=== PATIENT | female | born 1985 | race Caucasian/White ===

== ENCOUNTER 2022-05-21 01:21 | Emergency (ER) | payer BC, SELFPAY ==
[2022-05-21 01:32] VITALS: BP 135/82; PULSE 85; RESP 18; TEMP 35.9; O2SAT 98
--- NOTE | 2022-05-21 02:02 | CRLHL7_ITS ---
For Patients: As a result of the Cures Act, medical imaging exams and procedure reports are released immediately into your electronic medical record. You may view this report before your referring provider. If you have questions, please contact your health care provider. INDICATION: Right sided abdominal pain TECHNIQUE: CT Abdomen and pelvis with i.v. contrast. Coronal and sagittal reformats were obtained. CONTRAST: 91 mL Isovue 370 COMPARISON: 03/12/2021 FINDINGS: Lower chest: Unremarkable. Liver: Unremarkable. Spleen: Unremarkable. Pancreas: Unremarkable. Gallbladder: Unremarkable. Kidney: Unremarkable. No kidney or ureteral stones or obstruction seen. Adrenal: Unremarkable. Bowel: Unremarkable. The appendix is not identified. A small fat containing right paraumbilical hernia is present without interval change. Vascular: Unremarkable. Lymph: Unremarkable. Peritoneum: Unremarkable. No pneumoperitoneum is seen. No significant ascites is noted. Pelvis: The patient is status post hysterectomy. Soft tissue: Unremarkable. Bone: Unremarkable for age. IMPRESSION: 1. No CT correlate for the patient`s symptoms seen. Dictated by Moi Nelson MD @ 05/21/2022 3:02:13 AM Please note that all CT scans at this facility use dose modulation, iterative reconstruction, and/or weight-based dosing when appropriate to reduce radiation dose to as low as reasonably achievable. Dictated by: Moi Nelson MD @ 05/21/2022 03:02:19 (Electronically Signed)
--- NOTE | 2022-05-21 02:03 | ED.GENADULT ---
HPI - General Adult General Date Seen: 05/21/22 Chief complaint: Abdominal Pain Stated complaint: Pain on rt side Time Seen by Provider: 05/21/22 01:29 Source: patient Mode of arrival: ambulatory Limitations: no limitations History of Present Illness HPI narrative: Patient is a 36-year-old female who comes in with two weeks of right-sided abdominal pain. She has tried Tylenol, ibuprofen, naproxen all without relief. She denies any relation to meals. Her bowels move regularly and she denies constipation or diarrhea. She denies any dysuria, urgency, frequency. She has had no fevers or chills. Pain got worse tonight and it was difficult for her to sit up without pain. She comes in after midnight with inability to sleep due to this discomfort. She has had no weight loss. She has had multiple previous abdominal surgeries due to ovarian cancer. She has had a TAHBSO about two years ago. She is currently only on venlafaxine for hot flashes. She has a history of acid reflux but does not mention that tonight. She has not had any labs done in over six months. She follows with an oncologist in the [facility]. She states that her local PCP has been gone for the past eight weeks. Related Data Home Medications Medication Instructions Recorded Confirmed multivitamin 1 tab PO QDAY 03/13/22 03/13/22 omeprazole 40 mg capsule,delayed 40 mg PO QDAY 03/13/22 03/13/22 release venlafaxine 75 mg tablet 75 mg PO QDAY 03/13/22 03/13/22 Previous Rx's Medication Instructions Recorded hydrocodone 5 mg-acetaminophen 325 1 tab PO Q4-6H PRN pain #10 tabs 05/21/22 mg tablet Allergies Allergy/AdvReac Type Severity Reaction Status Date / Time codeine Allergy Intermediate Verified 05/21/22 02:40 gabapentin Allergy Intermediate Hives Verified 05/21/22 02:40 Tramadol Allergy Intermediate Headache, Uncoded 05/21/22 02:40 rashes Review of Systems Status of ROS: Reports: 10 or more systems reviewed and unremarkable except as noted in History and below PFS PFS Social History Smoking Status: Never smoker Second hand tobacco smoke exposure: No How often do you have a drink containing alcohol: never AUDIT-C Alcohol total score: 0 Non-prescribed substance use: denies use service: No Exam Narrative: Exam Narrative: Vitals noted. Lungs: Clear to auscultation in all mazariegos. No wheezes, rales, rhonchi. Heart: Regular rate and rhythm without murmur. Abdomen: Obese, Soft. No guarding, rigidity, rebound. Bowel sounds are normal. No palpable masses. She has a midline abdominal scar that is well-healed. Extremities: No cyanosis or edema. Good distal pulses. Skin: No abnormalities noted of the exposed skin. Neurologic: Awake, alert, fully oriented. Neurologic exam is nonfocal. Const: Vital Signs, click to edit/add: Vital Signs - 24 hr 05/21/22 01:32 Temperature 96.7 F L Pulse Rate [Left F emoral] 85 Respiratory Rate 18 Blood Pressure [Ri ght Upper Arm] 135/82 Pulse Oximetry 98 Oxygen Delivery Me thod Room Air Course Course Hospital Course: Patient is seen and examined. Labs and CT of her abdomen and pelvis with IV contrast are ordered. She is given Toradol 30 mg IV for pain. Reevaluation(s) Reevaluation #1: Labs are all normal other than a minimally elevated lipase. CT shows a small periumbilical hernia this likely not the cause of her pain. Toradol did help some but she states that pain is still present. She is reassured by all of the normal results. She acknowledges that she was fearful that this represented recurrent cancer and she just missed her oncology appointment a week ago. I have encouraged her to reschedule that appointment. Vital Signs Vital signs: Initial Vital Signs Temperature 96.7 F L 05/21/22 01:32 Temperature Source Temporal Artery Scan 05/21/22 01:32 Pulse Rate 85 05/21/22 01:32 Pulse Rhythm 05/21/22 01:32 Respiratory Rate 18 05/21/22 01:32 Blood Pressure 135/82 05/21/22 01:32 Blood Pressure Mean 99 05/21/22 01:32 Blood Pressure Position Semi-Fowlers 05/21/22 01:32 Pulse Oximetry 98 05/21/22 01:32 Oxygen Delivery Method 05/21/22 01:32 Vital Signs Temperature 96.7 F L 05/21/22 01:32 Pulse Rate 85 05/21/22 01:32 Respiratory Rate 18 05/21/22 01:32 Blood Pressure 135/82 05/21/22 01:32 Pulse Oximetry 98 05/21/22 01:32 Oxygen Delivery Method 05/21/22 01:32 Temperature 96.7 F L 05/21/22 01:32 Pulse Rate 85 05/21/22 01:32 Respiratory Rate 18 05/21/22 01:32 Blood Pressure 135/82 05/21/22 01:32 Pulse Oximetry 98 05/21/22 01:32 Oxygen Delivery Method 05/21/22 01:32 Medical Decision Making MDM Narrative Medical decision making narrative: We discussed that her scan in labs are all reassuring in that there is no evidence of recurrent cancer. I suspect that this is intestinal pain. We discussed a bland diet and increased fiber. I did provide her with some Hillburn for refractory pain. Lab Data Labs: Lab Results 05/21/22 05/21/22 05/21/22 Range/Units 02:13 02:13 03:00 WBC 5.86 (4.50-11.00) K/uL RBC 4.74 (4.00-5.20) m/uL Hgb 14.6 (12.0-16.0) gm/dL Hct 41.7 (33.0-51.0) % MCV 88 (80-100) fL MCH 31 (26-34) pg MCHC 35 (32-36) gm/dL RDW Coeff of Nadiya 12.3 (11.5-15.5) % Plt Count 209 (140-440) K/uL Neut % (Auto) 47.3 (42.0-72.0) % Lymph % (Auto) 38.9 (20-44) % [place] % (Auto) 7.7 (0.0-11.0) % Eos % (Auto) 4.6 (0.0-7.0) % Baso % (Auto) 1.2 (0.0-3.0) % Neut # (Auto) 2.77 (1.7-7.0) K/uL Lymph # (Auto) 2.28 (0.90-2.90) K/uL [place] # (Auto) 0.50 (0.00-0.90) K/UL Eos # (Auto) 0.27 (0.00-0.50) K/uL Baso # (Auto) 0.07 (0.00-0.30) K/uL Abs Immat Gran (auto) 0.02 (0.00-0.30) K/uL Sodium 143 (135-149) mmol/L Potassium 3.7 (3.6-5.1) mmol/L Chloride 103 (96-114) mmol/L Carbon Dioxide 23 (20-32) mmol/L BUN 14 (5-24) mg/dL Creatinine 0.8 (0.5-1.5) mg/dL Estimated GFR 98 ml/min Glucose 90 (60-115) mg/dL Calcium 8.5 (8.4-10.6) mg/dL Total Bilirubin 0.3 (0.1-1.5) mg/dL Direct Bilirubin 0.1 (0.0-0.5) mg/dL AST 32 (12-35) U/L ALT 30 (4-35) U/L Alkaline Phosphatase 106 (40-150) U/L Total Protein 8.2 (6.0-8.3) g/dL Albumin 4.9 (3.3-5.0) g/dL Lipase 346 H (23-300) U/L Urine Color Yellow (Yellow) Urine Appearance Clear (Clear) Urine pH 5.0 (5.0-8.5) Ur Specific [place] 1.010 (1.000-1.030) Urine Protein Negative (Negative) Urine Glucose (UA) Negative (Negative) Urine Ketones Trace A (Negative) Urine Blood Trace-lysed A (Negative) Urine Nitrite Negative (Negative) Urine Bilirubin Negative (Negative) Urine Urobilinogen 0.2 (0.2-1.0) Ur Leukocyte Esterase Negative (Negative) Urine RBC 0-2 (0-2) Urine WBC 0-2 (0-5) Ur Squamous Epith Cells Few (None-Few) Urine Bacteria None (None) Discharge Plan Discharge Clinical Impression: Abdominal pain Patient Disposition: Home, Self-Care Condition: Stable Additional Instructions: Use Ibuprofen and [place] for pain. If no better over the next 2-3 days follow up with your PCP or your Oncologist. Prescriptions: New hydrocodone-acetaminophen 5-325 mg tablet 1 tab PO Q4-6H PRN (Reason: pain) Qty: 10 0RF No Action omeprazole 40 mg capsule,delayed release(DR/EC) 40 mg PO QDAY venlafaxine 75 mg tablet 75 mg PO QDAY multivitamin Tablet 1 tab PO QDAY Follow Up/Referrals: Shanti Lara, REEL AND REWINDER OPERATOR [Primary Care Provider] - Stand Alone Forms: My[facility] Info Instructions
[2022-05-21 02:28] LABS: Basophils Absolute Auto 0.07 K/uL (0.00-0.30); Basophils Percent Auto 1.2 % (0.0-3.0); Eosinophils Absolute Auto 0.27 K/uL (0.00-0.50); Eosinophils Percent Auto 4.6 % (0.0-7.0); Hematocrit 41.7 % (33.0-51.0); Hemoglobin* 14.6 gm/dL (12.0-16.0); Immature Granulocytes Abs Auto 0.02 K/uL (0.00-0.30); Lymphocytes Absolute Auto 2.28 K/uL (0.90-2.90); Lymphocytes Percent Auto 38.9 % (20-44); Mean Corpuscular HGB Conc 35 gm/dL (32-36); Mean Corpuscular Hemoglobin 31 pg (26-34); Mean Corpuscular Volume 88 fL (80-100); Monocytes Percent Auto 7.7 % (0.0-11.0); Neutrophils Absolute Auto 2.77 K/uL (1.7-7.0); Neutrophils Percent Auto 47.3 % (42.0-72.0); Platelet Count* 209 K/uL (140-440); RDW Coefficient of Variation % 12.3 % (11.5-15.5); Red Blood Count 4.74 m/uL (4.00-5.20); Slide Review Reflex No; White Blood Count* 5.86 K/uL (4.50-11.00)
[2022-05-21] MEDS: KETOROLAC 30 MG/ML inj IVP (02:31)
[2022-05-21 02:37] LABS: Albumin* 4.9 g/dL (3.3-5.0); Chloride* 103 mmol/L (96-114); Potassium* 3.7 mmol/L (3.6-5.1); Sodium* 143 mmol/L (135-149)
[2022-05-21 02:39] LABS: Creatinine* 0.8 mg/dL (0.5-1.5); Estimated Glomerular Filt Rate 98 ml/min
[2022-05-21 02:40] LABS: Alanine Aminotransferase* 30 U/L (4-35); Alkaline Phosphatase* 106 U/L (40-150); Aspartate Amino Transferase* 32 U/L (12-35); Bilirubin Direct* 0.1 mg/dL (0.0-0.5); Bilirubin Total* 0.3 mg/dL (0.1-1.5); Blood Urea Nitrogen* 14 mg/dL (5-24); Calcium* 8.5 mg/dL (8.4-10.6); Carbon Dioxide* 23 mmol/L (20-32); Glucose* 90 mg/dL (60-115); Lipase* 346 U/L (23-300); Total Protein* 8.2 g/dL (6.0-8.3)
[2022-05-21 03:04] LABS: Appearance Urine Clear (Clear); Bilirubin Urine Negative (Negative); Blood Urine Trace-lysed (Negative); Color Urine Yellow (Yellow); Glucose Urine Negative (Negative); Ketones Urine Trace (Negative); Leukocyte Esterase Urine Negative (Negative); Nitrite Urine Negative (Negative); Protein Urine Negative (Negative); Urobilinogen Urine 0.2 (0.2-1.0)
[2022-05-21 03:13] LABS: RBC Urine 0-2 (0-2); Squamous Epithelial Cell Urine Few (None-Few); WBC Urine 0-2 (0-5)
[2022-05-21 03:50] VITALS: BP 126/66; PULSE 82; RESP 16; O2SAT 96
== END 2022-05-21 03:55 | disposition home or self-care (01) ==
PROVIDERS: Emergency Provider Family Medicine; PCP Nurse Practitioner Family
DX: R10.9 Unspecified abdominal pain (principal)
CPT/HCPCS: 36415; 74177; 80048; 80076; 81003; 81015; 83690; 85025; 96374; 99283; 99284; J1885; Q9967

== ENCOUNTER 2023-02-25 09:30 | Outpatient (CLI) | payer BC, SELFPAY ==
--- NOTE | 2023-02-25 10:00 | CRLHL7_ITS ---
For Patients: As a result of the Century Cures Act, medical imaging exams and procedure reports are released immediately into your electronic medical record. You may view this report before your referring provider. If you have questions, please contact your health care provider. Indication: ABDOMINAL PAIN Technique: Postcontrast CT abdomen and pelvis. 97 cc Isovue 370 intravenous contrast. Please note that all CT scans at this facility use dose modulation, iterative reconstruction, and/or weight-based dosing when appropriate to reduce radiation dose to as low as reasonably achievable. Comparison: 05/21/2022 Findings: Lung bases are clear. No infiltrate or pleural effusion. Mild diffuse hepatic steatosis. Focus of fat deposition within the liver adjacent to the falciform ligament is incidentally noted. The spleen is similar. Normal pancreas. Adrenal glands normal. Kidneys within normal limits. Normal gallbladder. No retroperitoneal or mesenteric adenopathy. No pelvic or inguinal adenopathy. The bladder is normal. Uterus is absent. No bowel obstruction or free air. No free fluid. Postoperative changes to the anterior abdominal wall, including anterior abdominal wall hernia repair. No fluid collection or abscess. No recurrent hernia. Disc bulging at L5-S1. This is similar to the prior study. Impression: Postop changes of anterior abdominal wall hernia repair without recurrent hernia, fluid collection, abscess or inflammatory change. No bowel obstruction. No evidence of diverticulitis. Mild hepatic steatosis. Please note that all CT scans at this facility use dose modulation, iterative reconstruction, and/or weight-based dosing when appropriate to reduce radiation dose to as low as reasonably achievable. Dictated by Ivan Hendricks MD @ 02/25/2023 3:18:45 PM (Electronically Signed)
== END 2023-02-25 09:31 | disposition home or self-care (01) ==
LOC: CT 09:30
PROVIDERS: PCP Nurse Practitioner Family; Visit Provider Surgery
DX: R10.9 Unspecified abdominal pain (principal); K76.0 Fatty (change of) liver, not elsewhere classified
CPT/HCPCS: 74177; Q9967

== ENCOUNTER 2023-03-16 06:23 | Outpatient (CLI) | payer BC, SELFPAY ==
--- NOTE | 2023-03-16 07:55 | W.ANESCHARGE ---
Anesthesia Charges Start Date/Time Anesthesia Start Date: 03/16/23 Anesthesia Start Time: 07:30 Stop Date/Time Anesthesia Stop Date: 03/16/23 Anesthesia Stop Time: 07:50
--- NOTE | 2023-03-16 08:22 | W.ANESCHARGE ---
Anesthesia Charges Start Date/Time Anesthesia Start Date: 03/16/23 Anesthesia Start Time: 07:30 Stop Date/Time Anesthesia Stop Date: 03/16/23 Anesthesia Stop Time: 07:50
== END 2023-03-16 06:24 | disposition home or self-care (01) ==
LOC: OP CLINIC 06:24
PROVIDERS: PCP Nurse Practitioner Family; Visit Provider Surgery
DX: R19.8 Other specified symptoms and signs involving the digestive system and abdomen (principal); K31.89 Other diseases of stomach and duodenum
CPT/HCPCS: 00731; 43239; 88305; J2704; J3490

== ENCOUNTER 2023-03-22 19:59 | Emergency (ER) | payer BC, SELFPAY ==
[2023-03-22 20:19] VITALS: BP 147/102; PULSE 97; RESP 20; TEMP 36.2; O2SAT 95; BMI 36.6
[2023-03-22] MEDS: cephALEXin 500 MG CAPSULE PO (23:21)
--- NOTE | 2023-03-22 23:24 | ED.NURSE ---
Patient's sutures dressed with gauze, bacitracin applied, both index and middle finger splinted.
[2023-03-22] MEDS: TETANUS/DIPHTH/PERTUSSIS 0.5 ML SYRINGE IM (23:46)
--- NOTE | 2023-03-23 01:29 | ED.GENADULT ---
HPI - General Adult General Date Seen: 03/22/23 Chief complaint: Laceration/Wound Stated complaint: finger lacerations Time Seen by Provider: 03/22/23 22:06 History of Present Illness HPI narrative: This is a pleasant 37-year-old female with a past medical history of cancer with subsequent hysterectomy and oophorectomy, but otherwise generally healthy, not anticoagulated. She presents to the ER today for accidental lacerations affecting the dorsal aspect of her left hand 2nd digit and 3rd digit over the dorsum of the PIP joints. She apparently accidentally cut herself on those fingers well she was cutting up vegetables for [employer] tonight. She is not up-to-date on her tetanus. She suffered a fairly large laceration over the dorsum of the PIP of her index finger. It was bleeding briskly it is quite uncomfortable. No associated numbness in that finger. She has a smaller laceration of the dorsum of the PIP on her ring finger. This is not as painful. Related Data Home Medications Medication Instructions Recorded Confirmed multivitamin 1 tab PO QDAY 03/13/22 02/17/23 omeprazole 40 mg capsule,delayed 40 mg PO QDAY 03/13/22 02/17/23 release Previous Rx's Medication Instructions Recorded venlafaxine 75 mg capsule,extended 75 mg PO QAM #90 caps 09/03/22 release 24 hr cephalexin 500 mg capsule 500 mg PO QID 7 days #28 caps 03/22/23 Allergies Allergy/AdvReac Type Severity Reaction Status Date / Time codeine Allergy Intermediate Verified 03/22/23 20:22 gabapentin Allergy Intermediate Hives Verified 03/22/23 20:22 Tramadol Allergy Intermediate Headache, Uncoded 02/17/23 11:34 rashes PFSH PFS Medical History Periumbilical hernia ?K42.9 - Umbilical hernia without obstruction or gangrene (ICD-10) Swelling of left knee joint ?M25.462 - Effusion, left knee (ICD-10) Surgical History History of hysterectomy ?Z90.710 - Acquired absence of both cervix and uterus (ICD-10) S/P repair of ventral hernia ?Z98.890 - Other specified postprocedural states (ICD-10) ?Z87.19 - Personal history of other diseases of the digestive system (ICD-10) S/P hysterectomy with oophorectomy ?Z90.710 - Acquired absence of both cervix and uterus (ICD-10) ?Z90.721 - Acquired absence of ovaries, unilateral (ICD-10) Social History (Updated 02/17/23 @ 12:24 by An Barker MD) 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 No alcohol Smoking Status: Never smoker Second hand tobacco smoke exposure: No How often do you have a drink containing alcohol: never AUDIT-C Alcohol total score: 0 Non-prescribed substance use: denies use service: No Exam Narrative: Exam Narrative: Constitutional: Appears well-developed and well-nourished. Alert. Conversant. Non toxic. HENT: Head: Atraumatic. Nose: Nose normal. Mouth/Throat: Oral mucosa is clear and moist. no trismus. Pharynx normal. Tonsils symmetric. No tonsillar enlargement, erythema, or exudate. Eyes: Conjunctivae normal. EOM normal. Pupils equal, round, and reactive to light. No scleral icterus. Neck: Normal range of motion. Neck supple. No tracheal deviation present. Cardiovascular: Symmetric radial artery pulses . Brisk distal cap refill in the fingertips of the injured digits. No active bleeding. Pulmonary/Chest: Effort normal. No stridor. No respiratory distress. Abdominal: Soft. Bowel sounds normal. No distension. No mass. No tenderness. No rebound. No guarding. Musculoskeletal: RUE: Normal range of motion. No tenderness. No deformity LUE: Normal except for a left hand 2nd and 3rd digits. On the 2nd digit there is a roughly 1.5 cm curvilinear laceration over the dorsum of the PIP joint. After digital block I inspected the wound carefully. This does create a flap of tissue in the wound does appear to penetrate through the extensor tendon and into the joint. She is able to flex the PIP joint but has difficulty extending the PIP. She is not able to flex and extend her D IP joint. Intact radial and ulnar digital nerve sensory function. She has a 1 cm linear laceration penetrating through the epidermis and dermis but not down into the tendon or joint on the dorsum of the PIP of her 3rd digit. Intact flexion extension of the MCP, PIP, DI P. Intact radial and ulnar digital nerve sensory function. RLE: Normal range of motion. No edema. No tenderness. No deformity LLE: Normal range of motion. No edema. No tenderness. No deformity Neurological: Alert and oriented to person, place, and time. Normal strength. CN II-VII intact. No sensory deficit. GCS eye subscore is 4. GCS verbal subscore is 5. GCS motor subscore is 6. Normal coordination Skin: Skin is warm and dry. No rash noted. No pallor. Normal capillary refill. Psychiatric: Normal mood. Normal affect. Const: Vital Signs, click to edit/add: Vital Signs - 24 hr 03/22/23 20:19 Temperature 97.1 F L Pulse Rate [Right Pulse Oximeter] 97 Respiratory Rate 20 Blood Pressure [Ri ght Upper Arm] 147/102 H Pulse Oximetry 95 Oxygen Delivery Me thod Room Air Course Vital Signs Vital signs: Initial Vital Signs Temperature 97.1 F L 03/22/23 20:19 Temperature Source Temporal Artery Scan 03/22/23 20:19 Pulse Rate 97 03/22/23 20:19 Pulse Rhythm Regular 03/22/23 20:19 Pulse Strength 3+ Normal 03/22/23 20:19 Respiratory Rate 20 03/22/23 20:19 Blood Pressure 147/102 H 03/22/23 20:19 Blood Pressure Mean 117 H 03/22/23 20:19 Blood Pressure Position Sitting 03/22/23 20:19 Pulse Oximetry 95 03/22/23 20:19 Oxygen Delivery Method Room Air 03/22/23 20:19 Vital Signs Temperature 97.1 F L 03/22/23 20:19 Pulse Rate 97 03/22/23 20:19 Respiratory Rate 20 03/22/23 20:19 Blood Pressure 147/102 H 03/22/23 20:19 Pulse Oximetry 95 03/22/23 20:19 Oxygen Delivery Method Room Air 03/22/23 20:19 Temperature 97.1 F L 03/22/23 20:19 Pulse Rate 97 03/22/23 20:19 Respiratory Rate 20 03/22/23 20:19 Blood Pressure 147/102 H 03/22/23 20:19 Pulse Oximetry 95 03/22/23 20:19 Oxygen Delivery Method Room Air 03/22/23 20:19 Medical Decision Making MDM Narrative Medical decision making narrative: Procedure: Laceration repair Location: Left hand 3rd digit, dorsum of PIP joint Length: 1 cm Preparation: Scrubbing and irrigation with sterile saline and Hibiclens Anesthesia: Digital block using 3 mL of 0.25% bupivacaine without epi Wound repair: Closed using#2 5 0 Ethilon simple interrupted sutures Procedure: Laceration repair Location: Left hand, 2nd digit, dorsum of the PIP joint Length: 1.5 cm Perforation: Scrubbing and irrigation with sterile saline and Hibiclens Anesthesia: Digital block using 3 mL of 0.25% bupivacaine without epi Wound repair: Wound was closed using#4 5 0 Ethilon simple interrupted sutures. My evaluation does show signs of joint and extensor tendon injury. Findings and exam are consistent with an uncomplicated laceration to the dorsum of the left hand, 3rd digit which was repaired as noted above. There is no evidence at this time to suggest any associated fracture or foreign body. There is no evidence to suggest tendon or arterial injury and patient is neurologically in tact. She also has a deeper laceration affecting the 2nd digit. I do think this involves the joint space of the PIP joint and the extensor tendon of that digit. Skin was closed as above. Will start the patient on prophylactic antibiotics. Discussed with our on-call orthopedic provider. She will arrange for the patient have follow-up in orthopedic clinic and they believe they would be able to repair the extensor tendon injury here in the [place] [facility]. The patient is to follow up for suture removal as instructed in 10 days. Indications to seek urgent reevaluation and signs of infection (including but not limited to increasing pain, redness, swelling, fevers, and drainage) were reviewed. Tetanus is updated tonight. Although is a clean and non-contaminated wound in since the wound penetrates down to the tendon and joint, we will initiate prophylactic antibiotics. First dose of cephalexin provided here.. An understanding of the discharge instructions and need for follow up were verbally confirmed. Instymeds prescriptions for [place] provided. Opiate precautions sedation precautions reviewed. Discharge Plan Discharge Clinical Impression: Finger laceration, Extensor tendon laceration, finger, open wound Patient Disposition: Home, Self-Care Condition: Stable Instructions: Finger Laceration (ED), Tendon Laceration (ED) Additional Instructions: He will need to have your stitches removed in 10 days. Unfortunately we see signs that you injured the knuckle joint and the tendon that extends your index finger. You will need to have this injury repaired by Orthopedics. For wound care, keep the antibiotic ointment and dressings on today. It is located take the dressings off on Thursday, clean the wound gently with warm water. Let the wound dry. Reapply antibiotic ointment, bandage is or dressings and reapply the splints. Try to keep the splint on to protect her finger knuckles from bending and plan upper the wounds until you can be rechecked by Orthopedics. Please continue the preventative antibiotics to keep infections from setting in in your fingers. If you have any signs of redness, swelling, pus coming from the wounds, fever, or any concerns, see your orthopedic doctor or return to the ER right away. Use the prescription pain killer ([place]) if needed for pain. Be careful because this causes drowsiness, so do not drive a car or perform dangerous activities for 6 hours after taking this medicine. This medicine can be addictive. Please follow up with the [facility] clinic within 1-2 days to recheck for your tendon injury. call [phone] Prescriptions: New cephalexin 500 mg capsule 500 mg PO QID 7 Days Qty: 28 0RF No Action venlafaxine 75 mg capsule,extended release 24hr 75 mg PO QAM Qty: 90 3RF omeprazole 40 mg capsule,delayed release(DR/EC) 40 mg PO QDAY multivitamin Tablet 1 tab PO QDAY Follow Up/Referrals: Shanti Lara RELAY TESTER [Primary Care Provider] - Stand Alone Forms: [employer] Info Instructions
== END 2023-03-22 23:55 | disposition home or self-care (01) ==
PROVIDERS: Emergency Provider Emergency Medicine; PCP Nurse Practitioner Family
DX: S61.211A Laceration without foreign body of left index finger without damage to nail, initial encounter (principal); S61.213A Laceration without foreign body of left middle finger without damage to nail, initial encounter; W26.0XXA Contact with knife, initial encounter; Z23 Encounter for immunization
CPT/HCPCS: 12001; 90471; 90715; 99283; A9270

== ENCOUNTER 2023-03-31 09:46 | Day surgery (SDC) | payer BC, SELFPAY ==
[2023-03-31] VITALS (13 sets, daily range): BP systolic 130–178; BP diastolic 77–99; PULSE 67–98; RESP 16–20; TEMP 36.3–36.7; O2SAT 96–100; BMI 35.4
[2023-03-31] MEDS: LACTATED RINGERS 1000 ML 1,000 ML 35 ML IV (09:50)
[2023-03-31] MEDS: SODIUM CHLORIDE 0.9 % (FLUSH) 10 ML SYRINGE IVF (10:09)
[2023-03-31] MEDS: CEFAZOLIN 2 GM INJ IVP (11:40)
[2023-03-31] MEDS: BUPIVACAINE 0.5% 30 ML INJECTION (12:16)
[2023-03-31] MEDS: lidocaine HCL 2 % MULTIDOSE 20 ML VIAL INJECTION (12:16)
--- NOTE | 2023-03-31 12:58 | P.ORPRC_ITS ---
Procedure Note Date of procedure: 03/31/23 Procedure: PREOPERATIVE DIAGNOSIS: Left hand index finger extensor tendon laceration POSTOPERATIVE DIAGNOSIS: Left hand index finger extensor tendon laceration NAME OF OPERATION: Left hand index finger extensor tendon laceration repair SURGEON: Eduar Venegas MD EXPERT MEDICAL WRITER: YANNI Ceballos ANESTHESIA: Local ESTIMATED BLOOD LOSS: 0 mL COMPLICATIONS: None SPECIMENS: None DRAINS: None PREOPERATIVE ANTIBIOTICS: Ancef 2 gram INDICATIONS: The patient is a 37-year-old [id number] female with a history of an extensor tendon laceration . Primary repair was recommended. The risks, benefits and expected outcomes were discussed in detail. These included but were not limited to: Infection, bleeding, injury to blood vessel or nerve, venous thromboembolism. All questions were answered to their satisfaction. PROCEDURE: The patient was placed supine on the operating room table. Local anesthesia was established with a digital block. The left upper extremity was prepped and draped in the usual sterile fashion. A tournicot was used. The radial side of the laceration was extended distally. We did not extend the laceration proximally. The laceration extends directly through the extensor mechanism, into the PIP joint. The articular cartilage is uninjured. The joint was irrigated with 500 mL of normal saline via bulb syringe. We then repaired the extensor mechanism with a 4-0 FiberWire suture in an interrupted [id number] fashion. Skin was closed with a 4-0 nylon in a simple interrupted fashion. The tournicot was released. A dry dressing and Alumafoam splint were applied. Sponge and needle counts were correct x2. The patient tolerated the procedure well. They were sent to same-day surgery in satisfactory condition. PLAN: The patient will be discharged to home. The intraoperative dressing can be discontinued on postoperative day 3. motion and time study teacher use of the Alumafoam splint, no active range of motion. At 4 weeks some gentle range of motion can be started, with continued splint protection for another 2 weeks. Aggressive flexion at 6 weeks. They will follow up in the office in 2 weeks for a wound check.
== END 2023-03-31 13:10 | disposition home or self-care (01) ==
PROVIDERS: PCP Nurse Practitioner Family; Visit Provider Orthopaedic Surgery
PROC: (CPT 26418; principal; 2023-03-31 10:45)
DX: S66.321A Laceration of extensor muscle, fascia and tendon of left index finger at wrist and hand level, initial encounter (principal)
CPT/HCPCS: 26418; J0665; J0690; J7120

== ENCOUNTER 2023-08-04 14:28 | Emergency (ER) | payer BC, SELFPAY ==
[2023-08-04 14:33] VITALS: BP 137/86; PULSE 98; RESP 18; TEMP 36.6; O2SAT 96; BMI 34.6
--- NOTE | 2023-08-04 14:43 | CRLHL7_ITS ---
For Patients: As a result of the Century Cures Act, medical imaging exams and procedure reports are released immediately into your electronic medical record. You may view this report before your referring provider. If you have questions, please contact your health care provider. Indication: Trauma. Technique: Right ankle, 3 views. Comparison: None. Findings/Impression: Bones: Acute minimally displaced lateral malleolar fracture. Joint spaces: Associated joint effusion. Soft tissues: Associated soft tissue swelling. Dictated by Stanley Kendall MD @ 08/04/2023 3:24:59 PM (Electronically Signed)
--- NOTE | 2023-08-04 14:47 | ED.LOWEXIN ---
HPI - Extremity Injury (Lower) General Chief Complaint: Extremity Pain/Injury, Lower Stated Complaint: R ankle injury Time Seen by Provider: 08/04/23 14:36 History of Present Illness HPI Narrative: This 37-year-old female comes in with an injury to her right ankle. Three days ago she tripped and twisted her ankle. She has been ambulatory since then on this ankle but does have significant swelling and bruising with pain primarily on the lateral aspect of her right ankle. She did not have any other injury related to this incident. Related Data Home Medications Medication Instructions Recorded Confirmed multivitamin 1 tab PO QDAY 03/13/22 08/04/23 omeprazole 40 mg capsule,delayed 40 mg PO QDAY 03/13/22 08/04/23 release Previous Rx's Medication Instructions Recorded venlafaxine 75 mg capsule,extended 75 mg PO QAM #90 caps 06/01/23 release 24 hr celecoxib 100 mg capsule (Celebrex) 100 mg PO BID PRN pain #60 caps 07/28/23 Allergies Allergy/AdvReac Type Severity Reaction Status Date / Time codeine Allergy Intermediate Verified 08/04/23 14:38 gabapentin Allergy Intermediate Hives Verified 08/04/23 14:38 tramadol AdvReac rash, Verified 08/04/23 14:38 headaches Review of Systems Status of ROS: Reports: 10 or more systems reviewed and unremarkable except as noted in History and below Narrative: Constitutional: No fevers, no weight gain or loss. Eyes: No discharge. No vision changes. HENT: No congestion, no sore throat, no ear pain. Cardiovascular: No chest pain, no palpitations. Respiratory: No shortness of breath, no wheezes, no cough. Gastrointestinal: No abdominal pain, no vomiting, no diarrhea. Genitourinary: No dysuria, no hematuria. Musculoskeletal: Right ankle injury as described above. Skin: No rashes, no pruritis. Neurological: No dizziness, weakness, sensory change, speech change. Endo/Heme/Allergies: No bruising or bleeding. No polydipsia. Pysch: no suicidality, no anxiety, no insomnia. All other systems reviewed and are negative. [facility] Medical History (Updated 08/04/23 @ 15:42 by Mack Boland MD) Periumbilical hernia ?K42.9 - Umbilical hernia without obstruction or gangrene (ICD-10) Swelling of left knee joint ?M25.462 - Effusion, left knee (ICD-10) Surgical History (Updated 04/28/23 @ 15:55 by Vanesa Perea) S/P tendon repair (03/31/23) ?Z98.890 - Other specified postprocedural states (ICD-10) History of hysterectomy ?Z90.710 - Acquired absence of both cervix and uterus (ICD-10) S/P repair of ventral hernia ?Z98.890 - Other specified postprocedural states (ICD-10) ?Z87.19 - Personal history of other diseases of the digestive system (ICD-10) S/P hysterectomy with oophorectomy ?Z90.710 - Acquired absence of both cervix and uterus (ICD-10) ?Z90.721 - Acquired absence of ovaries, unilateral (ICD-10) Social History (Updated 05/11/23 @ 14:22 by Pippa Funez ~ [facility]) 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 No alcohol Smoking Status: Former smoker What tobacco products do you use: cigarettes Smoking quit date/years: <= 15 years ago Do you use any of these nicotine containing products: None Second hand tobacco smoke exposure: No How often do you have a drink containing alcohol: never AUDIT-C Alcohol total score: 0 Non-prescribed substance use: denies use service: No Exam Narrative: Exam Narrative: Constitutional: Well-developed, well-nourished, no acute distress. HEENT: Normocephalic, atraumatic. Neck: Normal range of motion. Nontender. Supple. Heart: Intact distal pulses. Lungs: No chest discomfort. No wheezes, rhonchi, or rales. Abdomen: Nontender. Back: Normal range of motion. Extremities: Right ankle has swelling and bruising extending to her toes. No tenderness on the medial malleolus but significant tenderness laterally. Skin: Intact. No rash. Warm. No erythema or pallor. Neurologic: No altered sensation. No weakness. Alert and oriented. Psychiatric: No suicidality. No anxiety or depression. No insomnia. Nursing notes and vitals signs are reviewed. Const: Vital Signs, click to edit/add: Vital Signs - 24 hr 08/04/23 14:33 Temperature 97.8 F Pulse Rate [Pulse Oximeter] 98 Respiratory Rate 18 Blood Pressure [Ri ght Upper Arm] 137/86 Pulse Oximetry 96 Oxygen Delivery Me thod Room Air Course Vital Signs Vital signs: Initial Vital Signs Temperature 97.8 F 08/04/23 14:33 Temperature Source Temporal Artery Scan 08/04/23 14:33 Pulse Rate 98 08/04/23 14:33 Respiratory Rate 18 08/04/23 14:33 Blood Pressure 137/86 08/04/23 14:33 Blood Pressure Mean 103 08/04/23 14:33 Blood Pressure Position Sitting 08/04/23 14:33 Pulse Oximetry 96 08/04/23 14:33 Oxygen Delivery Method Room Air 08/04/23 14:33 Vital Signs Temperature 97.8 F 08/04/23 14:33 Pulse Rate 98 08/04/23 14:33 Respiratory Rate 18 08/04/23 14:33 Blood Pressure 137/86 08/04/23 14:33 Pulse Oximetry 96 08/04/23 14:33 Oxygen Delivery Method Room Air 08/04/23 14:33 Temperature 97.8 F 08/04/23 14:33 Pulse Rate 98 08/04/23 14:33 Respiratory Rate 18 08/04/23 14:33 Blood Pressure 137/86 08/04/23 14:33 Pulse Oximetry 96 08/04/23 14:33 Oxygen Delivery Method Room Air 08/04/23 14:33 MDM - Extremity Injury (Lower) MDM Narrative Medical decision making narrative: This patient has an injury to her right ankle that occurred 4 days prior to arrival. X-ray imaging shows a minimally displaced ankle fracture at the distal fibula. She states that she has been ambulatory on this injury. She was fitted for a cam walking boot and states that she has crutches that can be used if needed. I advised her to follow-up with orthopedic clinic for ongoing management. Imaging Data XR R Ankle: Radiologist's impression: Bones: Acute minimally displaced lateral malleolar fracture. Joint spaces: Associated joint effusion. Soft tissues: Associated soft tissue swelling. Discharge Plan Discharge Clinical Impression: Ankle fracture Patient Disposition: Home, Self-Care Condition: Stable Additional Instructions: Wear boot to immobilize ankle. Use [id number] medicines as needed and directed. Follow-up with orthopedic clinic. Call [phone] for appointment. Prescriptions: No Action omeprazole 40 mg capsule,delayed release(DR/EC) 40 mg PO QDAY multivitamin Tablet 1 tab PO QDAY venlafaxine 75 mg capsule,extended release 24hr 75 mg PO QAM Qty: 90 0RF celecoxib [Celebrex] 100 mg capsule 100 mg PO BID PRN (Reason: pain) Qty: 60 0RF Follow Up/Referrals: Shanti Lara CNP [Primary Care Provider] - Stand Alone [facility]
--- OUTSIDE RECORDS SUMMARY | 2023-08-04 15:08 | XMS_ITS | Encounter Summary ---
Author Name Unknown Organization [place] Address [address] [place] [address] Care Team Providers Care Prison Keeper Name Role Phone No Ref-Primary, Physician Primary Care Provider Kavita Akhtar Unavailable [phone] Jonathan Pitts MD Unavailable Jonathan Pitts MD Unavailable Christine Poon RN Unavailable [phone] Shanti Lara NP Primary Care Provider [phone] Encounter Details Date Type Department Care Team (Late st Contact Info) Description 11/14/2021 [facility] [address] [place] [phone] Jonathan Pitts MD [address] [place] [address] Social History Tobacco Use Types Packs/Day Years Used Date Smoking Tobacco: Former Cigarettes 0.3 0 11/08/2000 - 07/27/2018 Smokeless Tobacco: Never Alcohol Use Standard Drinks/Week Comments Not Currently 0 (1 standard drink = 0.6 oz pur e alcohol) Sex and Gender Information Value Date Recorded Sex Assigned at Not on file Gender Identity Not on file Sexual Orientation Not on file COVID-19 Exposure Response Date Recorded In the last 10 days, have yo u been in contact with someone who was confirmed or suspected to have Coronavirus/COVID-19? No / Unsure 11/11/2021 7:46 AM CDT documented as of this encounter Plan of Treatment Not on file documented as of this encounter Visit Diagnoses Not on filedocumented in this encounter Care Teams Prison Keeper Relationship Specialty Start Date End Date No Ref-Primary, Physician PCP - General 07/29/17 03/16/22 Shanti Lara, FRONT END MANAGER [facility] [address] [place] [address] PCP - General Nurse Practitioner - [facility] 03/17/22 [facility] [address] [place] [address] Referring Physician engineer gas pumping station 07/29/17 Jonathan Pitts MD [address] [place] [address] [id number] MD Oncology 07/29/17 Jonathan Pitts MD [address] [place] [address] [phone] Assigned Cancer Care Provider 05/18/20 05/15/23 Christine Poon RN Specialty Senior Clinical Consultant Hematology & Oncology 12/02/21 documented as of this encounter
--- OUTSIDE RECORDS SUMMARY | 2023-08-04 15:08 | XMS_ITS | Encounter Summary ---
Author Name Unknown Organization [facility] Address [address] [place] [address] Care Team Providers Care Financial Specialist Name Role Phone Clinic, Fengprabhakar Rosenbaum Unavailable + [phone] Jonathan Pitts MD Unavailable [phone] Jonathan Pitts MD Unavailable [phone] Christine Poon RN Unavailable [phone] Shanti Lara SHAKE SAWYER Primary Care Provider [phone] Encounter Details Date Type Department Care Team (Late st Contact Info) Description 02/05/2023 [facility] [address] [place] [phone] Jonathan Pitts MD [address] [place] [address] Social History Tobacco Use Types Packs/Day Years Used Date Smoking Tobacco: Former Cigarettes 0.3 0 11/08/2000 - 07/27/2018 Smokeless Tobacco: Never Alcohol Use Standard Drinks/Week Comments Not Currently 0 (1 standard drink = 0.6 oz pur e alcohol) Sex and Gender Information Value Date Recorded Sex Assigned at Not on file Gender Identity Not on file Sexual Orientation Not on file documented as of this encounter Plan of Treatment Not on file documented as of this encounter Visit Diagnoses Not on filedocumented in this encounter Care Teams Financial Specialist Relationship Specialty Start Date End Date Shanti Lara, SHAKE SAWYER [facility] [address] [place] [address] PCP - General Nurse Practitioner - Family 03/17/22 [employer] [address] [place], [place] [address] Referring Physician vacuum drier tender 07/29/17 Jonathan Pitts MD [address] [place] [address] MD Oncology 07/29/17 Jonathan Pitts MD [address] [place] [address] Assigned Cancer Care Provider 05/18/20 05/15/23 Christine Poon, RN Specialty Skidder Hematology & Oncology 12/02/21 documented as of this encounter
--- OUTSIDE RECORDS SUMMARY | 2023-08-04 15:08 | XMS_ITS | Encounter Summary ---
Author Name Unknown Organization [facility] Address [address] [place] [address] Care Team Providers Care Peer Educator Name Role Phone No Ref-Primary, Physician Primary Care Provider Kavita Akhtar Unavailable [phone] Jonathan Pitts MD Unavailable Jonathan Pitts MD Unavailable Christine Poon RN Unavailable [phone] Shanti Lara NP Primary Care Provider [phone] Encounter Details Date Type Department Care Team (Late st Contact Info) Description 11/13/2021 [facility] [address] [place] [phone] Jonathan Pitts MD [address] [place] [address] Social History Tobacco Use Types Packs/Day [...] on filedocumented in this encounter Care Teams Peer Educator Relationship Specialty Start Date End Date No Ref-Primary, Physician PCP - General 07/29/17 03/16/22 Shanti Lara, FLOOR WORKER [employer] [facility] [address] [place] [address] PCP - General Nurse Practitioner - [facility] 03/17/22 [facility] [address] [place] [address] Referring Physician strategic partnership specialist 07/29/17 Jonathan Pitts MD [address] [place] [address] [id number] MD Oncology 07/29/17 Jonathan Pitts MD [address] [place] [address] [phone] Assigned Cancer Care Provider 05/18/20 05/15/23 Christine Poon RN Specialty Utility Bagger Hematology & Oncology 12/02/21 documented as of this encounter
--- OUTSIDE RECORDS SUMMARY | 2023-08-04 15:08 | XMS_ITS | Referral Summary ---
Author Name Unknown Organization [facility] Address [address] [place] [address] Care Team Providers Care Sweet Potato Disintegrator Name Role Phone Clinic, Kavita Rosenbaum Unavailable + [phone] Jonathan Pitts MD Unavailable Christine Poon RN Unavailable [phone] Shanti Lara NATIONAL COVERAGE SPECIALIST Primary Care Provider [phone] Allergies Active Allergy Reactions Criticality Noted Date Comments Codeine Rash Low 08/03/2017 Gabapentin Visual Disturbance Low 08/21/2017 Severe headache Morphine Rash Low 11/04/2011 MORPHINE AND RELATED Tramadol Rash Low 08/03/2017 Medications Medication Sig Dispensed Refills Start Date End Date Status Multiple Vitamins-Minerals (MULTI ADULT GUMMIES PO) 0 Active cholecalciferol 25 MCG (1000 UT) TABS 0 Active Calcium Carb-Cholecalciferol (CALCIUM 600+D3 PO) 0 Activ e Biotin 2500 MCG CAPS 0 Acti ve acetaminophen (TYLENOL) 325 MG tabletIndications:S/ P hysterectomy Take 2 tablets (650 mg) by mouth every 4 hours as needed for mild pain 50 tablet 0 06/22/2020 Active venlafaxine (EFFEXOR) 37.5 MG tabletIndications:Pr imary ovarian granulosa cell tumor, right,Vasomotor symptoms due to menopause Take 1 tablet (37.5 mg) by mouth daily Start with 37.5 mg (one tablet) once daily for one week. After week one, increase to 75 mg (two tablets) once daily for hot flashes 60 tablet 4 10/22/2021 Active Additional Information Patient not taking.Reported on 11/11/2021 venlafaxine (EFFEXOR) 75 MG tabletIndications:Pr imary ovarian granulosa cell tumor, right,Vasomotor symptoms due to menopause TAKE 1 TABLET(75 MG) BY MOUTH DAILY 30 tablet 3 05/21/2022 Active Active Problems Problem Noted Date Diagnosed Date Granulosa cell tumor 05/07/2020 Overview: Added automatically from request for surgery [id number] Pelvic pain in female 05/07/2020 Overview: Added automatically from request for surgery [id number] Pelvic mass 05/07/2020 Overview: Added automatically from request for surgery [id number] ADHD (attention deficit hyperactivity disorder) 05/16/2019 Endometrial hyperplasia without atypia, simple 0 09/23/2017 Primary ovarian granulosa cell tumor, 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 Chronic neck pain 05/16/2014 Chronic back pain 03/06/2014 Vitamin deficiency 04/10/2013 Obesity (BMI 30-39.9) 04/07/2013 Allergic rhinitis 12/06/2012 Severe major depression 09/05/2012 Alcohol abuse 06/11/2012 Immunizations Name Administration Dates Next Due COVID-19 MONOVALENT 12+ (Pfizer) 09/13/2021 HPV Quadrivalent 06/07/2013,12/06/2012, 3 TDAP Vaccine (Boostrix) 11/04/2012 Social History Tobacco Use Types Packs/Day Years Used Date Smoking Tobacco: Former Cigarettes 0.3 0 11/08/2000 - 07/27/2018 Smokeless Tobacco: Never Alcohol Use Standard Drinks/Week Comments Not Currently 0 (1 standard drink = 0.6 oz pur e alcohol) Adolescent Education Answer Date Record ed Getting School Help Needed Not on file 04/17 Sex and Gender Information Value Date Recorded Sex Assigned at Not on file Gender Identity Not on file Sexual Orientation Not on file Last Filed Vital Signs Vital Sign Reading Time Taken Comments Blood Pressure 122/76 11/11/2021 7:54 AM CDT Pulse 62 11/11/2021 7:54 AM CDT Temperature 36.6 ??C (97.9 ??F) 11/11/2021 7:54 AM CD T Respiratory Rate 18 11/11/2021 7:54 AM CDT Oxygen Saturation 97% 11/11/2021 7:54 AM CDT Inhaled Oxygen Concentration - - Weight 86.1 kg (189 lb 12.8 oz) 11/11/2021 7:54 AM CDT Height 160 cm (5' 2.99) 11/11/2021 7:54 AM CDT Body Mass Index 33.63 11/11/2021 7:54 AM CDT Plan of Treatment Not on file Advance Directives For more information, please contact: [phone] Latest Code Status on File Code Status Date Activated Date Inactivated Comments Full Code 06/22/2020 9:04 AM Question Answer Comments Code status determined by: Discussion wi patient/ legal decision maker Code Status History Code Status Date Activated Date Inactivated Comments Full Code 06/19/2020 8:21 PM 06/22/2020 9:04 AM All basic and advanced life-sustaining interventions are performed as appropriate Question Answer Comments Code status determined by: Discussion with patient/ legal decision maker Care Teams Sweet Potato Disintegrator Relationship Specialty Start Date End Date Shanti Lara NATIONAL COVERAGE SPECIALIST [facility] [address] [place] [address] PCP - General Nurse Practitioner - Family 03/17/22 [facility] [address] [place], [place] [address] Referring Physician form setter steel pan forms 07/29/17 Jonathan Pitts MD [address] [place] [address] Oncology 07/29/17 Christine Poon RN Specialty Clinical Trial Educator Hematology & Oncology 12/02/21
--- OUTSIDE RECORDS SUMMARY | 2023-08-04 15:08 | XMS_ITS | Clinical Summary ---
Author Name Unknown Organization [facility] Address [address] [place] [address] Care Team Providers Care Field Merchandiser Name Role Phone Clinic, Kavita Rosenbaum Unavailable [phone] Jonathan Pitts MD Unavailable [phone] Christine Poon RN Unavailable [phone] Shanti Lara NP Primary Care Provider [phone] Allergies Active Allergy Reactions Criticality Noted Date [...] Overview: Added automatically from request for surgery [id number] Pelvic pain in female 05/07/2020 Overview: Added automatically from request for surgery [id number] Pelvic mass 05/07/2020 Overview: Added automatically from request for surgery [id number] ADHD (attention deficit hyperactivity disorder) 05/16/2019 Endometrial [...] 11/11/2021 7:54 AM CDT Plan of Treatment Health Maintenance Due Date Last Done Comments ADVANCE CARE PLANNING 1985 ANNUAL REVIEW OF HM ORDERS 1985 DEPRESSION ACTION PLAN 1985 PHQ-9 1985 URINE DRUG SCREEN 1985 YEARLY PREVENTIVE VISIT 1985 HIV SCREENING 2000 HEPATITIS B IMMUNIZATION (2 of 3 - 3-dose series) 01/19/2003 12/22/2002 HEPATITIS C SCREENING 12/18/2003 COVID-19 Vaccine (3 - 2022-2 4 season) 2023 10/04/2021, 09/13/2021 INFLUENZA VACCINE (#1) 2023 DTAP/TDAP/TD IMMUNIZATION (3 - Td or Tdap) 11/05/2023 11/04/2013, 11/04/2012 HPV TEST 11/27/2024 11/28/2019, 11/28/2019 PAP 11/27/2024 11/28/2019 HPV IMMUNIZATION Completed 06/07/2013, 12/06/2012, 11/04/2012 IPV IMMUNIZATION Aged Out No longer e ligible based on patient's age to complete this topic MENINGITIS IMMUNIZATION Aged Out No l onger eligible based on patient's age to complete this topic Pneumococcal Vaccine: Pediatrics (0 to 5 Years) and At-Risk Patients (6 to 64 Years) Aged Out No longer eligible b ased on patient's age to complete this topic RSV MONOCLONAL ANTIBODY Aged Out No l onger eligible based on patient's age to complete this topic Advance Directives For more information, please contact: [phone] Latest Code Status on File Code Status Date Activated Date Inactivated Comments Full Code 06/22/2020 9:04 AM Question Answer Comments Code status determined by: Discussion wi th patient/ legal decision maker Code Status History Code Status Date Activated Date Inactivated Comments Full Code 06/19/2020 8:21 PM 06/22/2020 9:04 AM All basic and advanced life-sustaining interventions are performed as appropriate Question Answer Comments Code status determined by: Discussion with patient/ legal decision maker Care Teams Field Merchandiser Relationship Specialty Start Date End Date Shanti Lara, NEONATAL NURSE [facility] [address] [place] [address] PCP - General Nurse Practitioner - Family 03/17/22 [address] [place], [place] 77[address] Referring Physician shopper insights manager 07/29/17 Jonathan Pitts MD [address] [place] [address] Oncology 07/29/17 Christine Poon, RN Specialty Emergency Medicine Specialist Hematology & Oncology 12/02/21
--- OUTSIDE RECORDS SUMMARY | 2023-08-04 15:08 | XMS_ITS | Encounter Summary ---
Author Name Unknown Organization [facility] Address [address] [place] [address] Care Team Providers Care Health Physicist Name Role Phone No Ref-Primary, Physician Primary Care Provider Kavita Akhtar Unavailable [phone] Jonathan Pitts MD Unavailable [phone] Jonathan Pitts MD Unavailable Christine Poon RN Unavailable [phone] Shanti Lara NP Primary Care Provider [phone] Encounter Details Date Type Department Care Team ([facility] st Contact Info) Description 11/11/2021 MyC Medical Advice Initial Department [facility] Social History Tobacco Use Types Packs/Day Years [...] on filedocumented in this encounter Care Teams Health Physicist Relationship Specialty Start Date End Date No Ref-Primary, Physician PCP - General 07/29/17 03/16/22 Shanti Lara, FOCUSING MACHINE OPERATOR [facility] [address] [place] [address] PCP - General Nurse Practitioner - Family 03/17/22 [facility], [facility] [address] [place], [place] [id number] Referring Physician loader engineer 07/29/17 Jonathan Pitts MD [address] [place] [address] [id number] MD Oncology 07/29/17 Jonathan Pitts MD [address] [place] [address] [phone] Assigned Cancer Care Provider 05/18/20 05/15/23 Christine Poon RN Specialty Solar Field Installation Crew Member Hematology & Oncology 12/02/21 documented as of this encounter
--- OUTSIDE RECORDS SUMMARY | 2023-08-04 15:08 | XMS_ITS | Encounter Summary ---
Author Name Unknown Organization [facility] Address [address] [place] [address] Care Team Providers Care Sintering Press Operator Name Role Phone No Ref-Primary, Physician Primary Care Provider Kavita Akhtar Unavailable [phone] Jonathan Pitts MD Unavailable Jonathan Pitts MD Unavailable [phone] Christine Poon RN Unavailable [phone] Shanti Lara NP Primary Care Provider [phone] Encounter Details Date Type Department Care Team (Late st Contact Info) Description 03/13/2022 [facility] [address] [place] [phone] Jonathan Pitts MD [address] [place] [address] Social History Tobacco Use Types Packs/Day [...] on filedocumented in this encounter Care Teams Sintering Press Operator Relationship Specialty Start Date End Date No Ref-Primary, Physician PCP - General 07/29/17 03/16/22 Shanti Lara, TIG WELDER [facility] [address] [place] [address] PCP - General Nurse Practitioner - Family 03/17/22 [facility], [facility] [address] [place], [place] [phone] Referring Physician manager desktop 07/29/17 Jonathan Pitts MD [address] [place] [address] [phone] MD Oncology 07/29/17 Jonathan Pitts MD [address] [place] [address] [phone] Assigned Cancer Care Provider 05/18/20 05/15/23 Christine Poon, RN Specialty Blood Bank Credit Clerk Hematology & Oncology 12/02/21 documented as of this encounter
--- OUTSIDE RECORDS SUMMARY | 2023-08-04 15:09 | XMS_ITS | Encounter Summary ---
Author Name Unknown Organization [place] Address [address] [place] [address] Care Team Providers Care Ict Business Analyst Name Role Phone No Ref-Primary, Physician Primary Care Provider Kavita Akthar Unavailable [phone] Jonathan Pitts MD Unavailable Jonathan Pitts MD Unavailable [phone] Christine Poon RN Unavailable [phone] Shanti Lara NP Primary Care Provider [phone] Encounter Details Date Type Department Care Team (Late st Contact Info) Description 07/05/2020 [facility] [address] [place] [phone] Jonathan Pitts MD [address] [place] [address] Social History Tobacco Use Types Packs/Day [...] Exposure Response Date Recorded In the last month, have you been in contact with someone who was confirmed or suspected to have Coronavirus / COVID-19? No / Unsure 06/28/2020 7:41 AM CHRISTIAN COUNSELOR documented as of this encounter Plan of Treatment Not on file documented as of this encounter Visit Diagnoses Not on filedocumented in this encounter Care Teams Ict Business Analyst Relationship Specialty Start Date End Date No Ref-Primary, Physician PCP - General 07/29/17 03/16/22 Shanti Lara, MIMI [facility] [address] [place] [address] PCP - General Nurse Practitioner - [facility] 03/17/22 [facility] [address] [place], [place] 589145 Referring Physician solvent plant treater 07/29/17 Jonathan Pitts MD [address] [place] [address] [id number] MD Oncology 07/29/17 Jonathan Pitts MD [address] [place] [address] [phone] Assigned Cancer Care Provider 05/18/20 05/15/23 Christine Poon RN Specialty Solar Field Installation Crew Member Hematology & Oncology 12/02/21 documented as of this encounter
--- OUTSIDE RECORDS SUMMARY | 2023-08-04 15:09 | XMS_ITS | Encounter Summary ---
Author Name Unknown Organization [place] Address [address] [place] [address] Care Team Providers Care Green Inspector Name Role Phone No Ref-Primary, Physician Primary Care Provider Kavita Akhtar Unavailable [phone] Jonathan Pitts MD Unavailable Jonathan Pitts MD Unavailable Christine Poon RN Unavailable [phone] Shanti Lara NP Primary Care Provider [phone] Encounter Details Date Type Department Care Team (Late st Contact Info) Description 10/22/2020 [facility] [address] [place] [phone] Jonathan Pitts MD [address] [place] [address] Social History Tobacco Use Types Packs/Day [...] on filedocumented in this encounter Care Teams Green Inspector Relationship Specialty Start Date End Date No Ref-Primary, Physician PCP - General 07/29/17 03/16/22 Shanti Lara, SECURITY SHIFT MANAGER [facility] [address] [place] [address] PCP - General Nurse Practitioner - Family 03/17/22 [facility], [facility] [address] [place], [place] [phone] Referring Physician bookkeeping machine operator 07/29/17 Jonathan Pitts MD [address] [place] [address] [phone] MD Oncology 07/29/17 Jonathan Pitts MD [address] [place] [address] [phone] Assigned Cancer Care Provider 05/18/20 05/15/23 Christine Poon, RN Specialty Social Sciences Professor Hematology & Oncology 12/02/21 documented as of this encounter
--- OUTSIDE RECORDS SUMMARY | 2023-08-04 15:09 | XMS_ITS | Encounter Summary ---
Author Name Unknown Organization [place] Address [address] [place] [address] Care Team Providers Care Machine Brush Maker Name Role Phone No Ref-Primary, Physician Primary Care Provider Kavita Akhtar Unavailable [phone] Jonathan Pitts MD Unavailable Jonathan Pitts MD Unavailable Christine Poon RN Unavailable [phone] Shanti Lara NP Primary Care Provider [phone] Encounter Details Date Type Department Care Team (Late st Contact Info) Description 10/14/2021 [facility] [address] [place] [phone] Jonathan Pitts MD [address] [place] [address] Social History Tobacco Use Types Packs/Day [...] on filedocumented in this encounter Care Teams Machine Brush Maker Relationship Specialty Start Date End Date No Ref-Primary, Physician PCP - General 07/29/17 03/16/22 Shanti Lara, AIR BAG BUILDER [facility] [address] [place] [address] PCP - General Nurse Practitioner - Family 03/17/22 [facility], [facility] [address] [place] [phone] Referring Physician event promoter 07/29/17 Jonathan Pitts MD [address] [place] [address] [phone] MD Oncology 07/29/17 Jonathan Pitts MD [address] [place] [address] [phone] Assigned Cancer Care Provider 05/18/20 05/15/23 Christine Poon, RN Specialty B2B Account Executive Hematology & Oncology 12/02/21 documented as of this encounter
--- OUTSIDE RECORDS SUMMARY | 2023-08-04 15:09 | XMS_ITS | Encounter Summary ---
Author Name Unknown Organization [place] Address [address] [place] [address] Care Team Providers Care Lock Stitch Channeler Name Role Phone No Ref-Primary, Physician Primary Care Provider Kavita Akhtar Unavailable [phone] Jonathan Pitts MD Unavailable [phone] Jonathan Pitts MD Unavailable Christine Poon RN Unavailable [phone] Shanti Lara NP Primary Care Provider [phone] Encounter Details Date Type Department Care Team (Late st Contact Info) Description 11/23/2020 [facility] [address] [place] [phone] Jonathan Pitts MD [address] [place] [address] Social History Tobacco Use Types Packs/Day [...] have Coronavirus / COVID-19? No / Unsure 11/19/2020 8:42 AM CDT documented as of this encounter Plan of Treatment Not on file documented as of this encounter Visit Diagnoses Not on filedocumented in this encounter Care Teams Lock Stitch Channeler Relationship Specialty Start Date End Date No Ref-Primary, Physician PCP - General 07/29/17 03/16/22 Shanti Lara, ELEMENTARY SCHOOL DIRECTOR [facility] [address] [place] [address] PCP - General Nurse Practitioner - [facility] 03/17/22 [facility] [address] [place], [place] 0[address]35 Referring Physician sweater designer 07/29/17 Jonathan Pitts MD [address] [place] [address] [phone] MD Oncology 07/29/17 Jonathan Pitts MD [address] [place] [address] [id number] Assigned Cancer Care Provider 05/18/20 05/15/23 Christine Poon RN Specialty Lab Technician Hematology & Oncology 12/02/21 documented as of this encounter
--- OUTSIDE RECORDS SUMMARY | 2023-08-04 15:09 | XMS_ITS | Encounter Summary ---
Author Name Unknown Organization [place] Address [address] [place] [address] Care Team Providers Care Letter Of Credit Clerk Name Role Phone No Ref-Primary, Physician Primary Care Provider Kavita Akhtar Unavailable [phone] Jonathan Pitts MD Unavailable [phone] Jonathan Pitts MD Unavailable [phone] Christine Poon RN Unavailable [phone] Shanti Lara NP Primary Care Provider [phone] Encounter Details Date Type Department Care Team (Late st Contact Info) Description 09/13/2021 [facility] [address] [place] [phone] Jonathan Pitts MD [address] [place] [address] Social History Tobacco Use Types Packs/Day [...] on filedocumented in this encounter Care Teams Letter Of Credit Clerk Relationship Specialty Start Date End Date No Ref-Primary, Physician PCP - General 07/29/17 03/16/22 Shanti Lara, PAINTER [facility] [address] [place] [address] PCP - General Nurse Practitioner - Family 03/17/22 [facility], [facility] [address] [place], [place] [phone] Referring Physician elementary school professional 07/29/17 Jonathan Pitts MD [address] [place] [address] [phone] MD Oncology 07/29/17 Jonathan Pitts MD [address] [place] [address] [phone] Assigned Cancer Care Provider 05/18/20 05/15/23 Christine Poon, RN Specialty Tallow Pumper Hematology & Oncology 12/02/21 documented as of this encounter
--- OUTSIDE RECORDS SUMMARY | 2023-08-04 15:09 | XMS_ITS | Encounter Summary ---
Author Name Unknown Organization [place] Address [address] [place] [address] Care Team Providers Care Rounding Machine Operator Name Role Phone No Ref-Primary, Physician Primary Care Provider Kavita Akhtar Unavailable [phone] Jonathan Pitts MD Unavailable Jonathan Pitts MD Unavailable Christine Poon RN Unavailable [phone] Shanti Lara NP Primary Care Provider [phone] Encounter Details Date Type Department Care Team (Late st Contact Info) Description 11/20/2020 [facility] [address] [place] [phone] Jonathan Pitts MD [address] [place] [address] Social History Tobacco Use Types Packs/Day [...] on filedocumented in this encounter Care Teams Rounding Machine Operator Relationship Specialty Start Date End Date No Ref-Primary, Physician PCP - General 07/29/17 03/16/22 Shanti Lara, VOLUNTEER MANAGER [facility] [address] [place] [address] PCP - General Nurse Practitioner - [facility] 03/17/22 [facility] [address] [place], [place] 422125 Referring Physician geochemical laboratory technician 07/29/17 Jonathan Pitts MD [address] [place] [address] [id number] MD Oncology 07/29/17 Jonathan Pitts MD [address] [place] [address] [phone] Assigned Cancer Care Provider 05/18/20 05/15/23 Christine Poon RN Specialty Maintenance Mechanic Hematology & Oncology 12/02/21 documented as of this encounter
--- OUTSIDE RECORDS SUMMARY | 2023-08-04 15:09 | XMS_ITS | Encounter Summary ---
Author Name Unknown Organization [place] Address [address] [place] [address] Care Team Providers Care Graphic Engineer Name Role Phone No Ref-Primary, Physician Primary Care Provider Kavita Akhtar Unavailable [phone] Jonathan Pitts MD Unavailable Jonathan Pitts MD Unavailable Christine Poon RN Unavailable [phone] Shanti Lara NP Primary Care Provider [phone] Encounter Details Date Type Department Care Team (Late st Contact Info) Description 01/09/2021 [facility] [address] [place] [phone] Jonathan Pitts MD [address] [place] [address] Social History Tobacco Use Types Packs/Day [...] on filedocumented in this encounter Care Teams Graphic Engineer Relationship Specialty Start Date End Date No Ref-Primary, Physician PCP - General 07/29/17 03/16/22 Shanti Lara, TREATMENT PLANT MECHANIC [facility] [address] [place] [address] PCP - General Nurse Practitioner - Family 03/17/22 [facility], [facility] [address] [place], [place] [phone] Referring Physician peace officer 07/29/17 Jonathan Pitts MD [address] [place] [address] [phone] MD Oncology 07/29/17 Jonathan Pitts MD [address] [place] [address] [phone] Assigned Cancer Care Provider 05/18/20 05/15/23 Christine Poon, RN Specialty Classified Ad Clerk Hematology & Oncology 12/02/21 documented as of this encounter
--- OUTSIDE RECORDS SUMMARY | 2023-08-04 15:09 | XMS_ITS | Encounter Summary ---
Author Name Unknown Organization [place] Address [address] [place] [address] Care Team Providers Care Supervisor Speech Name Role Phone No Ref-Primary, Physician Primary Care Provider Kavita Akhtar Unavailable [phone] Jonathan Pitts MD Unavailable Jonathan Pitts MD Unavailable Christine Poon RN Unavailable [phone] Shanti Lara NP Primary Care Provider [phone] Encounter Details Date Type Department Care Team (Late st Contact Info) Description 08/15/2020 [facility] [address] [place] [phone] Jonathan Pitts MD [address] [place] [address] Social History Tobacco Use Types Packs/Day [...] on filedocumented in this encounter Care Teams Supervisor Speech Relationship Specialty Start Date End Date No Ref-Primary, Physician PCP - General 07/29/17 03/16/22 Shanti Lara, EXPLORATION GEOLOGIST [facility] [address] [place] [address] PCP - General Nurse Practitioner - Family 03/17/22 [facility], [facility] [address] [place], [place] [phone] Referring Physician electrical design technician 07/29/17 Jonathan Pitts MD [address] [place] [address] [phone] MD Oncology 07/29/17 Jonathan Pitts MD [address] [place] [address] [phone] Assigned Cancer Care Provider 05/18/20 05/15/23 Christine Poon, RN Specialty Cargo Service Supervisor Hematology & Oncology 12/02/21 documented as of this encounter
--- OUTSIDE RECORDS SUMMARY | 2023-08-04 15:09 | XMS_ITS | Encounter Summary ---
Author Name Unknown Organization [place] Address [address] [place] [address] 7[address] Care Team Providers Care Wood Cabinet Finisher Name Role Phone No Ref-Primary, Physician Primary Care Provider Kavita Akhtar Unavailable [phone] Jonathan Pitts MD Unavailable Jonathan Pitts MD Unavailable Chrisitne Poon RN Unavailable [phone] Shanti Lara NP Primary Care Provider [phone] Encounter Details Date Type Department Care Team (Late st Contact Info) Description 08/26/[address] [facility] [address] [place] [phone] Jonathan Pitts MD [address] [place] [address] Social History Tobacco Use Types Packs/Day [...] on filedocumented in this encounter Care Teams Wood Cabinet Finisher Relationship Specialty Start Date End Date No Ref-Primary, Physician PCP - General 07/29/17 03/16/22 Shanti Lara, AIRCRAFT STRUCTURAL DESIGN ENGINEER [facility] [address] [place] [address] PCP - General Nurse Practitioner - Family 03/17/22 [facility], [facility] [address] [place], [place] [phone] Referring Physician local flatbed driver 07/29/17 Jonathan Pitts MD [address] [place] [address] [id number] MD Oncology 07/29/17 Jonathan Pitts MD [address] [place] [address] [phone] Assigned Cancer Care Provider 05/18/20 05/15/23 Christine Poon, RN Specialty Jacket Preparer Hematology & Oncology 12/02/21 documented as of this encounter
--- OUTSIDE RECORDS SUMMARY | 2023-08-04 15:09 | XMS_ITS | Encounter Summary ---
Author Name Unknown Organization [place] Address [address] [place] [address] Care Team Providers Care Supervisor Hanging And Trimming Name Role Phone No Ref-Primary, Physician Primary Care Provider Kavita Akhtar Unavailable [phone] Jonathan Pitts MD Unavailable Jonathan Pitts MD Unavailable Chirstine Poon RN Unavailable [phone] Shanti Lara NP Primary Care Provider [phone] Encounter Details Date Type Department Care Team (Late st Contact Info) Description 09/03/2020 [facility] [address] [place] [phone] Jonathan Pitts MD [address] [place] [address] Social History Tobacco Use Types Packs/Day [...] filedocumented in this encounter Care Teams Supervisor Hanging And Trimming Relationship Specialty Start Date End Date No Ref-Primary, Physician PCP - General 07/29/17 03/16/22 Shanti Lara, MACHINE LACER [facility] [address] [place] [address] PCP - General Nurse Practitioner - Family 03/17/22 [facility], [facility] [address] [place], [place] [phone] Referring Physician feed mill operator 07/29/17 Jonathan Pitts MD [address] [place] [address] [phone] MD Oncology 07/29/17 Jonathan Pitts MD [address] [place] [address] [phone] Assigned Cancer Care Provider 05/18/20 05/15/23 Christine Poon, RN Specialty Swine Extension Field Specialist Hematology & Oncology 12/02/21 documented as of this encounter
--- OUTSIDE RECORDS SUMMARY | 2023-08-04 15:09 | XMS_ITS | Encounter Summary ---
Author Name Unknown Organization [place] Address [address] [place] [address] Care Team Providers Care Sheet Metal Lay Out Worker Name Role Phone No Ref-Primary, Physician Primary Care Provider Kavita Akhtar Unavailable [phone] Jonathan Pitts MD Unavailable Jonathan Pitts MD Unavailable [phone] Christine Poon RN Unavailable [phone] Shanti Lara NP Primary Care Provider [phone] Encounter Details Date Type Department Care Team (Late st Contact Info) Description 07/25/2020 [facility] [address] [place] [phone] Jonathan Pitts MD [address] [place] [address] Social History Tobacco Use Types Packs/Day [...] have Coronavirus / COVID-19? No / Unsure 07/09/2020 10:01 AM SENIOR QUALITY METHODS SPECIALIST documented as of this encounter Plan of Treatment Not on file documented as of this encounter Visit Diagnoses Not on filedocumented in this encounter Care Teams Sheet Metal Lay Out Worker Relationship Specialty Start Date End Date No Ref-Primary, Physician PCP - General 07/29/17 03/16/22 Shanti Lara, MIMI [facility] [address] [place] [address] PCP - General Nurse Practitioner - [facility] 03/17/22 [facility] [address] [place], [place] 9[address] Referring Physician partner management consultant 07/29/17 Jonathan Pitts MD [address] [place] [address] [phone] MD Oncology 07/29/17 Jonathan Pitts MD [address] [place] [address] [phone] Assigned Cancer Care Provider 05/18/20 05/15/23 Christine Poon RN Specialty Mri Ct Tech Hematology & Oncology 12/02/21 documented as of this encounter
--- OUTSIDE RECORDS SUMMARY | 2023-08-04 15:09 | XMS_ITS | Encounter Summary ---
Author Name Unknown Organization [place] Address [address] [place] [address] Care Team Providers Care Media Marketing Coordinator Name Role Phone No Ref-Primary, Physician Primary Care Provider Kavita Akhtar Unavailable [phone] Jonathan Pitts MD Unavailable Jonathan Pitts MD Unavailable [phone] Christine Poon RN Unavailable [phone] Shanti Lara NP Primary Care Provider [phone] Encounter Details Date Type Department Care Team (Late st Contact Info) Description 07/03/2020 [facility] [address] [place] [phone] Jonathan Pitts MD [address] [place] [address] Social History Tobacco Use Types Packs/Day [...] COVID-19? No / Unsure 06/28/2020 7:41 AM ENGINEERING PRODUCTION LIAISON documented as of this encounter Plan of Treatment Not on file documented as of this encounter Visit Diagnoses Not on filedocumented in this encounter Care Teams Media Marketing Coordinator Relationship Specialty Start Date End Date No Ref-Primary, Physician PCP - General 07/29/17 03/16/22 Shanti Lara, MIMI [facility] [address] [place] [address] PCP - General Nurse Practitioner - [facility] 03/17/22 [facility] [address] [place], [place] 244345 Referring Physician contact lens cutter 07/29/17 Jonathan Pitts MD [address] [place] [address] [phone] MD Oncology 07/29/17 Jonathan Pitts MD [address] [place] [address] [phone] Assigned Cancer Care Provider 05/18/20 05/15/23 Christine Poon RN Specialty Casing Soaker Hematology & Oncology 12/02/21 documented as of this encounter
--- OUTSIDE RECORDS SUMMARY | 2023-08-04 15:09 | XMS_ITS | Encounter Summary ---
Author Name Unknown Organization [place] Address [address] [place] [address] Care Team Providers Care Insurance Agency Owner Name Role Phone No Ref-Primary, Physician Primary Care Provider Kavita Akhtar Unavailable [phone] Jonathan iPtts MD Unavailable Jonathan Pitts MD Unavailable Christine Poon RN Unavailable [phone] Shanti Lara NP Primary Care Provider [phone] Encounter Details Date Type Department Care Team (Late st Contact Info) Description 07/24/2020 [facility] [address] [place] [phone] Jonathan Pitts MD [address] [place] [address] Social History Tobacco Use Types Packs/Day [...] COVID-19? No / Unsure 07/09/2020 10:01 AM PRINCIPAL PROGRAMMER documented as of this encounter Plan of Treatment Not on file documented as of this encounter Visit Diagnoses Not on filedocumented in this encounter Care Teams Insurance Agency Owner Relationship Specialty Start Date End Date No Ref-Primary, Physician PCP - General 07/29/17 03/16/22 Shanti Lara, MIMI [facility] [address] [place] [address] PCP - General Nurse Practitioner - [facility] 03/17/22 [facility] [address] [place], [place] 6826[address] Referring Physician ship self defense system mk1 operator 07/29/17 Jonathan Pitts MD [address] [place] [address] [phone] MD Oncology 07/29/17 Jonathan Pitts MD [address] [place] [address] [phone] Assigned Cancer Care Provider 05/18/20 05/15/23 Christine Poon RN Specialty Ripening Room Attendant Hematology & Oncology 12/02/21 documented as of this encounter
--- OUTSIDE RECORDS SUMMARY | 2023-08-04 15:09 | XMS_ITS | Encounter Summary ---
Author Name Unknown Organization [place] Address [address] [place] [address] Care Team Providers Care Lime Trimmer Name Role Phone No Ref-Primary, Physician Primary Care Provider Kavita Akhtar Unavailable [phone] Jonathan Pitts MD Unavailable Jonathan Pitts MD Unavailable [phone] Christine Poon RN Unavailable [phone] Shanti Lara NP Primary Care Provider [phone] Encounter Details Date Type Department Care Team (Late st Contact Info) Description 07/09/2020 [facility] [address] [place] [phone] Jonathan Pitts MD [address] [place] [address] Social History Tobacco Use Types Packs/Day [...] COVID-19? No / Unsure 07/09/2020 10:01 AM ESCROW SECRETARY documented as of this encounter Plan of Treatment Not on file documented as of this encounter Visit Diagnoses Not on filedocumented in this encounter Care Teams Lime Trimmer Relationship Specialty Start Date End Date No Ref-Primary, Physician PCP - General 07/29/17 03/16/22 Shanti Lara, MIMI [facility] [address] [place] [address] PCP - General Nurse Practitioner - [facility] 03/17/22 [facility] [address] [place], [place] 785425 Referring Physician bilingual administrative assistant 07/29/17 Jonathan Pitts MD [address] [place] [address] [phone] MD Oncology 07/29/17 Jonathan Pitts MD [address] [place] [address] [phone] Assigned Cancer Care Provider 05/18/20 05/15/23 Christine Poon RN Specialty Bumboater Hematology & Oncology 12/02/21 documented as of this encounter
--- OUTSIDE RECORDS SUMMARY | 2023-08-04 15:09 | XMS_ITS | Encounter Summary ---
Author Name Unknown Organization [place] Address [address] [place] [address] Care Team Providers Care Housetrailer Servicer Name Role Phone No Ref-Primary, Physician Primary Care Provider Kavita Akhtar Unavailable [phone] Jonathan Pitts MD Unavailable Jonathan Pitts MD Unavailable [phone] Christine Poon RN Unavailable [phone] Shanti Lara NP Primary Care Provider [phone] Encounter Details Date Type Department Care Team (Late st Contact Info) Description 07/05/2020 [facility] [address] [place] [phone] Jonathan Pitts MD [address] [place] [address] Social History Tobacco Use Types Packs/Day [...] COVID-19? No / Unsure 06/28/2020 7:41 AM SOIL SURVEYOR documented as of this encounter Plan of Treatment Not on file documented as of this encounter Visit Diagnoses Not on filedocumented in this encounter Care Teams Housetrailer Servicer Relationship Specialty Start Date End Date No Ref-Primary, Physician PCP - General 07/29/17 03/16/22 Shanti Lara, MIMI [facility] [address] [place] [address] PCP - General Nurse Practitioner - [facility] 03/17/22 [facility] [address] [place], [place] 169075 Referring Physician slide forming machine operator 07/29/17 Jonathan Pitts MD [address] [place] [address] [id number] MD Oncology 07/29/17 Jonathan Pitts MD [address] [place] [address] [id number] Assigned Cancer Care Provider 05/18/20 05/15/23 Christine Poon RN Specialty Cisco Engineer Hematology & Oncology 12/02/21 documented as of this encounter
--- OUTSIDE RECORDS SUMMARY | 2023-08-04 15:09 | XMS_ITS | Encounter Summary ---
Author Name Unknown Organization [place] Address [address] [place] [address] Care Team Providers Care Profiling Machine Setup Operator Name Role Phone No Ref-Primary, Physician Primary Care Provider Kavita Akhtar Unavailable [phone] Jonathan Pitts MD Unavailable Jonathan Pitts MD Unavailable Christine Poon RN Unavailable [phone] Shanti Lara NP Primary Care Provider [phone] Encounter Details Date Type Department Care Team (Late st Contact Info) Description 11/19/2020 [facility] [address] [place] [phone] Jonathan Pitts MD [address] [place] [address] Social History Tobacco Use Types Packs/Day [...] on filedocumented in this encounter Care Teams Profiling Machine Setup Operator Relationship Specialty Start Date End Date No Ref-Primary, Physician PCP - General 07/29/17 03/16/22 Shanti Lara, ACCOUNTS PAYABLE ANALYST [facility] [address] [place] [address] PCP - General Nurse Practitioner - [facility] 03/17/22 [facility] [address] [place], [place] 908335 Referring Physician contact lens assistant 07/29/17 Jonathan Pitts MD [address] [place] [address] [phone] MD Oncology 07/29/17 Jonathan Pitts MD [address] [place] [address] [phone] Assigned Cancer Care Provider 05/18/20 05/15/23 Christine Poon RN Specialty Cab Worker Hematology & Oncology 12/02/21 documented as of this encounter
--- OUTSIDE RECORDS SUMMARY | 2023-08-04 15:09 | XMS_ITS | Encounter Summary ---
Author Name Unknown Organization [place] Address [address] [place] [address] Care Team Providers Care Supervisor Yard Name Role Phone No Ref-Primary, Physician Primary Care Provider Kavita Akhtar Unavailable [phone] Jonathan Pitts MD Unavailable [phone] Jonathan Pitts MD Unavailable Christine Poon RN Unavailable [phone] Shanti Lara NP Primary Care Provider [phone] Encounter Details Date Type Department Care Team (Late st Contact Info) Description 11/27/2020 [facility] [address] [place] [phone] Jonathan Pitts MD [address] [place] [address] Social History Tobacco Use Types Packs/Day [...] filedocumented in this encounter Care Teams Supervisor Yard Relationship Specialty Start Date End Date No Ref-Primary, Physician PCP - General 07/29/17 03/16/22 Shanti Lara, MOLDER OFFBEARER [facility] [address] [place] [address] PCP - General Nurse Practitioner - [facility] 03/17/22 [facility] [address] [place], [place] 3559[address] Referring Physician veneer taping machine offbearer 07/29/17 Jonathan Pitts MD [address] [place] [address] [id number] MD Oncology 07/29/17 Jonathan Pitts MD [address] [place] [address] [phone] Assigned Cancer Care Provider 05/18/20 05/15/23 Christine Poon RN Specialty Handbag Parts Cutter Hematology & Oncology 12/02/21 documented as of this encounter
--- OUTSIDE RECORDS SUMMARY | 2023-08-04 15:09 | XMS_ITS | Encounter Summary ---
Author Name Unknown Organization [place] Address [address] [place] [address] Care Team Providers Care Elevator Runner Name Role Phone No Ref-Primary, Physician Primary Care Provider Kavita Akhtar Unavailable [phone] Jonathan Pitts MD Unavailable Jonathan Pitts MD Unavailable Christine Poon RN Unavailable [phone] Shanti Lara NP Primary Care Provider [phone] Encounter Details Date Type Department Care Team ([facility] st Contact Info) Description 05/22/2021 [facility] [address] [place] [phone] Jonathan Pitts MD [address] [place] [address] Social History Tobacco Use Types Packs/Day [...] on filedocumented in this encounter Care Teams Elevator Runner Relationship Specialty Start Date End Date No Ref-Primary, Physician PCP - General 07/29/17 03/16/22 Shanti Lara, DRILLER MACHINE [facility] [address] [place] [address] PCP - General Nurse Practitioner - Family 03/17/22 [facility] [address] [place], [place] [address] Referring Physician gas meter mechanic 07/29/17 Jonathan Pitts MD [address] [place] [address] [id number] MD Oncology 07/29/17 Jonathan Pitts MD [address] [place] [address] [phone] Assigned Cancer Care Provider 05/18/20 05/15/23 Christine Poon, RN Specialty Wildlife Officer Hematology & Oncology 12/02/21 documented as of this encounter
--- OUTSIDE RECORDS SUMMARY | 2023-08-04 15:10 | XMS_ITS | Encounter Summary ---
Author Name Unknown Organization [place] Address [address] [place] [address] Care Team Providers Care Investigation Officer Name Role Phone No Ref-Primary, Physician Primary Care Provider Kavita Akhtar Unavailable [phone] Jonathan Pitts MD Unavailable Jonathan Pitts MD Unavailable [phone] Christine Poon RN Unavailable [phone] Shanti Lara NP Primary Care Provider [phone] Encounter Details Date Type Department Care Team (Late st Contact Info) Description 06/25/2020 [facility] [address] [place] [phone] Jonathan Pitts MD [address] [place] [address] Social History Tobacco Use Types Packs/Day [...] COVID-19? No / Unsure 06/28/2020 7:41 AM CLINICAL DOCUMENTATION NURSE documented as of this encounter Plan of Treatment Not on file documented as of this encounter Visit Diagnoses Not on filedocumented in this encounter Care Teams Investigation Officer Relationship Specialty Start Date End Date No Ref-Primary, Physician PCP - General 07/29/17 03/16/22 Shanti Lara, [facility]I [facility] [address] [place] [address] PCP - General Nurse Practitioner - [facility] 03/17/22 [facility] [address] [place], [place] [address]295 Referring Physician electronic warfare technical 07/29/17 Jonathan Pitts MD [address] [place] [address] [id number] MD Oncology 07/29/17 Jonathan Pitts MD [address] [place] [address] [id number] Assigned Cancer Care Provider 05/18/20 05/15/23 Christine Poon RN Specialty [place] Machine Operator Hematology & Oncology 12/02/21 documented as of this encounter
--- OUTSIDE RECORDS SUMMARY | 2023-08-04 15:10 | XMS_ITS | Encounter Summary ---
Author Name Unknown Organization [place] Address [address] [place] [address] Care Team Providers Care Obstetrics Technician Name Role Phone No Ref-Primary, Physician Primary Care Provider Kavita Akhtar Unavailable [phone] Jonathan Pitts MD Unavailable Jonathan Pitts MD Unavailable Christine Poon RN Unavailable [phone] Shanti Lara NP Primary Care Provider [phone] Encounter Details Date Type Department Care Team (Late st Contact Info) Description 06/26/2020 [facility] [address] [place] [phone] Jonathan Pitts MD [address] [place] [address] Social History Tobacco Use Types Packs/Day [...] COVID-19? No / Unsure 06/28/2020 7:41 AM 911 OPERATOR documented as of this encounter Plan of Treatment Not on file documented as of this encounter Visit Diagnoses Not on filedocumented in this encounter Care Teams Obstetrics Technician Relationship Specialty Start Date End Date No Ref-Primary, Physician PCP - General 07/29/17 03/16/22 Shanti Lara, MIMI [facility] [address] [place] [address] PCP - General Nurse Practitioner - [facility] 03/17/22 [facility] [address] [place], [place] 463435 Referring Physician house calls nurse practitioner 07/29/17 Jonathan Pitts MD [address] [place] [address] [id number] MD Oncology 07/29/17 Jonathan Pitts MD [address] [place] [address] [phone] Assigned Cancer Care Provider 05/18/20 05/15/23 Christine Poon RN Specialty Studio Operations Manager Hematology & Oncology 12/02/21 documented as of this encounter
--- OUTSIDE RECORDS SUMMARY | 2023-08-04 15:10 | XMS_ITS | Encounter Summary ---
Author Name Unknown Organization [place] Address [address] [place] [address] Care Team Providers Care Racking Machine Operator Name Role Phone No Ref-Primary, Physician Primary Care Provider Kavita Akhtar Unavailable [phone] Jonathan Pitts MD Unavailable Jonathan Pitts MD Unavailable Christine Poon RN Unavailable [phone] Shanti Lara NP Primary Care Provider [phone] Encounter Details Date Type Department Care Team (Late st Contact Info) Description 06/27/2020 [facility] [address] [place] [phone] Jonathan Pitts MD [address] [place] [address] Social History Tobacco Use Types Packs/Day [...] COVID-19? No / Unsure 06/28/2020 7:41 AM DECK BUILDER documented as of this encounter Plan of Treatment Not on file documented as of this encounter Visit Diagnoses Not on filedocumented in this encounter Care Teams Racking Machine Operator Relationship Specialty Start Date End Date No Ref-Primary, Physician PCP - General 07/29/17 03/16/22 Shanti Lara, M[facility]I [facility] [address] [place] [address] PCP - General Nurse Practitioner - [facility] 03/17/22 [facility] [address] [place], [place] 645435 Referring Physician licensing engineer 07/29/17 Jonathan Pitts MD [address] [place] [address] [id number] MD Oncology 07/29/17 Jonathan Pitts MD [address] [place] [address] [phone] Assigned Cancer Care Provider 05/18/20 05/15/23 Christine Poon RN Specialty Magnetic Resonance Imaging Director Hematology & Oncology 12/02/21 documented as of this encounter
--- OUTSIDE RECORDS SUMMARY | 2023-08-04 15:10 | XMS_ITS | Encounter Summary ---
Author Name Unknown Organization [place] Address [address] [place] [address] Care Team Providers Care Intelligence Director Name Role Phone No Ref-Primary, Physician Primary Care Provider Kavita Akhtar Unavailable [phone] Jonathan Pitts MD Unavailable Jonathan Pitts MD Unavailable [phone] Christine Poon RN Unavailable [phone] Shanti Lara NP Primary Care Provider [phone] Encounter Details Date Type Department Care Team (Late st Contact Info) Description 06/25/2020 [facility] [address] [place] [phone] Jonathan Pitts MD [address] [place] [address] Social History Tobacco Use Types Packs/Day [...] COVID-19? No / Unsure 06/28/2020 7:41 AM REGISTERED HEALTH NURSE documented as of this encounter Plan of Treatment Not on file documented as of this encounter Visit Diagnoses Not on filedocumented in this encounter Care Teams Intelligence Director Relationship Specialty Start Date End Date No Ref-Primary, Physician PCP - General 07/29/17 03/16/22 Shanti Lara, [facility]I [facility] [address] [place] [address] PCP - General Nurse Practitioner - [facility] 03/17/22 [facility] [address] [place], [place] 650535 Referring Physician national basketball association scout 07/29/17 Jonathan Pitts MD [address] [place] [address] [phone] MD Oncology 07/29/17 Jonathan Pitts MD [address] [place] [address] [phone] Assigned Cancer Care Provider 05/18/20 05/15/23 Christine Poon RN Specialty Dye Line Operator Hematology & Oncology 12/02/21 documented as of this encounter
--- OUTSIDE RECORDS SUMMARY | 2023-08-04 15:10 | XMS_ITS | Encounter Summary ---
Author Name Unknown Organization [place] Address [address] [place] [address] Care Team Providers Care Cylinder Inspector Name Role Phone No Ref-Primary, Physician Primary Care Provider Kavita Akhtar Unavailable [phone] Jonathan Pitts MD Unavailable Jonathan Pitts MD Unavailable Christine Poon RN Unavailable [phone] Shanti Lara NP Primary Care Provider [phone] Encounter Details Date Type Department Care Team ([facility] st Contact Info) Description 05/14/2020 [facility] [address] [place] [phone] Jonathan Pitts MD [address] [place] [address] Social History Tobacco Use Types Packs/Day [...] have Coronavirus / COVID-19? No / Unsure 05/11/2020 10:51 AM CDT documented as of this encounter Plan of Treatment Not on file documented as of this encounter Visit Diagnoses Not on filedocumented in this encounter Care Teams Cylinder Inspector Relationship Specialty Start Date End Date No Ref-Primary, Physician PCP - General 07/29/17 03/16/22 Shanti Lara, M[facility]I [facility] [address] [place] [address] PCP - General Nurse Practitioner - [facility] 03/17/22 [facility] [address] [place], [place] 716485 Referring Physician wordpress developer 07/29/17 Jonathan Pitts MD [address] [place] [address] [id number] MD Oncology 07/29/17 Jonathan Pitts MD [address] [place] [address] [id number] Assigned Cancer Care Provider 05/18/20 05/15/23 Christine Poon RN Specialty Card Punching Machine Operator Hematology & Oncology 12/02/21 documented as of this encounter
--- OUTSIDE RECORDS SUMMARY | 2023-08-04 15:10 | XMS_ITS | Encounter Summary ---
Author Name Unknown Organization [place] Address [address] [place] [address] Care Team Providers Care Radiography Technician Name Role Phone No Ref-Primary, Physician Primary Care Provider Kavita Akhtar Unavailable [phone] Jonathan Pitts MD Unavailable Jonathan Pitts MD Unavailable Christine Poon RN Unavailable [phone] Shanti Lara NP Primary Care Provider [phone] Encounter Details Date Type Department Care Team (Late st Contact Info) Description 05/31/2020 [facility] [address] [place] [phone] Jonathan Pitts MD [address] [place] [address] Social History Tobacco Use Types Packs/Day [...] have Coronavirus / COVID-19? No / Unsure 05/28/2020 10:50 AM SOLAR ENERGY ENGINEER documented as of this encounter Plan of Treatment Not on file documented as of this encounter Visit Diagnoses Not on filedocumented in this encounter Care Teams Radiography Technician Relationship Specialty Start Date End Date No Ref-Primary, Physician PCP - General 07/29/17 03/16/22 Shanti Lara, [facility] [address] [place] [address] PCP - General Nurse Practitioner - [facility] 03/17/[address] [facility] [address] [place], [place] 429135 Referring Physician milliner helper 07/29/17 Jonathan Pitts MD [address] [place] [address] [id number] MD Oncology 07/29/17 Jonathan Pitts MD [address] [place] [address] [phone] Assigned Cancer Care Provider 05/18/20 05/15/23 Christine Poon RN Specialty Dairy Laboratory Technician Hematology & Oncology 12/02/21 documented as of this encounter
--- OUTSIDE RECORDS SUMMARY | 2023-08-04 15:10 | XMS_ITS | Encounter Summary ---
Author Name Unknown Organization [place] Address [address] [place] [address] Care Team Providers Care Application Support Consultant Name Role Phone No Ref-Primary, Physician Primary Care Provider Kavita Akhtar Unavailable [phone] Jonathan Pitts MD Unavailable Jonathan Pitts MD Unavailable [phone] Christine Poon RN Unavailable [phone] Shanti Lara NP Primary Care Provider [phone] Encounter Details Date Type Department Care Team (Late st Contact Info) Description 06/18/2020 [facility] [address] [place] [phone] Jonathan Pitts MD [address] [place] [address] Social History Tobacco Use Types Packs/Day [...] have Coronavirus / COVID-19? No / Unsure 06/19/2020 11:48 AM BAGGAGE CHECKER documented as of this encounter Plan of Treatment Not on file documented as of this encounter Visit Diagnoses Not on filedocumented in this encounter Care Teams Application Support Consultant Relationship Specialty Start Date End Date No Ref-Primary, Physician PCP - General 07/29/17 03/16/22 Shanti Lara, M[facility]I [facility] [address] [place] [address] PCP - General Nurse Practitioner - [facility] 03/17/[address] [facility] [address] [place], [place] 914555 Referring Physician strap maker 07/29/17 Jonathan Pitts MD [address] [place] [address] [phone] MD Oncology 07/29/17 Jonathan Pitts MD [address] [place] [address] [phone] Assigned Cancer Care Provider 05/18/20 05/15/23 Christine Poon RN Specialty Footwear Stitcher Hematology & Oncology 12/02/21 documented as of this encounter
--- OUTSIDE RECORDS SUMMARY | 2023-08-04 15:10 | XMS_ITS | Encounter Summary ---
Author Name Unknown Organization [place] Address [address] [place] [address] Care Team Providers Care Truck Repair Service Estimator Name Role Phone No Ref-Primary, Physician Primary Care Provider Kavita Akhtar Unavailable [phone] Jonathan Pitts MD Unavailable [phone] Jonathan Pitts MD Unavailable Christine Poon RN Unavailable [phone] Shanti Lara NP Primary Care Provider [phone] Encounter Details Date Type Department Care Team (Late st Contact Info) Description 06/28/2020 [facility] [address] [place] [phone] Jonathan Pitts MD [address] [place] [address] Social History Tobacco Use Types Packs/Day [...] COVID-19? No / Unsure 06/28/2020 7:41 AM BRINE PROCESS OPERATOR documented as of this encounter Plan of Treatment Not on file documented as of this encounter Visit Diagnoses Not on filedocumented in this encounter Care Teams Truck Repair Service Estimator Relationship Specialty Start Date End Date No Ref-Primary, Physician PCP - General 07/29/17 03/16/22 Shanti Lara, [facility] [address] [place] [address] PCP - General Nurse Practitioner - [facility] 03/17/22 [facility] [address] [place], [place] 801045 Referring Physician embalmer/funeral director 07/29/17 Jonathan Pitts MD [address] [place] [address] [phone] MD Oncology 07/29/17 Jonathan Pitts MD [address] [place] [address] [phone] Assigned Cancer Care Provider 05/18/20 05/15/23 Christine Poon RN Specialty Science Faculty Member Hematology & Oncology 12/02/21 documented as of this encounter
--- OUTSIDE RECORDS SUMMARY | 2023-08-04 15:10 | XMS_ITS | Encounter Summary ---
Author Name Unknown Organization [place] Address [address] [place] [address] 20367 Care Team Providers Care Shipper Name Role Phone No Ref-Primary, Physician Primary Care Provider Kavita Akhtar Unavailable [phone] Jonathan Pitts MD Unavailable Jonathan Pitts MD Unavailable [phone] Christine Poon RN Unavailable [phone] Shanti aLra NP Primary Care Provider [phone] Encounter Details Date Type Department Care Team (Late st Contact Info) Description 06/12/2020 [facility] [address] [place] [phone] Jonathan Pitts MD [address] [place] [address] Social History Tobacco Use Types Packs/Day [...] have Coronavirus / COVID-19? No / Unsure 06/14/2020 3:17 PM MAT MACHINE OPERATOR documented as of this encounter Plan of Treatment Not on file documented as of this encounter Visit Diagnoses Not on filedocumented in this encounter Care Teams Shipper Relationship Specialty Start Date End Date No Ref-Primary, Physician PCP - General 07/29/17 03/16/22 Shanti Lara, MIMI [facility] [address] [place] [address] PCP - General Nurse Practitioner - [facility] 03/17/22 [address] [place] [address] Referring Physician repair service dispatcher 07/29/17 Jonathan Pitts MD [address] [place] [address] [phone] MD Oncology 07/29/17 Jonathan Pitts MD [address] [place] [address] [phone] Assigned Cancer Care Provider 05/18/20 05/15/23 Christine Poon RN Specialty Extrusion Operator Hematology & Oncology 12/02/21 documented as of this encounter
--- OUTSIDE RECORDS SUMMARY | 2023-08-04 15:10 | XMS_ITS | Encounter Summary ---
Author Name Unknown Organization [place] Address [address] [place] [address] Care Team Providers Care Oil Painter Name Role Phone No Ref-Primary, Physician Primary Care Provider Kavita Akhtar Unavailable [phone] Jonathan Pitts MD Unavailable Jonathan Pitts MD Unavailable [phone] Christine Poon RN Unavailable [phone] Shanti Lara NP Primary Care Provider [phone] Encounter Details Date Type Department Care Team (Late st Contact Info) Description 06/04/2020 [facility] [address] [place] [phone] Jonathan Pitts MD [address] [place] [address] Social History Tobacco Use Types Packs/Day [...] COVID-19? No / Unsure 05/28/2020 10:50 AM ENGINE SERVICE REPAIRER documented as of this encounter Plan of Treatment Not on file documented as of this encounter Visit Diagnoses Not on filedocumented in this encounter Care Teams Oil Painter Relationship Specialty Start Date End Date No Ref-Primary, Physician PCP - General 07/29/17 03/16/22 Shanti Lara, MIMI [facility] [address] [place] [address] PCP - General Nurse Practitioner - [facility] 03/17/22 [facility] [address] [place], [place] 379205 Referring Physician claim inspector 07/29/17 Jonathan Pitts MD [address] [place] [address] [phone] MD Oncology 07/29/17 Jonathan Pitts MD [address] [place] [address] [phone] Assigned Cancer Care Provider 05/18/20 05/15/23 Christine Poon RN Specialty Biomedical Engineering Internship Hematology & Oncology 12/02/21 documented as of this encounter
--- OUTSIDE RECORDS SUMMARY | 2023-08-04 15:10 | XMS_ITS | Encounter Summary ---
Author Name Unknown Organization [facility] Address [address] [place] [address] 100[address] Care Team Providers Care Laser Systems Engineer Name Role Phone No Ref-Primary, Physician Primary Care Provider Kavita Akhtar Unavailable [phone] Jonathan Pitts MD Unavailable [phone] Jonathan Pitts MD Unavailable Christine Poon RN Unavailable [phone] Shanti Lara NP Primary Care Provider [phone] Encounter Details Date Type Department Care Team ([facility] st Contact Info) Description 05/11/2020 [facility] [address] [place] [phone] Jonathan Pitts MD [address] [place] [address] Social History Tobacco Use Types Packs/Day [...] on filedocumented in this encounter Care Teams Laser Systems Engineer Relationship Specialty Start Date End Date No Ref-Primary, Physician PCP - General 07/29/17 03/16/22 Shanti Lara, MIMI [facility] [address] [place] [address] PCP - General Nurse Practitioner - [facility] 03/17/22 [facility] [address] [place], [place] 892725 Referring Physician sound engineering technician 07/29/17 Jonathan Pitts MD [address] [place] [address] [phone] MD Oncology 07/29/17 Jonathan Pitts MD [address] [place] [address] [phone] Assigned Cancer Care Provider 05/18/20 05/15/23 Christine Poon RN Specialty Supervisor Ore Dressing Hematology & Oncology 12/02/21 documented as of this encounter
--- OUTSIDE RECORDS SUMMARY | 2023-08-04 15:10 | XMS_ITS | Encounter Summary ---
Author Name Unknown Organization [facility] Address [address] [place] [address] Care Team Providers Care Bioinformatics Engineer Name Role Phone No Ref-Primary, Physician Primary Care Provider Kavita Akhtar Unavailable [phone] Jonathan Pitts MD Unavailable Jonathan Pitts MD Unavailable [phone] Christine Poon RN Unavailable [phone] Shanti Lara NP Primary Care Provider [phone] Encounter Details Date Type Department Care Team (Late st Contact Info) Description 06/28/[address] [facility] [address] [place] [phone] Jonathan Pitts MD [address] [place] [address] Social History Tobacco Use Types Packs/Day [...] COVID-19? No / Unsure 06/28/2020 7:41 AM VERTICAL LATHE OPERATOR documented as of this encounter Plan of Treatment Not on file documented as of this encounter Visit Diagnoses Not on filedocumented in this encounter Care Teams Bioinformatics Engineer Relationship Specialty Start Date End Date No Ref-Primary, Physician PCP - General 07/29/17 03/16/22 Shanti Lara, MIMI [facility] [address] [place] [address] PCP - General Nurse Practitioner - [facility] 03/17/22 [facility] [address] [place], [place] 6619[address] Referring Physician settlement agent 07/29/17 Jonathan Pitts MD [address] [place] [address] [phone] MD Oncology 07/29/17 Jonathan Pitts MD [address] [place] [address] [phone] Assigned Cancer Care Provider 05/18/20 05/15/23 Christine Poon RN Specialty Pediatric Speech Therapist Hematology & Oncology 12/02/21 documented as of this encounter
--- OUTSIDE RECORDS SUMMARY | 2023-08-04 15:10 | XMS_ITS | Encounter Summary ---
Author Name Unknown Organization [place] Address [address] [place] [address] Care Team Providers Care Head Cashier Name Role Phone No Ref-Primary, Physician Primary Care Provider Kavita Akhtar Unavailable [phone] Jonathan Pitts MD Unavailable Jonathan Pitts MD Unavailable [phone] Christine Poon RN Unavailable [phone] Shanti Lara NP Primary Care Provider [phone] Encounter Details Date Type Department Care Team (Late st Contact Info) Description 06/16/2020 [facility] [address] [place] [phone] Jonathan Pitts MD [address] [place] [address] Social History Tobacco Use Types Packs/Day [...] COVID-19? No / Unsure 06/19/2020 11:48 AM PLASTIC WELDING MACHINE OPERATOR documented as of this encounter Plan of Treatment Not on file documented as of this encounter Visit Diagnoses Not on filedocumented in this encounter Care Teams Head Cashier Relationship Specialty Start Date End Date No Ref-Primary, Physician PCP - General 07/29/17 03/16/22 Shanti Lara, [facility] [address] [place] [address] PCP - General Nurse Practitioner - [facility] 03/17/22 [facility] [address] [place], [place] 980875 Referring Physician card boxer 07/29/17 Jonathan Pitts MD [address] [place] [address] [id number] MD Oncology 07/29/17 Jonathan Pitts MD [address] [place] [address] [phone] Assigned Cancer Care Provider 05/18/20 05/15/23 Christine Poon RN Specialty Roll Grinder Operator Hematology & Oncology 12/02/21 documented as of this encounter
--- OUTSIDE RECORDS SUMMARY | 2023-08-04 15:10 | XMS_ITS | Encounter Summary ---
Author Name Unknown Organization [facility] Address [address] [place] [address] Care Team Providers Care Development Assistant Name Role Phone No Ref-Primary, Physician Primary Care Provider Kavita Akhtar Unavailable [phone] Jonathan Pitts MD Unavailable Jonathan Pitts MD Unavailable Christine Poon RN Unavailable [phone] Shanti Lara NP Primary Care Provider [phone] Encounter Details Date Type Department Care Team (Late st Contact Info) Description 05/23/2020 [facility] [address] [place] [phone] Jonathan Pitts MD [address] [place] [address] Social History Tobacco Use Types Packs/Day [...] on filedocumented in this encounter Care Teams Development Assistant Relationship Specialty Start Date End Date No Ref-Primary, Physician PCP - General 07/29/17 03/16/22 Shanti Lara, [facility]I [facility] [address] [place] [address] PCP - General Nurse Practitioner - [facility] 03/17/22 [facility] [address] [place], [place] 710115 Referring Physician semiconductor wafers etch operator 07/29/17 Jonathan Pitts MD [address] [place] [address] [phone] MD Oncology 07/29/17 Jonathan Pitts MD [address] [place] [address] [phone] Assigned Cancer Care Provider 05/18/20 05/15/23 Christine Poon RN Specialty Telecommunications Equipment Installer Hematology & Oncology 12/02/21 documented as of this encounter
--- OUTSIDE RECORDS SUMMARY | 2023-08-04 15:10 | XMS_ITS | Encounter Summary ---
Author Name Unknown Organization [facility] Address [address] [place] [address] 24677 Care Team Providers Care Coal Loader Name Role Phone No Ref-Primary, Physician Primary Care Provider Kavita Akhtar Unavailable [phone] Jonathan Pitts MD Unavailable Jonathan Pitts MD Unavailable Christine Poon RN Unavailable [phone] Shanti Lara NP Primary Care Provider [phone] Encounter Details Date Type Department Care Team (Late st Contact Info) Description 06/14/2020 [facility] [address] [place] [phone] Jonathan Pitts MD [address] [place] [address] Social History Tobacco Use Types Packs/Day [...] have Coronavirus / COVID-19? No / Unsure 06/17/2020 1:09 PM ROLL TRUCKER documented as of this encounter Plan of Treatment Not on file documented as of this encounter Visit Diagnoses Not on filedocumented in this encounter Care Teams Coal Loader Relationship Specialty Start Date End Date No Ref-Primary, Physician PCP - General 07/29/17 03/16/22 Shanti Lara, [facility] [address] [place] [address] PCP - General Nurse Practitioner - [facility] 03/17/22 [facility] [address] [place], [place] 8[address] Referring Physician first coat sander 07/29/17 Jonathan Pitts MD [address] [place] [address] [phone] MD Oncology 07/29/17 Jonathan Pitts MD [address] [place] [address] [phone] Assigned Cancer Care Provider 05/18/20 05/15/23 Christine Poon RN Specialty Tool And Die Inspector Hematology & Oncology 12/02/21 documented as of this encounter
--- OUTSIDE RECORDS SUMMARY | 2023-08-04 15:10 | XMS_ITS | Encounter Summary ---
Author Name Unknown Organization [facility] Address [address] [place] [address] Care Team Providers Care Epic Professional Name Role Phone No Ref-Primary, Physician Primary Care Provider Kavita Akhtar Unavailable [phone] Jonathan Pitts MD Unavailable Jonathan Pitts MD Unavailable [phone] Christine Poon RN Unavailable [phone] Shanti Lara NP Primary Care Provider [phone] Encounter Details Date Type Department Care Team (Late st Contact Info) Description 06/28/2020 [facility] [address] [place] [phone] Jonathan Pitts MD [address] [place] [address] Social History Tobacco Use Types Packs/Day [...] COVID-19? No / Unsure 06/28/2020 7:41 AM GAME ARTIST documented as of this encounter Plan of Treatment Not on file documented as of this encounter Visit Diagnoses Not on filedocumented in this encounter Care Teams Epic Professional Relationship Specialty Start Date End Date No Ref-Primary, Physician PCP - General 07/29/17 03/16/22 Shanti Lara, M[facility]I [facility] [address] [place] [address] PCP - General Nurse Practitioner - [facility] 03/17/22 [facility] [address] [place], [place] 594115 Referring Physician protein chemist 07/29/17 Jonathan Pitts MD [address] [place] [address] [phone] MD Oncology 07/29/17 Jonathan Pitts MD [address] [place] [address] [phone] Assigned Cancer Care Provider 05/18/20 05/15/23 Christine Poon RN Specialty Poiser Balance Hematology & Oncology 12/02/21 documented as of this encounter
--- OUTSIDE RECORDS SUMMARY | 2023-08-04 15:10 | XMS_ITS | Encounter Summary ---
Author Name Unknown Organization [facility] Address [address] [place] [address] Care Team Providers Care Hi Lo Driver Name Role Phone No Ref-Primary, Physician Primary Care Provider Kavita Akhtar Unavailable [phone] Jonathan Pitts MD Unavailable Jonathan Pitts MD Unavailable Christine Poon RN Unavailable [phone] Shanti Lara NP Primary Care Provider [phone] Encounter Details Date Type Department Care Team (Late st Contact Info) Description 06/27/[address] [facility] [address] [place] [phone] Jonathan Pitts MD [address] [place] [address] Social History Tobacco Use Types Packs/Day [...] COVID-19? No / Unsure 06/28/2020 7:41 AM QUALITY CONTROL ANALYST documented as of this encounter Plan of Treatment Not on file documented as of this encounter Visit Diagnoses Not on filedocumented in this encounter Care Teams Hi Lo Driver Relationship Specialty Start Date End Date No Ref-Primary, Physician PCP - General 07/29/17 03/16/22 Shanti Lara, MIMI [facility] [address] [place] [address] PCP - General Nurse Practitioner - [facility] 03/17/22 [facility] [address] [place], [place] [address] Referring Physician engineering inspection assistant 07/29/17 Jonathan Pitts MD [address] [place] [address] [id number] MD Oncology 07/29/17 Jonathan Pitts MD [address] [place] [address] [phone] Assigned Cancer Care Provider 05/18/20 05/15/23 Christine Poon RN Specialty Rectifying Operator Hematology & Oncology 12/02/21 documented as of this encounter
--- OUTSIDE RECORDS SUMMARY | 2023-08-04 15:10 | XMS_ITS | Encounter Summary ---
Author Name Unknown Organization [place] Address [address] [place] [address] Care Team Providers Care Household Appliance Mechanic Name Role Phone No Ref-Primary, Physician Primary Care Provider Kavita Akhtar Unavailable [phone] Jonathan Pitts MD Unavailable Jonathan Pitts MD Unavailable [phone] Christine Poon RN Unavailable [phone] Shanti Lara NP Primary Care Provider [phone] Encounter Details Date Type Department Care Team (Late st Contact Info) Description 06/15/2020 [facility] [address] [place] [phone] Jonathan Pitts MD [address] [place] [address] Social History Tobacco Use Types Packs/Day [...] COVID-19? No / Unsure 06/17/2020 1:09 PM EXECUTIVE RECEPTIONIST documented as of this encounter Plan of Treatment Not on file documented as of this encounter Visit Diagnoses Not on filedocumented in this encounter Care Teams Household Appliance Mechanic Relationship Specialty Start Date End Date No Ref-Primary, Physician PCP - General 07/29/17 03/16/22 Shanti Lara, M[facility] [address] [place] [address] PCP - General Nurse Practitioner - [facility] 03/17/22 [facility] [address] [place], [place] 254005 Referring Physician biostatistics manager 07/29/17 Jonathan Pitts MD [address] [place] [address] [phone] MD Oncology 07/29/17 Jonathan Pitts MD [address] [place] [address] [phone] Assigned Cancer Care Provider 05/18/20 05/15/23 Christine Poon RN Specialty Trust Administrator Hematology & Oncology 12/02/21 documented as of this encounter
--- OUTSIDE RECORDS SUMMARY | 2023-08-04 15:10 | XMS_ITS | Encounter Summary ---
Author Name Unknown Organization [facility] Address [address] [place] [address] Care Team Providers Care Control Center Operator Name Role Phone No Ref-Primary, Physician Primary Care Provider Kavita Akhtar Unavailable [phone] Jonathan Pitts MD Unavailable Jonathan Pitts MD Unavailable Christine Poon RN Unavailable [phone] Shanti Lara NP Primary Care Provider [phone] Encounter Details Date Type Department Care Team ([facility] st Contact Info) Description 05/12/2020 [facility] [address] [place] [phone] Jonathan Pitts MD [address] [place] [address] Social History Tobacco Use Types Packs/Day [...] on filedocumented in this encounter Care Teams Control Center Operator Relationship Specialty Start Date End Date No Ref-Primary, Physician PCP - General 07/29/17 03/16/22 Shanti Lara, M[facility] [address] [place] [address] PCP - General Nurse Practitioner - [facility] 03/17/[address] [facility] [address] [place], [place] 7[address]85 Referring Physician bag checker 07/29/17 Jonathan Pitts MD [address] [place] [address] [phone] MD Oncology 07/29/17 Jonathan Pitts MD [address] [place] [address] [phone] Assigned Cancer Care Provider 05/18/20 05/15/23 Christine Poon RN Specialty Chief Vendor Quality Hematology & Oncology 12/02/21 documented as of this encounter
--- OUTSIDE RECORDS SUMMARY | 2023-08-04 15:11 | XMS_ITS | Encounter Summary ---
Author Name Unknown Organization [facility] Address [address] [place] [address] Care Team Providers Care Aircraft Instrument Engineer Name Role Phone No Ref-Primary, Physician Primary Care Provider Kavita Akhtar Unavailable [phone] Jonathan Pitts MD Unavailable [phone] Jonathan Pitts MD Unavailable Christine Poon RN Unavailable [phone] Shanti Lara NP Primary Care Provider [phone] Encounter Details Date Type Department Care Team ([facility] st Contact Info) Description 05/07/2020 [facility] [address] [place] [phone] Jonathan Pitts MD [address] [place] [address] Social History Tobacco Use Types Packs/Day Years Used Date Smoking Tobacco: Former Cigarettes 0.3 0 11/08/2000 - 07/27/2018 Smokeless Tobacco: Never Alcohol Use Standard Drinks/Week Comments No 0 (1 standard drink = 0.6 oz pur e alcohol) Sex and Gender Information Value Date Recorded Sex Assigned at Not on file Gender Identity Not on file Sexual Orientation Not on file COVID-19 Exposure Response Date Recorded In the last month, have you been in contact with someone who was confirmed or suspected to have Coronavirus / COVID-19? No / Unsure 05/09/2020 9:56 AM CDT documented as of this encounter Plan of Treatment Not on file documented as of this encounter Visit Diagnoses Not on filedocumented in this encounter Care Teams Aircraft Instrument Engineer Relationship Specialty Start Date End Date No Ref-Primary, Physician PCP - General 07/29/17 03/16/22 Shanti Lara, MIMI [facility] [address] [place] [address] PCP - General Nurse Practitioner - [facility] 03/17/22 [facility] [address] [place], [place] 2548[address] Referring Physician thread winder automatic 07/29/17 Jonathan Pitts MD [address] [place] [address] [phone] MD Oncology 07/29/17 Jonathan Pitts MD [address] [place] [address] [phone] Assigned Cancer Care Provider 05/18/20 05/15/23 Christine Poon RN Specialty Media Professional Hematology & Oncology 12/02/21 documented as of this encounter
--- OUTSIDE RECORDS SUMMARY | 2023-08-04 15:11 | XMS_ITS | Encounter Summary ---
Author Name Unknown Organization [facility] Address [address] [place] [address] Care Team Providers Care Ice Guard Skating Rink Name Role Phone No Ref-Primary, Physician [facility] [phone] Jonathan Pitts MD Unavailable Jonathan Pitts MD Unavailable Christine Poon RN Unavailable [phone] Shanti Lara NP Primary Care Provider [phone] Reason for Visit * Reason Onset Date Comments Clinic Care Coordination - Follow-up 05/25/2019 Encounter Details Date Type Department Care Team (Late st Contact Info) Description 05/25/2019 Telephone [facility] [place] [address] [place] [address] Christine Poon RN Clinic Care Coordination - Follow-up Social History Tobacco Use Types Packs/Day Years [...] AM CDT documented as of this encounter Miscellaneous Notes * Telephone Encounter - Christine Poon RN - 05/31/2019 3:41 PM SHEET MUSIC SALESPERSON 05/31 135 Pt left message on voice mail is bleeding again, started last night Is ready to talk about hysterectomy 06/03 227 Left message on voicemail for pt to call clinic back T MUSIC SALESPERSON * Telephone Encounter - Christine Poon RN - 05/31/2019 3:31 PM SHEET MUSIC SALESPERSON 05/27 305 spoke with pt 05/16 MD removed IUD at appt Started bleeding that day and has been bleeding on and off since Bleeding was constant for the first week then lightened up Has had episodes of heavy bleeding with large clots Each episode last a few days Typically wearing a tampon and pad, changing a pad every 1 hour not soaking through pad Currently flow is medium Color varies from dark red to brownish Feeling tired, denies dizzy, SOB, palpitations Discussed bleeding parameters of when to go to ER for heavy bleeding Asked pt to use only pads to get a better idea of flow Pt will call on Thursday to update on how she is doing T MUSIC SALESPERSON * Telephone Encounter - Christine Poon RN - 05/26/2019 12:43 PM CDT 1218 Left message on voice mail for pt to call clinic back * Telephone Encounter - Christine Poon RN - 05/26/2019 12:42 PM CDT 05/25 1108 Pt left message on voicemail Still bleeding,sometimes heavy, concerned 05/26 1218 Left message on voice mail for pt to call clinic back 05/27 1208 Pt returned call T MUSIC SALESPERSON documented in this encounter Plan of Treatment Not on file documented as of this encounter Visit Diagnoses Not on filedocumented in this encounter Care Teams Ice Guard Skating Rink Relationship Specialty Start Date End Date No Ref-Primary, Physician PCP - General 07/29/17 03/16/22 Shanti Lara, BOTTOM FINISHER [facility] [address] [place] [address] PCP - General Nurse Practitioner - [facility] 03/17/22 [facility] [address] [place], [place] 136115 Referring Physician live in companion 07/29/17 Jonathan Pitts MD [address] [place] [address] [phone] MD Oncology 07/29/17 Jonathan Pitts MD [address] [place] [address] [phone] Assigned Cancer Care Provider 05/18/20 05/15/23 Christine Poon RN Specialty Business Systems Architect Hematology & Oncology 12/02/21 documented as of this encounter
--- OUTSIDE RECORDS SUMMARY | 2023-08-04 15:11 | XMS_ITS | Encounter Summary ---
Author Name Unknown Organization [facility] Address [address] [place] [address] Care Team Providers Care Rehab Technician Name Role Phone No Ref-Primary, Physician Primary Care Provider Kavita Akhtar Unavailable [phone] Jonathan Pitts MD Unavailable Jonathan Pitts MD Unavailable Christine Poon RN Unavailable [phone] Shanti Lara NP Primary Care Provider [phone] Encounter Details Date Type Department Care Team ([facility] st Contact Info) Description 05/07/2020 [facility] [address] [place] [phone] Jonathan Pitts MD [address] [place] [address] Social History Tobacco Use Types Packs/Day [...] on filedocumented in this encounter Care Teams Rehab Technician Relationship Specialty Start Date End Date No Ref-Primary, Physician PCP - General 07/29/17 03/16/22 Shanti Lara, M[facility]I [facility] [address] [place] [address] PCP - General Nurse Practitioner - [facility] 03/17/22 [facility] [address] [place], [place] 7[address] Referring Physician field hauler 07/29/17 Jonathan Pitts MD [address] [place] [address] [phone] MD Oncology 07/29/17 Jonathan Pitts MD [address] [place] [address] [phone] Assigned Cancer Care Provider 05/18/20 05/15/23 Christine Poon RN Specialty Bucket Pusher Hematology & Oncology 12/02/21 documented as of this encounter
--- OUTSIDE RECORDS SUMMARY | 2023-08-04 15:11 | XMS_ITS | Encounter Summary ---
Author Name Unknown Organization [facility] Address [address] [place] [address] Care Team Providers Care Button Buttonhole Marker Name Role Phone No Ref-Primary, Physician Primary Care Provider Kavita Akhtar Unavailable [phone] Jonathan Pitts MD Unavailable [phone] Jonathan Pitts MD Unavailable [phone] Christine Poon RN Unavailable [phone] Shanti Lara NP Primary Care Provider [phone] Encounter Details Date Type Department Care Team (Late st Contact Info) Description 08/17/2018 [facility] [address] [place] [phone] Christine Poon RN Social History Tobacco Use Types Packs/Day Years Used Date Smoking Tobacco: Every Day Cigarettes 0.3 Smokeless Tobacco: Never Alcohol Use Standard Drinks/Week [...] on filedocumented in this encounter Care Teams Button Buttonhole Marker Relationship Specialty Start Date End Date No Ref-Primary, Physician PCP - General 07/29/17 03/16/22 Shanti Lara NP [facility] [address] [place] [address] PCP - General Nurse Practitioner - Family 03/17/22 [facility] [address] [place], [place] [id number] Referring Physician director of accounts receivable 07/29/17 Jonathan Pitts MD [address] [place] [address] [phone] Oncology 07/29/17 Jonathan Pitts MD [address] [place] [address] [phone] Assigned Cancer Care Provider 05/18/20 05/15/23 Christine Poon RN Specialty Sanding Machine Tender Automatic Hematology & Oncology 12/02/21 documented as of this encounter
--- OUTSIDE RECORDS SUMMARY | 2023-08-04 15:11 | XMS_ITS | Encounter Summary ---
Author Name Unknown Organization [place] Address [address] [place] [address] Care Team Providers Care Excavator Operator Name Role Phone No Ref-Primary, Physician Primary Care Provider Kavita Akhtar Unavailable [phone] Jonathan Pitts MD Unavailable Jonathan Pitts MD Unavailable [phone] Christine Poon RN Unavailable [phone] Shanti Lara NP Primary Care Provider [phone] Encounter Details Date Type Department Care Team (Late st Contact Info) Description 11/28/2019 [facility] [address] [place] [phone] Jonathan Pitts MD [address] [place] [address] Social History Tobacco Use Types Packs/Day [...] have Coronavirus / COVID-19? No / Unsure 11/28/2019 12:19 PM CDT documented as of this encounter Plan of Treatment Not on file documented as of this encounter Visit Diagnoses Not on filedocumented in this encounter Care Teams Excavator Operator Relationship Specialty Start Date End Date No Ref-Primary, Physician PCP - General 07/29/17 03/16/22 Shanti Lara, [facility] [address] [place] [address] PCP - General Nurse Practitioner - [facility] 03/17/22 [facility] [address] [place] [address] Referring Physician stonehand 07/29/17 Jonathan Pitts MD [address] [place] [address] [id number] MD Oncology 07/29/17 Jonathan Pitts MD [address] [place] [address] [id number] Assigned Cancer Care Provider 05/18/20 05/15/23 Christine Poon RN Specialty Welt Sewer Hematology & Oncology 12/02/21 documented as of this encounter
--- OUTSIDE RECORDS SUMMARY | 2023-08-04 15:11 | XMS_ITS | Encounter Summary ---
Author Name Unknown Organization [place] Address [address] [place] [address] Care Team Providers Care Education Dean Name Role Phone No Ref-Primary, Physician Primary Care Provider Kavita Akhtar Unavailable [phone] Jonathan Pitts MD Unavailable Jonathan Pitts MD Unavailable Christine Poon RN Unavailable [phone] Shanti Lara NP Primary Care Provider [phone] Encounter Details Date Type Department Care Team (Late st Contact Info) Description 11/30/2019 [facility] [address] [place] [phone] Jonathan Pitts MD [address] [place] [address] Social History Tobacco Use Types Packs/Day [...] on filedocumented in this encounter Care Teams Education Dean Relationship Specialty Start Date End Date No Ref-Primary, Physician PCP - General 07/29/17 03/16/22 Shanti Lara, [facility] [address] [place] [address] PCP - General Nurse Practitioner - [facility] 03/17/22 [address] [place] [address] Referring Physician jig bore operator 07/29/17 Jonathan Pitts MD [address] [place] [address] [id number] MD Oncology 07/29/17 Jonathan Pitts MD [address] [place] [address] [phone] Assigned Cancer Care Provider 05/18/20 05/15/23 Christine Poon RN Specialty Border Machine Operator Hematology & Oncology 12/02/21 documented as of this encounter
--- OUTSIDE RECORDS SUMMARY | 2023-08-04 15:11 | XMS_ITS | Encounter Summary ---
Author Name Unknown Organization [place] Address [address] [place] [address] Care Team Providers Care Airplane Charter Clerk Name Role Phone No Ref-Primary, Physician Primary Care Provider Kavita Akhtar Unavailable [phone] Jonathan Pitts MD Unavailable Jonathan Pitts MD Unavailable Christine Poon RN Unavailable [phone] Shanti Lara NP Primary Care Provider [phone] Encounter Details Date Type Department Care Team (Late st Contact Info) Description 05/10/2020 [facility] [address] [place] [phone] Jonathan Pitts MD [address] [place] [address] Social History Tobacco Use Types Packs/Day [...] on filedocumented in this encounter Care Teams Airplane Charter Clerk Relationship Specialty Start Date End Date No Ref-Primary, Physician PCP - General 07/29/17 03/16/22 Shanti Lara, [facility] [address] [place] [address] PCP - General Nurse Practitioner - [facility] 03/17/22 [facility] [address] [place], [place] 363315 Referring Physician dermatologist and dermatopathologist 07/29/17 Jonathan Pitts MD [address] [place] [address] [id number] MD Oncology 07/29/17 Jonathan Pitts MD [address] [place] [address] [phone] Assigned Cancer Care Provider 05/18/20 05/15/23 Christine Poon RN Specialty Deli Worker Hematology & Oncology 12/02/21 documented as of this encounter
--- OUTSIDE RECORDS SUMMARY | 2023-08-04 15:11 | XMS_ITS | Encounter Summary ---
Author Name Unknown Organization [place] Address [address] [place] [address] Care Team Providers Care Piper Installer Name Role Phone No Ref-Primary, Physician Primary Care Provider Kavita Akhtar Unavailable [phone] Jonathan Pitts MD Unavailable Jonathan Pitts MD Unavailable Christine Poon RN Unavailable [phone] Shanti Lara NP Primary Care Provider [phone] Encounter Details Date Type Department Care Team (Late st Contact Info) Description 11/17/2019 [facility] [address] [place] [phone] Jonathan Pitts MD [address] [place] [address] Social History Tobacco Use Types Packs/Day [...] have Coronavirus / COVID-19? No / Unsure 11/14/2019 7:04 AM CDT documented as of this encounter Plan of Treatment Not on file documented as of this encounter Visit Diagnoses Not on filedocumented in this encounter Care Teams Piper Installer Relationship Specialty Start Date End Date No Ref-Primary, Physician PCP - General 07/29/17 03/16/22 Shanti Lara, [facility] [address] [place] [address] PCP - General Nurse Practitioner - [facility] 03/17/22 [facility] [address] [place] [address] Referring Physician chief innovation officer 07/29/17 Jonathan Pitts MD [address] [place] [address] [id number] MD Oncology 07/29/17 Jonathan Pitts MD [address] [place] [address] [id number] Assigned Cancer Care Provider 05/18/20 05/15/23 Christine Poon RN Specialty Bat Person Hematology & Oncology 12/02/21 documented as of this encounter
--- OUTSIDE RECORDS SUMMARY | 2023-08-04 15:11 | XMS_ITS | Encounter Summary ---
Author Name Unknown Organization [place] Address [address] [place] [address] Care Team Providers Care Wheelchair Van Operator First Responder Name Role Phone No Ref-Primary, Physician Primary Care Provider Kavita Akhtar Unavailable [phone] Jonathan Pitts MD Unavailable Jonathan Pitts MD Unavailable Christine Poon RN Unavailable [phone] Shanti Lara NP Primary Care Provider [phone] Encounter Details Date Type Department Care Team ([facility] st Contact Info) Description 10/04/2018 [facility] Clinic [address] [place] [phone] Jonathan Pitts MD [address] [place] [address] Social History Tobacco Use Types Packs/Day [...] on filedocumented in this encounter Care Teams Wheelchair Van Operator First Responder Relationship Specialty Start Date End Date No Ref-Primary, Physician PCP - General 07/29/17 03/16/22 Shanti Lara, DYE EXPERT [facility] [address] [place] [address] PCP - General Nurse Practitioner - Family 03/17/22 [facility] [address] [place], [place] 959555 Referring Physician thread machine operator 07/29/17 Jonathan Pitts MD [address] [place] [address] [id number] MD Oncology 07/29/17 Jonathan Pitts MD [address] [place] [address] [id number] Assigned Cancer Care Provider 05/18/20 05/15/23 Christine Poon RN Specialty Frame Bander Hematology & Oncology 12/02/21 documented as of this encounter
--- OUTSIDE RECORDS SUMMARY | 2023-08-04 15:11 | XMS_ITS | Encounter Summary ---
Author Name Unknown Organization [facility] Address [address] [place] [address] 18688 Care Team Providers Care Housecleaner Name Role Phone No Ref-Primary, Physician Primary Care Provider Kavita Akhtar Unavailable [phone] Jonathan Pitts MD Unavailable Jonathan Pitts MD Unavailable Christine Poon RN Unavailable [phone] Shanti Lara NP Primary Care Provider [phone] Encounter Details Date Type Department Care Team (Late st Contact Info) Description 04/30/2020 [facility] Clinic [address] [place] [phone] Jonathan Pitts MD [address] [place] [address] Social History Tobacco Use Types Packs/Day [...] on file documented as of this encounter Miscellaneous Notes * Telephone Encounter - Christine Poon RN - 05/01/2020 11:59 AM CDT Spoke with pt documented in this encounter Plan of Treatment Not on file documented as of this encounter Visit Diagnoses Not on filedocumented in this encounter Care Teams Housecleaner Relationship Specialty Start Date End Date No Ref-Primary, Physician PCP - General 07/29/17 03/16/22 Shanti Lara KEYBOARD INSTRUMENT TUNER [facility] [address] [place] [address] PCP - General Nurse Practitioner - Family 03/17/22 [facility] [address] [place], [place] 570755 Referring Physician banking analyst 07/29/17 Jonathan Pitts MD [address] [place] [address] [id number] MD Oncology 07/29/17 Jonathan Pitts MD [address] [place] [address] [id number] Assigned Cancer Care Provider 05/18/20 05/15/23 Christine Poon RN Specialty Relish Blender Hematology & Oncology 12/02/21 documented as of this encounter
--- OUTSIDE RECORDS SUMMARY | 2023-08-04 15:11 | XMS_ITS | Encounter Summary ---
Author Name Unknown Organization [place] Address [address] [place] [address]893 Care Team Providers Care Farmworker Grain Name Role Phone No Ref-Primary, Physician Primary Care Provider Kavita Akhtar Unavailable [phone] Jonathan Pitts MD Unavailable Jonathan Pitts MD Unavailable [phone] Christine Poon RN Unavailable [phone] Shanti Lara NP Primary Care Provider [phone] Encounter Details Date Type Department Care Team (Late st Contact Info) Description 05/01/2020 [facility] [address] [place] [phone] Jonathan Pitts MD [address] [place] [address] Social History Tobacco Use Types Packs/Day [...] on filedocumented in this encounter Care Teams Farmworker Grain Relationship Specialty Start Date End Date No Ref-Primary, Physician PCP - General 07/29/17 03/16/22 Shanti Lara, PHARMACY TECH [facility] [address] [place] [address] PCP - General Nurse Practitioner - Family 03/17/22 [facility] [address] [place], [place] 334395 Referring Physician wet washer machine 07/29/17 Jonathan Pitts MD [address] [place], [place] [phone] MD Oncology 07/29/17 Jonathan Pitts MD [address] [place], [place] 994125 Assigned Cancer Care Provider 05/18/20 05/15/23 Christine Poon, RN Specialty Fire Information Officer Hematology & Oncology 12/02/21 documented as of this encounter
--- OUTSIDE RECORDS SUMMARY | 2023-08-04 15:11 | XMS_ITS | Encounter Summary ---
Author Name Unknown Organization [place] Address [address] [place] [address] 28694 Care Team Providers Care Pl Sql Developer Name Role Phone No Ref-Primary, Physician Primary Care Provider Kavita Akhtar Unavailable [phone] Jonathan Pitts MD Unavailable Jonathan Pitts MD Unavailable Christine Poon RN Unavailable [phone] Shanti Lara NP Primary Care Provider [phone] Encounter Details Date Type Department Care Team (Late st Contact Info) Description 10/27/2019 [facility] [address] [place] [phone] Jonathan Pitts MD [address] [place] [address] Social History Tobacco Use Types Packs/Day [...] on filedocumented in this encounter Care Teams Pl Sql Developer Relationship Specialty Start Date End Date No Ref-Primary, Physician PCP - General 07/29/17 03/16/22 Shanti Lara, ELEMENTARY TUTOR [facility] [address] [place] [address] PCP - General Nurse Practitioner - Family 03/17/22 [facility], [facility] [address] [place], [place] 553285 Referring Physician editor news 07/29/17 Jonathan Pitts MD [address] [place], [place] 038185 MD Oncology 07/29/17 Jonathan Pitts MD [address] [place], [place] 469295 Assigned Cancer Care Provider 05/18/20 05/15/23 Christine Poon, RN Specialty Neurosurgical Physician Assistant Hematology & Oncology 12/02/21 documented as of this encounter
--- OUTSIDE RECORDS SUMMARY | 2023-08-04 15:11 | XMS_ITS | Encounter Summary ---
Author Name Unknown Organization [place] Address [address] [place] [address] 6[address] Care Team Providers Care Commercial Airline Pilot Name Role Phone No Ref-Primary, Physician Primary Care Provider Kavita Akhtar Unavailable [phone] Jonathan Pitts MD Unavailable [phone] Jonathan Pitts MD Unavailable Christine Poon RN Unavailable [phone] Shanti Lara NP Primary Care Provider [phone] Encounter Details Date Type Department Care Team (Late st Contact Info) Description 11/28/2019 [facility] Clinic [address] [place] [phone] Jonathan Pitts MD [address] [place] [address] Social History Tobacco Use Types Packs/Day [...] on filedocumented in this encounter Care Teams Commercial Airline Pilot Relationship Specialty Start Date End Date No Ref-Primary, Physician PCP - General 07/29/17 03/16/22 Shanti Lara, [facility] [address] [place] [address] PCP - General Nurse Practitioner - [facility] 03/17/22 [facility] [address] [place] [address] Referring Physician trommel tender 07/29/17 Jonathan Pitts MD [address] [place] [address] [phone] MD Oncology 07/29/17 Jonathan Pitts MD [address] [place] [address] [phone] Assigned Cancer Care Provider 05/18/20 05/15/23 Christine Poon RN Specialty Vice President Marketing & Development Hematology & Oncology 12/02/21 documented as of this encounter
--- OUTSIDE RECORDS SUMMARY | 2023-08-04 15:11 | XMS_ITS | Encounter Summary ---
Author Name Unknown Organization [place] Address [address] [place] [address] 71055 Care Team Providers Care Automated Logistics Specialist Name Role Phone No Ref-Primary, Physician Primary Care Provider Kavita Akhtar Unavailable [phone] Jonathan Pitts MD Unavailable Jonathan Pitts MD Unavailable [phone] Christine Poon RN Unavailable [phone] Shanti Lraa NP Primary Care Provider [phone] Encounter Details Date Type Department Care Team (Late st Contact Info) Description 05/09/2020 [facility] [address] [place] [phone] Jonathan Pitts MD [address] [place] [address] Social History Tobacco Use Types Packs/Day [...] on filedocumented in this encounter Care Teams Automated Logistics Specialist Relationship Specialty Start Date End Date No Ref-Primary, Physician PCP - General 07/29/17 03/16/22 Shanti Lara, [facility] [address] [place] [address] PCP - General Nurse Practitioner - [place] [facility] 03/17/22 [facility] [address] [place], [place] 750345 Referring Physician roll inspector 07/29/17 Jonathan Pitts MD [address] [place] [address] [phone] MD Oncology 07/29/17 Jonathan Pitts MD [address] [place] [address] [phone] Assigned Cancer Care Provider 05/18/20 05/15/23 Christine Poon RN Specialty Corporate Development Analyst Hematology & Oncology 12/02/21 documented as of this encounter
--- OUTSIDE RECORDS SUMMARY | 2023-08-04 15:11 | XMS_ITS | Encounter Summary ---
Author Name Unknown Organization [place] Address [address] [place] [address] 8[address]46 Care Team Providers Care Motor Equipment Commanding Officer Name Role Phone No Ref-Primary, Physician Primary Care Provider Kavita Akhtar Unavailable [phone] Jonathan Pitts MD Unavailable Jonathan Pitts MD Unavailable Christine Poon RN Unavailable [phone] Shanti Lara NP Primary Care Provider [phone] Encounter Details Date Type Department Care Team (Late st Contact Info) Description 05/08/2020 [facility] [address] [place] [phone] Jonathan Pitts MD [address] [place] [address] Social History Tobacco Use Types Packs/Day [...] on filedocumented in this encounter Care Teams Motor Equipment Commanding Officer Relationship Specialty Start Date End Date No Ref-Primary, Physician PCP - General 07/29/17 03/16/22 Shanti Lara, [facility] [address] [place] [address] PCP - General Nurse Practitioner - [facility] 03/17/22 [facility] [address] [place], [place] 773855 Referring Physician breaker hand 07/29/17 Jonathan Pitts MD [address] [place] [address] [phone] MD Oncology 07/29/17 Jonathan Pitts MD [address] [place] [address] [phone] Assigned Cancer Care Provider 05/18/20 05/15/23 Christine Poon RN Specialty Chief Of Harbor Patrol Hematology & Oncology 12/02/21 documented as of this encounter
--- OUTSIDE RECORDS SUMMARY | 2023-08-04 15:11 | XMS_ITS | Encounter Summary ---
Author Name Unknown Organization [place] Address [address] [place] [address] Care Team Providers Care Warehouse Order Puller Name Role Phone No Ref-Primary, Physician Primary Care Provider Kavita Akhtar Unavailable [phone] Jonathan Pitts MD Unavailable [phone] Jonathan Pitts MD Unavailable Christine Poon RN Unavailable [phone] Shanti Lara NP Primary Care Provider [phone] Encounter Details Date Type Department Care Team (Late st Contact Info) Description 05/08/2020 [facility] [address] [place] [phone] Jonathan Pitts MD [address] [place] [address] Social History Tobacco Use Types Packs/Day [...] on filedocumented in this encounter Care Teams Warehouse Order Puller Relationship Specialty Start Date End Date No Ref-Primary, Physician PCP - General 07/29/17 03/16/22 Shanti Lara, [facility] [address] [place] [address] PCP - General Nurse Practitioner - [facility] 03/17/22 [facility] [address] [place], [place] 694255 Referring Physician beater engineer helper 07/29/17 Jonathan Pitts MD [address] [place] [address] 553125 MD Oncology 07/29/17 Jonathan Pitts MD [address] [place] [address] [phone] Assigned Cancer Care Provider 05/18/20 05/15/23 Christine Poon RN Specialty Benefits Consultant Hematology & Oncology 12/02/21 documented as of this encounter
--- OUTSIDE RECORDS SUMMARY | 2023-08-04 15:11 | XMS_ITS | Encounter Summary ---
Author Name Unknown Organization [place] Address [address] [place] [address] 86[address] Care Team Providers Care Supervisor Frame Sample And Pattern Name Role Phone No Ref-Primary, Physician Primary Care Provider Kavita Akhtar Unavailable [phone] Jonathan Pitts MD Unavailable Jonathan Pitts MD Unavailable Christine Poon RN Unavailable [phone] Shanti Lara NP Primary Care Provider [phone] Encounter Details Date Type Department Care Team ([facility] st Contact Info) Description 05/07/2020 [facility] [address] [place] [phone] Jonathan Pitts MD [address] [place] [address] Social History Tobacco Use Types Packs/Day [...] filedocumented in this encounter Care Teams Supervisor Frame Sample And Pattern Relationship Specialty Start Date End Date No Ref-Primary, Physician PCP - General 07/29/17 03/16/22 Shanti Lara, [facility] [address] [place] [address] PCP - General Nurse Practitioner - [facility] 03/17/22 [facility] [address] [place], [place] 809325 Referring Physician hospice clinical supervisor 07/29/17 Jonathan Pitts MD [address] [place] [address] [id number] MD Oncology 07/29/17 Jonathan Pitts MD [address] [place] [address] [phone] Assigned Cancer Care Provider 05/18/20 05/15/23 Christine Poon RN Specialty Philosophy Faculty Hematology & Oncology 12/02/21 documented as of this encounter
--- OUTSIDE RECORDS SUMMARY | 2023-08-04 15:11 | XMS_ITS | Encounter Summary ---
Author Name Unknown Organization [place] Address [address] [place] [address] 88983 Care Team Providers Care Electric Meter Tester Name Role Phone No Ref-Primary, Physician Primary Care Provider Kavita Akhtar Unavailable [phone] Jonathan Pitts MD Unavailable Jonathan Pitts MD Unavailable [phone] Christine Poon RN Unavailable [phone] Shanti Lara NP Primary Care Provider [phone] Encounter Details Date Type Department Care Team (Late st Contact Info) Description 05/09/2020 [facility] [address] [place] [phone] Jonathan Pitts MD [address] [place] [address] Social History Tobacco Use Types Packs/Day [...] on filedocumented in this encounter Care Teams Electric Meter Tester Relationship Specialty Start Date End Date No Ref-Primary, Physician PCP - General 07/29/17 03/16/22 Shanti Lara, [facility] [address] [place] [address] PCP - General Nurse Practitioner - [facility] 03/17/22 [facility] [address] [place], [place] 617515 Referring Physician birdcage assembler 07/29/17 Jonathan Pitts MD [address] [place] [address] [phone] MD Oncology 07/29/17 Jonathan Pitts MD [address] [place] [address] [phone] Assigned Cancer Care Provider 05/18/20 05/15/23 Christine Poon RN Specialty Car Checker Hematology & Oncology 12/02/21 documented as of this encounter
--- OUTSIDE RECORDS SUMMARY | 2023-08-04 15:11 | XMS_ITS | Encounter Summary ---
Author Name Unknown Organization [place] Address [address] [place] [address] 8[address]65 Care Team Providers Care Bread Jockey Name Role Phone No Ref-Primary, Physician Primary Care Provider Kavita Akhtar Unavailable [phone] Jonathan Pitts MD Unavailable Jonathan Pitts MD Unavailable Christine Poon RN Unavailable [phone] Shanti Lara NP Primary Care Provider [phone] Encounter Details Date Type Department Care Team (Late st Contact Info) Description 05/02/2020 [facility] [address] [place] [phone] Jonathan Pitts MD [address] [place] [address] Social History Tobacco Use Types Packs/Day [...] on filedocumented in this encounter Care Teams Bread Jockey Relationship Specialty Start Date End Date No Ref-Primary, Physician PCP - General 07/29/17 03/16/22 Shanti Lara, GREEN ENERGY MARKETING ANALYST [facility] [address] [place] [address] PCP - General Nurse Practitioner - Family 03/17/22 [facility], [facility] [address] [place], [place] 079505 Referring Physician director of housing 07/29/17 Jonathan Pitts MD [address] [place], [place] 525305 MD Oncology 07/29/17 Jonathan Pitts MD [address] [place], [place] 928565 Assigned Cancer Care Provider 05/18/20 05/15/23 Christine Poon, RN Specialty It Integration Architect Hematology & Oncology 12/02/21 documented as of this encounter
--- OUTSIDE RECORDS SUMMARY | 2023-08-04 15:11 | XMS_ITS | Encounter Summary ---
Author Name Unknown Organization [facility] Address [address] [place] [address] Care Team Providers Care Clinical Supervisor Name Role Phone No Ref-Primary, Physician Primary Care Provider Kavita Akhtar Unavailable [phone] Jonathan Pitts MD Unavailable [phone] Jonathan Pitts MD Unavailable [phone] Christine Poon RN Unavailable [phone] Shanti Lara NP Primary Care Provider [phone] Encounter Details Date Type Department Care Team (Late st Contact Info) Description 05/03/2020 [facility] [address] [place] [phone] Jonathan Pitts MD [address] [place] [address] Social History Tobacco Use Types Packs/Day [...] on filedocumented in this encounter Care Teams Clinical Supervisor Relationship Specialty Start Date End Date No Ref-Primary, Physician PCP - General 07/29/17 03/16/22 Shanti Lara, HOUSEKEEPER [facility] [address] [place] [address] PCP - General Nurse Practitioner - Family 03/17/22 [facility] [address] [place], [place] [address] Referring Physician music education adjunct professor 07/29/17 Jonathan Pitts MD [address] [place], [place] [id number] MD Oncology 07/29/17 Jonathan Pitts MD [address] [place], [place] [address] Assigned Cancer Care Provider 05/18/20 05/15/23 Christine Poon, RN Specialty Account Management Assistant Hematology & Oncology 12/02/21 documented as of this encounter
--- OUTSIDE RECORDS SUMMARY | 2023-08-04 15:12 | XMS_ITS | Encounter Summary ---
Author Name Unknown Organization [facility] Address [address] [place] [address] Care Team Providers Care Sushi Chef Name Role Phone No Ref-Primary, Physician Primary Care Provider Kavita Akhtar Unavailable [phone] Jonathan Pitts MD Unavailable Jonathan Pitts MD Unavailable Christine Poon RN Unavailable [phone] Shanti Lara NP Primary Care Provider [phone] Encounter Details Date Type Department Care Team ([facility] st Contact Info) Description 08/11/2017 [facility] [address] [place] [phone] Jonathan Pitts MD [address] [place] [address] Social History Tobacco Use Types Packs/Day [...] on filedocumented in this encounter Care Teams Sushi Chef Relationship Specialty Start Date End Date No Ref-Primary, Physician PCP - General 07/29/17 03/16/22 Shanti Lara, SENIOR BUDGET ANALYST [facility] [address] [place] [address] PCP - General Nurse Practitioner - Family 03/17/[address] [facility] [address] [place], [place] [address] Referring Physician collar setter overlock 07/29/17 Jonathan Pitts MD [address] [place] [address] [id number] MD Oncology 07/29/17 Jonathan Pitts MD [address] [place] [address] [phone] Assigned Cancer Care Provider 05/18/20 05/15/23 Christine Poon RN Specialty Appointment Clerk Hematology & Oncology 12/02/21 documented as of this encounter
--- OUTSIDE RECORDS SUMMARY | 2023-08-04 15:12 | XMS_ITS | Encounter Summary ---
Author Name Unknown Organization [facility] Address [address] [place] [address] Care Team Providers Care Engineering Mechanic Name Role Phone No Ref-Primary, Physician Primary Care Provider Kavita Akhtar Unavailable [phone] Jonathan Pitts MD Unavailable [phone] Jonathan Pitts MD Unavailable [phone] Christine Poon RN Unavailable [phone] Shanti Lara NP Primary Care Provider [phone] Encounter Details Date Type Department Care Team (Late st Contact Info) Description 02/05/2018 [facility] [address] [place] [phone] Christine Poon RN Social History Tobacco [...] on filedocumented in this encounter Care Teams Engineering Mechanic Relationship Specialty Start Date End Date No Ref-Primary, Physician PCP - General 07/29/17 03/16/22 Shanti Lara NP [facility] [address] [place] [address] PCP - General Nurse Practitioner - Family 03/17/22 [facility] [address] [place], [place] [id number] Referring Physician cnc machine programmer 07/29/17 Jonathan Pitts MD [address] [place] [address] [id number] Oncology 07/29/17 Jonathan Pitts MD [address] [place] [address] [id number] Assigned Cancer Care Provider 05/18/20 05/15/23 Christine Poon RN Specialty Wheel Press Clerk Hematology & Oncology 12/02/21 documented as of this encounter
--- OUTSIDE RECORDS SUMMARY | 2023-08-04 15:12 | XMS_ITS | Encounter Summary ---
Author Name Unknown Organization [place] Address [address] [place] [address] Care Team Providers Care Parole Board Member Name Role Phone No Ref-Primary, Physician Primary Care Provider Kavita Akhtar Unavailable [phone] Jonathan Pitts MD Unavailable [phone] Jonathan Pitts MD Unavailable Christine Poon RN Unavailable [phone] Shanti Lara NP Primary Care Provider [phone] Encounter Details Date Type Department Care Team (Late st Contact Info) Description 09/04/2017 [facility] [address] [place] [phone] Jonathan Pitts MD [address] [place] [address] Granulosa cell tumor (Primary Dx) Social History Tobacco Use Types Packs/Day Years [...] documented as of this encounter Visit Diagnoses Diagnosis 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 documented in this encounter Care Teams Parole Board Member Relationship Specialty Start Date End Date No Ref-Primary, Physician PCP - General 07/29/17 03/16/22 Shanti Lara, ART PSYCHOTHERAPIST [facility] [address] [place] [address] PCP - General Nurse Practitioner - Family 03/17/22 [facility] [address] [place], [place] [address] Referring Physician professional wrestler 07/29/17 Jonathan Pitts MD [address] [place] [address] [id number] MD Oncology 07/29/17 Jonathan Pitts MD [address] [place] [address] [id number] Assigned Cancer Care Provider 05/18/20 05/15/23 Christine Poon, RN Specialty Trailer Tank Truck Driver Hematology & Oncology 12/02/21 documented as of this encounter
== END 2023-08-04 15:55 | disposition home or self-care (01) ==
PROVIDERS: Emergency Provider Emergency Medicine Emergency Medical Services; PCP Nurse Practitioner Family
DX: S82.61XA Displaced fracture of lateral malleolus of right fibula, initial encounter for closed fracture (principal); X50.1XXA Overexertion from prolonged static or awkward postures, initial encounter
CPT/HCPCS: 73610; 99283; 99284

== ENCOUNTER 2024-02-07 10:45 | Emergency (ER) | payer BC, SELFPAY ==
[2024-02-07] VITALS (41 sets, daily range): BP systolic 115–173; BP diastolic 72–124; PULSE 87–118; RESP 18–26; TEMP 35.9; O2SAT 91–99; BMI 35.4
--- NOTE | 2024-02-07 11:34 | CRLHL7_ITS ---
For Patients: As a result of the Century Cures Act, medical imaging exams and procedure reports are released immediately into your electronic medical record. You may view this report before your referring provider. If you have questions, please contact your health care provider. INDICATION: Diffuse abdominal pain history of ovarian cancer TECHNIQUE: CT abdomen and pelvis with 98 mL Isovue 370 COMPARISON: CT abdomen and pelvis 02/25/2023 FINDINGS: Lower chest: Unremarkable. Liver: Normal in size and attenuation. No suspicious masses. Gallbladder and bile ducts: No stones or inflammation. No biliary dilatation. Pancreas: Unremarkable. No mass or inflammation. Spleen: Normal in size. No masses. Adrenal glands: Normal in size. No nodules. Kidneys: Normal in size. No suspicious masses, stones, or hydronephrosis. GI tract: Unremarkable. Normal in caliber. No sign of mass or inflammation. Normal appendix. Vasculature: Abdominal aorta is normal in caliber. Lymph nodes: No lymphadenopathy. Peritoneum/Abdominal Wall: Postop changes of the anterior abdominal wall. Pelvis: Hysterectomy oophorectomy. Left pelvic mass measuring 6.1 x 4.6 centimeters. Moderate to large amount of hemorrhage surrounding this mass in the pelvis extending into the upper abdomen. Bones: Unremarkable for age. IMPRESSION: 1. 6.1 x 4.6 centimeter left pelvic mass suspicious for recurrence/malignancy. Large amount of hemorrhage within the pelvis extending up into the upper abdomen. Results called to Dr. Fairchild on 02/07/24 at 1:10pm. Please note that all CT scans at this facility use dose modulation, iterative reconstruction, and/or weight-based dosing when appropriate to reduce radiation dose to as low as reasonably achievable. Dictated by Lorene Grace MD @ 02/07/2024 1:12:08 PM (Electronically Signed)
--- NOTE | 2024-02-07 11:35 | ED.GENADULT ---
HPI - General Adult General Chief complaint: Abdominal Pain <Colton Fairchild MD - Last Filed: 02/07/24 13:59> Stated complaint: lower abd pain <Colton Fairchild MD - Last Filed: 02/07/24 13:59> Time Seen by Provider: 02/07/24 10:55 <Colton Fairchild MD - Last Filed: 02/07/24 13:59> History of Present Illness HPI narrative: Patient is a 30 year white female has had a history of abdominal hysterectomy for ovarian cancer, that is been deemed resolved, she has had 1 day history of looser stools and diffuse abdominal pain. No fever, no nausea, no vomiting, the patient is able to eat and drink adequately. No urinary symptoms. No radiation of pain. She still has her appendix. Her past medical history is reviewed in her chart is reviewed. <Colton Fairchild MD - Last Filed: 02/07/24 13:59> Related Data Allergies/adverse reactions: Allergies Allergy/AdvReac Type Severity Reaction Status Date / Time codeine Allergy Intermediate Verified 02/07/24 11:15 gabapentin Allergy Intermediate Hives Verified 02/07/24 11:15 tramadol AdvReac rash, Verified 02/07/24 11:15 headaches <Colton Fairchild MD - Last Filed: 02/07/24 13:59> Review of Systems Status of ROS: Reports: 6 or more systems reviewed and unremarkable except as noted in History and below <Colton Fairchild MD - Last Filed: 02/07/24 13:59> [facility] Medical History: Medical History Periumbilical hernia ?K42.9 - Umbilical hernia without obstruction or gangrene (ICD-10) Swelling of left knee joint ?M25.462 - Effusion, left knee (ICD-10) <Colton Fairchild MD - Last Filed: 02/07/24 13:59> Surgical History: Surgical History S/P tendon repair (03/31/23) ?Z98.890 - Other specified postprocedural states (ICD-10) History of hysterectomy ?Z90.710 - Acquired absence of both cervix and uterus (ICD-10) S/P repair of ventral hernia ?Z98.890 - Other specified postprocedural states (ICD-10) ?Z87.19 - Personal history of other diseases of the digestive system (ICD-10) S/P hysterectomy with oophorectomy ?Z90.710 - Acquired absence of both cervix and uterus (ICD-10) ?Z90.721 - Acquired absence of ovaries, unilateral (ICD-10) <Colton Fairchild MD - Last Filed: 02/07/24 13:59> Social History: Social History Narrative: 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 No alcohol Smoking Status: Former smoker What tobacco products do you use: cigarettes Smoking quit date/years: <= 15 years ago Do you use any of these nicotine containing products: None Second hand tobacco smoke exposure: No How often do you have a drink containing alcohol: never How often do you have six or more drinks on one occasion: Never AUDIT-C Alcohol total score: 0 Non-prescribed substance use: denies use service: No <Colton Fairchild MD - Last Filed: 02/07/24 13:59> Exam Narrative: Exam Narrative: Objective: Vital signs short to be afebrile, blood pressure elevated, patient is very emotional and tearing. She is easily distractible HEENT is unremarkable neck is no scleral icterus, mouth clear Neck is supple Chest clear Heart rhythm regular heart murmur Abdomen benign soft, no rebound or peritonitis no palpable masses Extremities are no edema Neurologic nonfocal No skin rashes noted <Colton Fairchild MD - Last Filed: 02/07/24 13:59> Const: Vital Signs, click to edit/add: Vital Signs - 24 hr 02/07/24 11:12 02/07/24 11:51 02/07/24 12:06 Temperature 96.6 F L Pulse Rate 100 Pulse Rate [Right Pulse Oximeter] 105 H Respiratory Rate 26 H Blood Pressure Blood Pressure [Ri ght Upper Arm] 173/124 H Pulse Oximetry 98 98 96 Oxygen Delivery Me thod Room Air 02/07/24 12:15 02/07/24 12:28 02/07/24 12:30 Temperature Pulse Rate 97 91 Pulse Rate [Right Pulse Oximeter] Respiratory Rate Blood Pressure Blood Pressure [Ri ght Upper Arm] 129/81 Pulse Oximetry 96 96 Oxygen Delivery Me thod 02/07/24 12:45 02/07/24 13:30 02/07/24 13:31 Temperature Pulse Rate 91 87 98 Pulse Rate [Right Pulse Oximeter] Respiratory Rate Blood Pressure 123/82 Blood Pressure [Ri ght Upper Arm] Pulse Oximetry 97 97 97 Oxygen Delivery [place] thod 02/07/24 13:32 02/07/24 13:45 02/07/24 14:00 Temperature Pulse Rate 98 101 H 100 Pulse Rate [Right Pulse Oximeter] Respiratory Rate Blood Pressure Blood Pressure [Ri ght Upper Arm] Pulse Oximetry 97 98 98 Oxygen Delivery [place] thod 02/07/24 14:15 02/07/24 14:30 02/07/24 14:45 Temperature Pulse Rate 100 104 H 108 H Pulse Rate [Right Pulse Oximeter] Respiratory Rate Blood Pressure Blood Pressure [Ri ght Upper Arm] Pulse Oximetry 93 99 97 Oxygen Delivery Wa thod 02/07/24 15:00 02/07/24 15:15 02/07/24 15:30 Temperature Pulse Rate 109 H 111 H 101 H Pulse Rate [Right Pulse Oximeter] Respiratory Rate Blood Pressure Blood Pressure [Ri ght Upper Arm] Pulse Oximetry 97 96 [facility] 02/07/24 15:45 02/07/24 16:00 02/07/24 16:15 Temperature Pulse Rate 100 109 H 106 H Pulse Rate [Right Pulse Oximeter] Respiratory Rate Blood Pressure Blood Pressure [Ri ght Upper Arm] Pulse Oximetry 95 96 95 Oxygen Delivery Wa thod 02/07/24 16:31 02/07/24 16:45 02/07/24 17:01 Temperature Pulse Rate 99 92 102 H Pulse Rate [Right Pulse Oximeter] Respiratory Rate Blood Pressure Blood Pressure [Ri ght Upper Arm] Pulse Oximetry 96 96 98 Oxygen Delivery Wa thod 02/07/24 17:15 02/07/24 17:30 02/07/24 17:45 Temperature Pulse Rate 99 95 98 Pulse Rate [Right Pulse Oximeter] Respiratory Rate Blood Pressure Blood Pressure [Ri ght Upper Arm] Pulse Oximetry 96 96 96 Oxygen Delivery Wa thod 02/07/24 17:47 02/07/24 17:48 02/07/24 19:26 Temperature Pulse Rate 90 97 Pulse Rate [Right Pulse Oximeter] Respiratory Rate Blood Pressure 122/78 Blood Pressure [Ri ght Upper Arm] Pulse Oximetry 96 96 97 Oxygen Delivery Me thod 02/07/24 19:26 02/07/24 21:25 02/07/24 22:04 Temperature Pulse Rate 110 H Pulse Rate [Right Pulse Oximeter] 87 105 H Respiratory Rate 18 18 Blood Pressure Blood Pressure [Ri ght Upper Arm] 142/96 H 135/80 Pulse Oximetry 97 98 97 Oxygen Delivery Me thod Room Air Room Air 02/07/24 22:15 02/07/24 22:30 02/07/24 22:47 Temperature Pulse Rate 106 H 108 H 112 H Pulse Rate [Right Pulse Oximeter] Respiratory Rate Blood Pressure 124/83 135/86 Blood Pressure [Ri ght Upper Arm] Pulse Oximetry 97 97 96 Oxygen Delivery Me thod 02/07/24 22:50 02/07/24 22:51 02/07/24 23:00 Temperature Pulse Rate 118 H 101 H Pulse Rate [Right Pulse Oximeter] 115 H Respiratory Rate 18 Blood Pressure 125/81 Blood Pressure [Ri ght Upper Arm] 125/81 Pulse Oximetry 94 97 91 Oxygen Delivery Me thod Room Air 02/07/24 23:01 02/07/24 23:32 02/07/24 23:34 Temperature Pulse Rate 107 H 108 H 110 H Pulse Rate [Right Pulse Oximeter] Respiratory Rate Blood Pressure 122/78 115/72 Blood Pressure [Ri ght Upper Arm] Pulse Oximetry 92 97 96 Oxygen Delivery Me thod 02/08/24 00:00 02/08/24 00:02 02/08/24 00:02 Temperature Pulse Rate 105 H 105 H 105 H Pulse Rate [Right Pulse Oximeter] Respiratory Rate Blood Pressure 112/78 112/78 Blood Pressure [Ri ght Upper Arm] Pulse Oximetry 93 94 94 Oxygen Delivery Me thod 02/08/24 00:02 02/08/24 00:30 02/08/24 00:31 Temperature Pulse Rate 105 H 107 H 92 Pulse Rate [Right Pulse Oximeter] Respiratory Rate Blood Pressure 112/78 111/76 Blood Pressure [Ri ght Upper Arm] Pulse Oximetry 94 94 94 Oxygen Delivery Me thod 02/08/24 00:31 02/08/24 01:00 02/08/24 01:01 Temperature Pulse Rate 92 96 97 Pulse Rate [Right Pulse Oximeter] Respiratory Rate Blood Pressure 111/76 112/73 Blood Pressure [Ri ght Upper Arm] Pulse Oximetry 94 95 96 Oxygen Delivery Me thod 02/08/24 01:01 02/08/24 01:01 02/08/24 01:30 Temperature Pulse Rate 97 97 102 H Pulse Rate [Right Pulse Oximeter] Respiratory Rate Blood Pressure 112/73 112/73 Blood Pressure [Ri ght Upper Arm] Pulse Oximetry 96 96 95 Oxygen Delivery Me thod 02/08/24 01:31 02/08/24 02:00 02/08/24 02:01 Temperature Pulse Rate 97 97 94 Pulse Rate [Right Pulse Oximeter] Respiratory Rate Blood Pressure 115/76 123/74 Blood Pressure [Ri ght Upper Arm] Pulse Oximetry 96 95 95 Oxygen Delivery Me thod 02/08/24 02:30 02/08/24 02:31 02/08/24 03:00 Temperature Pulse Rate 99 100 103 H Pulse Rate [Right Pulse Oximeter] Respiratory Rate Blood Pressure 109/71 Blood Pressure [Ri ght Upper Arm] Pulse Oximetry 94 94 94 Oxygen Delivery Me thod 02/08/24 03:01 02/08/24 03:04 02/08/24 03:30 Temperature 97.6 F Pulse Rate 89 99 Pulse Rate [Right Pulse Oximeter] 99 Respiratory Rate 16 Blood Pressure 117/73 Blood Pressure [Ri ght Upper Arm] 109/71 Pulse Oximetry 93 98 92 Oxygen Delivery Me thod Room Air 02/08/24 03:31 02/08/24 04:00 02/08/24 04:01 Temperature Pulse Rate 89 92 92 Pulse Rate [Right Pulse Oximeter] Respiratory Rate Blood Pressure 125/80 134/78 Blood Pressure [Ri ght Upper Arm] Pulse Oximetry 93 93 94 Oxygen Delivery Me thod 02/08/24 04:30 02/08/24 04:31 02/08/24 05:00 Temperature Pulse Rate 89 96 98 Pulse Rate [Right Pulse Oximeter] Respiratory Rate Blood Pressure 120/82 Blood Pressure [Ri ght Upper Arm] Pulse Oximetry 93 94 94 Oxygen Delivery Me thod 02/08/24 05:01 02/08/24 05:30 02/08/24 05:31 Temperature Pulse Rate 92 94 97 Pulse Rate [Right Pulse Oximeter] Respiratory Rate Blood Pressure 130/82 114/73 Blood Pressure [Ri ght Upper Arm] Pulse Oximetry 94 94 94 Oxygen Delivery Me thod 02/08/24 06:00 02/08/24 06:01 02/08/24 06:30 Temperature Pulse Rate 96 89 90 Pulse Rate [Right Pulse Oximeter] Respiratory Rate Blood Pressure 116/74 Blood Pressure [Ri ght Upper Arm] Pulse Oximetry 92 95 94 Oxygen Delivery Me thod 02/08/24 06:31 02/08/24 06:43 02/08/24 07:05 Temperature 97.0 F L Pulse Rate 97 113 H Pulse Rate [Right Pulse Oximeter] 100 Respiratory Rate 16 Blood Pressure 122/80 137/87 Blood Pressure [Ri ght Upper Arm] 122/80 Pulse Oximetry 93 97 95 Oxygen Delivery Me od Room Air 02/08/24 07:06 02/08/24 07:30 02/08/24 07:31 Temperature Pulse Rate 110 H 119 H 106 H Pulse Rate [Right Pulse Oximeter] Respiratory Rate Blood Pressure 131/80 Blood Pressure [Ri ght Upper Arm] Pulse Oximetry 95 93 94 Oxygen Delivery Me od 02/08/24 08:00 02/08/24 08:01 02/08/24 08:30 Temperature Pulse Rate 109 H 114 H 98 Pulse Rate [Right Pulse Oximeter] Respiratory Rate Blood Pressure 128/72 Blood Pressure [Ri ght Upper Arm] Pulse Oximetry 94 95 95 Oxygen Delivery Me thod 02/08/24 08:31 02/08/24 08:42 02/08/24 09:00 Temperature Pulse Rate 106 H 97 Pulse Rate [Right Pulse Oximeter] Respiratory Rate Blood Pressure 115/78 Blood Pressure [Ri ght Upper Arm] 115/78 Pulse Oximetry 94 94 Oxygen Delivery Me thod 02/08/24 09:01 02/08/24 09:02 02/08/24 09:30 Temperature Pulse Rate 100 96 95 Pulse Rate [Right Pulse Oximeter] Respiratory Rate Blood Pressure 116/76 Blood Pressure [Ri ght Upper Arm] Pulse Oximetry 93 93 92 Oxygen Delivery Me thod 02/08/24 09:31 02/08/24 10:03 02/08/24 10:04 Temperature Pulse Rate 91 103 H 100 Pulse Rate [Right Pulse Oximeter] Respiratory Rate Blood Pressure 116/71 129/80 Blood Pressure [Ri ght Upper Arm] Pulse Oximetry 92 95 94 Oxygen Delivery Me thod <Colton Fairchild MD - Last Filed: 02/07/24 13:59> Vital Signs, click to edit/add: Vital Signs - 24 hr 02/07/24 11:12 02/07/24 11:51 02/07/24 12:06 Temperature 96.6 F L Pulse Rate 100 Pulse Rate [Right Pulse Oximeter] 105 H Respiratory Rate 26 H Blood Pressure Blood Pressure [Ri ght Upper Arm] 173/124 H Pulse Oximetry 98 98 96 Oxygen Delivery Me thod Room Air 02/07/24 12:15 02/07/24 12:28 02/07/24 12:30 Temperature Pulse Rate 97 91 Pulse Rate [Right Pulse Oximeter] Respiratory Rate Blood Pressure Blood Pressure [Ri ght Upper Arm] 129/81 Pulse Oximetry 96 96 Oxygen Delivery Me thod 02/07/24 12:45 02/07/24 13:30 02/07/24 13:31 Temperature Pulse Rate 91 87 98 Pulse Rate [Right Pulse Oximeter] Respiratory Rate Blood Pressure 123/82 Blood Pressure [Ri ght Upper Arm] Pulse Oximetry 97 97 97 Oxygen Delivery Me thod 02/07/24 13:32 02/07/24 13:45 02/07/24 14:00 Temperature Pulse Rate 98 101 H 100 Pulse Rate [Right Pulse Oximeter] Respiratory Rate Blood Pressure Blood Pressure [Ri ght Upper Arm] Pulse Oximetry 97 98 98 Oxygen Delivery Me thod 02/07/24 14:15 02/07/24 14:30 02/07/24 14:45 Temperature Pulse Rate 100 104 H 108 H Pulse Rate [Right Pulse Oximeter] Respiratory Rate Blood Pressure Blood Pressure [Ri ght Upper Arm] Pulse Oximetry 93 99 97 Oxygen Delivery Me thod 02/07/24 15:00 02/07/24 15:15 02/07/24 15:30 Temperature Pulse Rate 109 H 111 H 101 H Pulse Rate [Right Pulse Oximeter] Respiratory Rate Blood Pressure Blood Pressure [Ri ght Upper Arm] Pulse Oximetry 97 96 95 Oxygen Delivery Me thod 02/07/24 15:45 02/07/24 16:00 02/07/24 16:15 Temperature Pulse Rate 100 109 H 106 H Pulse Rate [Right Pulse Oximeter] Respiratory Rate Blood Pressure Blood Pressure [Ri ght Upper Arm] Pulse Oximetry 95 96 95 Oxygen Delivery Me thod 02/07/24 16:31 02/07/24 16:45 02/07/24 17:01 Temperature Pulse Rate 99 92 102 H Pulse Rate [Right Pulse Oximeter] Respiratory Rate Blood Pressure Blood Pressure [Ri ght Upper Arm] Pulse Oximetry 96 96 98 Oxygen Delivery Me thod 02/07/24 17:15 02/07/24 17:30 02/07/24 17:45 Temperature Pulse Rate 99 95 98 Pulse Rate [Right Pulse Oximeter] Respiratory Rate Blood Pressure Blood Pressure [Ri ght Upper Arm] Pulse Oximetry 96 96 96 Oxygen Delivery Me thod 02/07/24 17:47 02/07/24 17:48 02/07/24 19:26 Temperature Pulse Rate 90 97 Pulse Rate [Right Pulse Oximeter] Respiratory Rate Blood Pressure 122/78 Blood Pressure [Ri ght Upper Arm] Pulse Oximetry 96 96 97 Oxygen Delivery Me thod 02/07/24 19:26 02/07/24 21:25 02/07/24 22:04 Temperature Pulse Rate 110 H Pulse Rate [Right Pulse Oximeter] 87 105 H Respiratory Rate 18 18 Blood Pressure Blood Pressure [Ri ght Upper Arm] 142/96 H 135/80 Pulse Oximetry 97 98 97 Oxygen Delivery Me thod Room Air Room Air 02/07/24 22:15 02/07/24 22:30 02/07/24 22:47 Temperature Pulse Rate 106 H 108 H 112 H Pulse Rate [Right Pulse Oximeter] Respiratory Rate Blood Pressure 124/83 135/86 Blood Pressure [Ri ght Upper Arm] Pulse Oximetry 97 97 96 Oxygen Delivery Me thod 02/07/24 22:50 02/07/24 22:51 02/07/24 23:00 Temperature Pulse Rate 118 H 101 H Pulse Rate [Right Pulse Oximeter] 115 H Respiratory Rate 18 Blood Pressure 125/81 Blood Pressure [Ri ght Upper Arm] 125/81 Pulse Oximetry 94 97 91 Oxygen Delivery Me thod Room Air 02/07/24 23:01 02/07/24 23:32 02/07/24 23:34 Temperature Pulse Rate 107 H 108 H 110 H Pulse Rate [Right Pulse Oximeter] Respiratory Rate Blood Pressure 122/78 115/72 Blood Pressure [Ri ght Upper Arm] Pulse Oximetry 92 97 96 Oxygen Delivery Me thod 02/08/24 00:00 02/08/24 00:02 02/08/24 00:02 Temperature Pulse Rate 105 H 105 H 105 H Pulse Rate [Right Pulse Oximeter] Respiratory Rate Blood Pressure 112/78 112/78 Blood Pressure [Ri ght Upper Arm] Pulse Oximetry 93 94 94 Oxygen Delivery Me thod 02/08/24 00:02 02/08/24 00:30 02/08/24 00:31 Temperature Pulse Rate 105 H 107 H 92 Pulse Rate [Right Pulse Oximeter] Respiratory Rate Blood Pressure 112/78 111/76 Blood Pressure [Ri ght Upper Arm] Pulse Oximetry 94 94 94 Oxygen Delivery Me thod 02/08/24 00:31 02/08/24 01:00 02/08/24 01:01 Temperature Pulse Rate 92 96 97 Pulse Rate [Right Pulse Oximeter] Respiratory Rate Blood Pressure 111/76 112/73 Blood Pressure [Ri ght Upper Arm] Pulse Oximetry 94 95 96 Oxygen Delivery Me thod 02/08/24 01:01 02/08/24 01:01 02/08/24 01:30 Temperature Pulse Rate 97 97 102 H Pulse Rate [Right Pulse Oximeter] Respiratory Rate Blood Pressure 112/73 112/73 Blood Pressure [Ri ght Upper Arm] Pulse Oximetry 96 96 95 Oxygen Delivery Me thod 02/08/24 01:31 02/08/24 02:00 02/08/24 02:01 Temperature Pulse Rate 97 97 94 Pulse Rate [Right Pulse Oximeter] Respiratory Rate Blood Pressure 115/76 123/74 Blood Pressure [Ri ght Upper Arm] Pulse Oximetry 96 95 95 Oxygen Delivery Me thod 02/08/24 02:30 02/08/24 02:31 02/08/24 03:00 Temperature Pulse Rate 99 100 103 H Pulse Rate [Right Pulse Oximeter] Respiratory Rate Blood Pressure 109/71 Blood Pressure [Ri ght Upper Arm] Pulse Oximetry 94 94 94 Oxygen Delivery Me thod 02/08/24 03:01 02/08/24 03:04 02/08/24 03:30 Temperature 97.6 F Pulse Rate 89 99 Pulse Rate [Right Pulse Oximeter] 99 Respiratory Rate 16 Blood Pressure 117/73 Blood Pressure [Ri ght Upper Arm] 109/71 Pulse Oximetry 93 98 92 Oxygen Delivery Me thod Room Air 02/08/24 03:31 02/08/24 04:00 02/08/24 04:01 Temperature Pulse Rate 89 92 92 Pulse Rate [Right Pulse Oximeter] Respiratory Rate Blood Pressure 125/80 134/78 Blood Pressure [Ri ght Upper Arm] Pulse Oximetry 93 93 94 Oxygen Delivery Me thod 02/08/24 04:30 02/08/24 04:31 02/08/24 05:00 Temperature Pulse Rate 89 96 98 Pulse Rate [Right Pulse Oximeter] Respiratory Rate Blood Pressure 120/82 Blood Pressure [Ri ght Upper Arm] Pulse Oximetry 93 94 94 Oxygen Delivery Me thod 02/08/24 05:01 02/08/24 05:30 02/08/24 05:31 Temperature Pulse Rate 92 94 97 Pulse Rate [Right Pulse Oximeter] Respiratory Rate Blood Pressure 130/82 114/73 Blood Pressure [Ri ght Upper Arm] Pulse Oximetry 94 94 94 Oxygen Delivery Me thod 02/08/24 06:00 02/08/24 06:01 02/08/24 06:30 Temperature Pulse Rate 96 89 90 Pulse Rate [Right Pulse Oximeter] Respiratory Rate Blood Pressure 116/74 Blood Pressure [Ri ght Upper Arm] Pulse Oximetry 92 95 94 Oxygen Delivery Me thod 02/08/24 06:31 02/08/24 06:43 02/08/24 07:05 Temperature 97.0 F L Pulse Rate 97 113 H Pulse Rate [Right Pulse Oximeter] 100 Respiratory Rate 16 Blood Pressure 122/80 137/87 Blood Pressure [Ri ght Upper Arm] 122/80 Pulse Oximetry 93 97 95 Oxygen Delivery Me thod Room Air 02/08/24 07:06 02/08/24 07:30 02/08/24 07:31 Temperature Pulse Rate 110 H 119 H 106 H Pulse Rate [Right Pulse Oximeter] Respiratory Rate Blood Pressure 131/80 Blood Pressure [Ri ght Upper Arm] Pulse Oximetry 95 93 94 Oxygen Delivery Me thod 02/08/24 08:00 02/08/24 08:01 02/08/24 08:30 Temperature Pulse Rate 109 H 114 H 98 Pulse Rate [Right Pulse Oximeter] Respiratory Rate Blood Pressure 128/72 Blood Pressure [Ri ght Upper Arm] Pulse Oximetry 94 95 95 Oxygen Delivery Me thod 02/08/24 08:31 02/08/24 08:42 02/08/24 09:00 Temperature Pulse Rate 106 H 97 Pulse Rate [Right Pulse Oximeter] Respiratory Rate Blood Pressure 115/78 Blood Pressure [Ri ght Upper Arm] 115/78 Pulse Oximetry 94 94 Oxygen Delivery Me thod 02/08/24 09:01 02/08/24 09:02 02/08/24 09:30 Temperature Pulse Rate 100 96 95 Pulse Rate [Right Pulse Oximeter] Respiratory Rate Blood Pressure 116/76 Blood Pressure [Ri ght Upper Arm] Pulse Oximetry 93 93 92 Oxygen Delivery Me thod 02/08/24 09:31 02/08/24 10:03 02/08/24 10:04 Temperature Pulse Rate 91 103 H 100 Pulse Rate [Right Pulse Oximeter] Respiratory Rate Blood Pressure 116/71 129/80 Blood Pressure [Ri ght Upper Arm] Pulse Oximetry 92 95 94 Oxygen Delivery Me thod <Marsha Champion MD - Last Filed: 02/08/24 11:09> Course Reevaluation(s) Time of Reevaluation #1: 09:03 <Marsha Champion MD - Last Filed: 02/08/24 11:09> Reevaluation #1: Patient is seen this morning. She is developing bilateral shoulder pain. Bedside partial fast exam done. I do believe that I see blood in the right hepatorenal view. I do not see necessarily any free fluid around the left kidney area. the you reportedly is still not going to have a bed for her. They are re-paged [facility] for me. I did speak with our general surgeon Dr. Lorenzo at 8:45 a.m.. She recommended doing a bedside fast or considering doing a repeat CT. I am waiting to talk to the Gyne Onc from the to see if we can get her a bed anywhere in their system that is appropriate. If not, we absolutely need to be notified as this patient really needs intervention. She may need IR or if they decide to going directly to the OR. She is tearful and obviously understandably quite distraught about this new diagnosis. Have reviewed with her to try to stay hopeful and positive, there are certainly further things that can be done for her. I did page out our varnish inspector but have not heard back. I do want our surgeons just to be aware in case something should change with this patient emergently and we not be able to get her out. Of note, it is currently raining here and thus helicopter would not be an option for her. Did update our OB Gyne surgeon Dr. Madera, she is aware that I am working diligently to get this patient placed. 9:28 a.m.: Have spoken with Dr. Dumont the fellow. We will push CT images to her. She is going to try to talk to the transfer lying to expedite this patient's transfer. Otherwise, I have reviewed with her that it is imperative we know if there is going to be a significant delay as we would look further placement. It would certainly be tragic to have this patient significantly decompensate here. We do not have the level of services she would need should that happen. 9:39 a.m.: Dr. Dumont did call back, they also had the ED physician Dr. Fung conferenced in. Case was briefly reviewed, he will accept the patient in the ER for an ED to ED transfer. Dwight reaves go over to CT, we will complete the CT and make sure they have images. We will transfer to the [facility] for further evaluation management. 9:58 a.m.: We have two 911 calls currently in the service area, patient's transfer is going to be delayed. <Marsha Champion MD - Last Filed: 02/08/24 11:09> Vital Signs Vital signs: Initial Vital Signs Temperature 96.6 F L 02/07/24 11:12 Temperature Source Temporal Artery Scan 02/07/24 11:12 Pulse Rate 105 H 02/07/24 11:12 Pulse Rhythm Regular 02/07/24 11:12 Respiratory Rate 26 H 02/07/24 11:12 Blood Pressure 173/124 H 02/07/24 11:12 Blood Pressure Mean 140 H 02/07/24 11:12 Blood Pressure Position Sitting 02/07/24 11:12 Pulse Oximetry 98 02/07/24 11:12 Oxygen Delivery Method Room Air 02/07/24 11:12 Vital Signs Temperature 96.6 F L 02/07/24 11:12 Pulse Rate 105 H 02/07/24 11:12 Respiratory Rate 26 H 02/07/24 11:12 Blood Pressure 173/124 H 02/07/24 11:12 Pulse Oximetry 98 02/07/24 11:12 Oxygen Delivery Method Room Air 02/07/24 11:12 Temperature 97.0 F L 02/08/24 06:43 Pulse Rate 100 02/08/24 10:04 Respiratory Rate 16 02/08/24 06:43 Blood Pressure 129/80 02/08/24 10:04 Pulse Oximetry 94 02/08/24 10:04 Oxygen Delivery Method Room Air 02/08/24 06:43 <Colton Fairchild MD - Last Filed: 02/07/24 13:59> Initial Vital Signs Temperature 96.6 F L 02/07/24 11:12 Temperature Source Temporal Artery Scan 02/07/24 11:12 Pulse Rate 105 H 02/07/24 11:12 Pulse Rhythm Regular 02/07/24 11:12 Respiratory Rate 26 H 02/07/24 11:12 Blood Pressure 173/124 H 02/07/24 11:12 Blood Pressure Mean 140 H 02/07/24 11:12 Blood Pressure Position Sitting 02/07/24 11:12 Pulse Oximetry 98 02/07/24 11:12 Oxygen Delivery Method Room Air 02/07/24 11:12 Vital Signs Temperature 96.6 F L 02/07/24 11:12 Pulse Rate 105 H 02/07/24 11:12 Respiratory Rate 26 H 02/07/24 11:12 Blood Pressure 173/124 H 02/07/24 11:12 Pulse Oximetry 98 02/07/24 11:12 Oxygen Delivery Method Room Air 02/07/24 11:12 Temperature 97.0 F L 02/08/24 06:43 Pulse Rate 100 02/08/24 10:04 Respiratory Rate 16 02/08/24 06:43 Blood Pressure 129/80 02/08/24 10:04 Pulse Oximetry 94 02/08/24 10:04 Oxygen Delivery Method Room Air 02/08/24 06:43 <Marsha Champion MD - Last Filed: 02/08/24 11:09> Medications Administered Medications: Generic Name Dose Route Start Last Admin Trade Name Freq PRN Reason Stop Dose Admin Hydromorphone HCl 0.2 - 0.5 mg 02/07/24 22:45 02/08/24 10:14 Hydromorphone 0.5 Mg/0.5 Ml Inj IVP 0.5 mg Q2H PRN Administration Pain Ondansetron HCl 4 mg 02/08/24 07:20 02/08/24 07:21 Ondansetron 2 Mg/Ml Inj IVP 4 mg Q4H PRN Administration Nausea Oxycodone HCl 5 mg 02/07/24 17:46 02/07/24 23:00 Oxycodone 5 Mg Tablet PO 5 mg Q4H PRN Administration Discontinued Medications Generic Name Dose Route Start Last Admin Trade Name Henok PRN Reason Stop Dose Admin Hydromorphone HCl 0.5 mg 02/07/24 11:33 02/07/24 11:59 Hydromorphone 0.5 Mg/0.5 Ml Inj IVP 02/07/24 11:34 0.5 mg ONCE ONE Administration Hydromorphone HCl 1 mg 02/07/24 14:08 02/07/24 14:31 Hydromorphone 0.5 Mg/0.5 Ml Inj IVP 02/07/24 14:09 1 mg ONCE ONE Administration Sodium Chloride 1,000 mls @ 6,000 mls/hr 02/07/24 11:45 02/07/24 12:57 0.9 % Sodium Chloride 1000 Ml IV 02/07/24 11:54 Infused .Q10M TIO Infusion Lorazepam 1 mg 02/07/24 11:33 02/07/24 11:59 Lorazepam 2 Mg/Ml Inj IVP 02/07/24 11:34 1 mg ONCE ONE Administration Lorazepam 1 mg 02/07/24 19:34 02/07/24 19:36 Lorazepam 1 Mg Tablet PO 02/07/24 19:35 1 mg ONCE ONE Administration Ondansetron HCl 4 mg 02/08/24 10:05 02/08/24 10:14 Ondansetron 2 Mg/Ml Inj IVP 02/08/24 10:06 4 mg ONCE ONE Administration <Colton Fairchild MD - Last Filed: 02/07/24 13:59> Generic Name Dose Route Start Last Admin Trade Name Freq PRN Reason Stop Dose Admin Hydromorphone HCl 0.2 - 0.5 mg 02/07/24 22:45 02/08/24 10:14 Hydromorphone 0.5 Mg/0.5 Ml Inj IVP 0.5 mg Q2H PRN Administration Pain Ondansetron HCl 4 mg 02/08/24 07:20 02/08/24 07:21 Ondansetron 2 Mg/Ml Inj IVP 4 mg Q4H PRN Administration Nausea Oxycodone HCl 5 mg 02/07/24 17:46 02/07/24 23:00 Oxycodone 5 Mg Tablet PO 5 mg Q4H PRN Administration Discontinued Medications Generic Name Dose Route Start Last Admin Trade Name Freq PRN Reason Stop Dose Admin Hydromorphone HCl 0.5 mg 02/07/24 11:33 02/07/24 11:59 Hydromorphone 0.5 Mg/0.5 Ml Inj IVP 02/07/24 11:34 0.5 mg ONCE ONE Administration Hydromorphone HCl 1 mg 02/07/24 14:08 02/07/24 14:31 Hydromorphone 0.5 Mg/0.5 Ml Inj IVP 02/07/24 14:09 1 mg ONCE ONE Administration Sodium Chloride 1,000 mls @ 6,000 mls/hr 02/07/24 11:45 02/07/24 12:57 0.9 % Sodium Chloride 1000 Ml IV 02/07/24 11:54 Infused .Q10M TIO Infusion Lorazepam 1 mg 02/07/24 11:33 02/07/24 11:59 Lorazepam 2 Mg/Ml Inj IVP 02/07/24 11:34 1 mg ONCE ONE Administration Lorazepam 1 mg 02/07/24 19:34 02/07/24 19:36 Lorazepam 1 Mg Tablet PO 02/07/24 19:35 1 mg ONCE ONE Administration Ondansetron HCl 4 mg 02/08/24 10:05 02/08/24 10:14 Ondansetron 2 Mg/Ml Inj IVP 02/08/24 10:06 4 mg ONCE ONE Administration <Marsha Champion MD - Last Filed: 02/08/24 11:09> Medical Decision Making MDM Narrative Medical decision making narrative: [age] year white female with a history of ovarian cancer, pelvic surgery, now with abdominal pain for 24 hours duration, patient has normoactive bowel sounds has had a bowel movement in the form loose stool, diarrhea, rule out colitis, rule out any evidence of obstruction or stricture. Rule out diverticulitis. Patient will get CT scan with contrast, IV pain medication, IV at a anxiolytic, lab studies. Disposition pending findings above. Addendum 1:16 p.m.: The patient has a recur a 6 x 4.6 cm left pelvic mass that would be suspicious for recurrent ovarian cancer. She has a lot a hemorrhage around that area as well. Her pain is more moderate at this point, but I would do think she is probably hospitalization reassessment by Gyne Onc. She had her surgery at the [facility] she did not have chemotherapy or radiation. And I think a repeat visit to the [facility] be appropriate now given her hemorrhage and the need for further workup. Will attempt to make a transfer. Transfer sheets completed. Patient is in stable condition for transfer Addendum 2:00 p.m.: Discussed with Gyne Onc at [facility]. She will accept the patient, but they have no bed availability currently. We are on their waiting list. Patient does have pain and some hemorrhage around her pelvic mass, and I suspect we should keep her and keep IV fluid as needed and IV pain medicine as needed. The [facility] is unable to give me a time that we could expect but sometimes it is within the next 6-8 hours. This also may be up to 24 hours. Patient will be informed. For now given the uncertain time of transfer will keep in the ER. Transfer sheets completed. If she stays in the ER or our hospital overnight I would get a repeat hemoglobin perhaps 6-8 o'clock tonight <Colton Fairchild MD - Last Filed: 02/07/24 13:59> Lab Data Labs: Lab Results 02/07/24 02/07/24 02/07/24 Range/Units 11:50 19:19 23:24 WBC 10.45 (4.50-11.00) K/uL RBC 3.96 L (4.00-5.20) m/uL Hgb 12.1 10.6 L 10.0 L (12.0-16.0) gm/dL Hct 35.6 (33.0-51.0) % MCV 90 (80-100) fL MCH 31 (26-34) pg MCHC 34 (32-36) gm/dL RDW Coeff of Nadiya 13.0 (11.5-15.5) % Plt Count 204 (140-440) K/uL Neut % (Auto) 75.5 H (42.0-72.0) % Lymph % (Auto) 14.5 L (20-44) % [place] % (Auto) 8.7 (0.0-11.0) % Eos % (Auto) 0.2 (0.0-7.0) % Baso % (Auto) 0.3 (0.0-3.0) % Neut # (Auto) 7.90 H (1.7-7.0) K/uL Lymph # (Auto) 1.50 (0.90-2.90) K/uL [place] # (Auto) 0.90 (0.00-0.90) K/UL Eos # (Auto) 0.02 (0.00-0.50) K/uL Baso # (Auto) 0.03 (0.00-0.30) K/uL Abs Immat Gran (auto) 0.08 (0.00-0.30) K/uL Imm/Tot Granulo (auto) 0.8 % Sodium 140 (135-149) mmol/L Potassium 3.9 (3.6-5.1) mmol/L Chloride 105 (96-114) mmol/L Carbon Dioxide 26 (20-32) mmol/L Anion Gap 9 (7-15) mEq/L BUN 7 (5-24) mg/dL Creatinine 0.8 (0.5-1.5) mg/dL Estimated Creat Clear 78.87 Estimated GFR 97 ml/min Glucose 110 (60-115) mg/dL Calcium 9.8 (8.4-10.6) mg/dL Total Bilirubin 0.8 (0.1-1.5) mg/dL Direct Bilirubin 0.3 (0.0-0.5) mg/dL AST 29 (12-35) U/L ALT 30 (4-35) U/L Alkaline Phosphatase 69 (40-150) U/L C-Reactive Protein 3.3 H (0.5-1.0) mg/dL Total Protein 8.3 (6.0-8.3) g/dL Albumin 5.0 (3.3-5.0) g/dL Amylase 61 (18-89) U/L Blood Type Antibody Screen 02/08/24 02/08/24 Range/Units 06:56 08:37 WBC 8.36 (4.50-11.00) K/uL RBC 3.33 L (4.00-5.20) m/uL Hgb 10.1 L (12.0-16.0) gm/dL Hct 30.3 L (33.0-51.0) % MCV 91 (80-100) fL MCH 30 (26-34) pg MCHC 33 (32-36) gm/dL RDW Coeff of Nadiya 13.1 (11.5-15.5) % Plt Count 157 (140-440) K/uL Neut % (Auto) 73.8 H (42.0-72.0) % Lymph % (Auto) 15.3 L (20-44) % [place] % (Auto) 9.4 (0.0-11.0) % Eos % (Auto) 0.6 (0.0-7.0) % Baso % (Auto) 0.5 (0.0-3.0) % Neut # (Auto) 6.20 (1.7-7.0) K/uL Lymph # (Auto) 1.30 (0.90-2.90) K/uL [place] # (Auto) 0.80 (0.00-0.90) K/UL Eos # (Auto) 0.05 (0.00-0.50) K/uL Baso # (Auto) 0.04 (0.00-0.30) K/uL Abs Immat Gran (auto) 0.03 (0.00-0.30) K/uL Imm/Tot Granulo (auto) 0.4 % Sodium (135-149) mmol/L Potassium (3.6-5.1) mmol/L Chloride (96-114) mmol/L Carbon Dioxide (20-32) mmol/L Anion Gap (7-15) mEq/L BUN (5-24) mg/dL Creatinine (0.5-1.5) mg/dL Estimated Creat Clear Estimated GFR ml/min Glucose (60-115) mg/dL Calcium (8.4-10.6) mg/dL Total Bilirubin (0.1-1.5) mg/dL Direct Bilirubin (0.0-0.5) mg/dL AST (12-35) U/L ALT (4-35) U/L Alkaline Phosphatase (40-150) U/L C-Reactive Protein (0.5-1.0) mg/dL Total Protein (6.0-8.3) g/dL Albumin (3.3-5.0) g/dL Amylase (18-89) U/L Blood Type A Positive Antibody Screen NEGATIVE <Colton Fairchild MD - Last Filed: 02/07/24 13:59> Lab Results 02/07/24 02/07/24 02/07/24 Range/Units 11:50 19:19 23:24 WBC 10.45 (4.50-11.00) K/uL RBC 3.96 L (4.00-5.20) m/uL Hgb 12.1 10.6 L 10.0 L (12.0-16.0) gm/dL Hct 35.6 (33.0-51.0) % MCV 90 (80-100) fL MCH 31 (26-34) pg MCHC 34 (32-36) gm/dL RDW Coeff of Nadiya 13.0 (11.5-15.5) % Plt Count 204 (140-440) K/uL Neut % (Auto) 75.5 H (42.0-72.0) % Lymph % (Auto) 14.5 L (20-44) % [place] % (Auto) 8.7 (0.0-11.0) % Eos % (Auto) 0.2 (0.0-7.0) % Baso % (Auto) 0.3 (0.0-3.0) % Neut # (Auto) 7.90 H (1.7-7.0) K/uL Lymph # (Auto) 1.50 (0.90-2.90) K/uL [place] # (Auto) 0.90 (0.00-0.90) K/UL Eos # (Auto) 0.02 (0.00-0.50) K/uL Baso # (Auto) 0.03 (0.00-0.30) K/uL Abs Immat Gran (auto) 0.08 (0.00-0.30) K/uL Imm/Tot Granulo (auto) 0.8 % Sodium 140 (135-149) mmol/L Potassium 3.9 (3.6-5.1) mmol/L Chloride 105 (96-114) mmol/L Carbon Dioxide 26 (20-32) mmol/L Anion Gap 9 (7-15) mEq/L BUN 7 (5-24) mg/dL Creatinine 0.8 (0.5-1.5) mg/dL Estimated Creat Clear 78.87 Estimated GFR 97 ml/min Glucose 110 (60-115) mg/dL Calcium 9.8 (8.4-10.6) mg/dL Total Bilirubin 0.8 (0.1-1.5) mg/dL Direct Bilirubin 0.3 (0.0-0.5) mg/dL AST 29 (12-35) U/L ALT 30 (4-35) U/L Alkaline Phosphatase 69 (40-150) U/L C-Reactive Protein 3.3 H (0.5-1.0) mg/dL Total Protein 8.3 (6.0-8.3) g/dL Albumin 5.0 (3.3-5.0) g/dL Amylase 61 (18-89) U/L Blood Type Antibody Screen 02/08/24 02/08/24 Range/Units 06:56 08:37 WBC 8.36 (4.50-11.00) K/uL RBC 3.33 L (4.00-5.20) m/uL Hgb 10.1 L (12.0-16.0) gm/dL Hct 30.3 L (33.0-51.0) % MCV 91 (80-100) fL MCH 30 (26-34) pg MCHC 33 (32-36) gm/dL RDW Coeff of Nadiya 13.1 (11.5-15.5) % Plt Count 157 (140-440) K/uL Neut % (Auto) 73.8 H (42.0-72.0) % Lymph % (Auto) 15.3 L (20-44) % [place] % (Auto) 9.4 (0.0-11.0) % Eos % (Auto) 0.6 (0.0-7.0) % Baso % (Auto) 0.5 (0.0-3.0) % Neut # (Auto) 6.20 (1.7-7.0) K/uL Lymph # (Auto) 1.30 (0.90-2.90) K/uL [place] # (Auto) 0.80 (0.00-0.90) K/UL Eos # (Auto) 0.05 (0.00-0.50) K/uL Baso # (Auto) 0.04 (0.00-0.30) K/uL Abs Immat Gran (auto) 0.03 (0.00-0.30) K/uL Imm/Tot Granulo (auto) 0.4 % Sodium (135-149) mmol/L Potassium (3.6-5.1) mmol/L Chloride (96-114) mmol/L Carbon Dioxide (20-32) mmol/L Anion Gap (7-15) mEq/L BUN (5-24) mg/dL Creatinine (0.5-1.5) mg/dL Estimated Creat Clear Estimated GFR ml/min Glucose (60-115) mg/dL Calcium (8.4-10.6) mg/dL Total Bilirubin (0.1-1.5) mg/dL Direct Bilirubin (0.0-0.5) mg/dL AST (12-35) U/L ALT (4-35) U/L Alkaline Phosphatase (40-150) U/L C-Reactive Protein (0.5-1.0) mg/dL Total Protein (6.0-8.3) g/dL Albumin (3.3-5.0) g/dL Amylase (18-89) U/L Blood Type A Positive Antibody Screen NEGATIVE <Marsha Champion MD - Last Filed: 02/08/24 11:09> Imaging Data CT scan - abdomen: Attestation: I have reviewed the pertinent imaging results. <Marsha Champion MD - Last Filed: 02/08/24 11:09> Radiologist's impression: Patient: DWIGHT JIMENEZ Facility:?[facility] Patient ID:?[id number] Site Patient ID:?[id number]. Site :?1985 Study:?CT-Abdomen/Pelvis W/ 88CC ISOVUE 370-02/08/2024 9:50:02 AM Ordering Physician:Paulo Larson Final Report: INDICATION: Abdominal mass. History of ovarian cancer. Status post hysterectomy, oophorectomy. Assess further bleeding. TECHNIQUE: CT abdomen and pelvis acquired with 88 cc of Isovue 370 IV contrast. COMPARISON: CT abdomen and pelvis with contrast 02/07/2024. FINDINGS: Lower chest: Bibasilar atelectasis, right greater than left has slightly increased. No pleural or pericardial effusions. Liver: No focal lesion. Spleen: Unremarkable. Pancreas: Unremarkable. Gallbladder and bile ducts: Vicarious excretion of contrast into the gallbladder. Gallbladder is otherwise unremarkable. No biliary ductal dilatation. Kidneys: Unremarkable. Adrenal glands: Unremarkable. GI tract: No obstruction or focal inflammatory changes. No free intraperitoneal gas. Lymph nodes: Stable subcentimeter short axis right lower quadrant nodule on image 108 of series 2. Vascular structures: Unremarkable. Pelvic Organs: Heterogeneous left pelvic mass measuring 6.2 x 4.9 cm on image 107 of series 2 has not significantly changed. Mixed density fluid consistent with hemorrhage adjacent to the mass has slightly decreased. Hemoperitoneum elsewhere has also slightly decreased. Bones: No acute or suspicious osseous abnormality. IMPRESSION: 1. Left pelvic mass concerning for recurrent malignancy has not significantly changed. 2. Hemorrhage surrounding the pelvic mass and hemoperitoneum persist but have improved. 3. Bibasilar atelectasis, right greater than left has increased. Dictated by Reza Hernandez MD @ 02/08/2024 10:16:01 AM Please note that all CT scans at this facility use dose modulation, iterative reconstruction, and/or weight-based dosing when appropriate to reduce radiation dose to as low as reasonably achievable. Dictated by: Reza Hernandez MD @ 02/08/2024 10:16:23 (Electronic Signature) <Marsha Champion MD - Last Filed: 02/08/24 11:09> Discharge Plan Discharge Clinical Impression: Abdominal pain, Diarrhea, Pelvic mass <Colton Fairchild MD - Last Filed: 02/07/24 13:59> Patient Disposition: Xfer Other <Colton Fairchild MD - Last Filed: 02/07/24 13:59> Discharge Location: [facility] <Colton Fairchild MD - Last Filed: 02/07/24 13:59> [facility] <Colton Fairchild MD - Last Filed: 02/07/24 13:59>
--- OUTSIDE RECORDS SUMMARY | 2024-02-07 11:39 | XMS_ITS | Encounter Summary ---
Author Organization [facility] Address [address] [place] [address] Care Team Providers Care Social Media Community Manager Name Role Phone No Ref-Primary, Physician Primary Care Provider Kavita Akhtar Unavailable [phone] Jonathan Pitts MD Unavailable [phone] Jonathan Pitts MD Unavailable Christine Poon RN Unavailable [phone] Shanti Lara NP Primary Care Provider [phone] Encounter Details Date Type Department Care Team (Late st Contact Info) Description 11/13/2021 [facility] [address] [place] [phone] Jonathan Pitts MD [address] [place] [address] Social History Tobacco Use Types Packs/Day Years Used Date Smoking Tobacco: Former Cigarettes 0.3 17.7 0 11/08/2000 - 07/27/2018 Smokeless Tobacco: Never [...] on filedocumented in this encounter Care Teams Social Media Community Manager Relationship Specialty Start Date End Date No Ref-Primary, Physician PCP - General 07/29/17 03/16/22 Shanti Lara, CASH APPLICATION REPRESENTATIVE [facility] [address] [place] [address] PCP - General Nurse Practitioner - [facility] 03/17/22 [facility] [address] [place] [address] Referring Physician density control puncher 07/29/17 Jonathan Pitts MD [address] [place] [address] [id number] MD Oncology 07/29/17 Jonathan Pitts MD [address] [place] [address] [phone] Assigned Cancer Care Provider 05/18/20 05/15/23 Christine Poon RN Specialty Sales And Customer Relations Rep Hematology & Oncology 12/02/21 documented as of this encounter
--- OUTSIDE RECORDS SUMMARY | 2024-02-07 11:39 | XMS_ITS | Encounter Summary ---
Author Organization [facility] Address [address] [place] [address] Care Team Providers Care Laboratory Asst Name Role Phone No Ref-Primary, Physician Primary Care Provider Kavita Akhtar Unavailable [phone] Jonathan Pitts MD Unavailable Jonathan Pitts MD Unavailable Christine Poon RN Unavailable [phone] Shanti Lara NP Primary Care Provider [phone] Encounter Details Date Type Department Care Team (Late st Contact Info) Description 11/23/2020 [facility] [address] [place] [phone] Jonathan Pitts MD [address] [place] [address] Social History Tobacco Use Types Packs/Day [...] on filedocumented in this encounter Care Teams Laboratory Asst Relationship Specialty Start Date End Date No Ref-Primary, Physician PCP - General 07/29/17 03/16/22 Shanti Lara, MOTOR ASSEMBLY SUPERVISOR [facility] [address] [place] [address] PCP - General Nurse Practitioner - [facility] 03/17/22 [facility] [address] [place] [address] Referring Physician steam tender 07/29/17 Jonathan Pitts MD [address] [place] [address] [id number] MD Oncology 07/29/17 Jonathan Pitts MD [address] [place] [address] [id number] Assigned Cancer Care Provider 05/18/20 05/15/23 Christine Poon RN Specialty Tube Coverer Hematology & Oncology 12/02/21 documented as of this encounter
--- OUTSIDE RECORDS SUMMARY | 2024-02-07 11:39 | XMS_ITS | Encounter Summary ---
Author Organization [facility] Address [address] [place] [address] Care Team Providers Care Journalism Teacher Name Role Phone No Ref-Primary, Physician Primary Care Provider Kavita Akhtar Unavailable [phone] Jonathan Pitts MD Unavailable Jonathan Pitts MD Unavailable Christine Poon RN Unavailable [phone] Shanti Lara NP Primary Care Provider [phone] Encounter Details Date Type Department Care Team (Late st Contact Info) Description 10/14/2021 [facility] [address] [place] [phone] Jonathan Pitts MD [address] [place] [address] Social History Tobacco Use Types Packs/Day [...] on filedocumented in this encounter Care Teams Journalism Teacher Relationship Specialty Start Date End Date No Ref-Primary, Physician PCP - General 07/29/17 03/16/22 Shanti Lara, CRUDE OIL DRIVER [facility] [address] [place] [address] PCP - General Nurse Practitioner - Family 03/17/22 [facility] [address] [place], [place] [address] Referring Physician media arts professor 07/29/17 Jonathan Pitts MD [address] [place] [address] [id number] MD Oncology 07/29/17 Jonathan Pitts MD [address] [place] [address] Assigned Cancer Care Provider 05/18/20 05/15/23 Christine Poon, RN Specialty Manager Endoscopy Hematology & Oncology 12/02/21 documented as of this encounter
--- OUTSIDE RECORDS SUMMARY | 2024-02-07 11:39 | XMS_ITS | Encounter Summary ---
Author Organization [facility] Address [address] [place] [address]. [place] [address] Care Team Providers Care Bologna Maker Name Role Phone Clinic, Kavita Rosenbaum Unavailable [phone] Jonathan Pitts MD Unavailable [phone] Jonathan Pitts MD Unavailable [phone] Christine Poon RN Unavailable [phone] Shanti Lara RETAIL CLIENT SOLUTIONS CONSULTANT Primary Care Provider [phone] Encounter Details Date Type Department Care Team (Late st Contact Info) Description 02/05/2023 [facility] [address] [place] [phone] Jonathan Pitts MD [address] [place] [address] Social History Tobacco Use Types Packs/Day [...] on filedocumented in this encounter Care Teams Bologna Maker Relationship Specialty Start Date End Date Shanti Lara, RETAIL CLIENT SOLUTIONS CONSULTANT [facility] [address] [place] [address] PCP - General Nurse Practitioner - Family 03/17/22 [facility] [address] [place], [place] 2[address] Referring Physician set up mechanic 07/29/17 Jonathan Pitts MD [address] [place] [address] MD Oncology 07/29/17 Jonathan Pitts MD [address] [place] [address] Assigned Cancer Care Provider 05/18/20 05/15/23 Christine Poon, RN Specialty Kapok Machine Operator Hematology & Oncology 12/02/21 documented as of this encounter
--- OUTSIDE RECORDS SUMMARY | 2024-02-07 11:39 | XMS_ITS | Referral Summary ---
Author Organization [place] Address [address] [place] [address] Care Team Providers Care Piece Worker Name Role Phone Clinic, Kavita Rosenbaum Unavailable [phone] Yara Weiss MD Unavailable [phone] Christine Poon RN Unavailable [phone] Shanti Lara NP Primary Care Provider [phone] Allergies Active Allergy Reactions Criticality Noted Date Comments Codeine Rash Low 08/03/2017 Gabapentin Visual Disturbance Low 08/21/2017 Severe headache Morphine Rash Low 11/04/2011 MORPHINE AND RELATED Tramadol Rash Low 08/03/2017 Medications Medication Sig Dispensed Refills Start Date End Date Status Multiple Vitamins-Minerals (MULTI ADULT GUMMIES PO) Active cholecalciferol 25 MCG (1000 UT) TABS Active Calcium Carb-Cholecalciferol (CALCIUM 600+D3 PO) Activ e Biotin 2500 MCG CAPS Acti ve acetaminophen (TYLENOL) 325 MG tabletIndications:S/ P hysterectomy Take 2 tablets (650 mg) by mouth every 4 hours as needed for mild pain 50 tablet 06/22/2020 Active venlafaxine (EFFEXOR) 37.5 MG tabletIndications:Pr [...] Overview: Added automatically from request for surgery [id number] Pelvic pain in female 05/07/2020 Overview: Added automatically from request for surgery [id number] Pelvic mass 05/07/2020 Overview: Added automatically from request for surgery [id number] ADHD (attention deficit hyperactivity disorder) 05/16/2019 Endometrial [...] CDT Plan of Treatment Not on file Procedures Procedure Name Priority Date/Time Associated Diagnosis Comments BASIC METABOLIC PANEL Timed 06/20/2020 3:57 AM CLERICAL AIDE TEACHER Granulosa cell tumor PAP IMAGED THIN LAYER, DIAGNOSTIC Routine 11/28/2019 1:50 PM CDT Endometrial hyperplasia without atypia, simple Abnormal uterine bleeding HPV HIGH RISK TYPES DNA CERVICAL Routine 11/28/2019 1:30 PM CDT Endometrial hyperplasia without atypia, simple Abnormal uterine bleeding from Last 3 Months or Most Recently Relevant to Health Maintenance Results * (ABNORMAL) Basic metabolic panel (06/20/2020 3:57 AM CLERICAL AIDE TEACHER) Sodium 136 133 - 144 mmol/L 06/20/2020 4:[address] [facility] Potassium 4.3 3.4 - 5.3 mmol/L 06/20/2020 4:[address] [facility] Chloride 104 94 - 109 mmol/L 06/20/2020 4:[address] [facility] Carbon Dioxide 25 20 - 32 mmol/L 06/20/2020 4:[address] [facility] Anion Gap 7 3 - 14 mmol/L 06/20/2020 4:[address] [facility] Glucose 150(H) 70 - 99 mg/dL 06/20/2020 4:[address] [facility] Urea Nitrogen 13 7 - 30 mg/dL 06/20/2020 4:[address] [facility] Creatinine 0.71 0.52 - 1.04 mg/dL 06/20/2020 4:[address] [facility] GFR Estimate >90 >60 mL/min/{1 .73_m2} 06/20/2020 4:41 AM CLERICAL AIDE TEACHER [facility] Comment: Non GFR Calc Starting 07/13/2018, serum creatinine based estimated GFR (eGFR) will be calculated using the Chronic Kidney Disease Epidemiology Collaboration (CKD-EPI) equation. GFR Estimate If Black >90 >60 mL/min/{1 .73_m2} 06/20/2020 4:41 AM CLERICAL AIDE TEACHER [facility] Comment: GFR Calc Starting 07/13/2018, serum creatinine based estimated GFR (eGFR) will be calculated using the Chronic Kidney Disease Epidemiology Collaboration (CKD-EPI) equation. Calcium 9.1 8.5 - 10.1 mg/dL 06/20/2020 4:41 AM CLERICAL AIDE TEACHER [facility] Blood specimen (specimen) 06/20/2020 3:57 AM CLERICAL AIDE TEACHER 06/20/2020 3:58 AM CLERICAL AIDE TEACHER Avni Jones MD LAB - BLOOD ORDERAB LES Performing Organization Address City/State/[facility] Co de Phone Number [address] [address] * Pap imaged thin layer diagnostic with HPV (select HPV order below) (11/28/2019 1:50 PM CDT) SHAUNNA Duvall Report Patient Name: DWIGHT JIMENEZ MR#: [id number] Specimen #: [id number] Collected: 11/28/2019 Received: 11/29/2019 Reported: 11/30/2019 13:42 Ordering Phy(s): YARA WEISS For improved result formatting, select 'View Enhanced Report Format' under Linked Documents section. SPECIMEN/STAIN PROCESS: Pap Imaged thin layer prep diagnostic (SurePath, FocalPoint with guided screening) ? Pap-Cyto x 1, HPV ordered x 1 SOURCE: Vaginal Pap Imaged thin layer prep diagnostic (SurePath, FocalPoint with guided screening) SPECIMEN ADEQUACY: Satisfactory for evaluation. -Transformation zone component present. CYTOLOGIC INTERPRETATION: Negative for intraepithelial lesion or malignancy Electronically signed out by: JAIME Tanner (ASCP) CLINICAL HISTORY: Intra-Uterine Device, Non-Screedman Cancer:: History of Ovarian Cancer, Papanicolaou Test Limitations: ??Cervical cytology is a screening test with limited sensitivity; regular screening is critical for cancer prevention; Pap tests are primarily effective for the diagnosis/preventi on of squamous cell carcinoma, not adenocarcinomas or other cancers. The technical component of this testing was completed at the [facility], with the professional component performed at the [facility], [address] [place] [phone] ([phone]) COLLECTION SITE: Client: ??[facility] Location: [facility] (B) COPATH Cytologic material (specimen) 11/28/2019 1:50 PM CDT 11/29/2019 9:27 AM CDT Yara Weiss MD LAB - OPTIME CLINICAL SPECIMEN COPATH * HPV High Risk Types DNA Cervical (11/28/2019 1:30 PM CDT) HPV Source SurePath 11/28/2019 1:50 PM CDT [facility] HPV 16 DNA Negative NEG^Nega tive 12/01/2019 11:58 AM CDT [facility] HPV 18 DNA Negative NEG^Nega tive 12/01/2019 11:58 AM CDT [facility] Other HR HPV Negative NEG^Nega tive 12/01/2019 11:58 AM CDT [facility] Final Diagnosis This patient's sample is negative for HPV DNA. 12/01/2019 11:58 AM CDT [facility] Comment: This test was developed and its performance characteristics determined by the [facility]. It has not been cleared or approved by the FDA. The laboratory is regulated under CLIA as qualified to perform high-complexity testing. This test is used for clinical purposes. It should not be regarded as investigational or for research. (Note) METHODOLOGY: ??The Ketty ezequiel 4800 system uses automated extraction, simultaneous amplification of HPV (L1 region) and beta-globin, ?? followed by ??real time detection of fluorescent labeled HPV and beta globin using specific oligonucleotide probes . The test specifically identifies types HPV 16 DNA and HPV 18 DNA while concurrently detecting the rest of the high risk types (31, 33, 35, 39, 45, 51, 52, 56, 58, 59, 66 or 68). COMMENTS: ??This test is not intended for use as a screening device for women under age 30 with normal cervical cytology. ??Results should be correlated with cytologic and histologic findings. Close clinical followup is recommended. Specimen Description Cervical Cells 11/28/2019 1:50 PM CDT [facility] Comment: [id number] Cervical Cells 11/28/2019 1: 30 PM CDT 11/28/2019 2:13 PM CDT Yara Weiss MD LAB - BLOOD O RDERABLES [facility] [address] [facility] [address] [place] [address] from Last 3 Months or Most Recently Relevant to Health Maintenance Advance Directives For more information, please contact: [phone] * Full Code (Latest Code Status on File) Date Activated Date Inactivated Comments 06/22/2020 9:04 AM Question Answer Comments Code status determined by: Discussion with patie nt/ legal decision maker * Full Code Date Activated Date Inactivated Comments 06/19/2020 8:21 PM 06/22/2020 9:04 AM All basic and advanced life-sustaining interventions are performed as appropriate Question Answer Comments Code status determined by: Discussion with patie nt/ legal decision maker Care Teams Piece Worker Relationship Specialty Start Date End Date Shanti Lara NP [facility] [address] [place] [address] PCP - General Nurse Practitioner - Family 03/17/22 [facility], [facility] [address] [place], [place] 336145 Referring Physician sports development officer 07/29/17 Yara Weiss MD [address] [place] [address] [id number] Oncology 07/29/17 Christine Poon, RN Specialty Billing And Quality Technician Hematology & Oncology 12/02/21
--- OUTSIDE RECORDS SUMMARY | 2024-02-07 11:39 | XMS_ITS | Encounter Summary ---
Author Organization [place] Address [address] [place] [address] Care Team Providers Care Center Lead Consultant Name Role Phone No Ref-Primary, Physician Primary Care Provider Kavita Akhtar Unavailable [phone] Jonathan Pitts MD Unavailable Jonathan Pitts MD Unavailable [phone] Christine Poon RN Unavailable [phone] Shanti Lara NP Primary Care Provider [phone] Encounter Details Date Type Department Care Team ([facility] st Contact Info) Description 11/11/2021 [facility] Medical Advice Initial Department Jose Seaman Social History Tobacco Use Types Packs/Day Years [...] on filedocumented in this encounter Care Teams Center Lead Consultant Relationship Specialty Start Date End Date No Ref-Primary, Physician PCP - General 07/29/17 03/16/22 Shanti Lara, CANE PUSHER [facility] [address] [place] [address] PCP - General Nurse Practitioner - [facility] 03/17/22 [facility] [address] [place], [place] 6[address] Referring Physician emanations analysis technician 07/29/17 Jonathan Pitts MD [address] [place] [address] [id number] MD Oncology 07/29/17 Jonathan Pitts MD [address] [place] [address] Assigned Cancer Care Provider 05/18/20 05/15/23 Christine Poon RN Specialty Genomics Scientist Hematology & Oncology 12/02/21 documented as of this encounter
--- OUTSIDE RECORDS SUMMARY | 2024-02-07 11:39 | XMS_ITS | Encounter Summary ---
Author Organization [place] Address [address] [place] [address] Care Team Providers Care Rn Sexual Assault Name Role Phone No Ref-Primary, Physician Primary Care Provider Kavita Akhtar Unavailable [phone] Jonathan Pitts MD Unavailable Jonathan Pitts MD Unavailable Christine Poon RN Unavailable [phone] Shanti Lara NP Primary Care Provider [phone] Encounter Details Date Type Department Care Team (Late st Contact Info) Description 11/20/2020 [facility] [address] [place] [phone] Jonathan Pitts MD [address] [place] [address] Social History Tobacco Use Types Packs/Day [...] on filedocumented in this encounter Care Teams Rn Sexual Assault Relationship Specialty Start Date End Date No Ref-Primary, Physician PCP - General 07/29/17 03/16/22 Shanti Lara, HEARING AID REPAIRER [facility] [address] [place] [address] PCP - General Nurse Practitioner - [facility] 03/17/[address] [facility] [address] [place] [address] Referring Physician sports analyst 07/29/17 Jonathan Pitts MD [address] [place] [address] [phone] MD Oncology 07/29/17 Jonathan Pitts MD [address] [place] [address] [phone] Assigned Cancer Care Provider 05/18/20 05/15/23 Christine Poon RN Specialty Corridor Redevelopment Manager Hematology & Oncology 12/02/21 documented as of this encounter
--- OUTSIDE RECORDS SUMMARY | 2024-02-07 11:39 | XMS_ITS | Encounter Summary ---
Author Organization [place] Address [address] [place] [address] Care Team Providers Care Travograph Operator Name Role Phone No Ref-Primary, Physician Primary Care Provider Kavita Akhtar Unavailable [phone] Jonathan Pitts MD Unavailable Jonathan Pitts MD Unavailable [phone] Christine Poon RN Unavailable [phone] Shanti Lara NP Primary Care Provider [phone] Encounter Details Date Type Department Care Team (Late st Contact Info) Description 09/13/2021 [facility] [address] [place] [phone] Jonathan Pitts MD [address] [place] [address] Social History Tobacco Use Types Packs/Day [...] on filedocumented in this encounter Care Teams Travograph Operator Relationship Specialty Start Date End Date No Ref-Primary, Physician PCP - General 07/29/17 03/16/22 Shanti Lara, INVOICE MACHINE OPERATOR [facility] [address] [place] [address] PCP - General Nurse Practitioner - Family 03/17/22 [facility], [facility] [address] [place], [place] [address] Referring Physician carrot buncher 07/29/17 Jonathan Pitts MD [address] [place] [address] [id number] MD Oncology 07/29/17 Jonathan Pitts MD [address] [place] [address] Assigned Cancer Care Provider 05/18/20 05/15/23 Christine Poon, RN Specialty Bi Application Developer Hematology & Oncology 12/02/21 documented as of this encounter
--- OUTSIDE RECORDS SUMMARY | 2024-02-07 11:39 | XMS_ITS | Encounter Summary ---
Author Organization [facility] Address [address] [place] [address] Care Team Providers Care Cultural Historian Name Role Phone No Ref-Primary, Physician Primary Care Provider Kavita Akhtar Unavailable [phone] Jonathan Pitts MD Unavailable Jonathan Pitts MD Unavailable Christine Poon RN Unavailable [phone] Shanti Lara NP Primary Care Provider [phone] Encounter Details Date Type Department Care Team (Late st Contact Info) Description 05/22/2021 [facility] [address] [place] [phone] Jonathan Pitts MD [address] [place] [address] Social History Tobacco Use Types Packs/Day [...] on filedocumented in this encounter Care Teams Cultural Historian Relationship Specialty Start Date End Date No Ref-Primary, Physician PCP - General 07/29/17 03/16/22 Shanti Lara, PILOT TEACHER [facility] [address] [place] [address] PCP - General Nurse Practitioner - Family 03/17/22 [facility], [facility] [address] [place], [place] [address] Referring Physician chief digital officer 07/29/17 Jonathan Pitts MD [address] [place] [address] [phone] MD Oncology 07/29/17 Jonathan Pitts MD [address] [place] [address] Assigned Cancer Care Provider 05/18/20 05/15/23 Christine Poon, RN Specialty City Director Hematology & Oncology 12/02/21 documented as of this encounter
--- OUTSIDE RECORDS SUMMARY | 2024-02-07 11:39 | XMS_ITS | Encounter Summary ---
Author Organization [place] Address [address] [place] [address] Care Team Providers Care Creative Guru Name Role Phone No Ref-Primary, Physician Primary Care Provider Kavita Akhtar Unavailable [phone] Jonathan Pitts MD Unavailable Jonathan Pitts MD Unavailable Christine Poon RN Unavailable [phone] Shanti Lara NP Primary Care Provider [phone] Encounter Details Date Type Department Care Team (Late st Contact Info) Description 11/27/2020 [facility] [address] [place] [phone] Jonathan Pitts MD [address] [place] [address] Social History Tobacco Use Types Packs/Day [...] on filedocumented in this encounter Care Teams Creative Guru Relationship Specialty Start Date End Date No Ref-Primary, Physician PCP - General 07/29/17 03/16/22 Shanti Lara, HIGH SCHOOL FOOTBALL COACH [facility] [address] [place] [address] PCP - General Nurse Practitioner - [facility] 03/17/22 [facility] [address] [place] [address] Referring Physician accountant helper 07/29/17 Jonathan Pitts MD [address] [place] [address] [id number] MD Oncology 07/29/17 Jonathan Pitts MD [address] [place] [address] [phone] Assigned Cancer Care Provider 05/18/20 05/15/23 Christine Poon RN Specialty Java Architect Hematology & Oncology 12/02/21 documented as of this encounter
--- OUTSIDE RECORDS SUMMARY | 2024-02-07 11:39 | XMS_ITS | Encounter Summary ---
Author Organization [place] Address [address] [place] [address] Care Team Providers Care Management Advisor Name Role Phone No Ref-Primary, Physician Primary Care Provider Kavita Akhtar Unavailable [phone] Jonathan Pitts MD Unavailable Jonathan Pitts MD Unavailable Christine Poon RN Unavailable [phone] Shanti Lara NP Primary Care Provider [phone] Encounter Details Date Type Department Care Team (Late st Contact Info) Description 11/19/2020 [facility] [address] [place] [phone] Jonathan Pitts MD [address] [place] [address] Social History Tobacco Use Types Packs/Day [...] on filedocumented in this encounter Care Teams Management Advisor Relationship Specialty Start Date End Date No Ref-Primary, Physician PCP - General 07/29/17 03/16/22 Shanti Lara, POLYSOMNOGRAPHIC TECH [facility] [address] [place] [address] PCP - General Nurse Practitioner - [facility] 03/17/[address] [facility] [address] [place] [address] Referring Physician oracle applications developer 07/29/17 Jonathan Pitts MD [address] [place] [address] [phone] MD Oncology 07/29/17 Jonathan Pitts MD [address] [place] [address] [phone] Assigned Cancer Care Provider 05/18/20 05/15/23 Christine Poon RN Specialty Wind Projects Supervisor Hematology & Oncology 12/02/21 documented as of this encounter
--- OUTSIDE RECORDS SUMMARY | 2024-02-07 11:39 | XMS_ITS | Encounter Summary ---
Author Organization [place] Address [address] [place] [address] Care Team Providers Care Adjunct Spanish Instructor Name Role Phone No Ref-Primary, Physician Primary Care Provider Kavita Akhtar Unavailable [phone] Jonathan Pitts MD Unavailable [phone] Jonathan Pitts MD Unavailable Christine Poon RN Unavailable [phone] Shanti Lara NP Primary Care Provider [phone] Encounter Details Date Type Department Care Team (Late st Contact Info) Description 03/13/2022 [facility] [address] [place] [phone] Jonathan Pitts MD [address] [place] [address] Social History Tobacco Use Types Packs/Day [...] on filedocumented in this encounter Care Teams Adjunct Spanish Instructor Relationship Specialty Start Date End Date No Ref-Primary, Physician PCP - General 07/29/17 03/16/22 Shanti Lara, GUN SYNCHRONIZER [facility] [address] [place] [address] PCP - General Nurse Practitioner - Family 03/17/22 [facility], [facility] [address] [place], [place] 3817[address] Referring Physician notch machine operator 07/29/17 Jonathan Pitts MD [address] [place] [address] [phone] MD Oncology 07/29/17 Jonathan Pitts MD [address] [place] [address] Assigned Cancer Care Provider 05/18/20 05/15/23 Christine Poon, RN Specialty Intelligence Support Officer Hematology & Oncology 12/02/21 documented as of this encounter
--- OUTSIDE RECORDS SUMMARY | 2024-02-07 11:39 | XMS_ITS | Encounter Summary ---
Author Organization [place] Address [address] [place] [address] Care Team Providers Care Printed Circuit Boards Beveler Name Role Phone No Ref-Primary, Physician Primary Care Provider Kavita Akhtar Unavailable [phone] Jonathan Pitts MD Unavailable [phone] Jonathan Pitts MD Unavailable Christine Poon RN Unavailable [phone] Shanti Lara NP Primary Care Provider [phone] Encounter Details Date Type Department Care Team (Late st Contact Info) Description 01/09/2021 [facility] [address] [place] [phone] Jonathan Pitts MD [address] [place] [address] Social History Tobacco Use Types Packs/Day [...] on filedocumented in this encounter Care Teams Printed Circuit Boards Beveler Relationship Specialty Start Date End Date No Ref-Primary, Physician PCP - General 07/29/17 03/16/22 Shanti Lara, SUPERINTENDENT WAREHOUSE [facility] [address] [place] [address] PCP - General Nurse Practitioner - Family 03/17/22 [facility], [facility] [address] [place], [place] 9[address] Referring Physician refractory tile helper 07/29/17 Jonathan Pitts MD [address] [place] [address] [phone] MD Oncology 07/29/17 Jonathan Pitts MD [address] [place] [address] Assigned Cancer Care Provider 05/18/20 05/15/23 Christine Poon, RN Specialty Laceworker Hematology & Oncology 12/02/21 documented as of this encounter
--- OUTSIDE RECORDS SUMMARY | 2024-02-07 11:39 | XMS_ITS | Encounter Summary ---
Author Organization [place] Address [address] [place] [address] Care Team Providers Care Cable Installer Repairer Helper Name Role Phone No Ref-Primary, Physician Primary Care Provider Kavita Akhtar Unavailable [phone] Jonathan Pitts MD Unavailable [phone] Jonathan Pitts MD Unavailable [phone] Christine Poon RN Unavailable [phone] Shanti Lara NP Primary Care Provider [phone] Encounter Details Date Type Department Care Team (Late st Contact Info) Description 08/26/2021 [facility] [address] [place] [phone] Jonathan Pitts MD [address] [place] [address] Social History Tobacco Use Types Packs/Day [...] on filedocumented in this encounter Care Teams Cable Installer Repairer Helper Relationship Specialty Start Date End Date No Ref-Primary, Physician PCP - General 07/29/17 03/16/22 Shanti Lara, RECONCILIATION CLERK [facility] [address] [place] [address] PCP - General Nurse Practitioner - Family 03/17/22 [facility], [facility] [address] [place], [place] 90[address] Referring Physician needle grader 07/29/17 Jonathan Pitts MD [address] [place] [address] [phone] MD Oncology 07/29/17 Jonathan Pitts MD [address] [place] [address] Assigned Cancer Care Provider 05/18/20 05/15/23 Christine Poon, RN Specialty Unix Analyst Hematology & Oncology 12/02/21 documented as of this encounter
--- OUTSIDE RECORDS SUMMARY | 2024-02-07 11:39 | XMS_ITS | Clinical Summary ---
Author Organization [place] Address [address] [place] [address] Care Team Providers Care Assistant Oceanographer Name Role Phone Clinic, Kavita Rosenbaum Unavailable [phone] Yara Weiss MD Unavailable Christine Poon RN Unavailable [phone] Shanti Lara NP Primary Care Provider [phone] Allergies Active Allergy Reactions Criticality Noted Date [...] Overview: Added automatically from request for surgery [id number] Pelvic pain in female 05/07/2020 Overview: Added automatically from request for surgery [id number] Pelvic mass 05/07/2020 Overview: Added automatically from request for surgery [id number] ADHD (attention deficit hyperactivity disorder) 05/16/2019 Endometrial [...] 12/22/2002 HEPATITIS C SCREENING 12/18/2003 COVID-19 Vaccine () 03/27/2023 10/04/2021, 09/13/2021 GLUCOSE 06/20/2023 06/20/2020, 05/28, 06/14/2020, Additional history exists DTAP/TDAP/TD IMMUNIZATION (3 - Td or Tdap) 11/05/2023 11/04/2013, 11/04/2012 INFLUENZA VACCINE (#1) 2024 HPV TEST 11/27/2024 11/28/2019 PAP 11/27/2024 11/28/2019 HPV IMMUNIZATION Completed 06/07/2013, , 11/04/2012 IPV IMMUNIZATION Aged Out No longer e ligible based on patient's age to complete this topic MENINGITIS IMMUNIZATION Aged Out No l onger eligible based on patient's age to complete this topic Pneumococcal Vaccine: Pediatrics (0 to 5 Years) and At-Risk Patients (6 to 64 Years) Aged Out No longer eligible based on patient's age to complete this topic RSV MONOCLONAL ANTIBODY Aged Out No l onger eligible based on patient's age to complete this topic Procedures Procedure Name Priority Date/Time Associated Diagnosis Comments BASIC METABOLIC PANEL Timed 06/20/2020 3:57 AM WAX POT TENDER Granulosa cell tumor PAP IMAGED THIN LAYER, DIAGNOSTIC Routine 11/28/2019 1:50 PM CDT Endometrial hyperplasia without atypia, simple Abnormal uterine bleeding HPV HIGH RISK TYPES DNA CERVICAL Routine 11/28/2019 1:30 PM CDT Endometrial hyperplasia without atypia, simple Abnormal uterine bleeding from Last 3 Months or Most Recently Relevant to Health Maintenance Results * (ABNORMAL) Basic metabolic panel (06/20/2020 3:57 AM WAX POT TENDER) Sodium 136 133 - 144 mmol/L 06/20/2020 4:32 AM [facility] Potassium 4.3 3.4 - 5.3 mmol/L 06/20/2020 4:32 AM [facility] Chloride 104 94 - 109 mmol/L 06/20/2020 4:32 AM [facility] Carbon Dioxide 25 20 - 32 mmol/L 06/20/2020 4:41 AM [facility] Anion Gap 7 3 - 14 mmol/L 06/20/2020 4:41 AM [facility] Glucose 150(H) 70 - 99 mg/dL 06/20/2020 4:41 AM [facility] Urea Nitrogen 13 7 - 30 mg/dL 06/20/2020 4:41 AM [facility] Creatinine 0.71 0.52 - 1.04 mg/dL 06/20/2020 4:41 AM [facility] GFR Estimate >90 >60 mL/min/{1 .73_m2} 06/20/2020 4:41 AM [facility] Comment: Non GFR Calc Starting 07/13/2018, serum creatinine based estimated GFR (eGFR) will be calculated using the Chronic Kidney Disease Epidemiology Collaboration (CKD-EPI) equation. GFR Estimate If Black >90 >60 mL/min/{1 .73_m2} 06/20/2020 4:41 AM [facility] Comment: GFR Calc Starting 07/13/2018, serum creatinine based estimated GFR (eGFR) will be calculated using the Chronic Kidney Disease Epidemiology Collaboration (CKD-EPI) equation. Calcium 9.1 8.5 - 10.1 mg/dL 06/20/2020 4:41 AM WAX POT TENDER [facility] Blood specimen (specimen) 06/20/2020 3:57 AM WAX POT TENDER 06/20/2020 3:58 AM WAX POT TENDER Avni Jones MD LAB - BLOOD ORDERAB LES [facility] [address] [place] [address] * Pap imaged thin layer diagnostic with HPV (select HPV order below) (11/28/2019 1:50 PM CDT) PAP NIL [facility] [place] Report Patient Name: DWIGHT JIMENEZ MR#: [id number] Specimen #: [id number] Collected: 11/28/2019 Received: 11/29/2019 Reported: 11/30/2019 13:42 [...] JAIME Tanner (ASCP) CLINICAL HISTORY: Intra-Uterine Device, Non-Curriculum And Instruction Specialist Cancer:: History of Ovarian Cancer, Papanicolaou Test Limitations: ??Cervical cytology is a screening test with limited sensitivity; regular screening is critical for cancer prevention; Pap tests are primarily effective for the diagnosis/preventi on of squamous cell carcinoma, not adenocarcinomas or other cancers. The technical component of this testing [facility] [facility], with the professional component performed at the [facility] [employer] [facility], [address] [place] [phone] ([phone]) COLLECTION SITE: Client: ??[facility] [place] Location: [facility]IMAL (Bob) [facility] Cytologic material (specimen) 11/28/2019 1:50 PM CDT 11/29/2019 9:27 AM CDT Yara Weiss MD LAB - OPTIME CLINICAL SPECIMEN [facility] * HPV High Risk Types DNA Cervical (11/28/2019 1:30 PM CDT) HPV Source [facility] 11/28/2019 1:50 PM CDT [facility] HPV 16 DNA Negative NEG^Nega tive 12/01/2019 11:58 AM CDT [facility] HPV 18 DNA Negative NEG^Nega tive 12/01/2019 11:58 AM CDT [facility] Other HR HPV Negative NEG^Nega tive 12/01/2019 11:58 AM CDT [facility] Final Diagnosis This patient's sample is negative for HPV DNA. 12/01/2019 11:58 AM CDT [facility] Comment: This test was developed and its performance characteristics determined by the [facility]. It has not been [...] Description Cervical Cells 11/28/2019 1:50 PM CDT [facility] Comment: [id number] Cervical Cells 11/28/2019 1: 30 PM CDT 11/28/2019 2:13 PM CDT Yara Weiss MD LAB - BLOOD O RDERABLES [facility] [address] [place], [place] [id number] [place] [address] [facility] [address] [place] [address] from Last 3 Months or Most Recently Relevant to Health Maintenance Advance Directives For more information, please contact: [phone] * Full Code (Latest Code Status on [...] patie nt/ legal decision maker Care Teams Assistant Oceanographer Relationship Specialty Start Date End Date Shanti Lara ENGRAVER [facility] [address] [place] [address] PCP - General Nurse Practitioner - Family 03/17/22 [facility] [id number] [place] [address] Referring Physician clarifier operator helper 07/29/17 Yara Weiss MD [address] [place] [address] [phone] Oncology 07/29/17 Christine Poon RN Specialty Radio Journalist Hematology & Oncology 12/02/21
--- OUTSIDE RECORDS SUMMARY | 2024-02-07 11:39 | XMS_ITS | Encounter Summary ---
Author Organization [place] Address [address] [place] [address] 45985 Care Team Providers Care Cougar Hunter Name Role Phone No Ref-Primary, Physician Primary Care Provider Kavita Akhtar Unavailable [phone] Jonathan Pitts MD Unavailable [phone] Jonathan Pitts MD Unavailable Christine Poon RN Unavailable [phone] Shanti Lara NP Primary Care Provider [phone] Encounter Details Date Type Department Care Team (Late st Contact Info) Description 11/14/2021 [facility] [address] [place] [phone] Jonathan Pitts MD [address] [place] [address] Social History Tobacco Use Types Packs/Day [...] on filedocumented in this encounter Care Teams Cougar Hunter Relationship Specialty Start Date End Date No Ref-Primary, Physician PCP - General 07/29/17 03/16/22 Shanti Lara, VEGETABLE PACKER [facility] [address] [place] [address] PCP - General Nurse Practitioner - [facility] 03/17/22 [address] [place] [address] Referring Physician warehouse receiving supervisor 07/29/17 Jonathan Pitts MD [address] [place] [address] [phone] MD Oncology 07/29/17 Jonathan Pitts MD [address] [place] [address] [phone] Assigned Cancer Care Provider 05/18/20 05/15/23 Christine Poon RN Specialty Salesforce Administrator Hematology & Oncology 12/02/21 documented as of this encounter
--- OUTSIDE RECORDS SUMMARY | 2024-02-07 11:40 | XMS_ITS | Encounter Summary ---
Author Organization [place] Address [address] [place] [address] 48237 Care Team Providers Care Business Services Assistant Name Role Phone No Ref-Primary, Physician Primary Care Provider Kavita Akhtar Unavailable [phone] Jonathan Pitts MD Unavailable Jonathan Pitts MD Unavailable [phone] Christine Poon RN Unavailable [phone] Shanti Lara NP Primary Care Provider [phone] Encounter Details Date Type Department Care Team ([facility] st Contact Info) Description 05/12/2020 [facility] [address] [place] [phone] Jonathan Pitts MD [address] [place] [address] Social History Tobacco Use Types Packs/Day [...] on filedocumented in this encounter Care Teams Business Services Assistant Relationship Specialty Start Date End Date No Ref-Primary, Physician PCP - General 07/29/17 03/16/22 Shanti Lara, MUSIC LIBRARIAN [facility] [address] [place] [address] PCP - General Nurse Practitioner - [facility] 03/17/22 [facility] [address] [place], [place] 524125 Referring Physician foreign trade teacher 07/29/17 Jonathan Pitts MD [address] [place] [address] [phone] MD Oncology 07/29/17 Jonathan Pitts MD [address] [place] [address] [phone] Assigned Cancer Care Provider 05/18/20 05/15/23 Christine Poon RN Specialty Ball Ender Hematology & Oncology 12/02/21 documented as of this encounter
--- OUTSIDE RECORDS SUMMARY | 2024-02-07 11:40 | XMS_ITS | Encounter Summary ---
Author Organization [place] Address [address] [place] [address] 16151 Care Team Providers Care Enchilada Maker Name Role Phone No Ref-Primary, Physician Primary Care Provider Kavita Akhtar Unavailable [phone] Jonathan Pitts MD Unavailable Jonathan Pitts MD Unavailable Christine Poon RN Unavailable [phone] Shanti Lara NP Primary Care Provider [phone] Encounter Details Date Type Department Care Team (Late st Contact Info) Description 05/09/2020 [facility] [address] [place] [phone] Jonathan Pitts MD [address] [place] [address] Social History Tobacco Use Types Packs/Day [...] on filedocumented in this encounter Care Teams Enchilada Maker Relationship Specialty Start Date End Date No Ref-Primary, Physician PCP - General 07/29/17 03/16/22 Shanti Lara, BAR PORTER [facility] [address] [place] [address] PCP - General Nurse Practitioner - [facility] 03/17/22 [facility] [address] [place], [place] 4739[address] Referring Physician windows application developer 07/29/17 Jonathan Pitts MD [address] [place] [address] [phone] MD Oncology 07/29/17 Jonathan Pitts MD [address] [place] [address] [phone] Assigned Cancer Care Provider 05/18/20 05/15/23 Christine Poon RN Specialty Residential Sales Manager Hematology & Oncology 12/02/21 documented as of this encounter
--- OUTSIDE RECORDS SUMMARY | 2024-02-07 11:40 | XMS_ITS | Encounter Summary ---
Author Organization [place] Address [address] [place] [address] Care Team Providers Care Case Folder Name Role Phone No Ref-Primary, Physician Primary Care Provider Kavita Akhtar Unavailable [phone] Jonathan Pitts MD Unavailable Jonathan Pitts MD Unavailable Christine Poon RN Unavailable [phone] Shanti Lara NP Primary Care Provider [phone] Encounter Details Date Type Department Care Team (Late st Contact Info) Description 06/15/2020 [facility] [address] [place] [phone] Jonathan Pitts MD [address] [place] [address] Social History Tobacco Use Types Packs/Day [...] COVID-19? No / Unsure 06/17/2020 1:09 PM GUM MIXER documented as of this encounter Plan of Treatment Not on file documented as of this encounter Visit Diagnoses Not on filedocumented in this encounter Care Teams Case Folder Relationship Specialty Start Date End Date No Ref-Primary, Physician PCP - General 07/29/17 03/16/22 Shanti Lara, MIMI [facility] [address] [place] [address] PCP - General Nurse Practitioner - [facility] 03/17/22 [facility] [address] [place], [place] 622455 Referring Physician product design specialist 07/29/17 Jonathan Pitts MD [address] [place] [address] [id number] MD Oncology 07/29/17 Jonathan Pitts MD [address] [place] [address] [phone] Assigned Cancer Care Provider 05/18/20 05/15/23 Christine Poon RN Specialty Physician Liaison Hematology & Oncology 12/02/21 documented as of this encounter
--- OUTSIDE RECORDS SUMMARY | 2024-02-07 11:40 | XMS_ITS | Encounter Summary ---
Author Organization [place] Address [address] [place] [address] Care Team Providers Care Nurse Case Management Name Role Phone No Ref-Primary, Physician Primary Care Provider Kavita Akhtar Unavailable [phone] Jonathan Pitts MD Unavailable Jonathan Pitts MD Unavailable Christine Poon RN Unavailable [phone] Shanti Lara NP Primary Care Provider [phone] Encounter Details Date Type Department Care Team (Late st Contact Info) Description 06/27/2020 [facility] [address] [place] [phone] Jonathan Pitts MD [address] [place] [address] Social History Tobacco Use Types Packs/Day [...] COVID-19? No / Unsure 06/28/2020 7:41 AM DISPLAY FABRICATION SUPERVISOR documented as of this encounter Plan of Treatment Not on file documented as of this encounter Visit Diagnoses Not on filedocumented in this encounter Care Teams Nurse Case Management Relationship Specialty Start Date End Date No Ref-Primary, Physician PCP - General 07/29/17 03/16/22 Shanti Lara, MIMI [facility] [address] [place] [address] PCP - General Nurse Practitioner - [facility] 03/17/22 [facility] [address] [place], [place] 509165 Referring Physician ship manager 07/29/17 Jonathan Pitts MD [address] [place] [address] [phone] MD Oncology 07/29/17 Jonathan Pitts MD [address] [place] [address] [phone] Assigned Cancer Care Provider 05/18/20 05/15/23 Christine Poon RN Specialty Lumber Sales Supervisor Hematology & Oncology 12/02/21 documented as of this encounter
--- OUTSIDE RECORDS SUMMARY | 2024-02-07 11:40 | XMS_ITS | Encounter Summary ---
Author Organization [place] Address [address] [place] [address] Care Team Providers Care Salesperson Men'S Hats Name Role Phone No Ref-Primary, Physician Primary Care Provider Kavita Akhtar Unavailable [phone] Jonathan Pitts MD Unavailable Jonathan Pitts MD Unavailable Christine Poon RN Unavailable [phone] Shanti Lara NP Primary Care Provider [phone] Encounter Details Date Type Department Care Team (Late st Contact Info) Description 07/05/2020 [facility] [address] [place] [phone] Jonathan Pitts MD [address] [place] [address] Social History Tobacco Use Types Packs/Day [...] COVID-19? No / Unsure 06/28/2020 7:41 AM PAPERHANGER SUPERVISOR documented as of this encounter Plan of Treatment Not on file documented as of this encounter Visit Diagnoses Not on filedocumented in this encounter Care Teams Salesperson Men'S Hats Relationship Specialty Start Date End Date No Ref-Primary, Physician PCP - General 07/29/17 03/16/22 Shanti Lara, MIMI [facility] [address] [place] [address] PCP - General Nurse Practitioner - [facility] 03/17/22 [facility] [address] [place], [place] [address] Referring Physician food and nutrition teacher 07/29/17 Jonathan Pitts MD [address] [place] [address] [phone] MD Oncology 07/29/17 Jonathan Pitts MD [address] [place] [address] [phone] Assigned Cancer Care Provider 05/18/20 05/15/23 Christine Poon RN Specialty Family Medicine Physician Hematology & Oncology 12/02/21 documented as of this encounter
--- OUTSIDE RECORDS SUMMARY | 2024-02-07 11:40 | XMS_ITS | Encounter Summary ---
Author Organization [place] Address [address] [place] [address] 80062 Care Team Providers Care Police Chief Name Role Phone No Ref-Primary, Physician Primary Care Provider Kavita Akhtar Unavailable [phone] Jonathan Pitts MD Unavailable Jonathan Pitts MD Unavailable Christine Poon RN Unavailable [phone] Shanti Lara NP Primary Care Provider [phone] Encounter Details Date Type Department Care Team (Late st Contact Info) Description 09/03/2020 [facility] [address] [place] [phone] Jonathan Pitts MD [address] [place] [address] Social History Tobacco Use Types Packs/Day [...] on filedocumented in this encounter Care Teams Police Chief Relationship Specialty Start Date End Date No Ref-Primary, Physician PCP - General 07/29/17 03/16/22 Shanti Lara, BATTERY TECHNICIAN [facility] [address] [place] [address] PCP - General Nurse Practitioner - Family 03/17/22 [facility] [address] [place], [place] [address] Referring Physician junior programmer analyst 07/29/17 Jonathan Pitts MD [address] [place] [address] [phone] MD Oncology 07/29/17 Jonathan Pitts MD [address] [place] [address] Assigned Cancer Care Provider 05/18/20 05/15/23 Christine Poon, RN Specialty Pulverizer Operator Hematology & Oncology 12/02/21 documented as of this encounter
--- OUTSIDE RECORDS SUMMARY | 2024-02-07 11:40 | XMS_ITS | Encounter Summary ---
Author Organization [place] Address [address] [place] [address] 79674 Care Team Providers Care Chief Dispatcher Service Name Role Phone No Ref-Primary, Physician Primary Care Provider Kavita Akhtar Unavailable [phone] Jonathan Pitts MD Unavailable Jonathan Pitts MD Unavailable Christine Poon RN Unavailable [phone] Shanti Lara NP Primary Care Provider [phone] Encounter Details Date Type Department Care Team (Late st Contact Info) Description 06/28/2020 [facility] [address] [place] [phone] Jonathan Pitts MD [address] [place] [address] Social History Tobacco Use Types Packs/Day [...] COVID-19? No / Unsure 06/28/2020 7:41 AM APPLIED MARINE PHYSICS PROFESSOR documented as of this encounter Plan of Treatment Not on file documented as of this encounter Visit Diagnoses Not on filedocumented in this encounter Care Teams Chief Dispatcher Service Relationship Specialty Start Date End Date No Ref-Primary, Physician PCP - General 07/29/17 03/16/22 Shanti Lara, MIMI [facility] [address] [place] [address] PCP - General Nurse Practitioner - [facility] 03/17/[address] [facility] [address] [place], [place] [address] Referring Physician gamer 07/29/17 Jonathan Pitts MD [address] [place] [address] [phone] MD Oncology 07/29/17 Jonathan Pitts MD [address] [place] [address] [phone] Assigned Cancer Care Provider 05/18/20 05/15/23 Christine Poon RN Specialty Maintenance Coordinator Hematology & Oncology 12/02/21 documented as of this encounter
--- OUTSIDE RECORDS SUMMARY | 2024-02-07 11:40 | XMS_ITS | Encounter Summary ---
Author Organization [place] Address [address] [place] [address] 19605 Care Team Providers Care Technical Document Writer Name Role Phone No Ref-Primary, Physician Primary Care Provider Kavita Akhtar Unavailable [phone] Jonathan Pitts MD Unavailable Jonathan Pitts MD Unavailable [phone] Christine Poon RN Unavailable [phone] Shanti Lara NP Primary Care Provider [phone] Encounter Details Date Type Department Care Team (Late st Contact Info) Description 06/14/2020 [facility] [address] [place] [phone] Jonathan Pitts MD [address] [place] [address] Social History Tobacco Use Types Packs/Day [...] COVID-19? No / Unsure 06/17/2020 1:09 PM CROTCH PIECE BASTER documented as of this encounter Plan of Treatment Not on file documented as of this encounter Visit Diagnoses Not on filedocumented in this encounter Care Teams Technical Document Writer Relationship Specialty Start Date End Date No Ref-Primary, Physician PCP - General 07/29/17 03/16/22 Shanti Lara, MIMI [facility] [address] [place] [address] PCP - General Nurse Practitioner - [facility] 03/17/22 [facility] [address] [place], [place] 4514[address] Referring Physician chemist biological 07/29/17 Jonathan Pitts MD [address] [place] [address] [phone] MD Oncology 07/29/17 Jonathan Pitts MD [address] [place] [address] [phone] Assigned Cancer Care Provider 05/18/20 05/15/23 Christine Poon RN Specialty Bolt Loader Hematology & Oncology 12/02/21 documented as of this encounter
--- OUTSIDE RECORDS SUMMARY | 2024-02-07 11:40 | XMS_ITS | Encounter Summary ---
Author Organization [place] Address [address] [place] [address] Care Team Providers Care Dairy Farmworker Name Role Phone No Ref-Primary, Physician Primary Care Provider Kavita Akhtar Unavailable [phone] Jonathan Pitts MD Unavailable Jonathan Pitts MD Unavailable Christine Poon RN Unavailable [phone] Shanti Lara NP Primary Care Provider [phone] Encounter Details Date Type Department Care Team (Late st Contact Info) Description 07/05/2020 [facility] [address] [place] [phone] Jonathan Pitts MD [address] [place] [address] Social History Tobacco Use Types Packs/Day [...] COVID-19? No / Unsure 06/28/2020 7:41 AM TATTOO ARTIST documented as of this encounter Plan of Treatment Not on file documented as of this encounter Visit Diagnoses Not on filedocumented in this encounter Care Teams Dairy Farmworker Relationship Specialty Start Date End Date No Ref-Primary, Physician PCP - General 07/29/17 03/16/22 Shanti Lara, MIMI [facility] [address] [place] [address] PCP - General Nurse Practitioner - [facility] 03/17/22 [facility] [address] [place], [place] 8[address] Referring Physician flight test engineer 07/29/17 Jonathan Pitts MD [address] [place] [address] [phone] MD Oncology 07/29/17 Jonathan Pitts MD [address] [place] [address] [phone] Assigned Cancer Care Provider 05/18/20 05/15/23 Christine Poon RN Specialty Sales Planning Coordinator Hematology & Oncology 12/02/21 documented as of this encounter
--- OUTSIDE RECORDS SUMMARY | 2024-02-07 11:40 | XMS_ITS | Encounter Summary ---
Author Organization [place] Address [address] [place] [address] Care Team Providers Care Human Resources Training Manager Name Role Phone No Ref-Primary, Physician Primary Care Provider Kavita Akhtar Unavailable [phone] Jonathan Pitts MD Unavailable Jonathan Pitts MD Unavailable Christine Poon RN Unavailable [phone] Shanti Lara NP Primary Care Provider [phone] Encounter Details Date Type Department Care Team ([facility] st Contact Info) Description 05/10/2020 [facility] [address] [place] [phone] Jonathan Pitts MD [address] [place] [address] Social History Tobacco Use Types Packs/Day [...] on filedocumented in this encounter Care Teams Human Resources Training Manager Relationship Specialty Start Date End Date No Ref-Primary, Physician PCP - General 07/29/17 03/16/22 Shanti Lara, BUILDING PERFORMANCE CONSULTANT [facility] [address] [place] [address] PCP - General Nurse Practitioner - [facility] 03/17/[address] [facility] [address] [place], [place] 880305 Referring Physician trouble tracer 07/29/17 Jonathan Pitts MD [address] [place] [address] [phone] MD Oncology 07/29/17 Jonathan Pitts MD [address] [place] [address] [phone] Assigned Cancer Care Provider 05/18/20 05/15/23 Christine Poon RN Specialty Cotton Farmworker Hematology & Oncology 12/02/21 documented as of this encounter
--- OUTSIDE RECORDS SUMMARY | 2024-02-07 11:40 | XMS_ITS | Encounter Summary ---
Author Organization [place] Address [address] [place] [address] Care Team Providers Care Chrome Tanning Drum Operator Name Role Phone No Ref-Primary, Physician Primary Care Provider Kavita Akhtar Unavailable [phone] Jonathan Pitts MD Unavailable [phone] Jonathan Pitts MD Unavailable Christine Poon RN Unavailable [phone] Shanti Lara NP Primary Care Provider [phone] Encounter Details Date Type Department Care Team (Late st Contact Info) Description 08/15/2020 [facility] [address] [place] [phone] Jonathan Pitts MD [address] [place] [address] Social History Tobacco Use Types Packs/Day [...] on filedocumented in this encounter Care Teams Chrome Tanning Drum Operator Relationship Specialty Start Date End Date No Ref-Primary, Physician PCP - General 07/29/17 03/16/22 Shanti Lara, AUDIO VIDEO TECHNICIAN [facility] [address] [place] [address] PCP - General Nurse Practitioner - Family 03/17/22 [facility], [facility] [address] [place], [place] 393715 Referring Physician chemical machine tender 07/29/17 Jonathan Pitts MD [address] [place] [address] [phone] MD Oncology 07/29/17 Jonathan Pitts MD [address] [place] [address] Assigned Cancer Care Provider 05/18/20 05/15/23 Christine Poon, RN Specialty Machine Tack Puller Hematology & Oncology 12/02/21 documented as of this encounter
--- OUTSIDE RECORDS SUMMARY | 2024-02-07 11:40 | XMS_ITS | Encounter Summary ---
Author Organization [place] Address [address] [place] [address] Care Team Providers Care Tea Bag Packer Name Role Phone No Ref-Primary, Physician Primary Care Provider Kavita Akhtar Unavailable [phone] Jonathan Pitts MD Unavailable Jonathan Pitts MD Unavailable Christine Poon RN Unavailable [phone] Shanti Lara NP Primary Care Provider [phone] Encounter Details Date Type Department Care Team (Late st Contact Info) Description 10/22/2020 [facility] [address] [place] [phone] Jonathan Pitts MD [address] [place] [address] Social History Tobacco Use Types Packs/Day [...] on filedocumented in this encounter Care Teams Tea Bag Packer Relationship Specialty Start Date End Date No Ref-Primary, Physician PCP - General 07/29/17 03/16/22 Shanti Lara, PAY CLERK [facility] [address] [place] [address] PCP - General Nurse Practitioner - Family 03/17/22 [facility], [facility] [address] [place], [place] 897165 Referring Physician land checker 07/29/17 Jonathan Pitts MD [address] [place] [address] [id number] MD Oncology 07/29/17 Jonathan Pitts MD [address] [place] [address] Assigned Cancer Care Provider 05/18/20 05/15/23 Christine Poon, RN Specialty Security System Sales Consultant Hematology & Oncology 12/02/21 documented as of this encounter
--- OUTSIDE RECORDS SUMMARY | 2024-02-07 11:40 | XMS_ITS | Encounter Summary ---
Author Organization [facility] Address [address] [place] [address] Care Team Providers Care Sexual Assault Response Coordinator Name Role Phone No Ref-Primary, Physician Primary Care Provider Kavita Akhtar Unavailable [phone] Jonathan Pitts MD Unavailable Jonathan Pitts MD Unavailable [phone] Christine Poon RN Unavailable [phone] Shanti Lara NP Primary Care Provider [phone] Encounter Details Date Type Department Care Team (Late st Contact Info) Description 06/26/2020 [facility] [address] [place] [phone] Jonathan Pitts MD [address] [place] [address] Social History Tobacco Use Types Packs/Day [...] COVID-19? No / Unsure 06/28/2020 7:41 AM CHEMISTRY MANAGER documented as of this encounter Plan of Treatment Not on file documented as of this encounter Visit Diagnoses Not on filedocumented in this encounter Care Teams Sexual Assault Response Coordinator Relationship Specialty Start Date End Date No Ref-Primary, Physician PCP - General 07/29/17 03/16/22 Shanti Lara, MIMI [facility] [address] [place] [address] PCP - General Nurse Practitioner - [facility] 03/17/22 [facility] [address] [place], [place] 010635 Referring Physician manager lan 07/29/17 Jonathan Pitts MD [address] [place] [address] [id number] MD Oncology 07/29/17 Jonathan Pitts MD [address] [place] [address] [phone] Assigned Cancer Care Provider 05/18/20 05/15/23 Christine Poon RN Specialty Cutter Operator Tile Hematology & Oncology 12/02/21 documented as of this encounter
--- OUTSIDE RECORDS SUMMARY | 2024-02-07 11:40 | XMS_ITS | Encounter Summary ---
Author Organization [place] Address [address] [place] [address] Care Team Providers Care Waste Machine Tender Name Role Phone No Ref-Primary, Physician Primary Care Provider Kavita Akhtar Unavailable [phone] Jonathan Pitts MD Unavailable Jonathan Pitts MD Unavailable Christine Poon RN Unavailable [phone] Shanti Lara NP Primary Care Provider [phone] Encounter Details Date Type Department Care Team (Late st Contact Info) Description 06/25/2020 [facility] [address] [place] [phone] Jnoathan Pitts MD [address] [place] [address] Social History Tobacco Use Types Packs/Day [...] COVID-19? No / Unsure 06/28/2020 7:41 AM COMMERCIAL SHRIMPING CAPTAIN documented as of this encounter Plan of Treatment Not on file documented as of this encounter Visit Diagnoses Not on filedocumented in this encounter Care Teams Waste Machine Tender Relationship Specialty Start Date End Date No Ref-Primary, Physician PCP - General 07/29/17 03/16/22 Shanti Lara, MIMI [facility] [address] [place] [address] PCP - General Nurse Practitioner - [facility] 03/17/22 [facility] [address] [place], [place] 127365 Referring Physician highway patrol officer 07/29/17 Jonathan Pitts MD [address] [place] [address] [phone] MD Oncology 07/29/17 Jonathan Pitts MD [address] [place] [address] [phone] Assigned Cancer Care Provider 05/18/20 05/15/23 Christine Poon RN Specialty Scale Assembly Set Up Worker Hematology & Oncology 12/02/21 documented as of this encounter
--- OUTSIDE RECORDS SUMMARY | 2024-02-07 11:40 | XMS_ITS | Encounter Summary ---
Author Organization [place] Address [address] [place] [address] Care Team Providers Care Computer Lab Aide Name Role Phone No Ref-Primary, Physician Primary Care Provider Kavita Akhtar Unavailable [phone] Jonathan Pitts MD Unavailable Jonathan Pitts MD Unavailable Christine Poon RN Unavailable [phone] Shanti Lara NP Primary Care Provider [phone] Encounter Details Date Type Department Care Team (Late st Contact Info) Description 05/23/2020 [facility] [address] [place] [phone] Jonathan Pitts MD [address] [place] [address] Social History Tobacco Use Types Packs/Day [...] on filedocumented in this encounter Care Teams Computer Lab Aide Relationship Specialty Start Date End Date No Ref-Primary, Physician PCP - General 07/29/17 03/16/22 Shanti Lara, ELECTROSLAG WELDING MACHINE OPERATOR [facility] [address] [place] [address] PCP - General Nurse Practitioner - [facility] 03/17/22 [facility] [address] [place], [place] 127845 Referring Physician manager behavior 07/29/17 Jonathan Pitts MD [address] [place] [address] [phone] MD Oncology 07/29/17 Jonathan Pitts MD [address] [place] [address] [phone] Assigned Cancer Care Provider 05/18/20 05/15/23 Christine Poon RN Specialty Undergraduate Intern Hematology & Oncology 12/02/21 documented as of this encounter
--- OUTSIDE RECORDS SUMMARY | 2024-02-07 11:40 | XMS_ITS | Encounter Summary ---
Author Organization [place] Address [address] [place] [address] Care Team Providers Care Photogrammetric Technician Name Role Phone No Ref-Primary, Physician Primary Care Provider Kavita Akhtar Unavailable [phone] Jonathan Pitts MD Unavailable Jonathan Pitts MD Unavailable Christine Poon RN Unavailable [phone] Shanti Lara NP Primary Care Provider [phone] Encounter Details Date Type Department Care Team ([facility] st Contact Info) Description 05/11/2020 [facility] [address] [place] [phone] Jonathan Pitts MD [address] [place] [address] Social History Tobacco Use Types Packs/Day [...] on filedocumented in this encounter Care Teams Photogrammetric Technician Relationship Specialty Start Date End Date No Ref-Primary, Physician PCP - General 07/29/17 03/16/22 Shanti Lara, YOUTH DEVELOPMENT SPECIALIST [facility] [address] [place] [address] PCP - General Nurse Practitioner - [facility] 03/17/[address] [facility] [address] [place], [place] 335565 Referring Physician carbon furnace operator helper 07/29/17 Jonathan Pitts MD [address] [place] [address] [phone] MD Oncology 07/29/17 Jonathan Pitts MD [address] [place] [address] [phone] Assigned Cancer Care Provider 05/18/20 05/15/23 Christine Poon RN Specialty Data Management Manager Hematology & Oncology 12/02/21 documented as of this encounter
--- OUTSIDE RECORDS SUMMARY | 2024-02-07 11:40 | XMS_ITS | Encounter Summary ---
Author Organization [place] Address [address] [place] [address] Care Team Providers Care Electrical Construction Project Manager Name Role Phone No Ref-Primary, Physician Primary Care Provider Kavita Akhtar Unavailable [phone] Jonathan Pitts MD Unavailable Jonathan Pitts MD Unavailable [phone] Christine Poon RN Unavailable [phone] Shanti Lara NP Primary Care Provider [phone] Encounter Details Date Type Department Care Team (Late st Contact Info) Description 06/04/2020 [facility] [address] [place] [phone] Jonathan Pitts MD [address] [place] [address] Social History Tobacco Use Types Packs/Day [...] COVID-19? No / Unsure 05/28/2020 10:50 AM DUPLICATOR PUNCH SET UP OPERATOR documented as of this encounter Plan of Treatment Not on file documented as of this encounter Visit Diagnoses Not on filedocumented in this encounter Care Teams Electrical Construction Project Manager Relationship Specialty Start Date End Date No Ref-Primary, Physician PCP - General 07/29/17 03/16/22 Shanti Lara, MIMI [facility] [address] [place] [address] PCP - General Nurse Practitioner - [facility] 03/17/22 [facility] [address] [place], [place] 478795 Referring Physician news camera operator 07/29/17 Jonathan Pitts MD [address] [place] [address] [phone] MD Oncology 07/29/17 Jonathan Pitts MD [address] [place] [address] [phone] Assigned Cancer Care Provider 05/18/20 05/15/23 Christine Poon RN Specialty Restaurant Host Hematology & Oncology 12/02/21 documented as of this encounter
--- OUTSIDE RECORDS SUMMARY | 2024-02-07 11:40 | XMS_ITS | Encounter Summary ---
Author Organization [place] Address [address] [place] [address] Care Team Providers Care Evp Chief Exploration Officer Name Role Phone No Ref-Primary, Physician Primary Care Provider Kavita Akhtar Unavailable [phone] Jonathan Pitts MD Unavailable Jonathan Pitts MD Unavailable Christine Poon RN Unavailable [phone] Shanti Lara NP Primary Care Provider [phone] Encounter Details Date Type Department Care Team (Late st Contact Info) Description 07/03/2020 [facility] [address] [place] [phone] Jonathan Pitts MD [address] [place] [address] Social History Tobacco Use Types Packs/Day [...] COVID-19? No / Unsure 06/28/2020 7:41 AM FOUNDRY MANAGER documented as of this encounter Plan of Treatment Not on file documented as of this encounter Visit Diagnoses Not on filedocumented in this encounter Care Teams Evp Chief Exploration Officer Relationship Specialty Start Date End Date No Ref-Primary, Physician PCP - General 07/29/17 03/16/22 Shanti Lara, MIMI [facility] [address] [place] [address] PCP - General Nurse Practitioner - [facility] 03/17/22 [facility] [address] [place], [place] 467895 Referring Physician parking manager 07/29/17 Jonathan Pitts MD [address] [place] [address] [phone] MD Oncology 07/29/17 Jonathan Pitts MD [address] [place] [address] [phone] Assigned Cancer Care Provider 05/18/20 05/15/23 Christine Poon RN Specialty Hall Monitor Hematology & Oncology 12/02/21 documented as of this encounter
--- OUTSIDE RECORDS SUMMARY | 2024-02-07 11:40 | XMS_ITS | Encounter Summary ---
Author Organization [place] Address [address] [place] [address] Care Team Providers Care Inventory Taker Name Role Phone No Ref-Primary, Physician Primary Care Provider Kavita Akhtar Unavailable [phone] Jonathan Pitts MD Unavailable Jonathan Pitts MD Unavailable [phone] Christine Poon RN Unavailable [phone] Shanti Lara NP Primary Care Provider [phone] Encounter Details Date Type Department Care Team (Late st Contact Info) Description 06/18/2020 [facility] [address] [place] [phone] Jonathan Pitts MD [address] [place] [address] Social History Tobacco Use Types Packs/Day [...] COVID-19? No / Unsure 06/19/2020 11:48 AM SUPERINTENDENT CEMETERY documented as of this encounter Plan of Treatment Not on file documented as of this encounter Visit Diagnoses Not on filedocumented in this encounter Care Teams Inventory Taker Relationship Specialty Start Date End Date No Ref-Primary, Physician PCP - General 07/29/17 03/16/22 Shanti Lara, MIMI [facility] [address] [place] [address] PCP - General Nurse Practitioner - [facility] [employer] [facility] 03/17/22 [facility] [address] [place], [place] 306465 Referring Physician sexologist 07/29/17 Jonathan Pitts MD [address] [place] [address] [phone] MD Oncology 07/29/17 Jonathan Pitts MD [address] [place] [address] [phone] Assigned Cancer Care Provider 05/18/20 05/15/23 Christine Poon RN Specialty Talent Buyer Hematology & Oncology 12/02/21 documented as of this encounter
--- OUTSIDE RECORDS SUMMARY | 2024-02-07 11:40 | XMS_ITS | Encounter Summary ---
Author Organization [place] Address [address] [place] [address] Care Team Providers Care Sandblast Operator Name Role Phone No Ref-Primary, Physician Primary Care Provider Kavita Akhtar Unavailable [phone] Jonathan Pitts MD Unavailable Jonathan Pitts MD Unavailable Christine Poon RN Unavailable [phone] Shanti Lara NP Primary Care Provider [phone] Encounter Details Date Type Department Care Team (Late st Contact Info) Description 06/28/2020 [facility] [address] [place] [phone] Jonathan Pitts MD [address] [place] [address] Social History Tobacco Use Types Packs/Day [...] COVID-19? No / Unsure 06/28/2020 7:41 AM ROTOR CASTING MACHINE OPERATOR documented as of this encounter Plan of Treatment Not on file documented as of this encounter Visit Diagnoses Not on filedocumented in this encounter Care Teams Sandblast Operator Relationship Specialty Start Date End Date No Ref-Primary, Physician PCP - General 07/29/17 03/16/22 Shanti Lara, MIMI [facility] [address] [place] [address] PCP - General Nurse Practitioner - [facility] 03/17/22 [facility] [address] [place], [place] 8[address]995 Referring Physician instructional design technologist 07/29/17 Jonathan Pitts MD [address] [place] [address] [phone] MD Oncology 07/29/17 Jonathan Pitts MD [address] [place] [address] [phone] Assigned Cancer Care Provider 05/18/20 05/15/23 Christine Poon RN Specialty Hand Wrapper Operator Hematology & Oncology 12/02/21 documented as of this encounter
--- OUTSIDE RECORDS SUMMARY | 2024-02-07 11:40 | XMS_ITS | Encounter Summary ---
Author Organization [place] Address [address] [place] [address] Care Team Providers Care Twill Cutter Name Role Phone No Ref-Primary, Physician Primary Care Provider Kavita Akhtar Unavailable [phone] Jonathan Pitts MD Unavailable Jonathan Pitts MD Unavailable Christine Poon RN Unavailable [phone] Shanti Lara NP Primary Care Provider [phone] Encounter Details Date Type Department Care Team (Late st Contact Info) Description 06/27/2020 [facility] [address] [place] [phone] Jonathan Pitts MD [address] [place] [address] Social History Tobacco Use Types Packs/Day [...] COVID-19? No / Unsure 06/28/2020 7:41 AM STUDENT LIFE ADVISOR documented as of this encounter Plan of Treatment Not on file documented as of this encounter Visit Diagnoses Not on filedocumented in this encounter Care Teams Twill Cutter Relationship Specialty Start Date End Date No Ref-Primary, Physician PCP - General 07/29/17 03/16/22 Shanti Lara, M[facility]I [facility] [address] [place] [address] PCP - General Nurse Practitioner - [facility] 03/17/22 [address] [place], [place] 133805 Referring Physician bilingual school psychologist 07/29/17 Jonathan Pitts MD [address] [place] [address] [phone] MD Oncology 07/29/17 Jonathan Pitts MD [address] [place] [address] [phone] Assigned Cancer Care Provider 05/18/20 05/15/23 Christine Poon RN Specialty Bd Special Education Teacher Hematology & Oncology 12/02/21 documented as of this encounter
--- OUTSIDE RECORDS SUMMARY | 2024-02-07 11:40 | XMS_ITS | Encounter Summary ---
Author Organization [place] Address [address] [place] [address] Care Team Providers Care Proof Reader Name Role Phone No Ref-Primary, Physician Primary Care Provider Kavita Akhtar Unavailable [phone] Jonathan Pitts MD Unavailable Jonathan Pitts MD Unavailable Christine Poon RN Unavailable [phone] Shanti Lara NP Primary Care Provider [phone] Encounter Details Date Type Department Care Team (Late st Contact Info) Description 06/12/2020 [facility] [address] [place] [phone] Jonathan Pitts MD [address] [place] [address] Social History Tobacco Use Types Packs/Day [...] COVID-19? No / Unsure 06/14/2020 3:17 PM INDUSTRIAL ECONOMICS TEACHER documented as of this encounter Plan of Treatment Not on file documented as of this encounter Visit Diagnoses Not on filedocumented in this encounter Care Teams Proof Reader Relationship Specialty Start Date End Date No Ref-Primary, Physician PCP - General 07/29/17 03/16/22 Shanti Lara, M[facility]I [facility] [address] [place] [address] PCP - General Nurse Practitioner - [facility] 03/17/22 [facility] [address] [place], [place] 270315 Referring Physician flotation tender helper 07/29/17 Jonathan Pitts MD [address] [place] [address] [phone] MD Oncology 07/29/17 Jonathan Pitts MD [address] [place] [address] [phone] Assigned Cancer Care Provider 05/18/20 05/15/23 Christine Poon RN Specialty Shellfish Processing Laborer Hematology & Oncology 12/02/21 documented as of this encounter
--- OUTSIDE RECORDS SUMMARY | 2024-02-07 11:40 | XMS_ITS | Encounter Summary ---
Author Organization [place] Address [address] [place] [address] Care Team Providers Care Technical Project Manager Name Role Phone No Ref-Primary, Physician Primary Care Provider Kavita Akhtar Unavailable [phone] Jonathan Pitts MD Unavailable Jonathan Pitts MD Unavailable Christine Poon RN Unavailable [phone] Shanti Lara NP Primary Care Provider [phone] Encounter Details Date Type Department Care Team (Late st Contact Info) Description 06/28/2020 [facility] [address] [place] [phone] Jonathan Pitts MD [address] [place] [address] Social History Tobacco Use Types Packs/Day [...] COVID-19? No / Unsure 06/28/2020 7:41 AM MACHINE STAKER documented as of this encounter Plan of Treatment Not on file documented as of this encounter Visit Diagnoses Not on filedocumented in this encounter Care Teams Technical Project Manager Relationship Specialty Start Date End Date No Ref-Primary, Physician PCP - General 07/29/17 03/16/22 Shanti Lara, MIMI [facility] [address] [place] [address] PCP - General Nurse Practitioner - [facility] 03/17/22 [facility] [address] [place], [place] 585705 Referring Physician cutter wet machine 07/29/17 Jonathan Pitts MD [address] [place] [address] [phone] MD Oncology 07/29/17 Jonathan Pitts MD [address] [place] [address] [phone] Assigned Cancer Care Provider 05/18/20 05/15/23 Christine Poon RN Specialty Enforcement Manager Hematology & Oncology 12/02/21 documented as of this encounter
--- OUTSIDE RECORDS SUMMARY | 2024-02-07 11:40 | XMS_ITS | Encounter Summary ---
Author Organization [place] Address [address] [place] [address] 10648 Care Team Providers Care Cracking Machine Operator Name Role Phone No Ref-Primary, Physician Primary Care Provider Kavita Akhtar Unavailable [phone] Jonathan Pitts MD Unavailable [phone] Jonathan Pitts MD Unavailable Christine Poon RN Unavailable [phone] Shanti Lara NP Primary Care Provider [phone] Encounter Details Date Type Department Care Team (Late st Contact Info) Description 07/09/2020 [facility] [place] [facility] [address] [place] [phone] Jonathan Pitts MD [address] [place] [address] Social History Tobacco Use Types Packs/Day [...] COVID-19? No / Unsure 07/09/2020 10:01 AM BUTADIENE CONVERTER UTILITY OPERATOR documented as of this encounter Plan of Treatment Not on file documented as of this encounter Visit Diagnoses Not on filedocumented in this encounter Care Teams Cracking Machine Operator Relationship Specialty Start Date End Date No Ref-Primary, Physician PCP - General 07/29/17 03/16/22 Shanti Lara, MIMI [facility] [address] [place] [address] PCP - General Nurse Practitioner - [facility] 03/17/22 [facility] [address] [place], [place] 703225 Referring Physician glass mold repairer 07/29/17 Jonathan Pitts MD [address] [place] [address] [phone] MD Oncology 07/29/17 Jonathan Pitts MD [address] [place] [address] [phone] Assigned Cancer Care Provider 05/18/20 05/15/23 Christine Poon RN Specialty Freight Brake Operator Hematology & Oncology 12/02/21 documented as of this encounter
--- OUTSIDE RECORDS SUMMARY | 2024-02-07 11:40 | XMS_ITS | Encounter Summary ---
Author Organization [place] Address [address] [place] [address] 32654 Care Team Providers Care Manager Risk Management Name Role Phone No Ref-Primary, Physician Primary Care Provider Kavita Akhtar Unavailable [phone] Jonathan Pitts MD Unavailable Jonathan Pitts MD Unavailable Christine Poon RN Unavailable [phone] Shanti Lara NP Primary Care Provider [phone] Encounter Details Date Type Department Care Team (Late st Contact Info) Description 07/25/2020 [facility] [place] [place] [facility] [address] [place] [phone] Jonathan Pitts MD [address] [place] [address] Social History Tobacco Use Types Packs/Day [...] COVID-19? No / Unsure 07/09/2020 10:01 AM CLIPPING MARKER documented as of this encounter Plan of Treatment Not on file documented as of this encounter Visit Diagnoses Not on filedocumented in this encounter Care Teams Manager Risk Management Relationship Specialty Start Date End Date No Ref-Primary, Physician PCP - General 07/29/17 03/16/22 Shanti Lara, MIMI [facility] [address] [place] [address] PCP - General Nurse Practitioner - [facility] 03/17/22 [facility] [address] [place], [place] 570165 Referring Physician land survey technician 07/29/17 Jonathan Pitts MD [address] [place] [address] [phone] MD Oncology 07/29/17 Jonathan Pitts MD [address] [place] [address] [phone] Assigned Cancer Care Provider 05/18/20 05/15/23 Christine Poon RN Specialty Logistics Assistant Hematology & Oncology 12/02/21 documented as of this encounter
--- OUTSIDE RECORDS SUMMARY | 2024-02-07 11:40 | XMS_ITS | Encounter Summary ---
Author Organization [place] Address [address] [place] [address] 23397 Care Team Providers Care Pilot Plant Supervisor Name Role Phone No Ref-Primary, Physician Primary Care Provider Kavita Akhtar Unavailable [phone] Jonathan Pitts MD Unavailable Jonathan Pitts MD Unavailable [phone] Christine Poon RN Unavailable [phone] Shanti Lara NP Primary Care Provider [phone] Encounter Details Date Type Department Care Team ([facility] st Contact Info) Description 05/14/2020 [facility] [place] [facility] [address] [place] [phone] Jonathan Pitts MD [address] [place] [address] Social History Tobacco Use Types Packs/Day [...] on filedocumented in this encounter Care Teams Pilot Plant Supervisor Relationship Specialty Start Date End Date No Ref-Primary, Physician PCP - General 07/29/17 03/16/22 Shanti Lara, OCEANOGRAPHER GEOLOGICAL [facility] [address] [place] [address] PCP - General Nurse Practitioner - [facility] 03/17/[address] [facility] [address] [place], [place] 310425 Referring Physician sustainable agriculture specialist 07/29/17 Jonathan Pitts MD [address] [place] [address] [phone] MD Oncology 07/29/17 Jonathan Pitts MD [address] [place] [address] [phone] Assigned Cancer Care Provider 05/18/20 05/15/23 Christine Poon RN Specialty Insurance Billing Clerk Hematology & Oncology 12/02/21 documented as of this encounter
--- OUTSIDE RECORDS SUMMARY | 2024-02-07 11:40 | XMS_ITS | Encounter Summary ---
Author Organization [place] Address [address] [place] [address] Care Team Providers Care Market Maker Name Role Phone No Ref-Primary, Physician Primary Care Provider Kavita Akhtar Unavailable [phone] Jonathan Pitts MD Unavailable Jonathan Pitts MD Unavailable Christine Poon RN Unavailable [phone] Shanti Lara NP Primary Care Provider [phone] Encounter Details Date Type Department Care Team (Late st Contact Info) Description 07/24/2020 [facility] [place] [facility] [address] [place] [phone] Jonathan Pitts MD [address] [place] [address] Social History Tobacco Use Types Packs/Day [...] COVID-19? No / Unsure 07/09/2020 10:01 AM SECURITY TECHNICIAN documented as of this encounter Plan of Treatment Not on file documented as of this encounter Visit Diagnoses Not on filedocumented in this encounter Care Teams Market Maker Relationship Specialty Start Date End Date No Ref-Primary, Physician PCP - General 07/29/17 03/16/22 Shanti Lara, MIMI [facility] [address] [place] [address] PCP - General Nurse Practitioner - [facility] 03/17/[address] [facility] [address] [place], [place] 412785 Referring Physician water well driller 07/29/17 Jonathan Pitts MD [address] [place] [address] [phone] MD Oncology 07/29/17 Jonathan Pitts MD [address] [place] [address] [phone] Assigned Cancer Care Provider 05/18/20 05/15/23 Christine Poon RN Specialty Hogshead Packer Hematology & Oncology 12/02/21 documented as of this encounter
--- OUTSIDE RECORDS SUMMARY | 2024-02-07 11:40 | XMS_ITS | Encounter Summary ---
Author Organization [place] Address [address] [place] [address] 415[address] Care Team Providers Care Communication Skills Instructor Name Role Phone No Ref-Primary, Physician Primary Care Provider Kavita Akhtar Unavailable [phone] Jonathan Pitts MD Unavailable Jonathan Pitts MD Unavailable Christine Poon RN Unavailable [phone] Shanti Lara NP Primary Care Provider [phone] Encounter Details Date Type Department Care Team (Late st Contact Info) Description 06/16/2020 [facility] [place] [facility] [address] [place] [phone] Jonathan Pitts MD [address] [place] [address] Social History Tobacco Use Types Packs/Day [...] COVID-19? No / Unsure 06/19/2020 11:48 AM TELETYPESETTER documented as of this encounter Plan of Treatment Not on file documented as of this encounter Visit Diagnoses Not on filedocumented in this encounter Care Teams Communication Skills Instructor Relationship Specialty Start Date End Date No Ref-Primary, Physician PCP - General 07/29/17 03/16/22 Shanti Lara, MIMI [facility] [address] [place] [address] PCP - General Nurse Practitioner - [facility] 03/17/22 [facility] [address] [place], [place] 265285 Referring Physician home health care worker 07/29/17 Jonathan Pitts MD [address] [place] [address] [phone] MD Oncology 07/29/17 Jonathan Pitts MD [address] [place] [address] [phone] Assigned Cancer Care Provider 05/18/20 05/15/23 Christine Poon RN Specialty Diving Board Assembler Hematology & Oncology 12/02/21 documented as of this encounter
--- OUTSIDE RECORDS SUMMARY | 2024-02-07 11:40 | XMS_ITS | Encounter Summary ---
Author Organization [place] Address [address] [place] [address] 87691 Care Team Providers Care Editor Farm Journal Name Role Phone No Ref-Primary, Physician Primary Care Provider Kavita Akhtar Unavailable [phone] Jonathan Pitts MD Unavailable Jonathan Pitts MD Unavailable Christine Poon RN Unavailable [phone] Shanti Lara NP Primary Care Provider [phone] Encounter Details Date Type Department Care Team (Late st Contact Info) Description 06/25/2020 [facility] [address] [place] [phone] Jonathan Pitts MD [address] [place] [address] Social History Tobacco Use Types Packs/Day [...] COVID-19? No / Unsure 06/28/2020 7:41 AM HELPER TEACHER documented as of this encounter Plan of Treatment Not on file documented as of this encounter Visit Diagnoses Not on filedocumented in this encounter Care Teams Editor Farm Journal Relationship Specialty Start Date End Date No Ref-Primary, Physician PCP - General 07/29/17 03/16/22 Shanti Lara, MIMI [facility] [address] [place] [address] PCP - General Nurse Practitioner - [facility] 03/17/22 [facility] [address] [place], [place] 271125 Referring Physician brusher operator 07/29/17 Jonathan Pitts MD [address] [place] [address] [phone] MD Oncology 07/29/17 Jonathan Pitts MD [address] [place] [address] [phone] Assigned Cancer Care Provider 05/18/20 05/15/23 Christine Poon RN Specialty Tray Server Hematology & Oncology 12/02/21 documented as of this encounter
--- OUTSIDE RECORDS SUMMARY | 2024-02-07 11:40 | XMS_ITS | Encounter Summary ---
Author Organization [place] Address [address] [place] [address] 18207 Care Team Providers Care Coil Assembler Name Role Phone No Ref-Primary, Physician Primary Care Provider Kavita Akhtar Unavailable [phone] Jonathan Pitts MD Unavailable [phone] Jonathan Pitts MD Unavailable Christine Poon RN Unavailable [phone] Shanti Lara NP Primary Care Provider [phone] Encounter Details Date Type Department Care Team (Late st Contact Info) Description 05/31/2020 [facility] [place] [facility] [address] [place] [phone] Jonathan Pitts MD [address] [place] [address] Social History Tobacco Use Types Packs/Day [...] COVID-19? No / Unsure 05/28/2020 10:50 AM CHANGE DIRECTOR documented as of this encounter Plan of Treatment Not on file documented as of this encounter Visit Diagnoses Not on filedocumented in this encounter Care Teams Coil Assembler Relationship Specialty Start Date End Date No Ref-Primary, Physician PCP - General 07/29/17 03/16/22 Shanti Lara, MIMI [facility] [address] [place] [address] PCP - General Nurse Practitioner - [facility] 03/17/22 [address] [place], [place] 856905 Referring Physician prescriptionist 07/29/17 Jonathan Pitts MD [address] [place] [address] [phone] MD Oncology 07/29/17 Jonathan Pitts MD [address] [place] [address] [id number] Assigned Cancer Care Provider 05/18/20 05/15/23 Christine Poon RN Specialty Physician Office Secretary Hematology & Oncology 12/02/21 documented as of this encounter
--- OUTSIDE RECORDS SUMMARY | 2024-02-07 11:41 | XMS_ITS | Encounter Summary ---
Author Organization [place] Address [address] [place] [address] 98270 Care Team Providers Care Director Of Research And Development Name Role Phone No Ref-Primary, Physician Primary Care Provider Kavita Akhtar Unavailable [phone] Jonathan Pitts MD Unavailable [phone] Jonathan Pitts MD Unavailable Christine Poon RN Unavailable [phone] Shanti Lara NP Primary Care Provider [phone] Encounter Details Date Type Department Care Team ([facility] st Contact Info) Description 08/11/2017 [facility] [address] [place] [phone] Jonathan Pitts MD [address] [place] [address] Social History Tobacco Use Types Packs/Day Years Used Date Smoking Tobacco: Every Day Cigarettes Smokeless Tobacco: Never Alcohol Use Standard Drinks/Week [...] on filedocumented in this encounter Care Teams Director Of Research And Development Relationship Specialty Start Date End Date No Ref-Primary, Physician PCP - General 07/29/17 03/16/22 Shanti Lara, DESIGN ENGINEERING TECHNICIAN [facility] [address] [place] [address] PCP - General Nurse Practitioner - Family 03/17/22 [facility] [address] [place], [place] 950544[address] Referring Physician chip bin conveyor tender 07/29/17 Jonathan Pitts MD [address] [place] [address] [phone] Oncology 07/29/17 Jonathan Pitts MD [address] [place] [address] [phone] Assigned Cancer Care Provider 05/18/20 05/15/23 Christine Poon RN Specialty Auto Body Worker Hematology & Oncology 12/02/21 documented as of this encounter
--- OUTSIDE RECORDS SUMMARY | 2024-02-07 11:41 | XMS_ITS | Encounter Summary ---
Author Organization [place] Address [address] [place] [address] 88819 Care Team Providers Care Classified Advertising Manager Name Role Phone No Ref-Primary, Physician Primary Care Provider Kavita Akhtar Unavailable [phone] Jonathan Pitts MD Unavailable Jonathan Pitts MD Unavailable Christine Poon RN Unavailable [phone] Shanti Lara NP Primary Care Provider [phone] Encounter Details Date Type Department Care Team (Late st Contact Info) Description 10/27/2019 [facility] [address] [place] [phone] Jonathan Pitts MD [address] [place] [address] Social History Tobacco Use Types Packs/Day [...] on filedocumented in this encounter Care Teams Classified Advertising Manager Relationship Specialty Start Date End Date No Ref-Primary, Physician PCP - General 07/29/17 03/16/22 Shanti Lara, DEPENDENCY CASE MANAGER [facility] [address] [place] [address] PCP - General Nurse Practitioner - Family 03/17/22 [facility] [address] [place], [place] 620925 Referring Physician osha inspector 07/29/17 Jonathan Pitts MD [address] [place], [place] 673035 MD Oncology 07/29/17 Jonathan Pitts MD [address] [place], [place] [phone] Assigned Cancer Care Provider 05/18/20 05/15/23 Christine Poon, RN Specialty Field Applications Specialist Hematology & Oncology 12/02/21 documented as of this encounter
--- OUTSIDE RECORDS SUMMARY | 2024-02-07 11:41 | XMS_ITS | Encounter Summary ---
Author Organization [place] Address [address] [place] [address] 15270 Care Team Providers Care Water Pump Servicer Name Role Phone No Ref-Primary, Physician Primary Care Provider Kavita Akhtar Unavailable [phone] Jonathan Pitts MD Unavailable [phone] Jonathan Pitts MD Unavailable Christine Poon RN Unavailable [phone] Shanti Lara NP Primary Care Provider [phone] Encounter Details Date Type Department Care Team (Late st Contact Info) Description 09/04/2017 [facility] [address] [place] [phone] Jonathan Pitts MD [address] [place] [address] Granulosa cell tumor (Primary Dx) Social [...] ovary documented in this encounter Care Teams Water Pump Servicer Relationship Specialty Start Date End Date No Ref-Primary, Physician PCP - General 07/29/17 03/16/22 Shanti Lara, AGRIBUSINESS PROFESSOR [facility] [address] [place] [address] PCP - General Nurse Practitioner - [facility] 03/17/22 [facility] [address] [place], [place] 770485 Referring Physician plasma center nurse 07/29/17 Jonathan Pitts MD [address] [place], [place] 451885 MD Oncology 07/29/17 Jonathan Pitts MD [address] [place], [place] 033915 Assigned Cancer Care Provider 05/18/20 05/15/23 Christine Poon RN Specialty Multiple Resaw Operator Hematology & Oncology 12/02/21 documented as of this encounter
--- OUTSIDE RECORDS SUMMARY | 2024-02-07 11:41 | XMS_ITS | Encounter Summary ---
Author Organization [place] Address [address] [place] [address] 6[address]32 Care Team Providers Care Filter Machine Operator Name Role Phone No Ref-Primary, Physician Primary Care Provider Kavita Akhtar Unavailable [phone] Jonathan Pitts MD Unavailable [phone] Jonathan Pitts MD Unavailable Christine Poon RN Unavailable [phone] Shanti Lara NP Primary Care Provider [phone] Encounter Details Date Type Department Care Team ([facility] st Contact Info) Description 05/07/2020 [facility] [place] [facility] [address] [place] [phone] Jonathan Pitts MD [address] [place] [address] Social History Tobacco Use Types Packs/Day [...] on filedocumented in this encounter Care Teams Filter Machine Operator Relationship Specialty Start Date End Date No Ref-Primary, Physician PCP - General 07/29/17 03/16/22 Shanti Lara, MIMI [facility] [address] [place] [address] PCP - General Nurse Practitioner - [facility] 03/17/22 [facility] [address] [place], [place] 040415 Referring Physician environmental services coordinator 07/29/17 Jonathan Pitts MD [address] [place] [address] [phone] MD Oncology 07/29/17 Jonathan Pitts MD [address] [place] [address] [phone] Assigned Cancer Care Provider 05/18/20 05/15/23 Christine Poon RN Specialty Working Second Hand Hematology & Oncology 12/02/21 documented as of this encounter
--- OUTSIDE RECORDS SUMMARY | 2024-02-07 11:41 | XMS_ITS | Encounter Summary ---
Author Organization [place] Address [address] [place] [address] 58741 Care Team Providers Care Industrial Furnace Fabricator Name Role Phone No Ref-Primary, Physician Primary Care Provider Kavita Akhtar Unavailable [phone] Jonathan Pitts MD Unavailable [phone] Jonathan Pitts MD Unavailable Christine Poon RN Unavailable [phone] Shanti Lara NP Primary Care Provider [phone] Encounter Details Date Type Department Care Team ([facility] st Contact Info) Description 05/08/2020 [facility] [place] [facility] [address] [place] [phone] Jonahtan Pitts MD [address] [place] [address] Social History Tobacco Use Types Packs/Day [...] on filedocumented in this encounter Care Teams Industrial Furnace Fabricator Relationship Specialty Start Date End Date No Ref-Primary, Physician PCP - General 07/29/17 03/16/22 Shanti Laar, PROJECT/PRODUCTION MANAGER IMAGING [facility] [address] [place] [address] PCP - General Nurse Practitioner - [facility] 03/17/22 [facility] [address] [place], [place] 682215 Referring Physician jd edwards developer 07/29/17 Jonathan Pitts MD [address] [place] [address] [phone] MD Oncology 07/29/17 Jonathan Pitts MD [address] [place] [address] [phone] Assigned Cancer Care Provider 05/18/20 05/15/23 Christine Poon RN Specialty Lumber Sorter Hematology & Oncology 12/02/21 documented as of this encounter
--- OUTSIDE RECORDS SUMMARY | 2024-02-07 11:41 | XMS_ITS | Encounter Summary ---
Author Organization [place] Address [address] [place] [address] 91766 Care Team Providers Care Windows Desktop Support Name Role Phone No Ref-Primary, Physician Primary Care Provider Kavita Akhtar Unavailable [phone] Jonathan Pitts MD Unavailable Jonathan Pitts MD Unavailable Christine Poon RN Unavailable [phone] Shanti Lara NP Primary Care Provider [phone] Encounter Details Date Type Department Care Team (Late st Contact Info) Description 11/28/2019 [facility] [place] [facility] [address] [place] [phone] Jonathan Pitts MD [address] [place] [address] Social History Tobacco Use Types Packs/Day [...] on filedocumented in this encounter Care Teams Windows Desktop Support Relationship Specialty Start Date End Date No Ref-Primary, Physician PCP - General 07/29/17 03/16/22 Shanti Lara, MIMI [facility] [address] [place] [address] PCP - General Nurse Practitioner - [facility] 03/17/22 [facility] [address] [place], [place] 607195 Referring Physician service center supervisor 07/29/17 Jonathan Pitts MD [address] [place] [address] [phone] MD Oncology 07/29/17 Jonathan Pitts MD [address] [place] [address] [phone] Assigned Cancer Care Provider 05/18/20 05/15/23 Christine Poon RN Specialty Cutting And Printing Machine Operator Hematology & Oncology 12/02/21 documented as of this encounter
--- OUTSIDE RECORDS SUMMARY | 2024-02-07 11:41 | XMS_ITS | Encounter Summary ---
Author Organization [place] Address [address] [place] [address] 97080 Care Team Providers Care Sports Official Name Role Phone No Ref-Primary, Physician Primary Care Provider Kavita Akhtar Unavailable [phone] Jonathan Pitts MD Unavailable Jonathan Pitts MD Unavailable Christine oPon RN Unavailable [phone] Shanti Lara NP Primary Care Provider [phone] Encounter Details Date Type Department Care Team (Late st Contact Info) Description 05/09/2020 [facility] [address] [place] [phone] Jonathan Pitts MD [address] [place] [address] Social History Tobacco Use Types Packs/Day [...] on filedocumented in this encounter Care Teams Sports Official Relationship Specialty Start Date End Date No Ref-Primary, Physician PCP - General 07/29/17 03/16/22 Shanti Lara, KNITTING TEACHER [facility] [address] [place] [address] PCP - General Nurse Practitioner - [facility] 03/17/22 [address] [place], [place] 209115 Referring Physician form coverer 07/29/17 Jonathan Pitts MD [address] [place] [address] [phone] MD Oncology 07/29/17 Jonathan Pitts MD [address] [place] [address] [phone] Assigned Cancer Care Provider 05/18/20 05/15/23 Christine Poon RN Specialty Machine Setter Sheet Metal Hematology & Oncology 12/02/21 documented as of this encounter
--- OUTSIDE RECORDS SUMMARY | 2024-02-07 11:41 | XMS_ITS | Encounter Summary ---
Author Organization [place] Address [address] [place] [address] Care Team Providers Care Tar [place] Name Role Phone No Ref-Primary, Physician Primary Care Provider Kavita Akhtar Unavailable [phone] Jonathan Pitts MD Unavailable [phone] Jonathan Pitts MD Unavailable Christine Poon RN Unavailable [phone] Shanti Lara NP Primary Care Provider [phone] Encounter Details Date Type Department Care Team (Late st Contact Info) Description 11/30/2019 [facility] [address] [place] [phone] Jonathan Pitts MD [address] [place] [address] Social History Tobacco Use Types Packs/Day [...] on filedocumented in this encounter Care Teams [place]el Relationship Specialty Start Date End Date No Ref-Primary, Physician PCP - General 07/29/17 03/16/22 Shanti Lara, MIMI [facility] [address] [place] [address] PCP - General Nurse Practitioner - [facility] 03/17/22 [facility] [address] [place], [place] 449135 Referring Physician manager imaging 07/29/17 Jonathan Pitts MD [address] [place] [address] [id number] MD Oncology 07/29/17 Jonathan Pitts MD [address] [place] [address] [id number] Assigned Cancer Care Provider 05/18/20 05/15/23 Christine Poon RN Specialty Heat Seal Operator Hematology & Oncology 12/02/21 documented as of this encounter
--- OUTSIDE RECORDS SUMMARY | 2024-02-07 11:41 | XMS_ITS | Encounter Summary ---
Author Organization [place] Address [address] [place] [address] Care Team Providers Care Analysis Consultant Name Role Phone No Ref-Primary, Physician Primary Care Provider Kavita Akhtar Unavailable [phone] Jonathan Pitts MD Unavailable Jonathan Pitts MD Unavailable [phone] Christine Poon RN Unavailable [phone] Shanti Lara NP Primary Care Provider [phone] Encounter Details Date Type Department Care Team ([facility] st Contact Info) Description 05/08/2020 [facility] [address] [place] [phone] Jonathan Pitts MD [address] [place] [address] Social History Tobacco Use Types Packs/Day [...] on filedocumented in this encounter Care Teams Analysis Consultant Relationship Specialty Start Date End Date No Ref-Primary, Physician PCP - General 07/29/17 03/16/22 Shanti Lara, ROLL CHANGER [facility] [address] [place] [address] PCP - General Nurse Practitioner - [facility] 03/17/22 [facility] [address] [place], [place] 145305 Referring Physician assistant associate professor 07/29/17 Jonathan Pitts MD [address] [place] [address] [id number] MD Oncology 07/29/17 Jonathan Pitts MD [address] [place] [address] [id number] Assigned Cancer Care Provider 05/18/20 05/15/23 Christine Poon RN Specialty Advanced Seal Delivery System Hematology & Oncology 12/02/21 documented as of this encounter
--- OUTSIDE RECORDS SUMMARY | 2024-02-07 11:41 | XMS_ITS | Encounter Summary ---
Author Organization [place] Address [address] [place] [address] Care Team Providers Care Line Department Supervisor Name Role Phone No Ref-Primary, Physician Primary Care Provider Kavita Akhtar Unavailable [phone] Jonathan Pitts MD Unavailable Jonathan Pitts MD Unavailable Christine Poon RN Unavailable [phone] Shanti Lara NP Primary Care Provider [phone] Encounter Details Date Type Department Care Team (Late st Contact Info) Description 05/03/2020 [facility] [address] [place] [phone] Jonathan Pitts MD [address] [place] [place] [address] Social History Tobacco Use Types Packs/Day [...] on filedocumented in this encounter Care Teams Line Department Supervisor Relationship Specialty Start Date End Date No Ref-Primary, Physician PCP - General 07/29/17 03/16/22 Shanti Lara, SHELTER CASE MANAGER [facility] [address] [place] [address] PCP - General Nurse Practitioner - Family 03/17/22 [facility] [address] [place], [place] 955865 Referring Physician inbound sales advisor 07/29/17 Jonathan Pitts MD [address] [place], [place] 734675 MD Oncology 07/29/17 Jonathan Pitts MD [address] [place], [place] [id number] Assigned Cancer Care Provider 05/18/20 05/15/23 Christine Poon, RN Specialty Pr Manager Hematology & Oncology 12/02/21 documented as of this encounter
--- OUTSIDE RECORDS SUMMARY | 2024-02-07 11:41 | XMS_ITS | Encounter Summary ---
Author Organization [place] Address [address] [place] [address] Care Team Providers Care Cable Spooler Name Role Phone No Ref-Primary, Physician Primary Care Provider Kavita Akhtar Unavailable [phone] Jonathan Pitts MD Unavailable Jonathan Pitts MD Unavailable Christine Poon RN Unavailable [phone] Shanti Lara NP Primary Care Provider [phone] Encounter Details Date Type Department Care Team (Late st Contact Info) Description 04/30/2020 [facility] [address] [place] [phone] Jonathan Pitts MD [address] [place] [address] Social History Tobacco Use Types Packs/Day [...] filedocumented in this encounter Care Teams Cable Spooler Relationship Specialty Start Date End Date No Ref-Primary, Physician PCP - General 07/29/17 03/16/22 Shanti Lara BI TESTER [facility] [address] [place] [address] PCP - General Nurse Practitioner - [facility] 03/17/22 [facility] [address] [place], [place] 622945 Referring Physician tobacco checkout clerk 07/29/17 Jonathan Pitts MD [address] [place] [address] MD Oncology 07/29/17 Jonathan Pitts MD [address] [place] [address] [id number] Assigned Cancer Care Provider 05/18/20 05/15/23 Christine Poon RN Specialty Bar Catcher Hematology & Oncology 12/02/21 documented as of this encounter
--- OUTSIDE RECORDS SUMMARY | 2024-02-07 11:41 | XMS_ITS | Encounter Summary ---
Author Organization [place] Address [address] [place] [address] Care Team Providers Care Supervisor Brine Name Role Phone No Ref-Primary, Physician Primary Care Provider Kavita Akhtar Unavailable [phone] Jonathan Pitts MD Unavailable [phone] Jonathan Pitts MD Unavailable [phone] Christine Poon RN Unavailable [phone] Shanti Lara NP Primary Care Provider [phone] Encounter Details Date Type Department Care Team (Late st Contact Info) Description 02/05/2018 [facility] [address] [place] [phone] Christine Poon RN Social History Tobacco [...] filedocumented in this encounter Care Teams Supervisor Brine Relationship Specialty Start Date End Date No Ref-Primary, Physician PCP - General 07/29/17 03/16/22 Shanti Lara TEST PULLER [facility] [address] [place] [address] PCP - General Nurse Practitioner - Family 03/17/[address] [facility] [address] [place], [place] 914225 Referring Physician safety council director 07/29/17 Jonathan Pitts MD [address] [place] [address] [phone] MD Oncology 07/29/17 Jonathan Pitts MD [address] [place] [address] [id number] Assigned Cancer Care Provider 05/18/20 05/15/23 Christine Poon, RN Specialty Tow Feeder Hematology & Oncology 12/02/21 documented as of this encounter
--- OUTSIDE RECORDS SUMMARY | 2024-02-07 11:41 | XMS_ITS | Encounter Summary ---
Author Organization [place] Address [address] [place] [address] Care Team Providers Care Tax Services Professional Name Role Phone No Ref-Primary, Physician Primary Care Provider Kavita Akhtar Unavailable [phone] Jonathan Pitts MD Unavailable [phone] Jonathan Pitts MD Unavailable [phone] Christine Poon RN Unavailable [phone] Shanti Lara NP Primary Care Provider [phone] Encounter Details Date Type Department Care Team (Late st Contact Info) Description 08/17/2018 [facility] [address] [place] [phone] Christine Poon RN Social History Tobacco [...] on filedocumented in this encounter Care Teams Tax Services Professional Relationship Specialty Start Date End Date No Ref-Primary, Physician PCP - General 07/29/17 03/16/22 Shanti Lara MISSILE MECHANIC [facility] [address] [place] [address] PCP - General Nurse Practitioner - Family 03/17/22 [facility] [address] [place], [place] 478055 Referring Physician antisqueak chalker 07/29/17 Jonathan Pitts MD [address] [place] [address] [id number] MD Oncology 07/29/17 Jonathan Pitts MD [address] [place] [address] [phone] Assigned Cancer Care Provider 05/18/20 05/15/23 Christine Poon, RN Specialty Occupational Therapy Department Chair Hematology & Oncology 12/02/21 documented as of this encounter
--- OUTSIDE RECORDS SUMMARY | 2024-02-07 11:41 | XMS_ITS | Encounter Summary ---
Author Organization [place] Address [address] [place] [address] Care Team Providers Care Piano Regulator Inspector Name Role Phone No Ref-Primary, Physician Primary Care Provider Kavita Akhtar Unavailable [phone] Jonathan Pitts MD Unavailable Jonathan Pitts MD Unavailable Christine Poon RN Unavailable [phone] Shanti Lara NP Primary Care Provider [phone] Encounter Details Date Type Department Care Team (Late st Contact Info) Description 05/01/2020 [facility] [address] [place] [phone] Jonathan Pitts MD [address] [place] [address] Social History Tobacco Use Types Packs/Day [...] on filedocumented in this encounter Care Teams Piano Regulator Inspector Relationship Specialty Start Date End Date No Ref-Primary, Physician PCP - General 07/29/17 03/16/22 Shanti Lara, INTERMISSION COORDINATOR [facility] [address] [place] [address] PCP - General Nurse Practitioner - Family 03/17/22 [facility] [address] [place], [place] 709855 Referring Physician furnace packer 07/29/17 Jonathan Pitts MD [address] [place], [place] 430585 MD Oncology 07/29/17 Jonathan Pitts MD [address] [place], [place] [id number] Assigned Cancer Care Provider 05/18/20 05/15/23 Christine Poon, RN Specialty Graduate Student Instructor Hematology & Oncology 12/02/21 documented as of this encounter
--- OUTSIDE RECORDS SUMMARY | 2024-02-07 11:41 | XMS_ITS | Encounter Summary ---
Author Organization [place] Address [address] [place] [address] 16[address] Care Team Providers Care Vocational Childcare Teacher Name Role Phone No Ref-Primary, Physician Primary Care Provider Kavita Akhtar Unavailable [phone] Jonathan Pitts MD Unavailable Jonathan Pitts MD Unavailable Christine Poon RN Unavailable [phone] Shanti Lara NP Primary Care Provider [phone] Encounter Details Date Type Department Care Team ([facility] st Contact Info) Description 05/07/2020 [facility] [address] [place] [phone] Jonathan Pitts MD [address] [place] [address] Social History Tobacco Use Types Packs/Day [...] on filedocumented in this encounter Care Teams Vocational Childcare Teacher Relationship Specialty Start Date End Date No Ref-Primary, Physician PCP - General 07/29/17 03/16/22 Shanti Lara, MIMI [facility] [address] [place] [address] PCP - General Nurse Practitioner - [facility] 03/17/22 [facility] [address] [place], [place] 826475 Referring Physician rock drill operator 07/29/17 Jonathan Pitts MD [address] [place] [address] [id number] MD Oncology 07/29/17 Jonathan Pitts MD [address] [place] [address] [phone] Assigned Cancer Care Provider 05/18/20 05/15/23 Christine Poon RN Specialty Bark Grinder Hematology & Oncology 12/02/21 documented as of this encounter
--- OUTSIDE RECORDS SUMMARY | 2024-02-07 11:41 | XMS_ITS | Encounter Summary ---
Author Organization [place] Address [address] [place] [address] Care Team Providers Care Branch Credit Counselor Name Role Phone No Ref-Primary, Physician Primary Care Provider Kavita Akhtar Unavailable [phone] Jonathan Pitts MD Unavailable [phone] Jonathan Pitts MD Unavailable Christine Poon RN Unavailable [phone] Shanti Lara NP Primary Care Provider [phone] Encounter Details Date Type Department Care Team (Late st Contact Info) Description 05/02/2020 [facility] [address] [place] [phone] Jonathan Pitts MD [address] [place] [address] Social History Tobacco Use Types Packs/Day [...] on filedocumented in this encounter Care Teams Branch Credit Counselor Relationship Specialty Start Date End Date No Ref-Primary, Physician PCP - General 07/29/17 03/16/22 Shanti Lara, IRON MINER [facility] [address] [place] [address] PCP - General Nurse Practitioner - Family 03/17/22 [facility] [address] [place], [place] 508875 Referring Physician supervisor solder making 07/29/17 Jonathan Pitts MD [address] [place], [place] 265205 MD Oncology 07/29/17 Jonathan Pitts MD [address] [place], [place] [id number] Assigned Cancer Care Provider 05/18/20 05/15/23 Christine Poon, RN Specialty China Decorator Hematology & Oncology 12/02/21 documented as of this encounter
--- OUTSIDE RECORDS SUMMARY | 2024-02-07 11:41 | XMS_ITS | Encounter Summary ---
Author Organization [place] Address [address] [place] [address] 88708 Care Team Providers Care Sports Writer Name Role Phone No Ref-Primary, Physician Primary Care Provider Kavita Akhtar Unavailable [phone] Jonathan Pitts MD Unavailable Jonathan Pitts MD Unavailable [phone] Christine Poon RN Unavailable [phone] Shanti Lara NP Primary Care Provider [phone] Encounter Details Date Type Department Care Team (Late st Contact Info) Description 11/28/2019 [facility] [address] [place] [phone] Jonathan Pitts MD [address] [place] [address] Social History Tobacco Use Types Packs/Day [...] filedocumented in this encounter Care Teams Sports Writer Relationship Specialty Start Date End Date No Ref-Primary, Physician PCP - General 07/29/17 03/16/22 Shanti Lara, MIMI [facility] [address] [place] [address] PCP - General Nurse Practitioner - [facility] 03/17/22 [facility] [address] [place], [place] 161105 Referring Physician mill platform supervisor 07/29/17 Jonathan Pitts MD [address] [place] [address] [phone] MD Oncology 07/29/17 Jonathan Pitts MD [address] [place] [address] [phone] Assigned Cancer Care Provider 05/18/20 05/15/23 Christine Poon RN Specialty Record Press Tender Hematology & Oncology 12/02/21 documented as of this encounter
--- OUTSIDE RECORDS SUMMARY | 2024-02-07 11:41 | XMS_ITS | Encounter Summary ---
Author Organization [place] Address [address] [place] [address] Care Team Providers Care Physician Extender Name Role Phone No Ref-Primary, Physician Primary Care Provider Kavita Akhtar Unavailable [phone] Jonathan Pitts MD Unavailable Jonathan Pitts MD Unavailable Christine Poon RN Unavailable [phone] Shanti Lara NP Primary Care Provider [phone] Encounter Details Date Type Department Care Team (Late st Contact Info) Description 11/17/2019 [facility] [address] [place] [phone] Jonathan Pitts MD [address] [place] [address] Social History Tobacco Use Types Packs/Day [...] on filedocumented in this encounter Care Teams Physician Extender Relationship Specialty Start Date End Date No Ref-Primary, Physician PCP - General 07/29/17 03/16/22 Shanti Lara, MIMI [facility] [address] [place] [address] PCP - General Nurse Practitioner - [facility] 03/17/22 [facility] [address] [place], [place] 133335 Referring Physician stranding machine operator helper 07/29/17 Jonathan Pitts MD [address] [place] [address] [id number] MD Oncology 07/29/17 Jonathan Pitts MD [address] [place] [address] 053015 Assigned Cancer Care Provider 05/18/20 05/15/23 Christine Poon RN Specialty Dietary Internship Hematology & Oncology 12/02/21 documented as of this encounter
--- OUTSIDE RECORDS SUMMARY | 2024-02-07 11:41 | XMS_ITS | Encounter Summary ---
Author Organization [place] Address [address] [place] [address] Care Team Providers Care Outside Residential Sales Professional Name Role Phone No Ref-Primary, Physician Primary Care Provider Kavita Akhtar Unavailable [phone] Jonathan Pitts MD Unavailable [phone] Jonathan Pitts MD Unavailable Christine Poon RN Unavailable [phone] Shanti Lara NP Primary Care Provider [phone] Encounter Details Date Type Department Care Team ([facility] st Contact Info) Description 10/04/2018 [facility] [address] [place] [phone] Jonathan Pitts MD [address] [place] [address] Social History Tobacco Use Types Packs/Day [...] on filedocumented in this encounter Care Teams Outside Residential Sales Professional Relationship Specialty Start Date End Date No Ref-Primary, Physician PCP - General 07/29/17 03/16/22 Shanti Lara, MARKET STALL VENDOR [facility] [address] [place] [address] PCP - General Nurse Practitioner - Family 03/17/22 [facility] [address] [place], [place] [phone] Referring Physician vacuum frame operator 07/29/17 Jonathan Pitts MD [address] [place] [address] [id number] Oncology 07/29/17 Jonathan Pitts MD [address] [place] [address] [phone] Assigned Cancer Care Provider 05/18/20 05/15/23 Christine Poon RN Specialty School Bus Dispatcher Hematology & Oncology 12/02/21 documented as of this encounter
--- OUTSIDE RECORDS SUMMARY | 2024-02-07 11:41 | XMS_ITS | Encounter Summary ---
Author Organization [place] Address [address] [place] [address] Care Team Providers Care Creative Services Director Name Role Phone No Ref-Primary, Physician Primary Care Provider Kavita Akhtar Unavailable [phone] Jonathan Pitts MD Unavailable Jonathan Pitts MD Unavailable Christine Poon RN Unavailable [phone] Shanti Lara NP Primary Care Provider [phone] Encounter Details Date Type Department Care Team ([facility] st Contact Info) Description 05/07/2020 [facility] [address] [place] [phone] Jonathan Pitts MD [address] [place] [address] Social History Tobacco Use Types Packs/Day [...] filedocumented in this encounter Care Teams Creative Services Director Relationship Specialty Start Date End Date No Ref-Primary, Physician PCP - General 07/29/17 03/16/22 Shanti Lara, MIMI [facility] [address] [place] [address] PCP - General Nurse Practitioner - [facility] 03/17/22 [facility] [address] [place], [place] 333535 Referring Physician etiquette teacher 07/29/17 Jonathan Pitts MD [address] [place] [address] [phone] MD Oncology 07/29/17 Jonathan Pitts MD [address] [place] [address] [id number] Assigned Cancer Care Provider 05/18/20 05/15/23 Christine Poon RN Specialty Group Teacher Hematology & Oncology 12/02/21 documented as of this encounter
[2024-02-07] MEDS: 0.9 % SODIUM CHLORIDE 1000 ml 1,000 ML 6000 ML IV (11:59)
[2024-02-07] MEDS: HYDROmorphone 0.5 mg/0.5 ml inj IVP ×2 (11:59→23:00)
[2024-02-07] MEDS: LORazepam 2 MG/ML inj 1 MG IVP (11:59)
[2024-02-07 12:01] LABS: Basophils Absolute Auto 0.03 K/uL (0.00-0.30); Basophils Percent Auto 0.3 % (0.0-3.0); Eosinophils Absolute Auto 0.02 K/uL (0.00-0.50); Eosinophils Percent Auto 0.2 % (0.0-7.0); Hematocrit 35.6 % (33.0-51.0); Hemoglobin* 12.1 gm/dL (12.0-16.0); Immature Granulocytes Abs Auto 0.08 K/uL (0.00-0.30); Immature Granulocytes Pct Auto 0.8 %; Lymphocytes Percent Auto 14.5 % (20-44); Mean Corpuscular HGB Conc 34 gm/dL (32-36); Mean Corpuscular Hemoglobin 31 pg (26-34); Mean Corpuscular Volume 90 fL (80-100); Monocytes Percent Auto 8.7 % (0.0-11.0); Neutrophils Percent Auto 75.5 % (42.0-72.0); Platelet Count* 204 K/uL (140-440); Red Blood Count 3.96 m/uL (4.00-5.20); White Blood Count* 10.45 K/uL (4.50-11.00)
[2024-02-07 12:03] LABS: Slide Review Reflex No
[2024-02-07 12:09] LABS: Chloride* 105 mmol/L (96-114)
[2024-02-07 12:10] LABS: Potassium* 3.9 mmol/L (3.6-5.1); Sodium* 140 mmol/L (135-149)
[2024-02-07 12:12] LABS: Amylase* 61 U/L (18-89); Anion Gap 9 mEq/L (7-15); Aspartate Amino Transferase* 29 U/L (12-35); Bilirubin Direct* 0.3 mg/dL (0.0-0.5); Bilirubin Total* 0.8 mg/dL (0.1-1.5); Blood Urea Nitrogen* 7 mg/dL (5-24); Carbon Dioxide* 26 mmol/L (20-32); Creatinine* 0.8 mg/dL (0.5-1.5); Est. Creatinine Clearance* 78.87; Estimated Glomerular Filt Rate 97 ml/min; Total Protein* 8.3 g/dL (6.0-8.3)
[2024-02-07 12:13] LABS: Alanine Aminotransferase* 30 U/L (4-35); Alkaline Phosphatase* 69 U/L (40-150); Calcium* 9.8 mg/dL (8.4-10.6); Glucose* 110 mg/dL (60-115)
[2024-02-07 12:15] LABS: C Reactive Protein* 3.3 mg/dL (0.5-1.0)
[2024-02-07] MEDS: HYDROmorphone 0.5 mg/0.5 ml inj 1 MG IVP (14:31)
[2024-02-07] MEDS: OXYCODONE 5 MG TABLET PO ×2 (17:55→23:00)
[2024-02-07 19:24] LABS: Hemoglobin* 10.6 gm/dL (12.0-16.0)
--- NOTE | 2024-02-07 19:27 | PC.NURSE ---
Pt states the pain, pressure in her abdomen is increasing. States the oral pain medcation she received hasn't helped yet. Pt is tearful and anxious. at bedside.
[2024-02-07] MEDS: LORazepam 1 MG TABLET PO (19:36)
[2024-02-08] VITALS (46 sets, daily range): BP systolic 109–137; BP diastolic 71–87; PULSE 89–119; RESP 16; TEMP 36.1–36.4; O2SAT 92–98
[2024-02-08] MEDS: HYDROmorphone 0.5 mg/0.5 ml inj IVP ×3 (02:36→10:14)
--- NOTE | 2024-02-08 03:05 | PC.NURSE ---
Pt put call light on, abdominal/pelvic pain 03/05. Up to bathroom, IV pain medication given. Pt. settle back for rest, warm blanket and water given. VSS. Will continue to assess/monitor pt.
--- NOTE | 2024-02-08 06:44 | PC.NURSE ---
Pt resting, states she has been able to rest a little bit. Pain remains 8/10. Pt. states the discomfort is still in her lower abdomen, pelvic area. Does state she is having some bilateral shoulder discomfort.
[2024-02-08 07:05] LABS: Basophils Absolute Auto 0.04 K/uL (0.00-0.30); Basophils Percent Auto 0.5 % (0.0-3.0); Eosinophils Absolute Auto 0.05 K/uL (0.00-0.50); Eosinophils Percent Auto 0.6 % (0.0-7.0); Hematocrit 30.3 % (33.0-51.0); Hemoglobin* 10.1 gm/dL (12.0-16.0); Immature Granulocytes Abs Auto 0.03 K/uL (0.00-0.30); Immature Granulocytes Pct Auto 0.4 %; Lymphocytes Percent Auto 15.3 % (20-44); Mean Corpuscular HGB Conc 33 gm/dL (32-36); Mean Corpuscular Hemoglobin 30 pg (26-34); Mean Corpuscular Volume 91 fL (80-100); Monocytes Percent Auto 9.4 % (0.0-11.0); Neutrophils Percent Auto 73.8 % (42.0-72.0); Platelet Count* 157 K/uL (140-440); RDW Coefficient of Variation % 13.1 % (11.5-15.5); Red Blood Count 3.33 m/uL (4.00-5.20); White Blood Count* 8.36 K/uL (4.50-11.00)
[2024-02-08 07:07] LABS: Slide Review Reflex No
--- NOTE | 2024-02-08 07:16 | PC.NURSE ---
Pt states the shoulder discomfort and abdominal/pelvic pain has made her feel a little nauseated. Pt. was attempted to sit up in bed and states the sitting up made her nausea increase. Small clear emesis. Physician informed.
[2024-02-08] MEDS: ONDANSETRON 2 MG/ML inj 4 MG IVP ×2 (07:21→10:14)
--- NOTE | 2024-02-08 09:20 | CRLHL7_ITS ---
For Patients: As a result of the Century Cures Act, medical imaging exams and procedure reports are released immediately into your electronic medical record. You may view this report before your referring provider. If you have questions, please contact your health care provider. INDICATION: Abdominal mass. History of ovarian cancer. Status post hysterectomy, oophorectomy. Assess further bleeding. TECHNIQUE: CT abdomen and pelvis acquired with 88 cc of Isovue 370 IV contrast. COMPARISON: CT abdomen and pelvis with contrast 02/07/2024. FINDINGS: Lower chest: Bibasilar atelectasis, right greater than left has slightly increased. No pleural or pericardial effusions. Liver: No focal lesion. Spleen: Unremarkable. Pancreas: Unremarkable. Gallbladder and bile ducts: Vicarious excretion of contrast into the gallbladder. Gallbladder is otherwise unremarkable. No biliary ductal dilatation. Kidneys: Unremarkable. Adrenal glands: Unremarkable. GI tract: No obstruction or focal inflammatory changes. No free intraperitoneal gas. Lymph nodes: Stable subcentimeter short axis right lower quadrant nodule on image 108 of series 2. Vascular structures: Unremarkable. Pelvic Organs: Heterogeneous left pelvic mass measuring 6.2 x 4.9 cm on image 107 of series 2 has not significantly changed. Mixed density fluid consistent with hemorrhage adjacent to the mass has slightly decreased. Hemoperitoneum elsewhere has also slightly decreased. Bones: No acute or suspicious osseous abnormality. IMPRESSION: 1. Left pelvic mass concerning for recurrent malignancy has not significantly changed. 2. Hemorrhage surrounding the pelvic mass and hemoperitoneum persist but have improved. 3. Bibasilar atelectasis, right greater than left has increased. Dictated by Reza Hernandez MD @ 02/08/2024 10:16:01 AM Please note that all CT scans at this facility use dose modulation, iterative reconstruction, and/or weight-based dosing when appropriate to reduce radiation dose to as low as reasonably achievable. Dictated by: Reza Hernandez MD @ 02/08/2024 10:16:23 (Electronically Signed)
--- NOTE | 2024-02-08 11:23 | ED.NURSE ---
report to ALIZA Madrigal at [facility] ED. transferred via ALS
== END 2024-02-08 11:26 | disposition other institution (70) ==
PROVIDERS: Emergency Medicine Emergency Medical Services; Family Medicine; Emergency Provider Family Medicine; PCP Nurse Practitioner Family
DX: R19.09 Other intra-abdominal and pelvic swelling, mass and lump (principal); R19.7 Diarrhea, unspecified
CPT/HCPCS: 36415; 74177; 76604; 76705; 80048; 80076; 82150; 85018; 85025; 86140; 86850; 86900; 86901; 93308; 94761; 96374; 96375; 96376; 99285; A9270; J1170; J2060; J2405; J7030; Q9967

== ENCOUNTER 2024-02-08 10:41 | Outpatient (CLI) | payer BC, SELFPAY ==
--- OUTSIDE RECORDS SUMMARY | 2024-02-12 23:17 | XMS_ITS | Referral Summary ---
Author Organization [facility] Address [address] [place] [address] Care Team Providers Care Cisco Consultant Name Role Phone Clinic, Kavita Rosenbaum Unavailable [phone] Yara Weiss MD Unavailable Christine Poon RN Unavailable [phone] Shanti Lara NP Primary Care Provider [phone] Encounters Date Type Department Care Team Description 02/08/2024 11:49 AM CDT - 02/12/2024 10:54 AM CDT Hospital Encounter [facility] 5A Oncology [address] [place], [place] [address] Ney Fung MD Mattson, Jordan, MD Granulosa cell tumor (Primary Dx); Ovarian mass; Active internal bleeding; Abdominal pain, right lower quadrant; Abdominal pain, left lower quadrant; Nausea and vomiting, unspecified vomiting type; Personal history of ovarian cancer; Pelvic mass; S/P hysterectomy Discharge Disposition: Home or Self Care 02/09/2024 11:50 AM CDT Ancillary Procedure [facility] Imaging [address] [place] [address] Gerardo Garcia MD 02/09/2024 2:06 PM CDT Anesthesia Event [facility] PeriOp Services [address] [place] [address] Giuseppe, MD Phyllis Uriostegui Casey H, APRN PROSPECTING DRILLER HELPER 02/09/2024 1:00 PM CDT - 02/09/2024 8:40 PM CDT Surgery [facility] PeriOp Services [address] [place] [phone] Yara Weiss MD LAPAROTOMY, EXPLORATORY, Lysis of adhesions,tumor debulking, cystoscopy, proctoscopy 02/08/2024 Travel 02/08/2024 MyC Medical Advice [facility] [address] [place] [address] Yara Weiss MD from Last 3 Months Allergies Active Allergy Reactions Criticality Noted Date Comments Codeine Rash Low 08/03/2017 Gabapentin Visual Disturbance Low 08/21/2017 Severe headache Morphine Rash Low 11/04/2011 MORPHINE AND RELATED Tramadol Rash Low 08/03/2017 Medications Medication Sig Dispensed Refills Start Date End Date Status vitamin C (ASCORBIC ACID) 500 MG tablet Take 2 tablets by mouth daily Active omeprazole (PRILOSEC OTC) 20 MG EC tablet Take 20 mg by mouth daily Active cetirizine (ZYRTEC) 10 MG tablet Take 10 mg by mouth daily Active ibuprofen (ADVIL/MOTRIN) 400 MG tabletIndications :Pelvic mass Take 1 tablet (400 mg) by mouth every 6 hours as needed for moderate pain 20 tablet 4 Active senna-docusate (SENOKOT-S/LINO LACE) 8.6-50 MG tabletIndications :Pelvic mass Take 2 tablets by mouth 2 times daily as needed for constipation 60 tablet 4 Active acetaminophen (TYLENOL) 325 MG tabletIndications :S/P hysterectomy Take 2 tablets (650 mg) by mouth every 6 hours as needed for mild pain 40 tablet 4 Active apixaban ANTICOAGULANT (ELIQUIS) 2.5 MG tabletIndications :DVT-PE Prophylaxis Take 1 tablet (2.5 mg) by mouth 2 times daily for 26 days Start tonight at 6 PM 52 tablet 4 03/09/20 24 Active oxyCODONE (ROXICODONE) 5 MG tabletIndications :Personal history of ovarian cancer,Pelvic mass Take 1 tablet (5 mg) by mouth every 6 hours as needed for severe pain 12 tablet 4 Active Multiple Vitamins-Minerals (MULTI ADULT GUMMIES PO) 02/08/20 24 Discontinued(Me d Rec(No AVS / No eCancel)) cholecalciferol 25 MCG (1000 UT) TABS 02/08/20 24 Discontinued(Me d Rec(No AVS / No eCancel)) Calcium Carb-Cholecalcife rol (CALCIUM 600+D3 PO) 02/08/20 24 Discontinued(Me d Rec(No AVS / No eCancel)) Biotin 2500 MCG CAPS 02/08/20 24 Discontinued(Me d Rec(No AVS / No eCancel)) acetaminophen (TYLENOL) 325 MG tabletIndications :S/P hysterectomy Take 2 tablets (650 mg) by mouth every 4 hours as needed for mild pain 50 tablet 0 02/12/20 24 Discontinued venlafaxine (EFFEXOR) 37.5 MG tabletIndications :Primary ovarian granulosa cell tumor, right,Vasomotor symptoms due to menopause Take 1 tablet (37.5 mg) by mouth daily Start with 37.5 mg (one tablet) once daily for one week. After week one, increase to 75 mg (two tablets) once daily for hot flashes 60 tablet 4 2 02/08/20 24 Discontinued(Me d Rec(No AVS / No eCancel)) venlafaxine (EFFEXOR) 75 MG tabletIndications :Primary ovarian granulosa cell tumor, right,Vasomotor symptoms due to menopause TAKE 1 TABLET(75 MG) BY MOUTH DAILY 30 tablet 3 2 02/08/20 24 Discontinued(Me d Rec(No AVS / No eCancel)) Active Problems Problem Noted Date Diagnosed Date Ovarian mass 02/08/2024 Active internal bleeding 02/08/2024 Granulosa cell tumor 05/07/2020 Overview: Added automatically from request for surgery [id number] Pelvic pain in female 05/07/2020 Overview: Added automatically from request for surgery [id number] Pelvic mass 05/07/2020 Overview: Added automatically from request for surgery [id number] ADHD (attention deficit hyperactivity disorder) 05/16/2019 Endometrial [...] Sign Reading Time Taken Comments Blood Pressure 121/77 02/12/2024 8:55 AM CDT Pulse 87 02/12/2024 8:55 AM CDT Temperature 36.9 ??C (98.4 ??F) 02/12/2024 8:55 AM CD T Respiratory Rate 18 02/12/2024 8:55 AM CDT Oxygen Saturation 99% 02/12/2024 8:55 AM CDT Inhaled Oxygen Concentration - - Weight 90.7 kg (200 lb) 02/11/2024 8:58 AM CDT Height 160 cm (5' 2.99) 11/11/2021 7:54 AM CDT Body Mass Index 35.44 11/11/2021 7:54 AM CDT Plan of Treatment Upcoming Encounters Date Type Department Care Team (Late st Contact Info) Description 02/19/2024 10:40 AM CDT Allied Health/Nurse Visit [facility] [address] [place] [address] Yara Weiss MD [address] [place] [phone] Nurse, Brunilda Rodriguez 02/29/2024 8:00 AM CDT Oncology Visit [facility] [address] [place] [phone] Yara Weiss MD [address] [place], [place] [phone] Procedures Procedure Name Priority Date/Time Associated Diagnosis Comments US LOWER EXTREMITY VENOUS DUPLEX BILATERAL Routine 02/11/2024 3:30 PM CDT EKG 12-LEAD, TRACING ONLY Routine 02/11/2024 8:12 AM CDT CBC WITH PLATELETS STAT 02/11/2024 7: 17 AM CDT CBC WITH PLATELETS Timed 02/10/2024 4: 01 PM CDT GLUCOSE BY METER Routine 02/10/2024 6:01 AM CDT PHOSPHORUS Routine 02/10/2024 5:21 AM CDT MAGNESIUM Routine 02/10/2024 5:21 AM CDT BASIC METABOLIC PANEL Routine 02/10/2024 5:21 AM CDT CBC WITH PLATELETS Routine 02/10/2024 5: 21 AM CDT SURGICAL PATHOLOGY EXAM Routine 02/09/2024 3:24 PM CDT ANE AIRWAY ETT PERFORMABLE Routine 02/09/2024 2:25 PM CDT LAPAROTOMY, EXPLORATORY, FOR STAGING 02/09/2024 1:51 PM CDT Granulosa cell tumor GLUCOSE BY METER Routine 02/09/2024 11:2 4 AM CDT ANE PERIPHERAL/PARAVETEB RAL BLOCK Routine 02/09/2024 10:13 AM CDT PREPARE RED BLOOD CELLS (UNIT) Routine 02/09/2024 6:15 AM CDT PREPARE RED BLOOD CELLS (UNIT) Routine 02/09/2024 6:15 AM CDT EXTRA GREEN TOP (LITHIUM HEPARIN) TUBE Routine 02/09/2024 5:32 AM CDT EXTRA TUBE Routine 02/09/2024 5:32 AM CDT CBC WITH PLATELETS Routine 02/09/2024 5: [address] CHEST W/O CONTRAST STAT 02/08/2024 7:27 PM CDT ABO/RH TYPE AND SCREEN STAT 02/08/2024 3:43 PM CDT TYPE AND SCREEN, ADULT STAT 02/08/2024 3:43 PM CDT CA 125 STAT 02/08/2024 3:43 PM CDT INHIBIN B STAT 02/08/2024 3:43 PM CDT BASIC METABOLIC PANEL STAT 02/08/2024 3:43 PM CDT CBC WITH PLATELETS STAT 02/08/2024 3: [address] IMAGING - HIM SCAN 02/08/2024 12:[address] IMAGING - HIM SCAN 02/07/2024 12:00 AM CDT PAP IMAGED THIN LAYER, DIAGNOSTIC Routine 11/28/2019 1:50 PM CDT Endometrial hyperplasia without atypia, simple Abnormal uterine bleeding HPV HIGH RISK TYPES DNA CERVICAL Routine 11/28/2019 1:30 PM CDT Endometrial hyperplasia without atypia, simple Abnormal uterine bleeding from Last 3 Months or Most Recently Relevant to Health Maintenance Results * US Lower Extremity Venous Duplex Bilateral (02/11/2024 3:30 PM CDT) Anatomical Region Laterality Modality Vascular, Thigh, Leg Ultrasound Impressions 02/11/2024 3:39 PM CDT IMPRESSION: No evidence of deep venous thrombosis in either lower extremity. I have personally reviewed the examination and initial interpretation and I agree with the findings. HAI MENDIOLA MD Narrative 02/11/2024 3:39 PM CDT EXAMINATION: DOPPLER VENOUS ULTRASOUND OF BILATERAL LOWER EXTREMITIES, 02/11/2024 3:30 PM COMPARISON: None available HISTORY: Tachycardic, postop TECHNIQUE: ??Louise-scale evaluation with compression, spectral flow and color Doppler assessment of the deep venous system of both legs from groin to knee, and then at the ankles. FINDINGS: In both lower extremities, the common femoral, femoral, popliteal and posterior tibial veins demonstrate normal compressibility and blood flow. Procedure Note Hai Mendiola MD - 02/11/2024 EXAMINATION: DOPPLER VENOUS ULTRASOUND OF BILATERAL LOWER EXTREMITIES, 02/11/2024 3:30 PM COMPARISON: None available HISTORY: Tachycardic, postop TECHNIQUE: Louise-scale evaluation with compression, spectral flow and color Doppler assessment of the deep venous system of both legs from groin to knee, and then at the ankles. FINDINGS: In both lower extremities, the common femoral, femoral, popliteal and posterior tibial veins demonstrate normal compressibility and blood flow. IMPRESSION: No evidence of deep venous thrombosis in either lower extremity. I have personally reviewed the examination and initial interpretation and I agree with the findings. HAI MENDIOLA MD Jessica Fitch MD IMG US ORDERABLES * EKG 12-lead, complete (02/11/2024 8:12 AM CDT) Systolic Blood Pressure mmHg RADIOLOGY RESULTS Diastolic Blood Pressure mmHg RADIOLOGY RESULTS Ventricular Rate 87 BPM RAD IOLOGY RESULTS Atrial Rate 87 BPM RADIOLOG Y RESULTS AL Interval 158 ms RADIOLOG Y RESULTS QRS Duration 82 ms RADIOLO GY RESULTS QT 342 ms RADIOLOGY RESULTS QTc 411 ms RADIOLOGY RESULTS P [place] 61 degrees RADIOLOGY RESULTS R AXIS 29 degrees RADIOLOGY RESULTS T [place] 41 degrees RADIOLOGY RESULTS Interpretation ECG Sinus rhythm Normal ECG When compared with ECG of 16-OCT-2020 17:41, Sinus rhythm has replaced Atrial fibrillation Vent. rate has increased BY ??34 BPM Questionable change in QRS duration Minimal criteria for Anterior infarct are no longer Present Confirmed by fellow Chetan Paniagua ([id number]) on 02/11/2024 12:22:07 PM Confirmed by MD SIERRA HENRI ([id number]) on 02/11/2024 10:36:07 PM RADIOLOGY RESULTS 02/11/2024 8:12 AM CDT 02/11/2024 10:36 PM CDT Gabrielle Guzman MD ECG ORDERABLES RADIOLOGY RESULTS * (ABNORMAL) CBC with platelets (02/11/2024 7:17 AM CDT) Only the most recent of5 resultswithin the time period is included. WBC Count 10.7 4.0 - 11.0 10e3/uL 02/11/2024 7:29 AM CDT [facility] RBC Count 2.81(L) 3.80 - 5.20 10e6/uL 02/11/2024 7:29 AM CDT [facility] Hemoglobin 8.7(L) 11.7 - 15.7 g/dL 02/11/2024 7:29 AM CDT [facility] Hematocrit 25.2(L) 35.0 - 47.0 % 02/11/2024 7:29 AM CDT [facility] MCV 90 78 - 100 fL 02/11/2024 7:29 AM CDT [facility] MCH 31.0 26.5 - 33.0 pg 02/11/2024 7:29 AM CDT [facility] MCHC 34.5 31.5 - 36.5 g/dL 02/11/2024 7:29 AM CDT [facility] RDW 12.9 10.0 - 15.0 % 02/11/2024 7:29 AM CDT [facility] Platelet Count 220 150 - 450 10e3/uL 02/11/2024 7:29 AM CDT [facility] Blood STRUCTURE OF LEFT UPPER LIMB / Unknown Venipuncture / Unknown 02/11/2024 7:17 AM CDT 02/11/2024 7:22 AM CDT Gabrielle Guzman MD LAB - BLOOD ORDERABL ES [facility] [address], [address] [place] [phone] * (ABNORMAL) Glucose by meter (02/10/2024 6:01 AM CDT) Only the most recent of2 resultswithin the time period is included. GLUCOSE BY METER POCT 100(H) 70 - 99 mg/dL 02/10/2024 6:07 AM CDT [facility] POC Blood, Capillary BLOOD SPECIMEN / Unknown 02/10/2024 6:01 AM CDT 02/10/2024 6:07 AM CDT Junior CHIN - BEAKER POCT Performing Organization Address City/[facility]/ZIP Co de Phone Number [facility] POC [facility] [address], [address] [place] [address] * Phosphorus (02/10/2024 5:21 AM CDT) Phosphorus 3.7 2.5 - 4.5 mg/dL 02/10/2024 6:18 AM CDT [facility] Blood STRUCTURE OF RIGHT HAND / Unknown Venipuncture / Unknown 02/10/2024 5:21 AM CDT 02/10/2024 5:40 AM CDT Manda Farrell MD LAB - BLOOD ORDERABL ES [facility] [address], [address] [place] [address] * Magnesium (02/10/2024 5:21 AM CDT) Magnesium 1.8 1.7 - 2.3 mg/dL 02/10/2024 6:18 AM CDT [facility] Blood STRUCTURE OF RIGHT HAND / Unknown Venipuncture / Unknown 02/10/2024 5:21 AM CDT 02/10/2024 5:40 AM CDT Manda Farrell MD LAB - BLOOD ORDERABL ES [facility] [address], [address] [place] [address] * (ABNORMAL) Basic metabolic panel (02/10/2024 5:21 AM CDT) Only the most recent of2 resultswithin the time period is included. Sodium 135 135 - 145 mmol/L 02/10/2024 6:18 AM CDT [facility] Potassium 4.1 3.4 - 5.3 mmol/L 02/10/2024 6:18 AM CDT [facility] Chloride 99 98 - 107 mmol/L 02/10/2024 6:18 AM CDT [facility] Carbon Dioxide (CO2) 23 22 - 29 mmol/L 02/10/2024 6:18 AM CDT [facility] Anion Gap 13 7 - 15 mmol/L 02/10/2024 6:18 AM CDT [facility] Urea Nitrogen 7.5 6.0 - 20.0 mg/dL 02/10/2024 6:18 AM CDT [facility] Creatinine 0.69 0.51 - 0.95 mg/dL 02/10/2024 6:18 AM CDT [facility] GFR Estimate >90 >60 mL/min/1.7 3m2 02/10/2024 6:18 AM CDT [facility] Comment:eGFR calculated us2020 CKD-EPI equation. Calcium 8.6(L) 8.8 - 10.4 mg/dL 02/10/2024 6:18 AM CDT [facility] Comment:Reference intervals for this test were updated on 02/09/2024 to reflect our healthy population more accurately. There may be differences in the flagging of prior results with similar values performed with this method. Those prior results can be interpreted in the context of the updated reference intervals. Glucose 106(H) 70 - 99 mg/dL 02/10/2024 6:18 AM CDT [facility] Blood STRUCTURE OF RIGHT HAND / Unknown Venipuncture / Unknown 02/10/2024 5:21 AM CDT 02/10/2024 5:40 AM CDT Gabrielle Guzman MD LAB - BLOOD ORDERABL ES [facility] [address] [facility] [address] [facility], [address] [place] [phone] * (ABNORMAL) Surgical Pathology Exam (02/09/2024 3:24 PM CDT) Case Report Surgical Pathology Report ? Case: [id number] ? Authorizing Provider: ??Yara Weiss, ??Collected: ? 02/09/2024 03:24 PM ? MD ? Ordering Location: ? [facility] ? Received: ?02/09/2024 05:27 PM ? Pathologist: ? Jose Bradley MD ? Intraop: ? Wyatt Amanda MD ? Specimens: ?? A) - Large Intestine, Colon, Cecum, Cecum biopsy ? B) - Large Intestine, Colon, Cecum, Pericecal biopsy #2 ? C) - Pelvis, Pelvic Tumor ? D) - Pelvis, Portion of pelvic tumor ? 02/11/2024 5:02 PM CDT [facility] Final Diagnosis A. PALOMA-CECUM, BIOPSY: Congested fibroadipose tissue with organizing granulation tissue but no evidence of residual granulosa cell tumor or other malignancy B. PALOMA-CECUM, BIOPSY #2: Congested fibroadipose tissue with focal necrosis, acute inflammation, and organizing granulation tissue but no evidence of residual granulosa cell tumor or other malignancy C. PELVIC TUMOR, BIOPSY/DEBULKING : Granulosa cell tumor, recurrent D. PORTION OF PELVIC TUMOR, BIOPSY: Fibroadipose tissue with no evidence of malignancy or other significant histologic abnormality 02/11/2024 5:02 PM CDT [facility] Comment:This is an appended report. These results have been appended to a previously preliminary verified report. Clinical Information Granulosa cell tumor, debulking 02/11/2024 5:02 PM CDT [facility] Comment:This is an appended report. These results have been appended to a previously preliminary verified report. Intraoperative Consultation B(2). Large Intestine, Colon, Cecum, Pericecal biopsy #2: BFS1: Benign Wyatt Amanda MD on 02/09/2024 at 4:02 PM Intra op performed at: LABORATORY, [facility], [address] [place] [address], Room [address] [phone] Intra-op Dx verbally delivered to Dr. Weiss at 15:51 02/11/2024 5:02 PM CDT LABORATORY Gross Description A(1). Large Intestine, Colon, Cecum, Cecum biopsy: The specimen is received in formalin with proper patient identification, labeled cecum biopsy. The specimen consists of a 2.6 x 1.0 x 0.3 cm portion of roughened, pink-kaye soft tissue. Sectioning reveals red-kaye cut surfaces. The specimen is submitted entirely in cassette A1. B(2). Large Intestine, Colon, Cecum, Pericecal biopsy #2: The specimen is received fresh for frozen section with proper patient identification labeled pericecal biopsy #2. The specimen consists of 2 red-kaye soft tissues, 1.9 and 2.1 cm in greatest dimension. Sectioning reveals red-kaye cut surfaces. [facility] tissue submitted in cassette B1 for frozen section evaluation, the remainder of the specimen is submitted in cassette B2. C(3). Pelvis, Pelvic Tumor: The specimen is received fresh with proper patient identification labeled pelvic tumor. The specimen consists of a 46.8 gm, 9.0 x 8.7 x 2.5 cm aggregate of yellow-kaye to red-kaye, congested, rubbery soft tissue with admixed red-brown blood clot. Sectioning reveals yellow-kaye to purple-kaye cut surfaces. [facility] tissue is submitted in cassettes C1-C5. D(4). Pelvis, Portion of pelvic tumor: The specimen is received in formalin with proper patient identification, labeled portion of pelvic tumor. The specimen consists of a 3.6 x 2.3 x 0.4 cm portion of yellow-kaye soft tissue which is focally surfaced with pink-kaye fibrous adhesions. Sectioning reveals yellow-kaye cut surfaces. No areas of hemorrhage or necrosis are identified. The specimen is submitted entirely in cassettes D1-D2. 02/11/2024 5:02 PM CDT [facility] Comment:This is an appended report. These results have been appended to a previously preliminary verified report. Microscopic Description Microscopic examination has been performed. Case was reviewed by the following: Intraoperative Resident/Fellow: Mariam Pleitez MD A resident or fellow in a training program was involved in the initial review, preparation, and/or interpretation of this case. I, as the senior physician, attest that I have personally reviewed all specimens and or slides, including the listed special stains, and used them with my medical judgement to determine the final diagnosis. 02/11/2024 5:02 PM CDT [facility] Comment:This is an appended report. These results have been appended to a previously preliminary verified report. MCRS Yes(A) N/A 02/11/2024 5:02 PM CDT [facility] Comment:This is an appended report. These results have been appended to a previously preliminary verified report. Performing Labs The technical component of this testing was completed at [facility]. Stain controls for all stains resulted within this report have been reviewed and show appropriate reactivity. 02/11/2024 5:02 PM CDT [facility] Comment:This is an appended report. These results have been appended to a previously preliminary verified report. Case Images 02/11/2024 5:02 PM CDT [facility] Tissue CECUM STRUCTURE / Unknown 02/09/2024 3:24 PM CDT 02/09/2024 5:27 PM CDT Tissue specimen (specimen) CECUM STRUCTURE / Unknown 02/09/2024 3:29 PM CDT 02/09/2024 3:34 PM CDT Tissue specimen (specimen) [place] / Unknown 02/09/2024 3:39 PM CDT 02/09/2024 5:27 PM CDT Tissue specimen (specimen) [place] / Unknown 02/09/2024 3:53 PM CDT 02/09/2024 5:27 PM CDT Peter Seth [facility] Specialty Lab [address] [facility] [address] [facility], [address] [place] [address], [facility] [facility] [address] [facility] [address] [facility], [address] [place] [address], [facility] * ANE AIRWAY ETT PERFORMABLE (02/09/2024 2:25 PM CDT) Narrative Alma Rosa Pacheco - 02/09/2024 2:25 PM CDT Alma Rosa Pacheco ? 02/09/2024 ??2:56 PM Airway ? Patient location during procedure: OR ? Procedure Start/Stop Times: 02/09/2024 2:25 PM Staff - ? PROSPECTING DRILLER HELPER: Yordan Dunbar APRN PROSPECTING DRILLER HELPER ? Other Anesthesia Staff: Alma Rosa Pacheco ? Performed By: SRNA Consent for Airway ? Urgency: elective Indications and Patient Condition ? Indications for airway management: paloma-procedural ? Induction type:intravenous ? Mask difficulty assessment: 2 - vent by mask + OA or adjuvant +/- NMBA Final Airway Details ? Final airway type: endotracheal airway ? Successful airway: ETT - single and Oral Endotracheal Airway Details ? ETT size (mm): 7.0 ? Cuffed: yes ? Successful intubation technique: direct laryngoscopy ? DL Blade Type: MAC 3 ? Grade View of Cords: 1 ? Adjucts: stylet ? Position: Right ? Measured from: gums/teeth ? Secured at (cm): 21 ? Bite block used: None Post intubation assessment ? Placement verified by: capnometry, equal breath sounds and chest rise ? Number of attempts at approach: 1 ? Secured with: tape ? Ease of procedure: easy ? Dentition: Intact and Unchanged Medication(s) Administered Medication Administration Time: 02/09/2024 2:25 PM Herbert Chin MD [facility] ANESTHESIA * Peripheral/Paravertebral Block (02/09/2024 10:13 AM CDT) Narrative Ministerio Barrios MD - 02/09/2024 10:13 AM CDT Ministerio Barrios MD ? 02/10/2024 ??2:10 PM TAP Procedure Note Pre-Procedure Staff - ? Anesthesiologist: ??Gerardo Garcia MD ? Resident/Fellow: Ministerio Barrios MD ? Performed By: resident ? Location: pre-op ? Procedure Start/Stop Times: 02/09/2024 10:13 AM and 02/09/2024 10:12 AM ? Pre-Anesthestic Checklist: patient identified, IV checked, site marked, risks and benefits discussed, informed consent, monitors and equipment checked, pre-op evaluation, at physician/surgeon's request and post-op pain management Timeout: ? Correct Patient: Yes ? Correct Procedure: Yes ? Correct Site: Yes ? Correct Position: Yes ? Correct Laterality: Yes ? Site Marked: Yes Procedure Documentation Procedure: TAP ? Laterality: bilateral ? Patient Position: supine ? Patient Prep/Sterile Barriers: sterile gloves, mask ? Skin prep: Chloraprep ? Needle Type: short bevel ? Needle Gauge: 21. ? Needle Length (millimeters): 110 ? Ultrasound guided ? 1. Ultrasound was used to identify targeted nerve, plexus, vascular marker, or fascial plane and place a needle adjacent to it in real-time. ? 2. Ultrasound was used to visualize the spread of anesthetic in close proximity to the above referenced structure. ? 3. A permanent image is entered into the patient's record. Assessment/Narrative ? The placement was negative for: blood aspirated, painful injection and site bleeding ? Paresthesias: No. ? Bolus given via needle. no blood aspirated via catheter. ? Secured via. ? Insertion/Infusion Method: Single Shot ? Complications: none Medication(s) Administered Bupivacaine 0.25% PF (Infiltration) - Infiltration 20 mL - 02/10/2024 10:13:00 AM Bupivacaine liposome (Exparel) 1.3% LA inj susp (Infiltration) - Infiltration 20 mL - 02/10/2024 10:13:00 AM Medication Administration Time: 02/09/2024 10:13 AM FOR [facility] ([facility] ONLY: ?? Pain Team Contact information: please page the Pain Team Via [place]. Search Pain. During daytime hours, please page the attending first. At night please page the resident first. Gerardo Garcia MD AL ANESTHESIA * Extra Green Top ([place] Heparin) Tube (02/09/2024 5:32 AM CDT) Hold Specimen [facility] 02/09/2024 7:02 AM CDT [facility] Blood STRUCTURE OF LEFT HAND / Unknown Venipuncture / Unknown 02/09/2024 5:32 AM CDT 02/09/2024 5:51 AM CDT Junior Ashton MD LAB - BLOOD ORDERABL ES [facility] [address], [address] [phone] * CT Chest w/o Contrast (02/08/2024 7:27 PM CDT) Anatomical Region Laterality Modality Chest, SUBRAD CT BODY, UMP CT CHEST, RAD CT Computed Tomography Impressions 02/08/2024 9:05 PM CDT IMPRESSION: 1. No evidence of thoracic metastatic disease. 2. Right greater than left basilar atelectasis. I have personally reviewed the examination and initial interpretation and I agree with the findings. BALBIR KEYS, DO Narrative 02/08/2024 9:05 PM CDT EXAM: CT chest without intravenous contrast. 02/08/2024 7:27 PM HISTORY: Evaluation for mets TECHNIQUE: Helical acquisition of image data was performed for the chest without intravenous contrast. COMPARISON: 11/08/2018 FINDINGS: CHEST: Lungs/pleura/airways: Central airways are patent. No suspicious pulmonary nodules or masses. Subsegmental linear atelectasis in the lung bases, right greater than left with mild asymmetric elevation of the right hemidiaphragm. No pleural effusions. No pneumothorax. Lower neck/axillae/mediastinum: Normal thyroid. Numerous supraclavicular and mediastinal prominent lymph nodes, none enlarged by short axis criteria, unchanged compared to 11/08/2018. Normal heart. Normal great vessels. Normal esophagus. UPPER ABDOMEN: Vicarious excretion of contrast. Splenomegaly measuring up to 15.6 cm. MUSCULOSKELETAL: Degenerative changes of the spine. No acute or suspicious osseous abnormality. Procedure Note Balbir Keys DO - 02/08/2024 EXAM: CT chest without intravenous contrast. 02/08/2024 7:27 PM HISTORY: Evaluation for mets TECHNIQUE: Helical acquisition of image data was performed for the chest without intravenous contrast. COMPARISON: 11/08/2018 FINDINGS: CHEST: Lungs/pleura/airways: Central airways are patent. No suspicious pulmonary nodules or masses. Subsegmental linear atelectasis in the lung bases, right greater than left with mild asymmetric elevation of the right hemidiaphragm. No pleural effusions. No pneumothorax. Lower neck/axillae/mediastinum: Normal thyroid. Numerous supraclavicular and mediastinal prominent lymph nodes, none enlarged by short axis criteria, unchanged compared to 11/08/2018. Normal heart. Normal great vessels. Normal esophagus. UPPER ABDOMEN: Vicarious excretion of contrast. Splenomegaly measuring up to 15.6 cm. MUSCULOSKELETAL: Degenerative changes of the spine. No acute or suspicious osseous abnormality. IMPRESSION: 1. No evidence of thoracic metastatic disease. 2. Right greater than left basilar atelectasis. I have personally reviewed the examination and initial interpretation and I agree with the findings. BALBIR KEYS DO Manda Farrell MD [facility] CT ORDERABLES * Adult Type and Screen (02/08/2024 3:43 PM CDT) ABO/RH(D) A POS 02/08/2024 3:04 PM CDT UU BLOOD BANK Antibody Screen Negative Negative 02/08/2024 3:04 PM CDT UU BLOOD BANK SPECIMEN EXPIRATION DATE [id number] 02/08/2024 3:04 PM CDT BLOOD BANK Blood BLOOD SPECIMEN / Unknown Venipuncture / Unknown 02/08/2024 3:43 PM CDT 02/08/2024 3:48 PM CDT Jaya Dumont MD LAB - BLOOD BANK TONI T ORDER BLOOD BANK [address] [place] [address], [facility] * Inhibin B (02/08/2024 3:43 PM CDT) Inhibin B 14 8 - 223 pg/mL 02/10/2024 10:49 PM CDT [facility] Comment: INTERPRETIVE INFORMATION: Inhibin B MALE: Less than 15 days .......... 68-373 pg/mL 15 days-6 months ........... 42-516 pg/mL 7 months-7 years ........... 24-300 pg/mL 8-30 years ................. 47-383 pg/mL 31-72 years ................ 10-357 pg/mL FEMALE: 1 day- 12 years ............................... <=182 pg/mL 13-41 years (regular cycle, follicular phase).. 8-223 pg/mL 42-51 years (regular cycle, follicular phase).. <=107 pg/mL 51-76 years (postmenopausal) .................. <=11 pg/mL This test is performed using the [facility] ultra-sensitive Inhibin B MAYA kit. Values obtained with different methodologies or kits cannot be used interchangeably. This test was developed and its performance characteristics determined by [facility]. It has not been cleared or approved by the US Food and Drug Administration. This test was performed in a CLIA certified laboratory and is intended for clinical purposes. Performed By: [facility] [address] [place] [address] Rubber Printing Machine Operator: Ciro Webb MD, PhD CLIA Number: [id number] Blood STRUCTURE OF RIGHT HAND / Unknown Venipuncture / Unknown 02/08/2024 3:43 PM CDT 02/08/2024 3:48 PM CDT Jaya Dumont MD LAB - BLOOD ORDERABL ES Performing Organization Address City/[facility]/ZIP Co de Phone Number [facility] [address] [place] [address] [phone] * CA 125 (02/08/2024 3:43 PM CDT) CA 125 13 <=38 U/mL 02/08/2024 4:2 9 PM CDT [facility] Blood BLOOD SPECIMEN / Unknown Venipuncture / Unknown 02/08/2024 3:43 PM CDT 02/08/2024 3:48 PM CDT Narrative [facility] - 02/08/2024 4:29 PM CDT This result is obtained using the Ketty Elecsys CA 125 II method on the ezequiel e801 immunoassay analyzer. Results obtained with different assay methods or kits cannot be used interchangeably. Jaya Dumont MD LAB - BLOOD ORDERABL ES U LABORATORY [facility] [place] [facility] [address] [facility], [address] [phone] * CT Imaging - HIM Scan (02/08/2024 12:00 AM CDT) Only the most recent of2 resultswithin the time period is included. 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 The technical component of this testing was completed at the [facility], with the professional component performed at the [facility], [address] [place] [address] ([phone]) COLLECTION SITE: Client: ??[facility] Cytologic material (specimen) 11/28/2019 1:50 PM CDT 11/29/2019 9:27 AM CDT Yara Weiss MD LAB - OPTIME CLINICAL SPECIMEN COPATH * HPV High Risk Types DNA Cervical (11/28/2019 1:30 PM CDT) HPV Source SurePath 11/28/2019 1:50 PM CDT [facility] HPV 16 DNA Negative NEG^Nega tive 12/01/2019 11:58 AM CDT [facility] HPV 18 DNA Negative NEG^Nega tive 12/01/2019 11:58 AM CDT [facility] Other HR HPV Negative NEG^Nega tive 12/01/2019 11:58 AM CDT [facility] Final Diagnosis This patient's sample is negative for HPV DNA. 12/01/2019 11:58 AM CDT [facility] Comment: This test was developed and its performance characteristics determined by the [facility], Molecular Diagnostics Laboratory. It has not been [...] Description Cervical Cells 11/28/2019 1:50 PM CDT [facility] Comment: [id number] Cervical Cells 11/28/2019 1: 30 PM CDT 11/28/2019 2:13 PM CDT Yara Weiss MD LAB - BLOOD O RDERABLES [facility] [address] [place] [address] [phone] from Last 3 Months or Most Recently Relevant to Health Maintenance Advance Directives For more information, please contact: [phone] * Full Code (Latest Code Status on File) Date Activated Date Inactivated Comments 02/08/2024 1:08 PM 02/12/2024 12:59 PM All basic a nd advanced life-sustaining interventions are performed as appropriate Question Answer Comments Code status determined by: Discussion with patie nt/ legal decision maker * Full Code Date Activated Date Inactivated Comments 06/22/2020 9:04 AM 02/08/2024 11:49 AM Question Answer Comments Code status determined by: Discussion with patie nt/ legal decision maker * Full Code Date Activated Date Inactivated Comments 06/19/2020 8:21 PM 06/22/2020 9:04 AM All basic and advanced life-sustaining interventions are performed as appropriate Question Answer Comments Code status determined by: Discussion with patie nt/ legal decision maker Care Teams Cisco Consultant Relationship Specialty Start Date End Date Shanti Lara ACROBATIC RIGGER [facility] [address] [place] [address] PCP - General Nurse Practitioner - Family 03/17/22 [facility], Kavita Rosenbaum [address] [place], [place] [id number] Referring Physician railcar switchman 07/29/17 Yara Weiss MD [address] [place] [address] Oncology 07/29/17 Christine Poon RN Specialty Starch Factory Laborer Hematology & Oncology 12/02/21
--- OUTSIDE RECORDS SUMMARY | 2024-02-12 23:17 | XMS_ITS | Clinical Summary ---
Author Organization [facility] Address [address] [place] [address] Care Team Providers Care Irrigation System Installer Name Role Phone Clinic, Kavita Rosenbaum Unavailable [phone] Yara Weiss MD Unavailable [phone] Christine Poon RN Unavailable [phone] Shanti Lara NP Primary Care Provider [phone] Allergies Active Allergy Reactions Criticality Noted Date [...] Overview: Added automatically from request for surgery [id number] Pelvic pain in female 05/07/2020 Overview: Added automatically from request for surgery [id number] Pelvic mass 05/07/2020 Overview: Added automatically from request for surgery [id number] ADHD (attention deficit hyperactivity disorder) 05/16/2019 Endometrial hyperplasia without atypia, simple 0 09/23/2017 Primary ovarian granulosa cell tumor, 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 Chronic neck pain 05/16/2014 Chronic back pain 03/06/2014 Vitamin deficiency 04/10/2013 Obesity (BMI 30-39.9) 04/07/2013 Allergic rhinitis 12/06/2012 Severe major depression 09/05/2012 Alcohol abuse 06/11/2012 Encounters Date Type Department Care Team Description 02/09/2024 2:06 PM CDT Anesthesia Event [facility] PeriOp Services [address] [place] [address] Herbert Chin MD Weimer, Casey H, KIM ECKERT 02/09/2024 1:00 PM CDT - 02/09/2024 8:40 PM CDT Surgery [facility] Services [address] [place] [phone] Yara Weiss MD LAPAROTOMY, EXPLORATORY, Lysis of adhesions,tumor debulking, cystoscopy, proctoscopy 02/09/2024 11:50 AM CDT Ancillary Procedure [facility] Imaging [address] [place] [address] Gerardo Garcia MD 02/08/2024 11:49 AM CDT - 02/12/2024 10:54 AM CDT Hospital Encounter [facility] 5A Oncology [address] [place] [address] Ney Fung MD Mattson, Jordan, MD Granulosa cell tumor (Primary Dx); Ovarian mass; Active internal bleeding; Abdominal pain, right lower quadrant; Abdominal pain, left lower quadrant; Nausea and vomiting, unspecified vomiting type; Personal history of ovarian cancer; Pelvic mass; S/P hysterectomy Discharge Disposition: Home or Self Care 02/08/2024 Travel 02/08/2024 MyC Medical Advice [facility] Cancer [address] [address] Yara Weiss MD from Last 3 Months Immunizations Name Administration Dates Next Due COVID-19 [...] 02/19/2024 10:40 AM CDT Allied Health/Nurse Visit [facility] Cancer [address] [address] Yara Weiss MD [address] [place] [address] Nurse, Brunilda Rodriguez 02/29/2024 8:00 AM CDT Oncology Visit [facility] [address] [place] [address] Yara Weiss MD [address] [place] [id number] Health Maintenance Due Date Last Done Comments ADVANCE CARE PLANNING 1985 ANNUAL REVIEW OF HM ORDERS 1985 DEPRESSION ACTION PLAN 1985 PHQ-9 1985 URINE DRUG SCREEN 1985 YEARLY PREVENTIVE VISIT 1985 Pneumococcal Vaccine: Pediatrics (0 to 5 Years) and At-Risk Patients (6 to 64 Years) (1 of 2 - PCV) 12/18/1991 HIV SCREENING 2000 HEPATITIS B IMMUNIZATION (2 of 3 - 3-dose series) 01/19/2003 12/22/2002 HEPATITIS C SCREENING 12/18/2003 COVID-19 Vaccine (3 - Pfizer risk series) 11/01/2021 10/04/2021, 09/13/2021 INFLUENZA VACCINE (#1) 2024 HPV TEST 11/27/2024 11/28/2019 PAP 11/27/2024 11/28/2019, 01/16/2012 GLUCOSE 02/09/2027 02/10/2024, 01/24, 02/09/2024, Additional history exists DTAP/TDAP/TD IMMUNIZATION (4 - Td or Tdap) 03/22/2033 03/22/2023, 11/04/2013, 11/04/2012 HPV IMMUNIZATION Completed 06/07/2013, , 11/04/2012 IPV [...] Atrial Rate 87 BPM RADIOLOG Y RESULTS MS Interval 158 ms RADIOLOG Y RESULTS QRS Duration 82 ms RADIOLO GY RESULTS QT 342 ms RADIOLOGY RESULTS QTc 411 ms RADIOLOGY RESULTS P Trimble 61 degrees RADIOLOGY RESULTS R AXIS 29 degrees RADIOLOGY RESULTS T Trimble 41 degrees RADIOLOGY RESULTS Interpretation ECG Sinus rhythm Normal ECG When compared with ECG of 11-MAY-2020 17:41, Sinus rhythm has replaced Atrial fibrillation Vent. rate has increased BY ??34 BPM Questionable change in QRS duration Minimal criteria for Anterior infarct are no longer Present Confirmed by fellow Chetan Paniagua ([id number]) on 02/11/2024 12:22:07 PM Confirmed by MD MARIELA, LINDA ([id number]) on 02/11/2024 10:36:07 PM RADIOLOGY RESULTS 02/11/2024 [...] LAB - BLOOD ORDERABL ES [facility] [place] [facility] 500 [facility], [address] [place] [address] * (ABNORMAL) Glucose by meter (02/10/2024 6:01 AM CDT) Only the most recent of2 resultswithin the time period is included. GLUCOSE BY METER POCT 100(H) 70 - 99 mg/dL 02/10/2024 6:07 AM CDT [facility] POC Blood, Capillary BLOOD SPECIMEN / Unknown 02/10/2024 6:01 AM CDT 02/10/2024 6:07 AM CDT Junior Ashton MD LAB - BEAKER POCT [facility] POC [facility] [place] [facility] [address] [facility], [address] * Phosphorus (02/10/2024 5:21 AM CDT) Phosphorus 3.7 2.5 - 4.5 mg/dL 02/10/2024 6:18 AM CDT [facility] Blood STRUCTURE OF RIGHT HAND / Unknown Venipuncture / Unknown 02/10/2024 5:21 AM CDT 02/10/2024 5:40 AM CDT Manda Farrell MD LAB - BLOOD ORDERABL ES Performing Organization Address City/[facility] [[email or web address]] Co de Phone Number [facility] [place] [facility] [address] [facility], Room [address] [place] [address] * Magnesium (02/10/2024 5:21 AM CDT) Magnesium 1.8 1.7 - 2.3 mg/dL 02/10/2024 6:18 AM CDT [facility] Blood STRUCTURE OF RIGHT HAND / Unknown Venipuncture / Unknown 02/10/2024 5:21 AM CDT 02/10/2024 5:40 AM CDT Manda Farrell MD LAB - BLOOD ORDERABL ES [facility] [place] [facility] [address] [facility], [address] * (ABNORMAL) Basic metabolic panel (02/10/2024 5:21 [...] 6:18 AM CDT [facility] Comment:eGFR calculated 2020 CKD-EPI equation. Calcium 8.6(L) 8.8 - 10.4 [...] LAB - BLOOD ORDERABL ES [facility] [place] [facility] [address] [facility], Room [address] [place] [address], [facility] * (ABNORMAL) Surgical Pathology Exam (02/09/2024 3:24 PM CDT) Case Report Surgical Pathology Report ? Case: [id number] ? Authorizing Provider: ??Yara Weiss, ??Collected: ? [...] 02/09/2024 at 4:02 PM Intra op performed at:[facility]ORY, [facility] [place] [facility], [address] [place] [address], [facility], Room [address] [phone] Intra-op Dx verbally delivered to Dr. Weiss at 15:51 02/11/2024 5:02 PM CDT [facility] Gross Description A(1). Large Intestine, Colon, [...] greatest dimension. Sectioning reveals red-kaye cut surfaces. Brassiere Cup Mold Cutter tissue submitted in cassette B1 for frozen [...] Sectioning reveals yellow-kaye to purple-kaye cut surfaces. Brassiere Cup Mold Cutter tissue is submitted in cassettes C1-C5. D(4). [...] component of this testing was completed at [facility]. Stain controls for all stains [...] 3:53 PM CDT 02/09/2024 5:27 PM CDT Yara [facility] Special[facility] [address] [facility], Room [address] [address] [place] [facility] 500 [facility], [address] [address] * ANE AIRWAY ETT PERFORMABLE (02/09/2024 2:25 PM CDT) Narrative Alma Rosa Pacheco - 02/09/2024 2:25 PM CDT Alma Rosa Pacheco ? 02/09/2024 ??2:56 PM Airway ? Patient location during procedure: OR ? Procedure Start/Stop Times: 02/09/2024 2:25 PM Staff - ? STENO POOL SUPERVISOR: Yordan Dunbar APRN STENO POOL SUPERVISOR ? Other Anesthesia Staff: Alma Rosa Pacheco [...] Time: 02/09/2024 2:25 PM Herbert Chin MD MS ANESTHESIA * Peripheral/Paravertebral Block (02/09/2024 10:13 AM [...] Medication Administration Time: 02/09/2024 10:13 AM FOR [facility] ([facility]) ONLY: ?? Pain Team Contact information: please page the Pain Team Via [employer]. Search Pain. During daytime hours, please page the attending first. At night please page the resident first. Gerardo Garcia MD MS ANESTHESIA * Extra Green Top ([place] Heparin) Tube (02/09/2024 5:32 AM CDT) Pathologist [facility] Hold Specimen [facility] 02/09/2024 7:02 AM CDT U LABORATORY Blood STRUCTURE OF LEFT HAND / Unknown Venipuncture / Unknown 02/09/2024 5:32 AM CDT 02/09/2024 5:51 AM CDT Junior Ashton MD LAB - BLOOD ORDERABL ES LABORATORY [facility] [place] [facility] [address] [facility] [address], [address] [place] [address] * CT Chest w/o Contrast (02/08/2024 7:27 PM CDT) Anatomical Region Laterality Modality Chest, SUBRAD CT BODY, UMP CT CHEST, RAD CT Computed Tomography Impressions 02/08/2024 9:05 PM CDT IMPRESSION: 1. No evidence of thoracic metastatic disease. 2. Right greater than left basilar atelectasis. I have personally reviewed the examination and initial interpretation and I agree with the findings. BALBIR KEYS DO Narrative 02/08/2024 9:05 PM CDT EXAM: [...] findings. BALBIR KEYS DO Manda Farrell MD IMG CT ORDERABLES * Adult Type and Screen (02/08/2024 3:43 PM CDT) Pathologist [facility] ABO/RH(D) A POS 02/08/2024 3:04 PM CDT BLOOD BANK Antibody Screen Negative Negative 02/08/2024 3:04 PM CDT U BLOOD BANK SPECIMEN EXPIRATION DATE [id number] 02/08/2024 3:04 PM CDT BLOOD BANK Blood BLOOD SPECIMEN / Unknown Venipuncture / Unknown 02/08/2024 3:43 PM CDT 02/08/2024 3:48 PM CDT Jaya Dumont MD LAB - BLOOD BANK TONI T ORDER BLOOD BANK [address] [place] [address], [facility] * Inhibin B (02/08/2024 3:43 PM CDT) Pathologist [facility] Inhibin B 14 8 - 223 pg/mL 02/10/2024 10:49 PM CDT [facility] Comment: INTERPRETIVE INFORMATION: Inhibin B MALE: Less [...] test is performed using the [facility] ultra-sensitive Inhibin B MAYA kit. Values obtained with different methodologies or kits cannot be used interchangeably. This test was developed and its performance characteristics determined by [facility]. It has not been cleared or approved by the US Food and Drug Administration. This test was performed in a CLIA certified laboratory and is intended for clinical purposes. Performed By: [facility] [address] [place] [address] Team Member: Ciro Webb MD, PhD CLIA Number: [id number] Blood STRUCTURE OF RIGHT HAND / Unknown Venipuncture / Unknown 02/08/2024 3:43 PM CDT 02/08/2024 3:48 PM CDT Jaya Dumont MD LAB - BLOOD ORDERABL ES [facility] [employer] [facility] 3Scan [address] [place] [address], [facility] [phone] * CA 125 (02/08/2024 3:43 PM CDT) [...] Dumont MD LAB - BLOOD ORDERABL ES LABORATORY [facility] Core Lab [address] [facility], [address] [address] * CT Imaging - HIM Scan (02/08/2024 12:00 AM CDT) Only the most recent of2 resultswithin the time period is included. 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 The technical component of this testing was completed at the [facility], with the professional component performed at the [facility], [address] [place] [address] ([phone]) COLLECTION SITE: Client: ??[facility] Cytologic material (specimen) 11/28/2019 1:50 PM CDT 11/29/2019 9:27 AM CDT Yara Weiss MD LAB - OPTIME CLINICAL SPECIMEN Performing Organization Address City/State/[facility] [[email or web address]] Co de Phone Number [facility] * HPV High Risk Types DNA Cervical (11/28/2019 1:30 PM CDT) HPV Source Sure[facility] 11/28/2019 1:50 PM CDT [facility] HPV 16 DNA Negative NEG^Nega tive 12/01/2019 11:58 AM CDT [facility] HPV 18 DNA Negative NEG^Nega tive 12/01/2019 11:58 AM CDT [facility] Other HR HPV Negative NEG^Nega tive 12/01/2019 11:58 AM CDT [facility] Final Diagnosis This patient's sample is negative for HPV DNA. 12/01/2019 11:58 AM CDT [facility] Comment: This test was developed and its performance characteristics determined by the [facility], Molecular Diagnostics Laboratory. It has not been [...] Description Cervical Cells 11/28/2019 1:50 PM CDT [facility] Comment: [id number] Cervical Cells 11/28/2019 1: 30 PM CDT 11/28/2019 2:13 PM CDT Yara Weiss MD LAB - BLOOD O RDERABLES Performing Organization Address City/State/[facility] [[email or web address]] Co de Phone Number [facility] [address] [place] [address] [facility] [address] [place] [address] from Last 3 Months or Most Recently Relevant to Health Maintenance Advance Directives For more information, please contact: [phone] * Full Code (Latest Code Status on [...] patie nt/ legal decision maker Care Teams Irrigation System Installer Relationship Specialty Start Date End Date Shanti Lara WRAPPER STRIPPER [facility] [address] [place] [address] PCP - General Nurse Practitioner - Family 03/17/[address] [phone] Referring Physician route delivery manager 07/29/17 Yara Weiss MD [address] [place] [address] Oncology 07/29/17 Christine Poon RN Specialty Logistics Supervisor Hematology & Oncology 12/02/21
--- OUTSIDE RECORDS SUMMARY | 2024-02-12 23:18 | XMS_ITS | Encounter Summary ---
Author Organization [place] Address [address] [place] [address] Care Team Providers Care Elevator Operator Service Name Role Phone Clinic, Kavita Rosenbaum Unavailable [phone] Jonathan Pitts MD Unavailable Christine Poon RN Unavailable [phone] Shanti Lara PORTRAIT PAINTER Primary Care Provider Reason for Visit * Reason Comments Abdominal Pain * Auth/Cert Specialty Diagnoses / Procedures Referred By Vlad bernal Referred To Contact EMERGENCY MEDICINE Diagnoses Pelvic mass hemorrhage Ovarian mass Active internal bleeding [facility] [address] [place] [address] Referral ID Status Reason Start Date Expiration Date Visits Re quested Visits Authorized [id number] 1 1 Encounter Details Date Type Department Care Team ([facility] Contact Info) Description 02/09/2024 1:00 PM CDT - 02/09/2024 8:40 PM CDT Surgery [facility] [address] [place] [address] Jonathan Pitts MD [address] [place], [place] [id number] LAPAROTOMY, EXPLORATORY, Lysis of adhesions,tumor debulking, cystoscopy, proctoscopy Surgery Details Date/Time Status Location OR Service Patient Class Case Class Case Type Trauma Case? 02/09/24 1:00 PM Posted [facility] OR 14 Gynecology Inpatient NEST 5 - Semi-Urge nt (within 48hrs) Panel 1 Procedure [facility] Anes Op Region Wound Class Comments LAPAROTOMY, EXPLORATORY, Polly is of adhesions,tumor debulking, cystoscopy, proctoscopy N/A General Abdomen II-Clean Contamin ated Surgeon Surgeon Role Service Panel Jonathan Pitts MD Primary Gynecology 1 Jaya Dumont MD Fellow - Assisting 1 documented in this encounter Social History Tobacco Use Types Packs/Day Years [...] on file documented as of this encounter Last Filed Vital Signs Vital Sign Reading Time Taken Comments Blood Pressure 130/82 02/09/2024 7:15 PM CDT Pulse 96 02/09/2024 7:15 PM CDT Temperature 36.7 ??C (98 ??F) 02/09/2024 7:48 PM CDT Respiratory Rate 15 02/09/2024 7:15 PM CDT Oxygen Saturation 99% 02/09/2024 7:23 PM CDT Inhaled Oxygen Concentration - - Weight 90.1 kg (198 lb 10.2 oz) 02/09/2024 7:27 AM CDT Height - - Body Mass Index 35.44 11/11/2021 7:54 AM CDT documented in this encounter Discharge Summaries * Jessica Fitch MD - 02/12/2024 8:42 AM CDT Gynecologic Oncology Discharge Summary Sonam Harkins [id number] Admit Date: 02/08/2024 Discharge Date: 02/12/2024 Admitting Provider: Junior Ashton MD Discharge Provider: Junior Ashton MD Admission Dx: - 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 - Acute blood loss anemia - Abdominal pain - Nausea/vomiting - Hemoperitoneum - MDD - ADHD - TBI Discharge Dx: - 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 - Acute blood loss anemia, improving - Abdominal pain - Nausea/vomiting - Hemoperitoneum - MDD - ADHD - TBI Patient Active Problem List Diagnosis ADHD (attention deficit hyperactivity disorder) Alcohol abuse Allergic rhinitis Chronic back pain Chronic neck pain Endometrial hyperplasia without atypia, simple Obesity (BMI 30-39.9) Primary ovarian granulosa cell tumor, right Severe major depression (H) Vitamin deficiency Granulosa cell tumor Pelvic pain in female Pelvic mass Ovarian mass Active internal bleeding Procedures: - 02/08: XL, DONALD, tumor debulking, CUSA, cystoscopy, and proctoscopy Prior to Admission Medications: Medications Prior to Admission Medication Sig Dispense Refill Last Dose cetirizine (ZYRTEC) 10 MG tablet Take 10 mg by mouth daily 02/06/2024 at unknown omeprazole (PRILOSEC OTC) 20 MG EC tablet Take 20 mg by mouth daily 02/06/2024 at unknown vitamin C (ASCORBIC ACID) 500 MG tablet Take 2 tablets by mouth daily 02/06/2024 at unknown [DISCONTINUED] acetaminophen (TYLENOL) 325 MG tablet Take 2 tablets (650 mg) by mouth every 4 hoursas needed for mild pain 50 tablet 0 Past Week at unknown Discharge Medications: Review of your medicines START taking Dose / Directions apixaban ANTICOAGULANT 2.5 MG tablet Commonly known as: ELIQUIS Indication: DVT-PE Prophylaxis Used for: Personal history of ovarian cancer, Pelvic mass Dose: 2.5 mg Take 1 tablet (2.5 mg) by mouth 2 times daily for 26 days Start tonight at 6 PM Quantity: 52 tablet Refills: 0 ibuprofen 400 MG tablet Commonly known as: ADVIL/MOTRIN Used for: Pelvic mass Dose: 400 mg Take 1 tablet (400 mg) by mouth every 6 hours as needed for moderate pain Quantity: 20 tablet Refills: 0 oxyCODONE 5 MG tablet Commonly known as: ROXICODONE Used for: Personal history of ovarian cancer, Pelvic mass Dose: 5 mg Take 1 tablet (5 mg) by mouth every 6 hours as needed for severe pain Quantity: 12 tablet Refills: 0 senna-docusate 8.6-50 MG tablet Commonly known as: SENOKOT-S/PERICOLACE Used for: Pelvic mass Dose: 2 tablet Take 2 tablets by mouth 2 times daily as needed for constipation Quantity: 60 tablet Refills: 0 CONTINUE these medicines which may have CHANGED, or have new prescriptions. If we are uncertain of the size of tablets/capsules you have at home, strength may be listed as something that might have changed. Dose / Directions acetaminophen 325 MG tablet Commonly known as: TYLENOL This may have changed: when to take this Used for: S/P hysterectomy Dose: 650 mg Take 2 tablets (650 mg) by mouth every 6 hours as needed for mild pain Quantity: 40 tablet Refills: 0 CONTINUE these medicines which have NOT CHANGED Dose / Directions cetirizine 10 MG tablet Commonly known as: zyrTEC Dose: 10 mg Take 10 mg by mouth daily Refills: 0 omeprazole 20 MG EC tablet Commonly known as: PriLOSEC OTC Dose: 20 mg Take 20 mg by mouth daily Refills: 0 vitamin C 500 MG tablet Commonly known as: ASCORBIC ACID Dose: 2 tablet Take 2 tablets by mouth daily Refills: 0 Where to get your medicines These medications were sent to [facility] - [place], [place] - [address] [place] [address] [address] [facility] [address] acetaminophen 325 MG tablet apixaban ANTICOAGULANT 2.5 MG tablet ibuprofen 400 MG tablet oxyCODONE 5 MG tablet senna-docusate 8.6-50 MG tablet Consultations: - PT/OT Brief History of Illness: From H&P: This patient is a 38 year old female with recurrent granulosa cell tumor who presentsas a transfer of care from the [facility] ED for abdominal pain and suspected intraabdominal bleeding from recurrent tumor. She was admitted for surgical management. Hospital Course: Dz: - Preoperative diagnosis was recurrent granulosa cell tumor of the ovary. Frozen section of pericecal biopsy #2 at the time of the surgery showed benign tissue. Final pathology of pelvic tumor with granulosa cell tumor, recurrent. She will follow-up postoperatively with Dr. Pitts for a care plan.She will follow up in 1 week for staple removal. FEN: - She was maintained on IVF until POD#1, when her diet was slowly advanced. By discharge, she was tolerating a regular diet without nausea and vomiting and able to maintain her hydration without IVF supplementation. Pain: - Her pain was initially controlled on IV pain medications. Once tolerating PO pain meds, she was transitioned to a PO pain regimen. Her pain was well controlled on this and she was discharged home with these medications. CV: - She has no history of CV issues. She was asymptomatically tachycardic post operatively. EKG with NSR and negative BLE DVT US. Tachycardia gradually improved during admission. Her vital signs were stable while in house and she had no acute CV issues. PULM: - She has no history of pulmonary issues. She was initially given O2 supplementation in to maintainher O2 sats in the immediate postop period and was transitioned off of this without difficulty. By discharge, her O2 sats were greater than 94% on RA. She was encouraged to use her bedside IS while in house. She had no acute pulmonary issues while in house. HEME: - On admission her Hgb was 10.3. Recheck prior to surgery hgb was 9.4. She had an appropriate drop in her hemoglobin after surgery and it was stable at the time of discharge. She had no acute heme issues while in house. GI: - She was made NPO prior to the procedure. On POD#0, her diet was advanced slowly as tolerated. At the time of discharge, she was tolerating a regular diet without nausea and vomiting. She was passing flatus prior to discharge. She will be discharged with a bowel regimen to prevent constipation in the postoperative period. She had no acute GI issues while in house. : - A christensen catheter was placed at the time of the surgery. Once ambulating unassisted, the christensen catheter was removed. Prior to discharge, the patient was voiding spontaneously without difficulty. Shehad no acute issues while in house. ID: - The patient was AF during her hospitalization. She received standard preoperative antibiotics without incident. ENDO: - No issues PSYCH/NEURO: - She has a history of major depressive disorder and ADHD; not currently taking medications for management. H/o TBI. No acute issues while admitted. PPX: - She was given SCDs, IS, and lovenox. during her hospital course. She tolerated these prophylacticinterventions without incident. They were discontinued at the time of her discharge. She was discharge on a 28 day course of lovenox total. Discharge Instructions and Follow up: Ms. Sonam Harkins was discharged from the hospital with follow up with Dr. Pitts. At the time of discharge, clinic was notified. She will follow up in 1 week for staple removal. Discharge Diet: Regular Discharge Activity: Lifting restricted to 15 pounds, no driving while on narcotics, nothing per vagina for 6 weeks. Discharge Disposition: Discharged to home Discharge Staff: MD Jessica Freeman M.D. [facility] Gy[facility], PGY1 02/12/2024 Associated attestation - Junior Ashton MD - 02/12/2024 4:49 PM CDT Physician Attestation I saw and evaluated this patient prior to discharge. I discussed the patient with the resident/fellow and agree with plan of care as documented in the note. I personally reviewed vital signs, medications, and labs. I personally spent 10 minutes on discharge activities. Junior Ashton MD Date of Service (when I saw the patient): 02/12/24 documented in this encounter Discharge Instructions * Discharge Instructions* Jessica Fitch MD - 02/12/2024 8:31 AM CDT Please call your PCP clinic to get a staple removal appointment for 02/18. Dr. Pitts's clinic has been notified that you need a follow up appointment in approximately the next 2 weeks and they should call you with a date. GENERAL POST-OPERATIVE PATIENT INSTRUCTIONS FOLLOW-UP: If you have any of the following, call the gynecology oncology office (if the clinic is closed, youcan call the hospital at [phone] and ask for the APPLICATION INTEGRATION ENGINEER Oncology resident biodiesel process control technician): - Temperature greater than 100.4 - Persistent nausea and vomiting - Severe uncontrolled pain - Redness, tenderness, or signs of infection (pain, swelling, redness, odor or green/yellow discharge around the site) - Difficulty breathing, headache or visual disturbances - Hives - Persistent dizziness or light-headedness - Extreme fatigue In an emergency, call 911 or go to an Emergency Department at a nearby hospital WOUND CARE INSTRUCTIONS: Keep a dry clean dressing on the wound if there is drainage. If you had a bandage initially, it may be removed after 24 hours. Once the wound has quit draining you may leave it open to air. If clothing rubs against the wound or causes irritation and the wound is not draining you may cover it with a dry dressing during the daytime. Try to keep the wound dry and avoid ointments on the wound unless directed to do so. If the wound becomes bright red and painful or starts todrain infected material that is not clear, please contact your physician immediately. 1. You may shower 24 hrs after surgery 2. No soaking in the tub for 4 weeks DIET: There are no dietary restrictions. You may eat any foods that you can tolerate unless instructed otherwise. It is a good idea to eat a high fiber diet and take in plenty of fluids to prevent constipation. If you become constipated, please follow the instructions below. ACTIVITY: You are encouraged to cough, deep breath and use your incentive spirometer if you were given one, every 15-30 minutes when awake. This will help prevent respiratory complications and low grade fevers post-operatively. You may want to hug a pillow when coughing and sneezing to add additional support to the surgical area, if you had abdominal surgery, which will decrease pain during thesetimes. 1. No heavy lifting >20lbs or strenuous exercise for six-eight weeks. No exercise in which you are using core muscles (yoga, pilates, swimming, weight lifting) 2. You may walk as much as you wish. You are encouraged to increase your activity each day after surgery. Stairs are okay. 3. Nothing in the vagina including tampons or penetrative intercourse for 6-8 week. You can expect some light vaginal spotting and discharge for up to six weeks. If bleeding becomes heavy, please contact the office. MEDICATIONS: Pain control following surgery is a priority for both you and your medical provider. You should expect to have some pain after your surgery, your medical provider will make every effort to safely reduce it. The best strategy for controlling your pain after surgery is with acetaminophen (Tylenol) and ibuprofen (Advil/Motrin). Alternating these medications with each other allows you to maximize your pain control. Notify your medical provider, if you have a condition that does not allow you to take acetaminophen or ibuprofen. In addition to acetaminophen and ibuprofen, you can use heating pads or ice packs on your incisions, relaxation techniques, Distractions (such as imagery, watching TV, listeningto the radio, reading a book) or deep breathing to help reduce your pain. If you have pain that is not controlled with the [id number] pain medications (acetaminophen and ibuprofen) you might have what we call ???breakthrough?? pain. You will receive a prescription for a small amount of an opioid pain medication such as Oxycodone, Tramadol, or Dilaudid. ONLY use the se opioid pills if you have breakthrough pain. You should not drive, make important decisions, or operate machinery when taking narcotic pain medication. If you were advised by your medical provider to take acetaminophen (TYLENOL) for pain management after surgery, it most effectively manages pain symptoms when it is taken on a schedule without missing doses (every six or eight hours). Your provider will prescribe a safe daily dose between 2600 - 4000 mg per 24 hour period. If you were advised by your medical provider to take an anti-inflammatory (ibuprofen: ADVIL/MOTRIN)medication for pain management to use in combination with acetaminophen (TYLENOL), you should alternate these medications. Take this medication with food and water. Your provider will prescribe a safe daily dose between 1600 - 3200 mg per 24 hour period. As your pain improves you should slowly decrease the amount of pain medication you are taking. Do NOT exceed the recommended daily dose or take these medications consistently for more than 5 days. Please take pain medications with food. This will minimize stomach upset from the medication. Should you develop nausea and vomiting from the pain medication, or develop a rash, please discontinue the medication and contact your physician. You should not drive, make important decisions, or operate machinery when taking narcotic pain medication. IMPORTANT: Do not take acetaminophen or ibuprofen unless directed by your medical provider. OTHER: Patients are often constipated after general anesthesia and surgery. The patient should continue to take stool softeners (for example, Senokot-S) for the next six weeks (unless diarrhea develops) and consume adequate amounts of water. If the patient remains constipated or unable to pass stool, please try one or all of the following measures: 1. Milk of Magnesia 30cc twice a day as needed by mouth 2. Metamucil 2 tablespoons in 12 ounces of fluid 3. Dulcolax oral or suppositories 4. Prunes or prune juice 5. Miralax daily QUESTIONS: Please feel free to call your physician or the hospital pump and still operator if you have any questions, and they will be glad to assist you. Phone numbers to gynecologic oncology clinics: [facility]: [phone] [facility]: [phone] [facility]: [phone] [facility]: [phone] [facility]: [phone] [facility]: [facility]: [phone] documented in this encounter Medications at Time of Discharge Medication Sig Dispensed Refills Start Date End Date acetaminophen (TYLENOL) 325 MG tabletIndications:S/P hysterectomy Take 2 tablets (650 mg) by mouth every 6 hours as needed for mild pain 40 tablet 02/12/2024 apixaban ANTICOAGULANT (ELIQUIS) 2.5 MG tabletIndications:DVT- PE Prophylaxis Take 1 tablet (2.5 mg) by mouth 2 times daily for 26 days Start tonight at 6 PM 52 tablet 02/12/2024 03/09/2024 cetirizine (ZYRTEC) 10 MG tablet Take 10 mg by mouth daily ibuprofen (ADVIL/MOTRIN) 400 MG tabletIndications:Pelv ic mass Take 1 tablet (400 mg) by mouth every 6 hours as needed for moderate pain 20 tablet 02/12/2024 omeprazole (PRILOSEC OTC) 20 MG EC tablet Take 20 mg by mouth daily oxyCODONE (ROXICODONE) 5 MG tabletIndications:Pers onal history of ovarian cancer,Pelvic mass Take 1 tablet (5 mg) by mouth every 6 hours as needed for severe pain 12 tablet 02/12/2024 senna-docusate (SENOKOT-S/PERICOLACE) 8.6-50 MG tabletIndications:Pelv ic mass Take 2 tablets by mouth 2 times daily as needed for constipation 60 tablet 02/12/2024 vitamin C (ASCORBIC ACID) 500 MG tablet Take 2 tablets by mouth daily documented as of this encounter Progress Notes * Tavia Plummer RN - 02/12/2024 10:41 AM CDT Pt understood discharge orders/instructions : Yes. Pt's belongings : Pt took. Discharge medications : Pt got from pharmacy. Lines : Piv removed. How is pt getting home/transportion : Pt's . Discharge papers : Given to the pt. Follow up appt : As stated on the papers. * Gabrielle Guzman MD - 02/12/2024 6:53 AM CDT Gynecology Oncology Progress Note February 12, 2024 HD#7 Abdominal pain POD#3 s/p XL, DONALD, tumor debulking, cystoscopy, proctoscopy Disease: Recurrent ovarian granulosa cell tumor 24 hour events: - passing flatus - switched to liquid pain medications - tachycardia: EKG sinus tachycardia, DVT US negative Subjective: Patient is feeling better today. Her pain is improved. She passing gas. Tolerating PO without nausea or vomiting. Voiding without difficulty. Denies dizziness, chest pain, SOB. She is hoping to go home today. Objective: Vitals: 02/11/24 0858 02/11/24 1423 02/11/24 1957 02/11/24 2349 BP: 119/79 131/77 121/78 BP Location: Right arm Right arm Right arm Pulse: Resp: Temp: 98.6 ??F (37 ??C) 98.9 ??F (37.2 ??C) 98.6 ??F (37 ??C) TempSrc: Oral Oral Oral SpO2: 96% 99% 97% Weight: 90.7 kg (200 lb) General: NAD CV: RRR, no murmurs Resp: CTAB, no increased work of breathing Abdomen: Soft, mildly tender, mildly distended, no rebound or guarding Incision: Bandage in place with small amount of shadowing Extremities: Non-tender, no edema, SCDs in place Lines/Drains: PIV Intake & Output: (Yesterday // Since midnight) PO: 480 mL // None Urine: 2500 mL // 900 mL Stool: 1x // None Results: No results found for this or any previous visit (from the past 12 hour(s)). Assessment & Plan: Sonam Harkins is a 38 year old with recurrent ovarian granulosa cell tumor admitted with abdominal pain and hemoperitoneum, now POD#3 s/p XL, tumor debulking, cystoscopy, proctoscopy. Doing well postoperatively and meeting milestones for discharge. # Postoperative care # Acute blood loss anemia - FEN: Regular diet - Pain: Scheduled Tylenol and ibuprofen, PRN oxycodone - Heme: Hgb 12 at OSH >> 9.4 pre-op > EBL 250 mL + hemoperitoneum evacuated > 8.7 > 10.2 > stable at 8.7 yesterday; asymptomatic from ABLA - GI: Scheduled Miralax, PRN senna-docusate and antiemetics - : S/p Christensen, voiding - ID: S/p pre-op Ancef/Flagyl # Recurrent ovarian granulosa cell tumor S/p RSO (06/2017), laparoscopic R salpingectomy, removal of R adnexal remnant, omentectomy, stagingbiopsies (07/2017), TLH, LSO, removal of pelvic mass (04/2020), and XL, tumor debulking, and cystotomy repair (05/2020) who has been lost to follow up since 2021 currently admitted for abdominal pain in the setting of suspected recurrent pelvic tumor and hemoperitoneum. Now s/p XL, tumor debulking on 02/08. Inhibin B (02/07) 14. - Follow up with Dr. Pitts postoperatively for care plan # Tachycardia, resolved - EKG (02/10) sinus tachycardia - DVT US (02/10) negative # MDD - No current medications Code status: Full PPX: SCDs, IS, Lovenox Dispo: Discharge to home today Discussed with Dr. Ashton. Christiana Guzman MD CAST IRON DRAIN PIPE LAYER PGY-3 02/12/2024 6:53 AM Team Pager: Associated attestation - Junior Ashton MD - 02/12/2024 4:48 PM CDT Physician Attestation I saw this patient with the resident and agree with the resident/fellow's findings and plan of careas documented in the note. Junior Ashton MD Date of Service (when I saw the patient): 02/12/24 * Jorje Lorenzana RN - 02/11/2024 11:55 AM CDT Patient has been educated on potential risks of choosing to leave the unit and that the responsibility for patient well-being will belong to the patient. Pt has been informed that admission to hospital is due to need for medical treatment. Education given to the patient on some of the potential risks included but are not limited to: - lack of access to nursing intervention - possible missed appointments with MD, therapies, tests - possible missed medications, antibiotics, management of IV's Patient notified staff prior to leaving unit: yes * Gabrielle Guzman MD - 02/11/2024 7:54 AM CDT Gynecology Oncology Progress Note February 11, 2024 HD#6 Abdominal pain POD#2 s/p XL, DONALD, tumor debulking, cystoscopy, proctoscopy Disease: Recurrent ovarian granulosa cell tumor 24 hour events: - Emesis x 1 - Christensen removed, voiding Subjective: Patient continues to report significant gas pain. She has not been taking oral pain medications (except simethicone) because she feels like they stick in her stomach and cause nausea. Shevomited once yesterday. She is passing gas and burping. She has been taking clear liquids only. Sheambulated in the hallway yesterday. Denies dizziness, chest pain, SOB. Her Christensen was removed last night, and she has been voiding since without difficulty. She declines dressing removal this morning,wants to wait until her is here. Objective: Vitals: 02/10/24 1824 02/10/24201102/10/24 2346 02/11/24 0723 BP: 131/86 138/87 125/80 BP Location: Left arm Left arm Right arm Pulse: 111 115 102 Resp: Temp: 99 ??F (37.2 ??C) 98.6 ??F (37 ??C) 98.4 ??F (36.9 ??C) TempSrc: Oral Oral Oral SpO2: 96% 95% 96% Weight: 91.2 kg (201 lb) General: NAD CV: Tachycardic, regular rhythm, no murmurs Resp: CTAB, no increased work of breathing Abdomen: Soft, moderately distended and tympanitic, diffusely tender, no rebound or guarding Incision: Bandage in place with small amount of shadowing Extremities: Non-tender, no edema, SCDs in place Lines/Drains: PIV, Christensen Intake & Output: (Yesterday // Since midnight) PO: 960 mL // None IV: 2528 mL // None Urine: 1850 mL // 400 mL Results: Recent Results (from the past 12 hour(s)) CBC with platelets Collection Time: 02/11/24 7:17 AM Result Value Ref Range WBC Count 10.7 4.0 - 11.0 10e3/uL RBC Count 2.81 (L) 3.80 - 5.20 10e6/uL Hemoglobin 8.7 (L) 11.7 - 15.7 g/dL Hematocrit 25.2 (L) 35.0 - 47.0 % MCV 90 78 - 100 fL MCH 31.0 26.5 - 33.0 pg MCHC 34.5 31.5 - 36.5 g/dL RDW 12.9 10.0 - 15.0 % Platelet Count 220 150 - 450 10e3/uL Assessment & Plan: Sonam Harkins is a 38 year old with recurrent ovarian granulosa cell tumor admitted with abdominal pain and hemoperitoneum, now POD#2 s/p XL, tumor debulking, cystoscopy, proctoscopy. Early postoperative course notable for slow advancement of diet, self limiting to CLD at present. # Postoperative care # Acute blood loss anemia - FEN: ADAT - Pain: Scheduled Tylenol and ibuprofen, PRN oxycodone (switched to liquid this morning), PRN IV Dilaudid for breakthrough pain - Heme: Hgb 12 at OSH >> 9.4 pre-op > EBL 250 mL + hemoperitoneum evacuated > 8.7 > 10.2 > stable at 8.7 this morning; asymptomatic from ABLA - GI: Scheduled Miralax, PRN senna-docusate and antiemetics - : S/p Christensen, voiding - ID: S/p pre-op Ancef/Flagyl # Recurrent ovarian granulosa cell tumor S/p RSO (06/2017), laparoscopic R salpingectomy, removal of R adnexal remnant, omentectomy, stagingbiopsies (07/2017), TLH, LSO, removal of pelvic mass (04/2020), and XL, tumor debulking, and cystotomy repair (05/2020) who has been lost to follow up since 2021 currently admitted for abdominal pain in the setting of suspected recurrent pelvic tumor and hemoperitoneum. Now s/p XL, tumor debulking on 02/08. - Follow up with Dr. Pitts postoperatively for care plan - Follow up in inhibin B (02/07, in process) # Tachycardia Possible secondary to pain vs. anemia. Asymptomatic and VS otherwise normal on room air, so lower concern for PE at this time. - EKG pending - If no improvement after pain medication, will consider DVT US # MDD - No current medications Code status: Full PPX: SCDs, IS, Lovenox Dispo: Pending postoperative recovery Discussed with Dr. Ashton. Christiana Guzman MD [employer] PGY-3 02/11/2024 7:54 AM Team Pager: Associated attestation - Junior Ashton MD - 02/11/2024 5:28 PM CDT Physician Attestation I saw this patient with the resident and agree with the resident/fellow's findings and plan of careas documented in the note. Junior Ashton MD Date of Service (when I saw the patient): 02/11/24 * Manda Farrell MD - 02/10/2024 9:10 PM CDT Brief Progress Note S: In to room to discuss christensen removal. Patient reports she has been feeling weak and is nervous about having christensen removed tonight. Discussed having bedside commode for her and she became tearful but agreed to have christensen removed tonight. Manda Farrell MD Rug Cutter Resident, PGY-4 02/10/2024 9:12 PM * Gabrielle Guzman MD - 02/10/2024 7:18 AM CDT Gynecology Oncology Progress Note February 10, 2024 HD#5 Abdominal pain POD#1 s/p XL, DONALD, tumor debulking, cystoscopy, proctoscopy Disease: Recurrent ovarian granulosa cell tumor 24 hour events: - Surgery - Poor pain control overnight, declining oral medications Subjective: Pain 8/10 at present, primarily cramping and gas pain. The pain responds to IV Dilaudid but then returns. She has not been out of bed. Denies nausea or vomiting. Burping, not passing flatus. Christensen in place. No dizziness, chest pain, SOB, or other concerns. Objective: Vitals: 02/09/24 2100 02/09/24 2300 02/10/24 0005 02/10/24 0414 BP: 123/79 131/81 124/77 120/81 BP Location: Left arm Left arm Pulse: 90 96 Resp: Temp: 99.1 ??F (37.3 ??C) 99.5 ??F (37.5 ??C) TempSrc: Oral Oral SpO2: 92% 94% 96% 95% Weight: General: NAD CV: RRR, no murmurs Resp: CTAB, no increased work of breathing Abdomen: Soft, moderately distended and tympanitic, diffusely tender, no rebound or guarding Incision: Bandage in place with small amount of shadowing Extremities: Non-tender, no edema, SCDs in place Lines/Drains: PIV, Christensen Intake & Output: (Yesterday // Since midnight) IV: 2397 mL // 800 mL Urine: 380 mL // 800 mL Results: Recent Results (from the past 12 hour(s)) CBC with platelets Collection Time: 02/10/24 5:21 AM Result Value Ref Range WBC Count 8.2 4.0 - 11.0 10e3/uL RBC Count 2.82 (L) 3.80 - 5.20 10e6/uL Hemoglobin 8.7 (L) 11.7 - 15.7 g/dL Hematocrit 25.2 (L) 35.0 - 47.0 % MCV 89 78 - 100 fL MCH 30.9 26.5 - 33.0 pg MCHC 34.5 31.5 - 36.5 g/dL RDW 12.8 10.0 - 15.0 % Platelet Count 189 150 - 450 10e3/uL Basic metabolic panel Collection Time: 02/10/24 5:21 AM Result Value Ref Range Sodium 135 135 - 145 mmol/L Potassium 4.1 3.4 - 5.3 mmol/L Chloride 99 98 - 107 mmol/L Carbon Dioxide (CO2) 23 22 - 29 mmol/L Anion Gap 13 7 - 15 mmol/L Urea Nitrogen 7.5 6.0 - 20.0 mg/dL Creatinine 0.69 0.51 - 0.95 mg/dL GFR Estimate >90 >60 mL/min/1.73m2 Calcium 8.6 (L) 8.8 - 10.4 mg/dL Glucose 106 (H) 70 - 99 mg/dL Magnesium Collection Time: 02/10/24 5:21 AM Result Value Ref Range Magnesium 1.8 1.7 - 2.3 mg/dL Phosphorus Collection Time: 02/10/24 5:21 AM Result Value Ref Range Phosphorus 3.7 2.5 - 4.5 mg/dL Glucose by meter Collection Time: 02/10/24 6:01 AM Result Value Ref Range GLUCOSE BY METER POCT 100 (H) 70 - 99 mg/dL Assessment & Plan: Sonam Harkins is a 38 year old with recurrent ovarian granulosa cell tumor admitted with abdominal pain and hemoperitoneum, now POD#1 s/p XL, tumor debulking, cystoscopy, proctoscopy. Early postoperative course notable for poor pain control, and patient declining everything except IV Dilaudid overnight. Discussed importance of taking oral pain medications. # Postoperative care # Acute blood loss anemia - FEN: ADAT, on LR 100 mL/hr - Pain: Scheduled Tylenol and ibuprofen, PRN oxycodone, PRN IV Dilaudid for breakthrough pain - Heme: Hgb 12 at OSH >> 9.4 pre-op > EBL 250 mL + hemoperitoneum evacuated > 8.7 > will repeat this afternoon; asymptomatic from ABLA - GI: Scheduled Miralax, PRN senna-docusate and antiemetics - : Christensen in place, remove today - ID: S/p pre-op Ancef/Flagyl # Recurrent ovarian granulosa cell tumor S/p RSO (06/2017), laparoscopic R salpingectomy, removal of R adnexal remnant, omentectomy, stagingbiopsies (07/2017), TLH, LSO, removal of pelvic mass (04/2020), and XL, tumor debulking, and cystotomy repair (05/2020) who has been lost to follow up since 2021 currently admitted for abdominal pain in the setting of suspected recurrent pelvic tumor and hemoperitoneum. Now s/p XL, tumor debulking on 02/08. - Follow up with Dr. Pitts postoperatively for care plan - Follow up in inhibin B (02/07, in process) # MDD - No current medications Code status: Full PPX: SCDs, IS, Lovenox POD#1 pending repeat Hgb this evening Dispo: Pending postoperative recovery Discussed with Dr. Ashton. Christiana Guzman MD [employer] PGY-3 02/10/2024 7:01 AM Team Pager: Associated attestation - Junior Ashton MD - 02/10/2024 7:30 AM CDT Physician Attestation I saw this patient with the resident and agree with the resident/fellow's findings and plan of careas documented in the note. Junior Ashton MD Date of Service (when I saw the patient): 02/10/24 * Linda Cummings RN - 02/10/2024 6:37 AM CDT BP 124/77 (BP Location: Left arm) Pulse 90 Temp 99.1 ??F (37.3 ??C) (Oral) Resp 21 Wt 90.1 kg (198 lb 10.2 oz) LMP 05/07/2020 SpO2 96% BMI 35.20 kg/m?? Activity: AX1. Pain: Managed by x5 iv dilaudid, declined oxycodone, tylenol, ibuprofen because she says it doesn'thelp much and oral meds make her sick. Encouraged to take a snack with the meds but she declined. Neuro: AOX4 Cardiac: WDL. Respiratory: RA, no accessory muscle use. Capno GI/: Nausea managed by x1 prn compazine, x1 prn simethicon for gas pain and cramping. Voiding spontaneously via christensen. LBM 02/07 Diet: Regular Lines: R,L PIV. MIVF infusing at 100ml/hr Wounds: ABD incision dressing with drainage marked. Labs/imaging: Reviewed, no replacements given. No changes this shift. Pt doing ok post op except for pain. Provider came to bedside to assess. Pt sleeping between cares with at bedside. Continue to monitor and follow POC * Linda Cummings RN - 02/10/2024 5:13 AM CDT To mechanic chief via web based paging [phone] Pt requesting Pepcid. Frances RN #[phone] * Manda Farrell MD - 02/09/2024 7:42 PM CDT Gynecologic Oncology Postoperative Check Note 02/09/2024 S: Patient reports feeling significant pain, currently 8/10, and feeling very tired. No dizziness or lightheadedness. Denies nausea or vomiting. Christensen in place. O: BP 130/82 Pulse 96 Temp 99 ??F (37.2 ??C) (Oral) Resp 15 Wt 90.1 kg (198 lb 10.2 oz) LMP 05/07/2020 SpO2 99% BMI 35.20 kg/m?? Gen: NAD Cardio: RRR Resp: CTAB Abdomen: Non-distended, appropriately tender Incision: CDI, bandage with < 50% shadowing (outlined) Extremities: Non-tender, no erythema, trace edema I/O: Not recorded. A/P: 38 year old POD#0 s/p XL, tumor debulking, CUSA, cysto, procto. Doing okay post-operatively, working on pain control. Dz: Dz: Recurrent granulosa cell tumor s/p dx lsc, XL, lysis of adhesions, RSO (07/15/17) > IUD for simple hyperplasia > Lsc RS, resection of right ovarian remnant (07/2017) > TLH, LSO, removal of pelvic mass (05/11/20) > re-excision of vagina and posterior cul-de-sac mass, repair of cystotomy (05/2020) Plan #Post-operative status - ADAT, mIVF - christensen out POD#1 - AM CBC, BMP, mag, phos - Lovenox POD#1 after AM Hgb Pain: Tylenol, Oxycodone, IV Dilaudid prn Heme: Hgb 10.3 Dispo: Pending post-operative course Manda Farrell MD Rug Cutter Resident, PGY-4 02/09/2024 7:44 PM [facility] Pager: [phone] * Manda Farrell MD - 02/09/2024 6:09 AM CDT Gynecology Oncology Progress Note February 09, 2024 Ms. Sonam Harkins is a 38 year old HD#4 for abdominal pain in the setting of recurrent granulosacell tumor Dz: recurrent granulosa cell tumor 24 hour events: - CT chest no mets Subjective: Pain is moderately well controlled. Ambulating without dizziness. Passing flatus. Voiding spontaneously. Denies fevers, chills, chest pain, SOB. No other questions or concerns. Objective: BP 110/73 (BP Location: Left arm) Pulse 95 Temp 98.4 ??F (36.9 ??C) (Oral) Resp 18 Wt 90.1 kg (198 lb 10.2 oz) LMP 05/07/2020 SpO2 95% BMI 35.20 kg/m?? General: overweight female, in NAD CV: RRR Resp: CTAB, no increased work of breathing Abdomen: soft, moderately tender, moderately distended Extremities: nontender, no edema, SCDs in place Lines/Drains: pIV I/Os (Yesterday // Since Midnight) IV: 215 mL // NR PO: NR // 0 mL Urine not recorded New labs/imaging- Latest Reference Range & Units 02/09/24 05:32 WBC 4.0 - 11.0 10e3/uL 7.1 Hemoglobin 11.7 - 15.7 g/dL 9.4 (L) Hematocrit 35.0 - 47.0 % 27.6 (L) Platelet Count 150 - 450 10e3/uL 155 RBC Count 3.80 - 5.20 10e6/uL 3.06 (L) MCV 78 - 100 fL 90 MCH 26.5 - 33.0 pg 30.7 MCHC 31.5 - 36.5 g/dL 34.1 RDW 10.0 - 15.0 % 13.1 (L): Data is abnormally low Previous labs/imaging: Latest Reference Range & Units 02/08/24 15:43 WBC 4.0 - 11.0 10e3/uL 9.7 Hemoglobin 11.7 - 15.7 g/dL 10.3 (L) Hematocrit 35.0 - 47.0 % 30.0 (L) Platelet Count 150 - 450 10e3/uL 170 RBC Count 3.80 - 5.20 10e6/uL 3.34 (L) MCV 78 - 100 fL 90 MCH 26.5 - 33.0 pg 30.8 MCHC 31.5 - 36.5 g/dL 34.3 RDW 10.0 - 15.0 % 13.2 (L): Data is abnormally low Latest Reference Range & Units 02/08/24 15:43 Sodium 135 - 145 mmol/L 138 Potassium 3.4 - 5.3 mmol/L 4.2 Chloride 98 - 107 mmol/L 102 Carbon Dioxide (CO2) 22 - 29 mmol/L 24 Urea Nitrogen 6.0 - 20.0 mg/dL 6.5 Creatinine 0.51 - 0.95 mg/dL 0.68 GFR Estimate >60 mL/min/1.73m2 >90 Calcium 8.6 - 10.0 mg/dL 9.3 Anion Gap 7 - 15 mmol/L 12 Latest Reference Range & Units 02/08/24 15:43 CA 125 <=38 U/mL 13 Assessment: 38 year old HD#4 abdominal pain Dz: Recurrent granulosa cell tumor s/p dx lsc, XL, lysis of adhesions, RSO (07/15/17) > IUD for simple hyperplasia > Lsc RS, resection of right ovarian remnant (07/2017) > TLH, LSO, removal of pelvic mass (05/11/20) > re-excision of vagina and posterior cul-de-sac mass, repair of cystotomy (05/2020) Plan # Recurrent ovarian granulosa cell tumor # Acute blood loss anemia Concern for hemoperitoneum due to bleeding from pelvic mass. Patient currently hemodynamically stable with normal vital signs. Abdominal exam notable for diffuse tenderness and rebound tenderness consistent with expected findings in the setting of hemoperitoneum. Hgb on arrival to [facility] stable from prior at 10.3. Imaging from outside hospital available in PACS, pending read by radiology here. Overall, given patient's clinical stability, no indication for emergent surgical intervention at this time. - NPO at midnight for add on procedure today with Dr. Pitts, with plan for exploratory laparotomyand tumor debulking s/p consent - Repeat CBC in AM - Follow up radiology read of OSH CT abdomen/pelvis - Follow up inhibin B; CA125 13 # MDD - No current medications Pain: Tylenol, Oxycodone, Dilaudid Heme: Hgb 10.3 Pulm: IS GI: Prn antiemetics Psych/Neuro/MSK: MDD, venlafaxine, TBI, ADHD PPX: SCDs, IS Dispo: pending clinical course Drains/Lines: pIV Manda Farrell MD Rug Cutter Resident, PGY-4 02/09/2024 8:14 AM [facility] Pager: [phone] Associated attestation - Junior Ashton MD - 02/09/2024 8:15 AM CDT Physician Attestation I saw this patient with the resident and agree with the resident/fellow's findings and plan of careas documented in the note. Junior Ashton MD Date of Service (when I saw the patient): 02/09/24 * Geetha Munoz RN - 02/09/2024 4:31 AM CDT Nursing Focus: Admission D: Patient admitted from ED for abdominal pain related to cervical cancer mass, internal bleeding I: Upon arrival to the unit patient was oriented to room, unit, and call light. Patient???s height,weight, and vital signs were obtained. Allergies reviewed and allergy band applied. MD notified of patient???s arrival on the unit. Adult AVS completed. Head to toe assessment completed. Education assessment completed. Care plan initiated. A: Vital signs stable upon admission. Patient rates pain at 9/10. Two RN skin assessment completed.Second RN was Keri Rojas. Significant Skin Findings include old midline abd incision, no other issues found. P: Continue with plan of care. Notify MD with any concerns or changes in patient status. * Manda Farrell MD - 02/08/2024 9:06 PM CDT Brief Progress Note S: in to room for documented fever of 100.8*F at 2043. Patient reports feeling well and denies subjective fevers or chills. No new cough, shortness of breath, dysuria, or worsening abdominal pain. Eating and drinking without nausea or vomiting. Patient reports she was not told she had a fever and that the last time her RN came to check her temp it was 98*F. O: BP 103/64 (BP Location: Right arm, Patient Position: Supine) Pulse 54 Temp (!) 100.8 ??F (38.2 ??C) (Oral) Resp 18 LMP 05/07/2020 SpO2 97% Gen: NAD HEENT: normocephalic, atraumatic Pulm: CTABL Cardiac: RRR Abd: soft, minimally tender to palpation A/P: Sonamkatherine Harkins is a 38 year old female admitted on HD#4 for abdominal pain in the setting ofrecurrent granulosa cell tumor, now with new fever. - Recheck temperature in 30 minutes. Will verify vitals with RN, unable to reach currently. - if still elevated, plan for blood cultures x2, urine cx - CT chest with no evidence of thoracic metastatic disease and right greater than left basilar atelectasis. Manda Farrell MD Rug Cutter Resident, PGY-4 02/08/2024 9:11 PM -- Addendum - After reviewing with RN, appears vitals were for another patient and have been reviewed and updated. No concern for fever at this time. Manda Farrell MD Rug Cutter Resident, PGY-4 02/09/2024 5:13 AM documented in this encounter H&P Notes * Gabrielle Guzman MD - 02/08/2024 12:50 PM CDT [facility] History and Physical Sonam Harkins Age: [age] year old Date of : 1985 Date of Admission: 02/08/2024 Primary care provider: Shanti Lara Chief Complaint: Abdominal pain History of Present Illness: This patient is a 38 year old female with recurrent ovarian granulosa cell tumor who presents as a transfer of care from the [facility] ED for abdominal pain and suspected intraabdominal bleeding from recurrent tumor. Patient reports acute onset of severe abdominal pain 2 days ago on Thursday morning. The pain is constant and has been worsening. She reports pain that radiates up to her shoulders, making it difficult to take a deep breath. She has been feeling nauseous today and vomited once. She has been having diarrhea recently, last BM yesterday. She denies fever, chills, chest pain, SOB, dizziness. She denies vaginal bleeding. At the outside hospital, patient's hemoglobin reportedly dropped from ~12 to 10. She was reportedlytachycardic in the 100s. She had a CT abdomen/pelvis done, which showed concern for recurrent pelvic mass with hemoperitoneum. She was transferred to [facility] for possible surgical intervention. Cancer Treatment History: 07/15/17- presented to [facility] ED with right ovarian mass and hemoperitoneum, CA125 23 Laparoscopy converted to Open Laparotomy, DONALD RSO Operative findings: Laparoscopy showed a large right ovarian cyst. There were significant adhesionsof omentum and bowel to the abdominal wall on the left side of the abdomen and surrounding the umbilicus. Laparotomy revealed that the ovarian cyst was full of clotted blood (almost 800cc just withinthe ovary). There is mesh in the anterior abdominal wall in the midline. The uterus is small and free of adhesions. The left ovary was uanble to be visualized due to adhesions, but was palpated and is small. Final path- granulosa cell tumor 07/30/17- N path consult FINAL DIAGNOSIS: CASE FROM [facility], [place], [place] ([id number], OBTAINED 07/16/2017): A. OVARY, FALLOPIAN TUBE, RIGHT, SALPINGO-OOPHORECTOMY: - Granulosa cell tumor, adult type - Fallopian tube unremarkable, negative for malignancy B. ENDOMETRIUM, CURETTINGS: - Endometrial hyperplasia without atypia We discussed the pros and cons of staging in light of her previous findings. She underwent a CT on 08/13/2017 which demonstrated a few small anterior mediastinal nodes, but no clear areas of recurrence or persistent disease. After initially declining staging she changed her mind and underwent Laparoscopic right salpingectomy, removal of right adnexal remnant, omentectomy, staging biopsies, peritoneal washings in 07/2017. 08/[address] her primary OBGYN for persistent bleeding after primary surgery and simple hyperplasia on pre-op evaluation. It is unclear if she was subsequently biopsied to confirm resolution but her most recent US demonstrated a 3mm stripe and her bleeding had not returned since placement. Component Latest Ref Rng & Units 08/03/2017 05/24/2018 Inhibin B pg/mL 13 06/2018 IMPRESSION: In this patient with a history of granulosa cell tumor of the right ovary status post resection: 1. 1.5 cm groundglass nodule in the lingula which indeterminate. Recommend short-term interval follow-up in potential 3 months for further characterization. 2. There are multiple mildly enlarged supraclavicular, periaortic abdominal lymph nodes without suspicious features. 3. No evidence of intra-abdominal malignancy. 10/2018 CT: IMPRESSION: In this patient with a history of granulosa cell tumor of the right ovary status post resection: 1. 1.5 cm groundglass nodule in the lingula no longer demonstrated solid component, suggesting inflammatory etiology. Attention on routine follow-up. 2. Stable mildly enlarged supraclavicular, prevascular and retroperitoneal (nonenlarged but multiple) lymph nodes without suspicious features. 3. No evidence of intra-abdominal malignancy. 04/2019 CT - G[facility] Component Latest Ref Rng & Units 08/03/2017 05/24/2018 11/08/2018 05/16/2019 Inhibin B pg/mL 13 10 23 10 CA 125 0 - 30 U/mL 7 6 She had lower abdominal pain in 04/[address] scan which demonstrated a complex 6+ cm mass int he cul de sac. After discussing options she was inclined to definitive surgery int he form ofhysterectomy and removal of the remaining ovary. The surgery was notable for a hemorrhagic appearing mass which on frozen was felt c/w corpus luteum. The mass was adherent to the wall and was peeled off but Likely incompletely as the benign report suggested further excision may be more harmful thanbeneficial. The path final reports demonstrated: A. POSTERIOR CUL-DE-SAC MASS, BIOPSY: - Fibrous adhesions and granulation tissue - Negative for malignancy B. POSTERIOR CUL DE SAC MASS #2, BIOPSY: - Fibrin, hyalinized fibrous tissue and granulation tissue - Negative for malignancy C. UTERUS, LEFT TUBE AND OVARY, HYSTERECTOMY WITH LEFT SALPINGO-OOPHORECTOMY: - Proliferative endometrium - Uterine serosal fibrous adhesions - Cervix with squamous metaplasia and reactive changes - Ovary with hemorrhagic follicular cysts and surface fibrous adhesions - Fallopian tube with endometriosis D. POSTERIOR CUL-DE-SAC MASS, EXCISION: - Recurrent granulosa cell tumor (4.9 cm hemorrhagic tissue aggregates) She underwent re-excision of the vagina and mass 05/2020 (complicated by cystotomy which was identified and closed. PATH FINAL DIAGNOSIS: A: Left pelvic peritoneum, biopsy: - Peritoneum with marked foreign body giant cell reaction and adhesions - Negative for malignancy B: Sigmoid epiploicae, excision: - Epiploic appendage with fat necrosis, foreign body giant cell reaction, and adhesions - Negative for malignancy C: Anterior vaginal margin, excision (C1FS): - Squamous mucosa with granulation tissue, marked acute and chronic inflammation, and focal foreign body giant cell reaction - Negative for malignancy D: Posterior vaginal margin, excision (D1FS): - Squamous mucosa and fibroconnective tissue with granulation tissue, marked acute and chronic inflammation, and foreign body giant cell reaction - Negative for malignancy E: Vaginal cuff tumor, resection: - Recurrent/metastatic ADULT GRANULOSA CELL TUMOR - Necrosis and foreign body giant cell reaction F: Vaginal apex tumor, resection: - Squamous mucosa and fibroconnective tissue with granulation tissue, florid foreign body giant cell reaction, acute and chronic inflammation - Organizing thrombi in arteries - Negative for malignancy Past Medical History: Past Medical History: Diagnosis Date ADHD (attention deficit hyperactivity disorder) Chronic neck and back pain Depression Granulosa cell tumor TBI (traumatic brain injury) (H) Past Surgical History: Past Surgical History: Procedure Laterality Date ABDOMEN SURGERY C section ARTHROSCOPY KNEE Right x3 ARTHROSCOPY KNEE Left x1 CYSTOSCOPY N/A 05/11/2020 Procedure: CYSTOSCOPY; Surgeon: Jonathan Pitts MD; Location: [facility] LAPAROSCOPIC HYSTERECTOMY TOTAL, BILATERAL SALPINGO-OOPHORECTOMY, COMBINED Left 05/11/2020 Procedure: Laparoscopy, hysterectomy, left salpingo-oophorectomy, removal of pelvic mass; Surgeon: Jonathan Pitts MD; Location: [facility] LAPAROSCOPY DIAGNOSTIC (APPLICATION INTEGRATION ENGINEER) 06/2017 Ruptured right ovarian cyst LAPAROSCOPY DIAGNOSTIC (APPLICATION INTEGRATION ENGINEER) N/A 08/21/2017 Procedure: LAPAROSCOPY DIAGNOSTIC (APPLICATION INTEGRATION ENGINEER); diagnostic Laparoscopy, Omentectomy , peritoneal biopsy, excision of right adnexal remnant, right ureteral lysis. Anesthesia Block; Surgeon: Jonathan Pitts MD; Location: [facility] LAPAROTOMY, TUMOR DEBULKING, COMBINED Bilateral 06/19/2020 Procedure: Laparotomy, Tumor debulking, Ureterolysis, Repair of cystotomy, cystoscopy; Surgeon: Jonathan Pitts MD; Location: [facility] PROCTOSCOPY N/A 05/11/2020 Procedure: Proctoscopy; Surgeon: Jonathan Pitts MD; Location: [facility] TUBAL LIGATION Social History: Social History Tobacco Use Smoking status: Former Current packs/day: 0.00 Average packs/day: 0.3 packs/day for 17.7 years (4.4 ttl pk-yrs) Types: Cigarettes Start date: 11/08/2000 Quit date: 07/27/2018 Years since quittin.5 Smokeless tobacco: Never Substance Use Topics Alcohol use: Not Currently Family History: No family history on file. Allergies: Allergies Allergen Reactions Codeine Rash Gabapentin Visual Disturbance Severe headache Morphine Rash MORPHINE AND RELATED Tramadol Rash Medications: Current Facility-Administered Medications Medication Dose Route Frequency Provider Last Rate Last Admin HYDROmorphone (DILAUDID) injection 1 mg 1 mg Intravenous Once Ney Fung MD Current Outpatient Medications Medication Sig Dispense Refill acetaminophen (TYLENOL) 325 MG tablet Take 2 tablets (650 mg) by mouth every 4 hours as needed for mild pain 50 tablet 0 Biotin 2500 MCG CAPS (Patient not taking: Reported on 11/11/2021) Calcium Carb-Cholecalciferol (CALCIUM 600+D3 PO) cholecalciferol 25 MCG (1000 UT) TABS Multiple Vitamins-Minerals (MULTI ADULT GUMMIES PO) venlafaxine (EFFEXOR) 37.5 MG tablet Take 1 tablet (37.5 mg) by mouth daily Start with 37.5 mg (onetablet) once daily for one week. After week one, increase to 75 mg (two tablets) once daily for hotflashes (Patient not taking: Reported on 11/11/2021) 60 tablet 4 venlafaxine (EFFEXOR) 75 MG tablet TAKE 1 TABLET(75 MG) BY MOUTH DAILY 30 tablet 3 Review of Systems: CONSTITUTIONAL: Negative for fevers, chills, fatigue, anorexia and weight loss SKIN: Negative for rashes, lumps, or bumps HEENT: Negative for vision changes RESPIRATORY: Negative for cough, shortness of breath CARDIOVASCULAR: Negative for chest pain, dyspnea, palpitations, edema GASTROINTESTINAL: + Nausea, vomiting, diarrhea, abdominal pain GENITOURINARY: Negative for dysuria, vaginal bleeding MUSCULOSKELETAL: Negative for muscle weakness, joint stiffness, joint swelling, back pain NEUROLOGIC: Negative for headaches, syncope, weakness Physical Exam: Vitals: 02/08/24 1213 BP: 123/81 Pulse: 93 Resp: 18 Temp: 98.1 ??F (36.7 ??C) SpO2: 96% General: NAD, tearful HEENT: Normal appearance Cardiovascular: Regular rate and rhythm without murmurs, clicks, gallops or rub Respiratory: Non-labored breathing on room air, lungs clear to auscultation bilaterally Gastrointestinal: Abdomen soft, mildly distended, diffusely tender to palpation, + rebound tenderness, no guarding Neuro: A&O x4 Extremities: No LE edema or calf tenderness Lines: PIV Data: Results for orders placed or performed during the hospital encounter of 02/08/24 (from the past 24 hour(s)) CBC with platelets Result Value Ref Range WBC Count 9.7 4.0 - 11.0 10e3/uL RBC Count 3.34 (L) 3.80 - 5.20 10e6/uL Hemoglobin 10.3 (L) 11.7 - 15.7 g/dL Hematocrit 30.0 (L) 35.0 - 47.0 % MCV 90 78 - 100 fL MCH 30.8 26.5 - 33.0 pg MCHC 34.3 31.5 - 36.5 g/dL RDW 13.2 10.0 - 15.0 % Platelet Count 170 150 - 450 10e3/uL Basic metabolic panel Result Value Ref Range Sodium 138 135 - 145 mmol/L Potassium 4.2 3.4 - 5.3 mmol/L Chloride 102 98 - 107 mmol/L Carbon Dioxide (CO2) 24 22 - 29 mmol/L Anion Gap 12 7 - 15 mmol/L Urea Nitrogen 6.5 6.0 - 20.0 mg/dL Creatinine 0.68 0.51 - 0.95 mg/dL GFR Estimate >90 >60 mL/min/1.73m2 Calcium 9.3 8.6 - 10.0 mg/dL Glucose 112 (H) 70 - 99 mg/dL ABO/Rh type and screen Narrative The following orders were created for panel order ABO/Rh type and screen. Procedure Abnormality Status --------- ------ Adult Type and Screen[[id number]] Final result Please view results for these tests on the individual orders. CA 125 Result Value Ref Range CA 125 13 <=38 U/mL Narrative This result is obtained using the [employer] CA 125 II method on the ezequiel e801 immunoassay analyzer. Results obtained with different assay methods or kits cannot be used interchangeably. 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 # Recurrent ovarian granulosa cell tumor # Acute blood loss anemia Concern for hemoperitoneum due to bleeding from pelvic mass. Patient currently hemodynamically stable with normal vital signs. Abdominal exam notable for diffuse tenderness and rebound tenderness consistent with expected findings in the setting of hemoperitoneum. Hgb on arrival to [facility] stable from prior at 10.3. Imaging from outside hospital available in PACS, pending read by radiology here. Overall, given patient's clinical stability, no indication for emergent surgical intervention at this time. - Regular diet - NPO at midnight for add on procedure tomorrow with Dr. Pitts, with plan for exploratory laparotomy and tumor debulking - Repeat CBC in AM - Follow up radiology read of OSH CT abdomen/pelvis - Follow up CA 125, inhibin B # MDD - No current medications Code status: Full PPX: SCDs, IS Dispo: Pending hospital course Discussed and seen with Dr. Dumont and Dr. Ashton. Christiana Guzman MD [employer] PGY-3 02/08/2024 12:50 PM Team Pager: Associated attestation - Junior Ashton MD - 02/09/2024 8:08 AM CDT Physician Attestation I saw this patient with the resident and agree with the resident/fellow's findings and plan of careas documented in the note. Junior Ashton MD Date of Service (when I saw the patient): 02/09/24 documented in this encounter Nursing Notes * Rosa Ponce RN - 02/09/2024 1:12 PM CDT TAP block performed without complications. VSS. Pt tolerated well. Will continue to monitor. * Rosa Ponce RN - 02/09/2024 12:19 PM CDT Pt had a hysterectomy, refuses HCG test at this time. documented in this encounter ED Notes * Tom Lopez RN - 02/09/2024 2:25 AM CDT ED 24 [facility] pt has not inpatient bed request order. will not be assigned to a floor until this is in. Thanks Amrik [phone] Paged front end drupal developer/onc first call * Chivo Pedro RN - 02/08/2024 12:10 PM CDT LILLY from [place] ED. Pt transferred to [facility] for obgyn consult. Pt woke up Thursday with 10/10 bilateral lower quadrant pain. Patient has history of cervical cancer and pelvic mass. VSS en route. 113/80 90 bpm 95% RA Afebrile Patient did receive dilaudid prior to transfer. EMS gave 50 mcg fentanyl and NS en route. 20g RAC PIV. * Sakshi Hinojosa RN - 02/08/2024 11:49 AM CDT Bed: ED24 Expected date: Expected time: Means of arrival: Comments: [place] transfer 38f ovarian cx Internally bleeding pelvic mass Serial hg 12-->10 Vss tachy upon standing NPO except ice chips, has a PIV in R AC * Ney Fung MD - 02/08/2024 11:49 AM CDT ED Provider Note [facility] History Chief Complaint Patient presents with Abdominal Pain The history is provided by medical records and the patient. Sonam Harkins is a 38 year old female with history of recurrent ovarian granulosa cell tumor s/pTAH and BSO who presents to the ED as a transfer from [place] ED for further evaluation of new bleeding pelvic mass with dropping Hgb. Per report patient's Hgb decreased from 12 to 10 overnight. Pain started Satur morning and has been constant in the lower abdomen since. Pain is exacerbated with urination, bowel movements, and deep inspiration. She feels very bloated. She is nauseous and has vomited, but this is improved with Zofran. She currently rates her pain a 6/10. She received meds by EMS with some improvement. She was transferred here for further evaluation and likely surgery with [facility]/Onc. Past Medical History Past Medical History: Diagnosis Date ADHD (attention deficit hyperactivity disorder) Chronic neck and back pain Depression Granulosa cell tumor TBI (traumatic brain injury) (H) Past Surgical History: Procedure Laterality Date ABDOMEN SURGERY C section ARTHROSCOPY KNEE Right x3 ARTHROSCOPY KNEE Left x1 CYSTOSCOPY N/A 05/11/2020 Procedure: CYSTOSCOPY; Surgeon: Jonathan Pitts MD; Location[facility] LAPAROSCOPIC HYSTERECTOMY TOTAL, BILATERAL SALPINGO-OOPHORECTOMY, COMBINED Left 05/11/2020 Procedure: Laparoscopy, hysterectomy, left salpingo-oophorectomy, removal of pelvic mass; Surgeon: Jonathan Pitts MD; Location: [facility] LAPAROSCOPY DIAGNOSTIC (APPLICATION INTEGRATION ENGINEER) 06/2017 Ruptured right ovarian cyst LAPAROSCOPY DIAGNOSTIC (APPLICATION INTEGRATION ENGINEER) N/A 08/21/2017 Procedure: LAPAROSCOPY DIAGNOSTIC (APPLICATION INTEGRATION ENGINEER); diagnostic Laparoscopy, Omentectomy , peritoneal biopsy, excision of right adnexal remnant, right ureteral lysis. Anesthesia Block; Surgeon: Jonathan Pitts MD; Location: [facility] LAPAROTOMY, TUMOR DEBULKING, COMBINED Bilateral 06/19/2020 Procedure: Laparotomy, Tumor debulking, Ureterolysis, Repair of cystotomy, cystoscopy; Surgeon: Jonathan Pitts MD; Location: [facility] PROCTOSCOPY N/A 05/11/2020 Procedure: Proctoscopy; Surgeon: Jonathan Pitts MD; Location: [facility] TUBAL LIGATION acetaminophen (TYLENOL) 325 MG tablet Biotin 2500 MCG CAPS Calcium Carb-Cholecalciferol (CALCIUM 600+D3 PO) cholecalciferol 25 MCG (1000 UT) TABS Multiple Vitamins-Minerals (MULTI ADULT GUMMIES PO) venlafaxine (EFFEXOR) 37.5 MG tablet venlafaxine (EFFEXOR) 75 MG tablet Allergies Allergen Reactions Codeine Rash Gabapentin Visual Disturbance Severe headache Morphine Rash MORPHINE AND RELATED Tramadol Rash Family History No family history on file. Social History Social History Tobacco Use Smoking status: Former Current packs/day: 0.00 Average packs/day: 0.3 packs/day for 17.7 years (4.4 ttl pk-yrs) Types: Cigarettes Start date: 11/08/2000 Quit date: 07/27/2018 Years since quittin.5 Smokeless tobacco: Never Substance Use Topics Alcohol use: Not Currently Drug use: No A medically appropriate review of systems was performed with pertinent positives and negatives noted in the HPI, and all other systems negative. Physical Exam BP: 123/81 Pulse: 93 Temp: 98.1 ??F (36.7 ??C) Resp: 18 SpO2: 96 % Physical Exam Vitals and nursing note reviewed. Constitutional: General: She is not in acute distress. Appearance: Normal appearance. She is not diaphoretic. HENT: Head: Atraumatic. Mouth/Throat: Mouth: Mucous membranes are moist. Eyes: General: No scleral icterus. Conjunctiva/sclera: Conjunctivae normal. Cardiovascular: Rate and Rhythm: Normal rate. Heart sounds: Normal heart sounds. Pulmonary: Effort: No respiratory distress. Breath sounds: Normal breath sounds. Abdominal: General: Abdomen is flat. Bowel sounds are normal. There is no distension. Palpations: Abdomen is soft. Tenderness: There is abdominal tenderness in the right lower quadrant, suprapubic area and left lower quadrant. There is no left CVA tenderness, guarding or rebound. Negative signs include Bruno's sign. Hernia: No hernia is present. Musculoskeletal: Cervical back: Neck supple. Skin: General: Skin is warm. Findings: No rash. Neurological: General: No focal deficit present. Mental Status: She is alert and oriented to person, place, and time. Psychiatric: Mood and Affect: Mood is anxious. Behavior: Behavior normal. ED Course, Procedures, & Data Procedures A consult was attained from the front end drupal developer/onc service. The case was discussed with the senior resident from that service. No results found for any visits on 02/08/24. Medications lidocaine 1 % 0.1-1 mL (has no administration in time range) lidocaine (LMX4) cream (has no administration in time range) sodium chloride (PF) 0.9% PF flush 3 mL (has no administration in time range) sodium chloride (PF) 0.9% PF flush 3 mL (has no administration in time range) senna-docusate (SENOKOT-S/PERICOLACE) 8.6-50 MG per tablet 1 tablet (has no administration in time range) Or senna-docusate (SENOKOT-S/PERICOLACE) 8.6-50 MG per tablet 2 tablet (has no administration in time range) lactated ringers infusion ( Intravenous $New Bag 02/08/24 1344) acetaminophen (TYLENOL) tablet 650 mg (has no administration in time range) Or acetaminophen (TYLENOL) Suppository 650 mg (has no administration in time range) oxyCODONE (ROXICODONE) tablet 5 mg (has no administration in time range) oxyCODONE IR (ROXICODONE) tablet 10 mg (10 mg Oral $Given 02/08/24 1319) HYDROmorphone (DILAUDID) injection 0.2 mg (has no administration in time range) HYDROmorphone (DILAUDID) injection 0.4 mg (has no administration in time range) ondansetron (ZOFRAN) injection 4 mg (has no administration in time range) prochlorperazine (COMPAZINE) injection 10 mg (has no administration in time range) famotidine (PEPCID) injection 20 mg (20 mg Intravenous $Given 02/08/24 1343) Labs Ordered and Resulted from Time of ED Arrival to Time of ED Departure - No data to display No orders to display Critical care was not performed. Medical Decision Making The patient's presentation was of high complexity (an acute health issue posing potential threat tolife or bodily function). The patient's evaluation involved: ordering and/or review of 3+ test(s) in this encounter (see separate area of note for details) discussion of management or test interpretation with another health professional (see separate areaof note for details) The patient's management necessitated high risk (a parenteral controlled substance), high risk (a decision regarding emergency major procedure (likely to the OR with front end drupal developer/onc)), and high risk (a decision regarding hospitalization). Assessment & Plan 38 yo female transferred here from [place] for abdominal pain and a new ovarian mass that is actively bleeding internally. She has a history of ovarian CA in the past that had been treated and shewas in remission. Her Hgb trended from 12 to 10 overnight. [facility] accepted her as a transfer as this is their patient. [facility]c consulted and evaluated the pt and sent additional labs. They will admit her to their service for monitoring and likely surgery. I have reviewed the nursing notes. I have reviewed the findings, diagnosis, plan and need for follow up with the patient. New Prescriptions No medications on file Final diagnoses: Ovarian mass Active internal bleeding ILayne, am serving as a trained medical superintendent to document services personally performed by Ney Fung MD, based on the provider's statements to me. INey MD, was physically present and have reviewed and verified the accuracy of this note documented by Layne Lopes. Ney Fung MD [facility] EMERGENCY DEPARTMENT 02/08/2024 Ney Fung MD 02/08/24 1450 documented in this encounter Miscellaneous Notes * Plan of Care - Kamini Allen, RN - 02/12/2024 5:00 AM CDT [id number] BP 121/78 (BP Location: Right arm) Pulse 102 Temp 98.6 ??F (37 ??C) (Oral) Resp 16 Wt 90.7 kg (200 lb) LMP 05/07/2020 SpO2 97% BMI 35.44 kg/m?? Reason for admission: Admit abdominal pain 02/07,with recurrent ovarian granulosa cell tumor admitted with abdominal pain and hemoperitoneum, now POD#3 s/p XL, tumor debulking, cystoscopy, proctoscopy. Activity: Up ind. at bedside. Pain: Schedule Tylenol and Ibuprofen, PRN Oxycodone. Pain managed well with this plan. Prefers liquid meds. Neuro: A/Ox4 Cardiac: Sinus tach, high 90s overnight, negative dvt 02/10. Lovenox Respiratory: RA, LS clear, IS at bedside. GI/: Schedule stool meds,BM last on 02/10, voiding well. Denies nausea, encouraged to eat slow. Snacked on candy and chips on eves. Diet: Regular diet. Lines: PIV left hand SL. Wounds: Abdomen, midline incision with basil, open to air, sm amount of serosanguinous fluid at belly button area, cleansed, but no s/s of infection, using abd at abdominal skin fold. Left under arm bruise, no CMS changes or swelling noted. Labs/imaging: AM labs New changes this shift: Continues to improve, advancing appetite, increased strength, hopeful to discharge Thursday. Plan: Continue post op recovery patient would like to discharge today. Continue to monitor and follow POC * Plan of Care - Lester Huynh RN - 02/11/2024 6:07 PM CDT Goal Outcome Evaluation: Plan of Care Reviewed With: patient Overall Patient Progress: no changeOverall Patient Progress: no change VSS, ambulated In between cares. Pain managed with prn oxy 5 mg x1 and prn simethicone. Lbm 02/10. Passing gas Up to the shower. Dressing to be removed and left open to air Plan for discharge tmrw. Continue with supportive measures * Plan of Care - Jorje Lorenzana RN - 02/11/2024 2:48 PM CDT BP 125/80 (BP Location: Right arm) Pulse 102 Temp 98.4 ??F (36.9 ??C) (Oral) Resp 16 Wt 90.7 kg (200 lb) LMP 05/07/2020 SpO2 96% BMI 35.44 kg/m?? Pt is A&Ox4. VSS. On room air. Tolerating regular diet. Intermittent nausea. Passing gas with one medium stool during shift. Up with SBA. PIV SL. Voiding spontaneously and adequately. Abdominal incision dressing CDI. Will continue plan of care. * Plan of Care - Milvia Cheng RN - 02/11/2024 5:29 AM CDT Goal Outcome Evaluation: BP 138/87 (BP Location: Left arm) Pulse 115 Temp 98.6 ??F (37 ??C) (Oral) Resp 16 Wt 91.2 kg (201 lb) LMP 05/07/2020 SpO2 95% BMI 35.61 kg/m?? PT noted to be comfortable on this shift, VSS, denies having pain and discomfort, but did c/o abdominal bloating, PRN simethicone administer, refused schedule pain medications. Christensen cath remove lastnight, voiding spon, BS-0, no bm hasn't pass gas yet. Denies N/V, abdominal incision old drainage noted, PIV SL, cont POC. * Plan of Care - Ever Nogueira RN - 02/10/2024 10:47 PM CDT [id number] BP 131/86 (BP Location: Left arm) Pulse 111 Temp 99 ??F (37.2 ??C) (Oral) Resp 19 Wt 91.2 kg (201 lb) LMP 05/07/2020 SpO2 96% BMI 35.61 kg/m?? Afebrile, VSS on RA. Discomfort managed with simethicone x1 and ambulation in hallways to promote gas elimination. N/V managed with PRN compazine x1. Denied SOB. Assist x1 with activity. Poor PO intake this shift. Christensen removed at 2115, still needs to urinate, commode at bedside. No BM this shift. Continue with POC. Goal Outcome Evaluation: Plan of Care Reviewed With: patient Overall Patient Progress: no changeOverall Patient Progress: no change * Provider Notification - Ever Nogueira RN - 02/10/2024 8:19 PM CDT Paged [facility] via [facility]: [phone] KE: Patient is still certain about keeping christensen in place for today.Ever [phone] * Plan of Care - Jorje Lorenzana RN - 02/10/2024 2:30 PM CDT BP (!) 144/85 (BP Location: Right arm) Pulse 100 Temp 99.4 ??F (37.4 ??C) (Oral) Resp 20 Wt90.1 kg (198 lb 10.2 oz) LMP 05/07/2020 SpO2 99% BMI 35.20 kg/m?? Pt is A&Ox4. VSS x hypertensive but not within notifying parameters. Rates 10/10 abdominal discomfort d/t bloating. Simethicone given x1 during shift. Ambulated x1. Tolerating clear liquid diet. Endorses nausea prn antiemetic given with some relief. No gas or BM during shift. PIV SL. Abdominal incision CDI. Will continue plan of care. * Care Plan - Pamela Li RN - 02/09/2024 7:04 PM CDT Took report on patient from PACU. * Brief Op Note - Gabrielle Guzman MD - 02/09/2024 5:57 PM CDT [facility] Brief Operative Note Pre-operative diagnosis: Granulosa cell tumor [D39.10] Post-operative diagnosis Same as pre-operative diagnosis Procedure: LAPAROTOMY, EXPLORATORY, Lysis of adhesions,tumor debulking, cystoscopy, proctoscopy, N/A - Abdomen Surgeon: Surgeons and Role: * Jonathan Pitts MD - Primary * Jaya Dumont MD - Fellow - Assisting Anesthesia: General Estimated Blood Loss: 200 mL from 02/09/2024 2:11 PM to 02/09/2024 5:53 PM Urine output: 300 mL IV fluids: 2100 mL crystalloid Drains: None Specimens: ID Type Source Tests Collected by Time Destination 1 : Cecum biopsy Tissue Large Intestine, Colon, Cecum SURGICAL PATHOLOGY EXAM Jonathan Pitts MD 02/09/2024 3:24 PM 2 : Pericecal biopsy #2 Tissue Large Intestine, Colon, Cecum SURGICAL PATHOLOGY EXAM Carolyn Pitts MD 02/09/2024 3:29 PM 3 : Pelvic Tumor Tissue Pelvis SURGICAL PATHOLOGY EXAM Jonathan Pitts MD 02/09/2024 3:39 PM 4 : Portion of pelvic tumor Tissue Pelvis SURGICAL PATHOLOGY EXAM Jonathan Pitts MD 02/09/2024 3:53 PM Findings: Hemoperitoneum noted on entry. Fibrinous material noted throughout pelvis, biopsy taken and sent for frozen section which was benign. Tumor rind removed from posterior cul-de-sac. Surgicel placed in pelvis. Cytoscopy without evidence of bladder injury, and brisk efflux from bilateral UOs noted. Proctoscopy completed with negative bubble test. Complications: None. Implants: * No implants in log * * Plan of Care - Amy Parmar RN - 02/09/2024 2:00 PM CDT Temp: 98.7 ??F (37.1 ??C) Temp src: Oral BP: 119/74 Pulse: 105 Resp: 17 SpO2: 100 % O2 Device: Nasal cannula Oxygen Delivery: 2 LPM Goal Outcome Evaluation: No change Plan of Care Reviewed With: patient, spouse, parent Overall Patient Progress: no changeOverall Patient Progress: no change Outcome Evaluation: Pt alert and oriented x4. VSS. Skin intact. Pt main concern is abdominal pain. PRN IV Dilaudid 0.4 mg given x3 every 2 hours per MD order. Pt continues to rate pain - 7-9/10 on a pain scale. She has been NPO since 0000. Plan is for surgery today at noon. Pt has not arrived back to unit as yet. Family, parents and spouse at the bedside. appropriate. No further concerns at this time. will continue to monitor closely. * Plan of Care - Geetha Munoz RN - 02/09/2024 6:25 AM CDT Goal Outcome Evaluation: Plan of Care Reviewed With: patient Overall Patient Progress: no changeOverall Patient Progress: no change Admitted from ED for cervical mass. VSS on RA, afebrile. Pain 04/05 managed by PRN dilaudid x1. UAL.Voids spont without difficulty. Passing flatus, LBM 02/07 per pt report. NPO for surgical procedure this AM. PIV infusing LR 100mL/hr. Continue with POC. * Medication Scribe - Admission Medication History - Lila Logan - 02/08/2024 3:29 PM CDT Medication Scribe Admission Medication History Admission medication history is complete. The information provided in this note is only as accurateas the sources available at the time of the update. Information Source(s): Patient and CareEverywhere/SureScripts via in-person Pertinent Information: None Changes made to [employer] medication list: Added: Vitamin C 500 mcg, Omeprazole OTC 20 mg, Zyrtec 10 mg Deleted: Venlafaxine 75 mg/37.5 mg, Multivitamin gummies, Vitamin D3, Calcium w/ vitamin D3, Biotin Changed: None Allergies reviewed with patient and updates made in EHR: yes Medication History Completed By: Lila Logan 02/08/2024 3:29 PM [employer] Med List Medication Sig Last Dose acetaminophen (TYLENOL) 325 MG tablet Take 2 tablets (650 mg) by mouth every 4 hours as needed for mild pain Past Week at unknown cetirizine (ZYRTEC) 10 MG tablet Take 10 mg by mouth daily 02/06/2024 at unknown omeprazole (PRILOSEC OTC) 20 MG EC tablet Take 20 mg by mouth daily 02/06/2024 at unknown vitamin C (ASCORBIC ACID) 500 MG tablet Take 2 tablets by mouth daily 02/06/2024 at unknown documented in this encounter Plan of Treatment Upcoming Encounters Date Type Department Care Team (Late st Contact Info) Description 02/19/2024 10:40 AM CDT Allied Health/Nurse Visit [facility] Cancer [address] [phone] Jonathan Pitts MD [address] [place] [address] [id number] Nurse, [facility] 02/29/2024 8:00 AM CDT Oncology Visit [facility] Cancer [address] [phone] Jonathan Pitts MD [address] [place] [address] [phone] Pending Results Name Type Priority Associated Diagnoses Date /Time Prepare red blood cells (unit) Blood Bank Routine 02/09/2024 6:15 AM CDT Prepare red blood cells (unit) Blood Bank Routine 02/09/2024 6:15 AM CDT POC US Guidance Needle Placement Imaging Routine 02/09/2024 11:48 AM CDT Scheduled Orders Name Type Priority Associated Diagnoses Orde r Schedule POC US Guidance Needle Placement Imaging Routine One time imaging for 1 Occurrences starting 02/09/2024 until 02/09/2024 documented as of this encounter Procedures Procedure Name Priority Date/Time Associated Diagnosis [...] PATHOLOGY EXAM Routine 02/09/2024 3:24 PM CDT LAPAROTOMY, EXPLORATORY, FOR STAGING 02/09/2024 1:51 PM CDT Granulosa cell tumor GLUCOSE BY METER Routine 02/09/2024 11:2 4 AM CDT PREPARE RED BLOOD CELLS (UNIT) Routine 02/09/2024 6:15 AM CDT PREPARE RED BLOOD CELLS (UNIT) Routine 02/09/2024 6:15 AM CDT EXTRA TUBE Routine 02/09/2024 5:32 AM CDT EXTRA GREEN TOP (LITHIUM HEPARIN) TUBE Routine 02/09/2024 5:32 AM CDT CBC WITH PLATELETS Routine 02/09/2024 5: [address] CHEST W/O CONTRAST STAT 02/08/2024 7:27 PM CDT TYPE AND SCREEN, ADULT STAT 02/08/2024 3:43 PM CDT INHIBIN B STAT 02/08/2024 3:43 PM CDT CA 125 STAT 02/08/2024 3:43 PM CDT ABO/RH TYPE AND SCREEN STAT 02/08/2024 3:43 PM CDT BASIC METABOLIC PANEL STAT 02/08/2024 3:43 PM CDT CBC WITH PLATELETS STAT 02/08/2024 3: 43 PM CDT documented in this encounter Results * US Lower Extremity Venous Duplex [...] Atrial Rate 87 BPM RADIOLOG Y RESULTS DE Interval 158 ms RADIOLOG Y RESULTS QRS Duration 82 ms RADIOLO GY RESULTS QT 342 ms RADIOLOGY RESULTS QTc 411 ms RADIOLOGY RESULTS P [place] 61 degrees RADIOLOGY RESULTS R AXIS 29 degrees RADIOLOGY RESULTS T [place] 41 degrees RADIOLOGY RESULTS Interpretation ECG Sinus rhythm Normal ECG When compared with ECG of 11-MAY-2020 17:41, Sinus rhythm has replaced Atrial fibrillation Vent. rate has increased BY ??34 BPM Questionable change in QRS duration Minimal criteria for Anterior infarct are no longer Present Confirmed by fellow Chetan Paniagua ([id number]) on 02/11/2024 12:22:07 PM Confirmed by MD MARIELA, LINDA ([id number]) on 02/11/2024 10:36:07 PM RADIOLOGY RESULTS 02/11/2024 8:12 AM CDT 02/11/2024 10:36 PM CDT Gabrielle Guzman MD ECG ORDERABLES RADIOLOGY RESULTS * (ABNORMAL) CBC with platelets (02/11/2024 7:17 AM CDT) WBC Count 10.7 4.0 - 11.0 10e3/uL [...] LAB - BLOOD ORDERABL ES [facility] [address], [address] [place] [address] * (ABNORMAL) CBC with platelets (02/10/2024 4:01 PM CDT) WBC Count 11.5(H) 4.0 - 11.0 10e3/uL 02/10/2024 4:21 PM CDT [facility] RBC Count 3.28(L) 3.80 - 5.20 10e6/uL 02/10/2024 4:21 PM CDT [facility] Hemoglobin 10.2(L) 11.7 - 15.7 g/dL 02/10/2024 4:21 PM CDT [facility] Hematocrit 29.9(L) 35.0 - 47.0 % 02/10/2024 4:21 PM CDT [facility] MCV 91 78 - 100 fL 02/10/2024 4:21 PM CDT [facility] MCH 31.1 26.5 - 33.0 pg 02/10/2024 4:21 PM CDT [facility] MCHC 34.1 31.5 - 36.5 g/dL 02/10/2024 4:21 PM CDT [facility] RDW 12.9 10.0 - 15.0 % 02/10/2024 4:21 PM CDT [facility] Platelet Count 217 150 - 450 10e3/uL 02/10/2024 4:21 PM CDT [facility] Blood STRUCTURE OF LEFT UPPER LIMB / Unknown Venipuncture / Unknown 02/10/2024 4:01 PM CDT 02/10/2024 4:06 PM CDT Gabrielle Guzman MD LAB - BLOOD ORDERABL ES Performing Organization Address City/State/[facility] Co de Phone Number [facility] [address], [address] [place] [id number] * (ABNORMAL) Glucose by meter (02/10/2024 6:01 AM CDT) GLUCOSE BY METER POCT 100(H) 70 - 99 mg/dL 02/10/2024 6:07 AM CDT [facility] POC Blood, Capillary BLOOD SPECIMEN / Unknown 02/10/2024 6:01 AM CDT 02/10/2024 6:07 AM CDT Junior Ashton MD LAB - BEAKER POCT Performing Organization Address [facility] [address] [facility] Co de Phone Number [facility] POC [facility] [address], [address] [place] [address] * Phosphorus (02/10/2024 5:21 AM CDT) Phosphorus 3.7 2.5 - 4.5 mg/dL 02/10/2024 6:18 AM CDT [facility] Blood STRUCTURE OF RIGHT HAND / Unknown Venipuncture / Unknown 02/10/2024 5:21 AM CDT 02/10/2024 5:40 AM CDT Manda Farrell MD LAB - BLOOD ORDERABL ES Performing Organization Address [facility] [address] [facility] Co de Phone Number [facility] [address], [address] [place] [address] * Magnesium (02/10/2024 5:21 AM CDT) Magnesium 1.8 1.7 - 2.3 mg/dL 02/10/2024 6:18 AM CDT [facility] Blood STRUCTURE OF RIGHT HAND / Unknown Venipuncture / Unknown 02/10/2024 5:21 AM CDT 02/10/2024 5:40 AM CDT Manda Farrell MD LAB - BLOOD ORDERABL ES [facility] [address], [address] [place] [address], [facility] * (ABNORMAL) Basic metabolic panel (02/10/2024 5:21 AM CDT) Sodium 135 135 - 145 mmol/L 02/10/2024 [...] 6:18 AM CDT [facility] Comment:eGFR calculated usin 2020 CKD-EPI equation. Calcium 8.6(L) 8.8 - [...] LAB - BLOOD ORDERABL ES [facility] [address], [address] [place] [address] * (ABNORMAL) CBC with platelets (02/10/2024 5:21 AM CDT) WBC Count 8.2 4.0 - 11.0 10e3/uL 02/10/2024 5:48 AM CDT [facility] RBC Count 2.82(L) 3.80 - 5.20 10e6/uL 02/10/2024 5:48 AM CDT [facility] Hemoglobin 8.7(L) 11.7 - 15.7 g/dL 02/10/2024 5:48 AM CDT [facility] Hematocrit 25.2(L) 35.0 - 47.0 % 02/10/2024 5:48 AM CDT [facility] MCV 89 78 - 100 fL 02/10/2024 5:48 AM CDT [facility] MCH 30.9 26.5 - 33.0 pg 02/10/2024 5:48 AM CDT [facility] MCHC 34.5 31.5 - 36.5 g/dL 02/10/2024 5:48 AM CDT [facility] RDW 12.8 10.0 - 15.0 % 02/10/2024 5:48 AM CDT [facility] Platelet Count 189 150 - 450 10e3/uL 02/10/2024 5:48 AM CDT [facility] Blood STRUCTURE OF RIGHT HAND / Unknown Venipuncture / Unknown 02/10/2024 5:21 AM CDT 02/10/2024 5:41 AM CDT Gabrielle Guzman MD LAB - BLOOD ORDERABL ES [facility] [address], [address] [place] [address] * (ABNORMAL) Surgical Pathology Exam (02/09/2024 3:24 PM CDT) Case Report Surgical Pathology Report ? Case: [id number] ? Authorizing Provider: ??Hong, Jonathan Ann, ??Collected: ? 02/09/2024 03:24 PM ? MD ? Ordering Location: ? [facility] ? Received: ?02/09/2024 05:27 PM ? Pathologist: ? Kirk, Jose, ? Intraop: ? Wyatt Amanda MD ? Specimens: ?? A) - Large Intestine, Colon, Cecum, Cecum biopsy ? B) - Large Intestine, Colon, Cecum, Pericecal biopsy #2 ? C) - Pelvis, Pelvic Tumor ? D) - Pelvis, Portion of pelvic tumor ? 02/11/2024 5:02 PM CDT [facility] Final Diagnosis A. KIM-CECUM, BIOPSY: Congested fibroadipose tissue with organizing granulation tissue but no evidence of residual granulosa cell tumor or other malignancy B. KIM-CECUM, BIOPSY #2: Congested fibroadipose tissue with focal [...] 4:02 PM Intra op performed at:[facility], [facility], [address] [place] [address], [facility], [address], [place] [phone] Intra-op Dx verbally delivered to Dr. Ansley at 15:51 02/11/2024 5:02 PM CDT [facility] Gross Description A(1). Large Intestine, Colon, [...] greatest dimension. Sectioning reveals red-kaye cut surfaces. Pattern Marker tissue submitted in cassette B1 for frozen [...] Sectioning reveals yellow-kaye to purple-kaye cut surfaces. Pattern Marker tissue is submitted in cassettes C1-C5. D(4). [...] component of this testing was completed at [facility]. Stain controls for [...] 3:53 PM CDT 02/09/2024 5:27 PM CDT Jonathan [facility] [address] [facility], [address] [address] [address], [address] [place] [phone], [facility] * (ABNORMAL) Glucose by meter (02/09/2024 11:24 AM CDT) GLUCOSE BY METER POCT 112(H) 70 - 99 mg/dL 02/09/2024 11:31 AM CDT [facility] POC Blood, Capillary BLOOD SPECIMEN / Unknown 02/09/2024 11:24 AM CDT 02/09/2024 11:31 AM CDT Junior Ashton MD LAB - BEAKER POCT [facility] POC [facility] [address], [address] [place] [id number] * Extra Green Top ([place] Heparin) Tube (02/09/2024 5:32 AM CDT) Hold Specimen JIC 02/09/2024 7:02 AM CDT [facility] Blood STRUCTURE OF LEFT HAND / Unknown Venipuncture / Unknown 02/09/2024 5:32 AM CDT 02/09/2024 5:51 AM CDT Junior Ashton MD LAB - BLOOD ORDERABL ES Performing Organization Address City/[facility] [address] [facility]/ZIP Co de Phone Number [facility] [address], [address] * (ABNORMAL) CBC with platelets (02/09/2024 5:32 AM CDT) WBC Count 7.1 4.0 - 11.0 10e3/uL 02/09/2024 6:06 AM CDT [facility] RBC Count 3.06(L) 3.80 - 5.20 10e6/uL 02/09/2024 6:06 AM CDT [facility] Hemoglobin 9.4(L) 11.7 - 15.7 g/dL 02/09/2024 6:06 AM CDT [facility] Hematocrit 27.6(L) 35.0 - 47.0 % 02/09/2024 6:06 AM CDT [facility] MCV 90 78 - 100 fL 02/09/2024 6:06 AM CDT [facility] MCH 30.7 26.5 - 33.0 pg 02/09/2024 6:06 AM CDT [facility] MCHC 34.1 31.5 - 36.5 g/dL 02/09/2024 6:06 AM CDT [facility] RDW 13.1 10.0 - 15.0 % 02/09/2024 6:06 AM CDT [facility] Platelet Count 155 150 - 450 10e3/uL 02/09/2024 6:06 AM CDT [facility] Blood STRUCTURE OF LEFT HAND / Unknown Venipuncture / Unknown 02/09/2024 5:32 AM CDT 02/09/2024 5:48 AM CDT Junior Ashton MD LAB - BLOOD ORDERABL ES [facility] [address] [facility], [address] [place] [address] * CT Chest w/o Contrast (02/08/2024 [...] CDT U BLOOD BANK SPECIMEN EXPIRATION DATE [id number] 02/08/2024 3:04 PM CDT [facility] Blood BLOOD SPECIMEN / Unknown Venipuncture / Unknown 02/08/2024 3:43 PM CDT 02/08/2024 3:48 PM CDT Jaya Dumont MD LAB - BLOOD BANK TONI T ORDER U BLOOD BANK [address] [place] [address], [facility] * CA 125 (02/08/2024 3:43 PM CDT) [...] LAB - BLOOD ORDERABL ES [facility] [address], [address] [place] [address] * Inhibin B (02/08/2024 3:43 PM CDT) Pathologist [facility] Inhibin B 14 8 - 223 pg/mL 02/10/2024 10:49 PM CDT [facility] Comment: INTERPRETIVE INFORMATION: Inhibin B MALE: Less [...] pg/mL This test is performed using the [facility] ultra-sensitive Inhibin B MAYA kit. Values obtained with different methodologies or kits cannot be used interchangeably. This test was developed and its performance characteristics determined by [facility]. It has not been cleared or approved by the [place] Food and Drug Administration. This test was performed in a CLIA certified laboratory and is intended for clinical purposes. Performed By: [facility] [address] [place] [address] Handle And Vent Machine Operator: Ciro Webb MD, PhD CLIA Number: [id number] Blood STRUCTURE OF RIGHT HAND / Unknown Venipuncture / Unknown 02/08/2024 3:43 PM CDT 02/08/2024 3:48 PM CDT Jaya Dumnot MD LAB - BLOOD ORDERABL ES [facility] [employer] [address] [place] [phone], [facility] [phone] * (ABNORMAL) Basic metabolic panel (02/08/2024 3:43 PM CDT) Sodium 138 135 - 145 mmol/L 02/08/2024 4:19 PM CDT [facility] Potassium 4.2 3.4 - 5.3 mmol/L 02/08/2024 4:19 PM CDT [facility] Chloride 102 98 - 107 mmol/L 02/08/2024 4:19 PM CDT [facility] Carbon Dioxide (CO2) 24 22 - 29 mmol/L 02/08/2024 4:19 PM CDT [facility] Anion Gap 12 7 - 15 mmol/L 02/08/2024 4:19 PM CDT [facility] Urea Nitrogen 6.5 6.0 - 20.0 mg/dL 02/08/2024 4:19 PM CDT [facility] Creatinine 0.68 0.51 - 0.95 mg/dL 02/08/2024 4:19 PM CDT [facility] GFR Estimate >90 >60 mL/min/1.7 3m2 02/08/2024 4:19 PM CDT [facility] Comment:eGFR calculated 2020 CKD-EPI equation. Calcium 9.3 8.6 - 10.0 mg/dL 02/08/2024 4:19 PM CDT [facility] Glucose 112(H) 70 - 99 mg/dL 02/08/2024 4:19 PM CDT [facility] Blood STRUCTURE OF RIGHT HAND / Unknown Venipuncture / Unknown 02/08/2024 3:43 PM CDT 02/08/2024 3:48 PM CDT Jaya Dumont MD LAB - BLOOD ORDERABL ES [facility] [address], [address] [place] [address] * (ABNORMAL) CBC with platelets (02/08/2024 3:43 PM CDT) WBC Count 9.7 4.0 - 11.0 10e3/uL 02/08/2024 3:55 PM CDT [facility] RBC Count 3.34(L) 3.80 - 5.20 10e6/uL 02/08/2024 3:55 PM CDT [facility] Hemoglobin 10.3(L) 11.7 - 15.7 g/dL 02/08/2024 3:55 PM CDT [facility] Hematocrit 30.0(L) 35.0 - 47.0 % 02/08/2024 3:55 PM CDT [facility] MCV 90 78 - 100 fL 02/08/2024 3:55 PM CDT [facility] MCH 30.8 26.5 - 33.0 pg 02/08/2024 3:55 PM CDT [facility] MCHC 34.3 31.5 - 36.5 g/dL 02/08/2024 3:55 PM CDT [facility] RDW 13.2 10.0 - 15.0 % 02/08/2024 3:55 PM CDT [facility] Platelet Count 170 150 - 450 10e3/uL 02/08/2024 3:55 PM CDT [facility] Blood BLOOD SPECIMEN / Unknown Venipuncture / Unknown 02/08/2024 3:43 PM CDT 02/08/2024 3:48 PM CDT Jaya Dumont MD LAB - BLOOD ORDERABL ES [facility] [address] [facility] [address] [facility], [address] [place] [address], [facility] documented in this encounter Visit Diagnoses Diagnosis 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 Ovarian mass Unspecified noninflammatory disorder of ovary, fallopian tube, and broad ligament Active internal bleeding 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 Abdominal pain, right lower quadrant Abdominal pain, left lower quadrant Nausea and vomiting, unspecified vomiting type Personal history of ovarian cancer Personal history of malignant neoplasm of ovary Pelvic mass Abdominal or pelvic swelling, mass or lump, unspecified site S/P hysterectomy Acquired absence of both cervix and uterus Ovarian mass Unspecified noninflammatory disorder of ovary, fallopian tube, and broad ligament Active internal bleeding 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 $Given 02/12/2024 7:16 AM CDT 650 mg $Given 02/12/2024 1:38 AM CDT 650 mg $Given 02/11/2024 9:33 PM CDT 650 mg apixaban ANTICOAGULANT (ELIQUIS) tablet 2.5 mg 2.5 mg, Oral, 2 TIMES DAILY, First dose on Thu02/12/24 at 1800, Indications: DVT-PE Prophylaxis BUPivacaine liposome (EXPAREL) LA inj was given in the infiltration site to produce post-op analgesia. Duration of action is up to 72 hours. Other karina meds should not be given for 96 hours except for lidocaine 4% patch. This is for INFORMATION ONLY. CONTINUOUS PRN, Starting on Thu02/09/24 at 1818, Until Thu02/12/24 at 1254, NURSE to notify physician if patient has ringing in the ears, metallic taste in the mouth, or circumoral numbness calcium carbonate (TUMS) chewable tablet 500 mg 500 mg, Oral, DAILY PRN, heartburn, Starting on Thu02/10/24 at 1803 $Given 02/10/2024 6:28 PM CDT 500 mg famotidine (PEPCID) injection 20 mg 20 mg, Intravenous, Administer over 2 Minutes, 2 TIMES DAILY, First dose on Thu02/08/24 at 1320, For ordered IV doses 1-20 mg, give IV Push diluted with 5-10 mL NS over a minimum of 2 minutes. $Given 02/12/2024 8:11 AM CDT 20 mg $Given 02/11/2024 8:01 PM CDT 20 mg $Given 02/11/2024 8:31 AM CDT 20 mg HYDROmorphone (DILAUDID) injection 0.2 mg 0.2 mg, Intravenous, EVERY 2 HOURS PRN, moderate pain, only after receiving all oral medications including oxycodone, Starting on Thu02/10/24 at 0611, May use concomitant with non-opioid analgesics. HYDROmorphone (DILAUDID) injection 0.4 mg 0.4 mg, Intravenous, EVERY 2 HOURS PRN, severe pain, only after receiving all oral medications including oxycodone, Starting on Thu02/10/24 at 0609, May use concomitant with non-opioid analgesics. ibuprofen (ADVIL/MOTRIN) suspension 400 mg 400 mg, Oral or Feeding Tube, EVERY 6 HOURS, First dose (after last modification) on Eduarda 02/11/24 at 1830, Shake well. Recommended for infants age 6 months and older. $Given 02/12/2024 7:16 AM CDT 400 mg $Given 02/11/2024 11:49 PM CDT 400 mg $Given 02/11/2024 7:07 PM CDT 400 mg naloxone (NARCAN) injection 0.2 mg 0.2 mg, Intravenous, EVERY 2 MIN PRN, opioid reversal, Starting on Thu02/09/24 at 1941, Administer intravenous route when available and notify provider when administered. For unintended sedation or respiratory depression if all of the below criteria are met: ~ respiratory rate LESS than or EQUAL to 8. ~SaO2 less than 92% and or/end-tidal CO2 is greater than 50. ~ the patient is receiving an opioid, has unintended sedations assessed as RASS (-3), and is currently not on mechanical ventilation. RASS scale moderate (-3) is movement or eye opening to voice but no eye contact. Patient Monitoring Once the patient has demonstrated a response to the naloxone, continue to monitor respiratory rate, depth, oxygen saturation and end-tidal CO2 (if available) every 15 minutes x 2, then every 30 minutes x 2, then every 1 hour x 1 after each naloxone dose. Consider transfer to ICU if patient respiratory parameters have not improved after 4 naloxone doses. naloxone (NARCAN) injection 0.2 mg 0.2 mg, Intramuscular, EVERY 2 MIN PRN, opioid reversal, Starting on Thu02/09/24 at 1940, Administer intramuscular if an intravenous route is not available and notify provider when administered. For unintended sedation or respiratory depression if all of the below criteria are met: ~ respiratory rate LESS than or EQUAL to 8. ~SaO2 less than 92% and or/end-tidal CO2 is greater than 50. ~ the patient is receiving an opioid, has unintended sedations assessed as RASS (-3), and is currently not on mechanical ventilation. RASS scale moderate (-3) is movement or eye opening to voice but no eye contact. Patient Monitoring Once the patient has demonstrated a response to the naloxone, continue to monitor respiratory rate, depth, oxygen saturation and end-tidal CO2 (if available) every 15 minutes x 2, then every 30 minutes x 2, then every 1 hour x 1 after each naloxone dose. Consider transfer to ICU if patient respiratory parameters have not improved after 4 naloxone doses. naloxone (NARCAN) injection 0.4 mg 0.4 mg, Intravenous, EVERY 2 MIN PRN, opioid reversal, Starting on Thu02/09/24 at 1940, Administer intravenous route when available and notify provider when administered. For unintended sedation or respiratory depression if all of the below criteria are met: ~ respiratory rate LESS than or EQUAL to 8. ~ SaO2 less than 92% and or/end-tidal CO2 is greater than 50. ~ the patient is receiving an opioid, has unintended sedation assessed as RASS (-4) or (-5) and patient is currently not on mechanical ventilation. RASS scale (-4) is deep sedation with no response to voice but movement or eye opening to physical stimulation. RASS scale (-5) is unarousable. Patient Monitoring Once the patient has demonstrated a response to the naloxone, continue to monitor respiratory rate, depth, oxygen saturation and end-tidal CO2 (if available) every 15 minutes x 2, then every 30 minutes x 2, then every 1 hour x 1 after each naloxone dose. Consider transfer to ICU if patient respiratory parameters have not improved after 4 naloxone doses. naloxone (NARCAN) injection 0.4 mg 0.4 mg, Intramuscular, EVERY 2 MIN PRN, opioid reversal, Starting on Thu02/09/24 at 1941, Administer intramuscular if an intravenous route is not available and notify provider when administered. For unintended sedation or respiratory depression if all of the below criteria are met: ~ respiratory rate LESS than or EQUAL to 8. ~ SaO2 less than 92% and or/end-tidal CO2 is greater than 50. ~ the patient is receiving an opioid, has unintended sedation assessed as RASS (-4) or (-5) and patient is currently not on mechanical ventilation. RASS scale (-4) is deep sedation with no response to voice but movement or eye opening to physical stimulation. RASS scale (-5) is unarousable. Patient Monitoring Once the patient has demonstrated a response to the naloxone, continue to monitor respiratory rate, depth, oxygen saturation and end-tidal CO2 (if available) every 15 minutes x 2, then every 30 minutes x 2, then every 1 hour x 1 after each naloxone dose. Consider transfer to ICU if patient respiratory parameters have not improved after 4 naloxone doses. ondansetron (ZOFRAN) injection 4 mg 4 mg, Intravenous, EVERY 6 HOURS PRN, nausea, vomiting, Administer over 2-5 Minutes, Starting on 02/08/24 at 1700, Give IF patient unable to tolerate oral medication. This is Step 1 of nausea and vomiting management. If nausea not resolved in 15 minutes, go to Step 2 prochlorperazine (COMPAZINE). $Given 02/11/2024 1:49 PM CDT 4 mg $Given 02/10/2024 1:51 PM CDT 4 mg $Given 02/09/2024 7:33 PM CDT 4 mg oxyCODONE (ROXICODONE) solution 5-10 mg 5-10 mg, Oral, EVERY 4 HOURS PRN, moderate pain, severe pain, Starting on Eduarda 02/11/24 at 0624 $Given 02/12/2024 8:09 AM CDT 5 mg $Given 02/12/2024 1:38 AM CDT 5 mg $Given 02/11/2024 9:34 PM CDT 5 mg polyethylene glycol (MIRALAX) Packet 17 g 17 g, Oral, DAILY, First dose on Thu02/10/24 at 0800, 1 Packet = 17 grams. Mix each gram with at least 1/2 ounce (15 mL) of water - 8 ounces for 17 g dose, 4 ounces for 8.5 g dose, 2 ounces for 4 g dose. Follow with the same volume of water. Hold for loose stools unless being administered as part of a bowel prep regimen or bowel clean out. $Given 02/12/2024 8:11 AM CDT 17 g $Given 02/11/2024 8:31 AM CDT 17 g $Given 02/10/2024 8:23 AM CDT 17 g prochlorperazine (COMPAZINE) injection 10 mg 10 mg, Intravenous, EVERY 6 HOURS PRN, nausea, vomiting, Administer over 1-2 Minutes, Starting on Thu02/08/24 at 1308, IF patient unable to tolerate oral medication. This is Step 2 of nausea and vomiting management. Give if nausea not resolved 15 minutes after giving ondansetron (ZOFRAN). $Given 02/10/2024 3:16 PM CDT 1 0 mg senna-docusate (SENOKOT-S/PERICOLACE) 8.6-50 MG per tablet 1 tablet 1 tablet, Oral, 2 TIMES DAILY PRN, constipation, Starting on Thu02/08/24 at 1308, If no bowel movement in 24 hours, increase to 2 tablets by mouth. IF more than 1 constipation PRN medication is ordered, administer step-pace as indicated, moving to the next step ONLY if prior step ineffective. Step 1: senna-docusate (SENOKOT-S; PERICOLACE) OR bisacodyl (DULCOLAX) EC tablet Step 2: polyethylene glycol (MIRALAX/GLYCOLAX) Step 3: bisacodyl (DULCOLAX) suppository Step 4: enema Hold for loose stools. senna-docusate (SENOKOT-S/PERICOLACE) 8.6-50 MG per tablet 2 tablet 2 tablet, Oral, 2 TIMES DAILY PRN, constipation, Starting on Thu02/08/24 at 1308, IF more than 1 constipation PRN medication is ordered, administer step-pace as indicated, moving to the next step ONLY if prior step ineffective. Step 1: senna-docusate (SENOKOT-S; PERICOLACE) OR bisacodyl (DULCOLAX) EC tablet Step 2: polyethylene glycol (MIRALAX/GLYCOLAX) Step 3: bisacodyl (DULCOLAX) suppository Step 4: enema Hold for loose stools. simethicone (MYLICON) chewable tablet 80 mg 80 mg, Oral, 4 TIMES DAILY PRN, cramping, gas, Starting on Thu02/09/24 at 1902 $Given 02/11/2024 5:46 PM CDT 80 mg $Given 02/11/2024 5:50 AM CDT 80 mg $Given 02/10/2024 3:50 PM CDT 80 mg sodium chloride (PF) 0.9% PF flush 3 mL 3 mL, Intracatheter, EVERY 8 HOURS, First dose on Thu02/08/24 at 1310, to lock peripheral IV dormant line $Given 02/11/2024 8:10 PM CDT 3 mLs $Given 02/11/2024 1:48 PM CDT 3 mLs $Given 02/11/2024 5:50 AM CDT 3 mLs documented in this encounter Active and Recently Administered Medications Times are shown in CDT. Scheduled Medication Order 02/10/2024 02/11/2024 02/12/2024 acetaminophen (TYLENOL) oral liquid 650 mg 650 mg, Oral, EVERY 4 HOURS, First dose on Thu02/11/24 at 0630, Maximum acetaminophen dose from all sources=75 mg/kg/day not to exceed 4 grams/day. 0657 (Not Given - Provider: Milvia Cheng RN - Reason: Patient/family refused)1006 ($Given - Provider: Jorje Lorenzana RN)1349 ($Given - Provider: Jorje Lorenzana RN)1906 ($Given - Provider: Lester Huynh RN)2133 ($Given - Provider: Kamini Allen RN - Comment: gave early, patient requesting to sleep under 4000mg for the day.) 0138 ($Given - Provider: Kamini Allen RN)0716 ($Given - Provider: Kamini Allen RN)1100 (Canceled Entry - Provider: Orders Generic Provider - Comment: Automatically canceled at discontinue of medication order) acetaminophen (TYLENOL) tablet 650 mg (CANCELED) 650 mg, Oral, EVERY 4 HOURS, First dose (after last modification) on Thu02/10/24 at 0930, Alternate with ibuprofen if ordered. Maximum acetaminophen dose from all sources = 75 mg/kg/day not to exceed 4 grams/day. 0921 ($Given - Provider: Jorje Lorenzana RN)1451 (Not Given - Provider: Jorje Lorenzana RN - Reason: Patient/family refused)1856 (Not Given - Provider: Ever Nogueira RN - Reason: Patient/family refused)2106 (Not Given - Provider: Ever Nogueira RN - Reason: Patient/family refused) 0107 (Not Given - Provider: Milvia Cheng RN - Reason: Patient/family refused)0550 (Not Given - Provider: Milvia Cheng RN - Reason: Patient/family refused) apixaban ANTICOAGULANT (ELIQUIS) tablet 2.5 mg 2.5 mg, Oral, 2 TIMES DAILY, First dose on Thu02/12/24 at 1800, Indications: DVT-PE Prophylaxis enoxaparin ANTICOAGULANT (LOVENOX) injection 40 mg (CANCELED) 40 mg, Subcutaneous, EVERY 24 HOURS, First dose on Thu02/10/24 at 1830 1828 ($Given - Provider: Ever Nogueira RN) 1907 ($Given - Provider: Lester Huynh RN) famotidine (PEPCID) injection 20 mg 20 mg, Intravenous, Administer over 2 Minutes, 2 TIMES DAILY, First dose on Thu02/08/24 at 1320, For ordered IV doses 1-20 mg, give IV Push diluted with 5-10 mL NS over a minimum of 2 minutes. 0823 ($Given - Provider: Jorje Lorenzana RN)1955 ($Given - Provider: Ever Nogueira RN) 0831 ($Given - Provider: Jorje Lorenzana RN)2000 ($Given - Provider: Kamini Allen RN) 0811 ($Given - Provider: Tavia Plummer RN) ibuprofen (ADVIL/MOTRIN) suspension 400 mg 400 mg, Oral or Feeding Tube, EVERY 6 HOURS, First dose (after last modification) on Thu02/11/24 at 1830, Shake well. Recommended for infants age 6 months and older. 1907 ($Given - Provider: Lester Huynh RN)2349 ($Given - Provider: Kamini Allen RN) 0716 ($Given - Provider: Kamini Allen RN) ibuprofen (ADVIL/MOTRIN) tablet 600 mg (CANCELED) 600 mg, Oral, EVERY 6 HOURS, First dose on Thu02/10/24 at 0630, Give with food. 0624 (Not Given - Provider: Linda Cummings RN - Reason: Patient/family refused)1146 ($Given - Provider: Jorje Lorenzana RN)1856 (Not Given - Provider: Ever Nogueira RN - Reason: Patient/family refused) 0107 (Not Given - Provider: Milvia Cheng RN - Reason: Patient/family refused)0550 (Not Given - Provider: Milvia Cheng RN - Reason: Patient/family refused)1149 (Not Given - Provider: Jorje Lorenzana RN - Reason: Patient/family refused) polyethylene glycol (MIRALAX) Packet 17 g 17 g, Oral, DAILY, First dose on Thu02/10/24 at 0800, 1 Packet = 17 grams. Mix each gram with at least 1/2 ounce (15 mL) of water - 8 ounces for 17 g dose, 4 ounces for 8.5 g dose, 2 ounces for 4 g dose. Follow with the same volume of water. Hold for loose stools unless being administered as part of a bowel prep regimen or bowel clean out. 0823 ($Given - Provider: Jorje Lorenzana RN) 0831 ($Given - Provider: Jorje Lorenzana RN) 0811 ($Given - Provider: Tavia Plummer RN) sodium chloride (PF) 0.9% PF flush 3 mL 3 mL, Intracatheter, EVERY 8 HOURS, First dose on Thu02/08/24 at 1310, to lock peripheral IV dormant line 0518 ($Given - Provider: Linda Cummings, ALIZA)1451 (Not Given - Provider: Jorje Lorenzana, ALIZA - Reason: Patient/family refused)2106 (Not Given - Provider: Ever Nogueira RN - Reason: Patient sleeping) 0550 ($Given - Provider: Milvia Cheng RN)1348 ($Given - Provider: Jorje Lorenzana, ALIZA)2009 ($Given - Provider: Kamini Allen, ALIZA) 0719 (Not Given - Provider: Kamini Allen RN - Reason: Other - Comment: sleeping) Continuous Medication Order 02/10/2024 02/11/2024 02/12/2024 lactated ringers infusion (CANCELED) at 100 mL/hr, Intravenous, CONTINUOUS, Starting on Thu02/09/24 at 0000, Until Thu02/10/24 at 1246 0621 ($New Bag - Provider: Linda Cummings RN)0625 ($New Bag - Provider: Linda Cummings RN)1440 (Stopped - Provider: Jorje Lorenzana RN) PRN Medication Order 02/10/2024 02/11/2024 02/12/2024 benzocaine-menthol (CHLORASEPTIC MAX) 15-10 MG lozenge 1-2 lozenge 1-2 lozenge, Buccal, EVERY 1 HOUR PRN, sore throat, without fever, Starting on Thu02/09/24 at 1902 bisacodyl (DULCOLAX) suppository 10 mg 10 mg, Rectal, DAILY PRN, constipation, Starting on Thu02/10/24 at 0000, Start POD 1. MUST HOLD for bowel resection or diarrhea. May discontinue if patient having bowel movement. Hold for loose stools. BUPivacaine liposome (EXPAREL) LA inj was given in the infiltration site to produce post-op analgesia. Duration of action is up to 72 hours. Other karina meds should not be given for 96 hours except for lidocaine 4% patch. This is for INFORMATION ONLY. CONTINUOUS PRN, Starting on Thu02/09/24 at 1818, Until Thu02/12/24 at 1254, NURSE to notify physician if patient has ringing in the ears, metallic taste in the mouth, or circumoral numbness calcium carbonate (TUMS) chewable tablet 500 mg 500 mg, Oral, DAILY PRN, heartburn, Starting on Thu02/10/24 at 1803 1828 ($Given - Provider: Ever Nogueira RN) HYDROmorphone (DILAUDID) injection 0.2 mg 0.2 mg, Intravenous, EVERY 2 HOURS PRN, moderate pain, only after receiving all oral medications including oxycodone, Starting on Thu02/10/24 at 0611, May use concomitant with non-opioid analgesics. HYDROmorphone (DILAUDID) injection 0.4 mg (CANCELED) 0.4 mg, Intravenous, EVERY 2 HOURS PRN, severe pain, IF patient cannot take oral opioid OR IF pain not managed with non-pharmacological, non-opioid, or oral opioid interventions if ordered, Starting on Thu02/08/24 at 1308, May use concomitant with non-opioid analgesics. 0021 ($Given - Provider: Linda Cummings RN)0302 ($Given - Provider: Linda Cummings, ALIZA)0518 ($Given - Provider: Linda Cummings, ALIZA) HYDROmorphone (DILAUDID) injection 0.4 mg 0.4 mg, Intravenous, EVERY 2 HOURS PRN, severe pain, only after receiving all oral medications including oxycodone, Starting on Thu02/10/24 at 0609, May use concomitant with non-opioid analgesics. lidocaine (LMX4) cream Topical, EVERY 1 HOUR PRN, pain, with VAD insertion, Starting on Thu02/08/24 at 1308, Apply at least 30 minutes prior to VAD insertion in divided doses as needed for size of site for insertion. MAX Dose: 2.5 g (?? of 5 g tube) Do NOT give if patient has a history of allergy to any local anesthetic or any karina product. Do NOT use both lidocaine intradermal/subcutaneous injection and the lidocaine cream on the same site. lidocaine 1 % 0.1-1 mL 0.1-1 mL, Other, EVERY 1 HOUR PRN, mild pain with VAD insertion, Starting on Thu02/08/24 at 1308, MAX dose 1 mL subcutaneous OR intradermal along the side of the vein in divided doses as needed for VAD insertion. Do NOT give if patient has a history of allergy to any local anesthetic or any karina product. Do NOT use both lidocaine intradermal/subcutaneous injection and the lidocaine cream on the same site. naloxone (NARCAN) injection 0.2 mg(Linked Group 1) 0.2 mg, Intravenous, EVERY 2 MIN PRN, opioid reversal, Starting on Thu02/09/24 at 1940, Administer intravenous route when available and notify provider when administered. For unintended sedation or respiratory depression if all of the below criteria are met: ~ respiratory rate LESS than or EQUAL to 8. ~SaO2 less than 92% and or/end-tidal CO2 is greater than 50. ~ the patient is receiving an opioid, has unintended sedations assessed as RASS (-3), and is currently not on mechanical ventilation. RASS scale moderate (-3) is movement or eye opening to voice but no eye contact. Patient Monitoring Once the patient has demonstrated a response to the naloxone, continue to monitor respiratory rate, depth, oxygen saturation and end-tidal CO2 (if available) every 15 minutes x 2, then every 30 minutes x 2, then every 1 hour x 1 after each naloxone dose. Consider transfer to ICU if patient respiratory parameters have not improved after 4 naloxone doses. naloxone (NARCAN) injection 0.2 mg(Linked Group 1) 0.2 mg, Intramuscular, EVERY 2 MIN PRN, opioid reversal, Starting on Thu02/09/24 at 1940, Administer intramuscular if an intravenous route is not available and notify provider when administered. For unintended sedation or respiratory depression if all of the below criteria are met: ~ respiratory rate LESS than or EQUAL to 8. ~SaO2 less than 92% and or/end-tidal CO2 is greater than 50. ~ the patient is receiving an opioid, has unintended sedations assessed as RASS (-3), and is currently not on mechanical ventilation. RASS scale moderate (-3) is movement or eye opening to voice but no eye contact. Patient Monitoring Once the patient has demonstrated a response to the naloxone, continue to monitor respiratory rate, depth, oxygen saturation and end-tidal CO2 (if available) every 15 minutes x 2, then every 30 minutes x 2, then every 1 hour x 1 after each naloxone dose. Consider transfer to ICU if patient respiratory parameters have not improved after 4 naloxone doses. naloxone (NARCAN) injection 0.4 mg(Linked Group 1) 0.4 mg, Intravenous, EVERY 2 MIN PRN, opioid reversal, Starting on Thu02/09/24 at 1940, Administer intravenous route when available and notify provider when administered. For unintended sedation or respiratory depression if all of the below criteria are met: ~ respiratory rate LESS than or EQUAL to 8. ~ SaO2 less than 92% and or/end-tidal CO2 is greater than 50. ~ the patient is receiving an opioid, has unintended sedation assessed as RASS (-4) or (-5) and patient is currently not on mechanical ventilation. RASS scale (-4) is deep sedation with no response to voice but movement or eye opening to physical stimulation. RASS scale (-5) is unarousable. Patient Monitoring Once the patient has demonstrated a response to the naloxone, continue to monitor respiratory rate, depth, oxygen saturation and end-tidal CO2 (if available) every 15 minutes x 2, then every 30 minutes x 2, then every 1 hour x 1 after each naloxone dose. Consider transfer to ICU if patient respiratory parameters have not improved after 4 naloxone doses. naloxone (NARCAN) injection 0.4 mg(Linked Group 1) 0.4 mg, Intramuscular, EVERY 2 MIN PRN, opioid reversal, Starting on Thu02/09/24 at 194, Administer intramuscular if an intravenous route is not available and notify provider when administered. For unintended sedation or respiratory depression if all of the below criteria are met: ~ respiratory rate LESS than or EQUAL to 8. ~ SaO2 less than 92% and or/end-tidal CO2 is greater than 50. ~ the patient is receiving an opioid, has unintended sedation assessed as RASS (-4) or (-5) and patient is currently not on mechanical ventilation. RASS scale (-4) is deep sedation with no response to voice but movement or eye opening to physical stimulation. RASS scale (-5) is unarousable. Patient Monitoring Once the patient has demonstrated a response to the naloxone, continue to monitor respiratory rate, depth, oxygen saturation and end-tidal CO2 (if available) every 15 minutes x 2, then every 30 minutes x 2, then every 1 hour x 1 after each naloxone dose. Consider transfer to ICU if patient respiratory parameters have not improved after 4 naloxone doses. ondansetron (ZOFRAN) injection 4 mg 4 mg, Intravenous, EVERY 6 HOURS PRN, nausea, vomiting, Administer over 2-5 Minutes, Starting on Thu02/08/24 at 1700, Give IF patient unable to tolerate oral medication. This is Step 1 of nausea and vomiting management. If nausea not resolved in 15 minutes, go to Step 2 prochlorperazine (COMPAZINE). 1351 ($Given - Provider: Pam Ruiz RN) 1349 ($Given - Provider: Jorje Lorenzana RN) oxyCODONE (ROXICODONE) solution 5-10 mg 5-10 mg, Oral, EVERY 4 HOURS PRN, moderate pain, severe pain, Starting on Eduarda 02/11/24 at 0624 1349 ($Given - Provider: Jorje Lorenzana, ALIZA)1746 ($Given - Provider: Lester Huynh RN)2134 ($Given - Provider: Kamini Allen RN) 0138 ($Given - Provider: Kamini Allen RN)0809 ($Given - Provider: Tavia Plummer RN) oxyCODONE IR (ROXICODONE) tablet 10 mg (CANCELED) 10 mg, Oral, EVERY 4 HOURS PRN, severe pain, IF pain not managed with non-pharmacological and non-opioid interventions, Starting on Thu02/08/24 at 1308, May use concomitant with non-opioid analgesics. 0823 ($Given - Provider: Jorje Lorenzana RN) prochlorperazine (COMPAZINE) injection 10 mg 10 mg, Intravenous, EVERY 6 HOURS PRN, nausea, vomiting, Administer over 1-2 Minutes, Starting on Thu02/08/24 at 1308, IF patient unable to tolerate oral medication. This is Step 2 of nausea and vomiting management. Give if nausea not resolved 15 minutes after giving ondansetron (ZOFRAN). 1516 ($Given - Provider: Pino Stiles RN) senna-docusate (SENOKOT-S/PERICOLACE) 8.6-50 MG per tablet 1 tablet(Linked Group 2) 1 tablet, Oral, 2 TIMES DAILY PRN, constipation, Starting on Thu02/08/24 at 1308, If no bowel movement in 24 hours, increase to 2 tablets by mouth. IF more than 1 constipation PRN medication is ordered, administer step-pace as indicated, moving to the next step ONLY if prior step ineffective. Step 1: senna-docusate (SENOKOT-S; PERICOLACE) OR bisacodyl (DULCOLAX) EC tablet Step 2: polyethylene glycol (MIRALAX/GLYCOLAX) Step 3: bisacodyl (DULCOLAX) suppository Step 4: enema Hold for loose stools. senna-docusate (SENOKOT-S/PERICOLACE) 8.6-50 MG per tablet 2 tablet(Linked Group 2) 2 tablet, Oral, 2 TIMES DAILY PRN, constipation, Starting on Thu02/08/24 at 1308, IF more than 1 constipation PRN medication is ordered, administer step-pace as indicated, moving to the next step ONLY if prior step ineffective. Step 1: senna-docusate (SENOKOT-S; PERICOLACE) OR bisacodyl (DULCOLAX) EC tablet Step 2: polyethylene glycol (MIRALAX/GLYCOLAX) Step 3: bisacodyl (DULCOLAX) suppository Step 4: enema Hold for loose stools. simethicone (MYLICON) chewable tablet 80 mg 80 mg, Oral, 4 TIMES DAILY PRN, cramping, gas, Starting on Thu02/09/24 at 1902 0528 ($Given - Provider: Linda Cummings RN)0919 ($Given - Provider: Jorje Lorenzana RN)1550 ($Given - Provider: Ever Nogueira RN) 0550 ($Given - Provider: Milvia Cheng, ALIZA)1746 ($Given - Provider: Lester Huynh, ALIZA) sodium chloride (PF) 0.9% PF flush 3 mL 3 mL, Intracatheter, EVERY 1 MIN PRN, line flush, other, to ensure patency or to lock dormant line, Starting on Thu02/08/24 at 1308 Linked Groups Order Group 1: naloxone (NARCAN) injection 0.2 mgJump to med 0.2 mg, Intravenous, EVERY 2 MIN PRN, opioid reversal, Starting on Thu02/09/24 at 1941, Administer intravenous route when available and notify provider when administered. For unintended sedation or respiratory depression if all of the below criteria are met: ~ respiratory rate LESS than or EQUAL to 8. ~SaO2 less than 92% and or/end-tidal CO2 is greater than 50. ~ the patient is receiving an opioid, has unintended sedations assessed as RASS (-3), and is currently not on mechanical ventilation. RASS scale moderate (-3) is movement or eye opening to voice but no eye contact. Patient Monitoring Once the patient has demonstrated a response to the naloxone, continue to monitor respiratory rate, depth, oxygen saturation and end-tidal CO2 (if available) every 15 minutes x 2, then every 30 minutes x 2, then every 1 hour x 1 after each naloxone dose. Consider transfer to ICU if patient respiratory parameters have not improved after 4 naloxone doses. Or naloxone (NARCAN) injection 0.4 mgJump to med 0.4 mg, Intravenous, EVERY 2 MIN PRN, opioid reversal, Starting on Thu02/09/24 at 1940, Administer intravenous route when available and notify provider when administered. For unintended sedation or respiratory depression if all of the below criteria are met: ~ respiratory rate LESS than or EQUAL to 8. ~ SaO2 less than 92% and or/end-tidal CO2 is greater than 50. ~ the patient is receiving an opioid, has unintended sedation assessed as RASS (-4) or (-5) and patient is currently not on mechanical ventilation. RASS scale (-4) is deep sedation with no response to voice but movement or eye opening to physical stimulation. RASS scale (-5) is unarousable. Patient Monitoring Once the patient has demonstrated a response to the naloxone, continue to monitor respiratory rate, depth, oxygen saturation and end-tidal CO2 (if available) every 15 minutes x 2, then every 30 minutes x 2, then every 1 hour x 1 after each naloxone dose. Consider transfer to ICU if patient respiratory parameters have not improved after 4 naloxone doses. Or naloxone (NARCAN) injection 0.2 mgJump to med 0.2 mg, Intramuscular, EVERY 2 MIN PRN, opioid reversal, Starting on Thu02/09/24 at 1940, Administer intramuscular if an intravenous route is not available and notify provider when administered. For unintended sedation or respiratory depression if all of the below criteria are met: ~ respiratory rate LESS than or EQUAL to 8. ~SaO2 less than 92% and or/end-tidal CO2 is greater than 50. ~ the patient is receiving an opioid, has unintended sedations assessed as RASS (-3), and is currently not on mechanical ventilation. RASS scale moderate (-3) is movement or eye opening to voice but no eye contact. Patient Monitoring Once the patient has demonstrated a response to the naloxone, continue to monitor respiratory rate, depth, oxygen saturation and end-tidal CO2 (if available) every 15 minutes x 2, then every 30 minutes x 2, then every 1 hour x 1 after each naloxone dose. Consider transfer to ICU if patient respiratory parameters have not improved after 4 naloxone doses. Or naloxone (NARCAN) injection 0.4 mgJump to med 0.4 mg, Intramuscular, EVERY 2 MIN PRN, opioid reversal, Starting on Thu02/09/24 at 1941, Administer intramuscular if an intravenous route is not available and notify provider when administered. For unintended sedation or respiratory depression if all of the below criteria are met: ~ respiratory rate LESS than or EQUAL to 8. ~ SaO2 less than 92% and or/end-tidal CO2 is greater than 50. ~ the patient is receiving an opioid, has unintended sedation assessed as RASS (-4) or (-5) and patient is currently not on mechanical ventilation. RASS scale (-4) is deep sedation with no response to voice but movement or eye opening to physical stimulation. RASS scale (-5) is unarousable. Patient Monitoring Once the patient has demonstrated a response to the naloxone, continue to monitor respiratory rate, depth, oxygen saturation and end-tidal CO2 (if available) every 15 minutes x 2, then every 30 minutes x 2, then every 1 hour x 1 after each naloxone dose. Consider transfer to ICU if patient respiratory parameters have not improved after 4 naloxone doses. Group 2: senna-docusate (SENOKOT-S/PERICOLACE) 8.6-50 MG per tablet 1 tabletJump to med 1 tablet, Oral, 2 TIMES DAILY PRN, constipation, Starting on Thu02/08/24 at 1308, If no bowel movement in 24 hours, increase to 2 tablets by mouth. IF more than 1 constipation PRN medication is ordered, administer step-pace as indicated, moving to the next step ONLY if prior step ineffective. Step 1: senna-docusate (SENOKOT-S; PERICOLACE) OR bisacodyl (DULCOLAX) EC tablet Step 2: polyethylene glycol (MIRALAX/GLYCOLAX) Step 3: bisacodyl (DULCOLAX) suppository Step 4: enema Hold for loose stools. Or senna-docusate (SENOKOT-S/PERICOLACE) 8.6-50 MG per tablet 2 tabletJump to med 2 tablet, Oral, 2 TIMES DAILY PRN, constipation, Starting on Thu02/08/24 at 1308, IF more than 1 constipation PRN medication is ordered, administer step-pace as indicated, moving to the next step ONLY if prior step ineffective. Step 1: senna-docusate (SENOKOT-S; PERICOLACE) OR bisacodyl (DULCOLAX) EC tablet Step 2: polyethylene glycol (MIRALAX/GLYCOLAX) Step 3: bisacodyl (DULCOLAX) suppository Step 4: enema Hold for loose stools. documented in this encounter Care Teams Elevator Operator Service Relationship Specialty Start Date End Date Shanti Lara PORTRAIT PAINTER [facility] [address] [place] [address] PCP - General Nurse Practitioner - Family 03/17/[address] [facility] [address] [place], [place] [id number] Referring Physician jewelry model maker 07/29/17 Jonathan Pitts MD [address] [place] [address] Oncology 07/29/17 Christine Poon RN Specialty Promotions Assistant Sales Marketing Hematology & Oncology 12/02/21 documented as of this encounter
--- OUTSIDE RECORDS SUMMARY | 2024-02-12 23:18 | XMS_ITS | Encounter Summary ---
Author Organization [facility] Address [address] [place] [address] Care Team Providers Care Public Relations Consultant Name Role Phone No Ref-Primary, Physician Primary Care Provider Kavita Akhtar Unavailable [phone] Jonathan Pitts MD Unavailable Jonathan Pitts MD Unavailable [phone] Christine Poon RN Unavailable [phone] Shanti Lara NP Primary Care Provider [phone] Encounter Details Date Type Department Care Team (Late st Contact Info) Description 11/14/2021 [facility] [address] [place] [phone] Jonathan Pitts MD [address] [place] [address] Social History Tobacco Use Types Packs/Day [...] as of this encounter Plan of Treatment Upcoming Encounters Date Type Department Care Team (Late st Contact Info) Description 02/19/2024 10:40 AM CDT Allied Health/Nurse Visit [facility] Cancer [address] [phone] Jonathan Pitts MD [address] [place] [phone] Nurse, [facility] 02/29/2024 8:00 AM CDT Oncology Visit [facility] [address] [phone] Jonathan Pitts MD [address] [place] [address] [phone] documented as of this encounter Visit Diagnoses Not on filedocumented in this encounter Care Teams Public Relations Consultant Relationship Specialty Start Date End Date No Ref-Primary, Physician PCP - General 07/29/17 03/16/22 Shanti Lara NP [facility] [address] [place] [address] PCP - General Nurse Practitioner - Family 03/17/22 [facility] [address] [place], [place] [address] Referring Physician crate tier 07/29/17 Jonathan Pitts MD [address] [place] [address] Oncology 07/29/17 Jonathan Pitts MD [address] [place] [address] [place] [address] Assigned Cancer Care Provider 05/18/20 05/15/23 Christine Poon RN Specialty Credit Clerk Hematology & Oncology 12/02/21 documented as of this encounter
--- OUTSIDE RECORDS SUMMARY | 2024-02-12 23:18 | XMS_ITS | Encounter Summary ---
Author Organization [facility] Address [address] [place] [address] Care Team Providers Care Stratigrapher Name Role Phone Clinic, Kavita Rosenbaum Unavailable [phone] Jonathan Pitts MD Unavailable [phone] Christine Poon RN Unavailable [phone] Shanti Lara NP Primary Care Provider [phone] Encounter Details Date Type Department Care Team (Late st Contact Info) Description 02/09/2024 11:50 AM CDT Ancillary Procedure [facility] [address] [place] [phone] Gerardo Garcia MD [address] [facility] [address] [place], [place] [phone] Social History Tobacco Use Types Packs/Day Years [...] 02/19/2024 10:40 AM CDT Allied Health/Nurse Visit [facility] Cancer [address] [phone] Jonathan Pitts MD [address] [place] [address] [phone] Nurse, [facility] 02/29/2024 8:00 AM CDT Oncology Visit [facility] Cancer [address] [phone] Jonathan Pitts MD [address] [place] [address] [phone] Pending Results Name Type Priority Associated Diagnoses Date /Time POC US Guidance Needle Placement Imaging Routine 02/09/2024 11:48 AM CDT documented as of this encounter Visit Diagnoses Not on filedocumented in this encounter Care Teams Stratigrapher Relationship Specialty Start Date End Date Shanti Lara [employer] [facility] [address] [place] [address] PCP - General Nurse Practitioner - Family 03/17/22 [facility] [address] [place], [place] [phone] Referring Physician regional company flatbed truck driver 07/29/17 Jonathan Pitts MD [address] [place] [address] Oncology 07/29/17 Christine Poon, RN Specialty Greens Tier Hematology & Oncology 12/02/21 documented as of this encounter
--- OUTSIDE RECORDS SUMMARY | 2024-02-12 23:18 | XMS_ITS | Encounter Summary ---
Author Organization [facility] Address [address] [place] [id number] Care Team Providers Care Sawyer Helper Name Role Phone No Ref-Primary, Physician Primary Care Provider Kavita Akhtar Unavailable [phone] Jonathan Pitts MD Unavailable Jonathan Pitts MD Unavailable Christine Poon RN Unavailable [phone] Shanti Lara NP Primary Care Provider [phone] Encounter Details Date Type Department Care Team ([facility] st Contact Info) Description 03/13/2022 [facility] [address] [place] [phone] Jonathan Pitts MD [address] [place] [address] Social History Tobacco Use Types Packs/Day [...] 02/19/2024 10:40 AM CDT Allied Health/Nurse Visit [facility] [address] [phone] Jonathan Pitts MD [address] [place] [address] [phone] Nurse, [facility] 02/29/2024 8:00 AM CDT Oncology Visit [facility] [address] [phone] Jonathan Pitts MD [address] [place] [address] documented as of this encounter Visit Diagnoses Not on filedocumented in this encounter Care Teams Sawyer Helper Relationship Specialty Start Date End Date No Ref-Primary, Physician PCP - General 07/29/17 03/16/22 Shanti Lara CORPORATE LEGAL INTERN [facility] [address] [place] [address] PCP - General Nurse Practitioner - Family 03/17/22 [facility] [address] [place], [place] 214345 Referring Physician dealer accounts investigator 07/29/17 Jonathan Pitts MD [address] [place] [address] [phone] Oncology 07/29/17 Jonathan Pitts MD [address] [place] [phone] Assigned Cancer Care Provider 05/18/20 05/15/23 Christine Poon RN Specialty Geographic Area Intelligence Officer Hematology & Oncology 12/02/21 documented as of this encounter
--- OUTSIDE RECORDS SUMMARY | 2024-02-12 23:18 | XMS_ITS | Encounter Summary ---
Author Organization [facility] Address [address] [place] [address] Care Team Providers Care Chief Fundraising Officer Name Role Phone Clinic, Kavita Rosenbaum Unavailable + [phone] Jonathan Pitts MD Unavailable [phone] Christine Poon RN Unavailable [phone] Shanti Lara NP Primary Care Provider [phone] Encounter Details Date Type Department Care Team (Late st Contact Info) Description 02/08/2024 [facility] [address] [place] [phone] Jonathan Pitts MD [address] [place] [address] Social History Tobacco Use Types Packs/Day [...] 02/19/2024 10:40 AM CDT Allied Health/Nurse Visit [facility] Cancer [address] [phone] Jonathan Pitts MD [address] [place] [address] [phone] Nurse, [facility] 02/29/2024 8:00 AM CDT Oncology Visit [facility] [address] [phone] Jonathan Pitts MD [address] [place] [address] [phone] documented as of this encounter Visit Diagnoses Not on filedocumented in this encounter Care Teams Chief Fundraising Officer Relationship Specialty Start Date End Date Shanti Lara CABIN CLEANER [facility] [address] [place] [address] PCP - General Nurse Practitioner - Family 03/17/22 [facility] [address] [place], [place] 730885 Referring Physician developmental electronics assembler 07/29/17 Jonathan Pitts MD [address] [place] [phone] Oncology 07/29/17 Christine Poon, RN Specialty Farmworker Vegetable Hematology & Oncology 12/02/21 documented as of this encounter
--- OUTSIDE RECORDS SUMMARY | 2024-02-12 23:18 | XMS_ITS | Encounter Summary ---
Author Organization [facility] Address [address] [place] [address] Care Team Providers Care Celebrity Chef Entrepreneur Media Personality Name Role Phone Clinic, Kavita Rosenbaum Unavailable + [phone] Jonathan Pitts MD Unavailable [phone] Jonathan Pitts MD Unavailable [phone] Christine Poon RN Unavailable [phone] Shanti Lara INTERN RETAIL Primary Care Provider [phone] Encounter Details Date Type Department Care Team (Late st Contact Info) Description 02/05/2023 [facility] [address] [place] [phone] Jonathan Pitts MD [address] [place] [address] Social History Tobacco Use Types Packs/Day [...] 02/19/2024 10:40 AM CDT Allied Health/Nurse Visit [facility] [address] [phone] Jonathan Pitts MD [address] [place] [address] [phone] Nurse, [facility] 02/29/2024 8:00 AM CDT Oncology Visit [facility] [address] [phone] Jonathan Pitts MD [address] [place] [address] [phone] documented as of this encounter Visit Diagnoses Not on filedocumented in this encounter Care Teams Celebrity Chef Entrepreneur Media Personality Relationship Specialty Start Date End Date Shanti Lara INTERN RETAIL [facility] [address] [place] [address] PCP - General Nurse Practitioner - Family 03/17/[address] [phone] Referring Physician cardiac rn 07/29/17 Jonathan Pitts MD [address] [place] [phone] MD Oncology 07/29/17 Jonathan Pitts MD [address] [place] [id number] Assigned Cancer Care Provider 05/18/20 05/15/23 Christine Poon, RN Specialty Finishing Wire Sawyer Hematology & Oncology 12/02/21 documented as of this encounter
--- OUTSIDE RECORDS SUMMARY | 2024-02-12 23:18 | XMS_ITS | Encounter Summary ---
Author Organization [facility] Address [address] [place] [address]. [place] [address] Care Team Providers Care Rails Developer Name Role Phone Clinic, Kavita Rosenbaum Unavailable [phone] Jonathan Pitts MD Unavailable Christine Poon RN Unavailable [phone] Shanti Lara NP Primary Care Provider Reason for Visit * Auth/Cert Specialty Diagnoses / Procedures Referred By Vlad benral Referred To Contact EMERGENCY MEDICINE Diagnoses Pelvic mass hemorrhage Ovarian mass Active internal bleeding [facility] [address] [place] [address] Referral ID Status Reason Start Date Expiration Date Visits Re quested Visits Authorized [id number] 1 1 Encounter Details Date Type Department Care Team (Late st Contact Info) Description 02/09/2024 2:06 PM CDT Anesthesia Event [facility] [address] [place] [address] Herbert Chin MD [address] [place] [address] Richy Ferguson APRN SOLVENT STATION ATTENDANT [address] [place] [address] Anesthesia Record Procedure Summary Procedure Name Responsible Anesthesiologist Anesthesia Start Time Anesthesia Stop Time LAPAROTOMY, EXPLORATORY, Lysis of adhesions,tumor debulking, cystoscopy, proctoscopy (Abdomen) Herbert Chin MD 02/09/24 1406 02/09/24 1759 Events Date Time Event Comment 02/09/2024 1218 1406 An Start Anesthesia Star t is defined as when the anesthesia provider assumed care, began anesthesia prep, remained continuously present with the patient, and excludes all time for performing the pre-anesthesia evaluation. The Pre-Anesthesia Evaluation was completed before Anesthesia Start. 1410 An Start Data 1413 AN REASSESS I attest that I have identified and re-evaluated the patient immediately before the induction of anesthesia and I am satisfied that the anesthetic plan is suitable for the patient's condition and procedure. The first vital signs recorded are pre- induction. Alma Rosa Bagal 1421 An Induction 1425 An Intubation 1428 Anesthesia Ready for Procedu re 1751 AN Extubation All extubation criteria met prior to removal. 175 an stop data 1759 An Stop Electronically signed by Yordan Dunbar APRN CRNA on February 09, 2024 5:59 PM Meds Name Total midazolam 1 mg/mL 2 mg fentaNYL 50 mcg/mL 200 mcg lidocaine 2% 100 mg propofol 10 mg/mL 190 mg propofol drip mcg/kg/min 371.66 mg ketamine 10 mg/mL 50 mg rocuronium 10 mg/mL 130 mg dexamethasone (DECADRON) 4 mg/mL 4 mg ondansetron 2 mg/mL 4 mg sugammadex (BRIDION) 200mg/2mL 200 mg ceFAZolin Sodium (ANCEF) injection 2 g 2 g Bupivacaine 0.25% PF (Infiltration) 20 m L Bupivacaine liposome (Exparel) 1.3% LA i nj susp (Infiltration) 20 mL LR 2,100 mL * Agents Name O2 N2O Air Exp Sevoflurane Exp Isoflurane Exp Desflurane Ins Sevoflurane Ins Isoflurane Ins Desflurane * Blood No blood administrations on file. Lines, Drains, and Airways Type Details Placement Removal Incision/Surgical Site 08/21/17; 1115; Abdomen; 4 port sites 08/21/17 1115 by Laverne Fournier RN Incision/Surgical Site 05/11/20; 1616; Bilateral; Abdomen 05/11/20 1616 by Laisha Levine RN Incision/Surgical Site 06/19/20; 1802; Anterior; Abdomen 06/19/20 1802 by Sabino Montelongo, ALIZA Incision/Surgical Site 02/09/24; 1712; Abdomen; suture 02/09/24 1712 by Vicky Corrales, ALIZA Urethral Catheter 02/09/24; No; Surgical procedure; 16 fr 02/09/24 0000 by Vicky Corrales RN 02/10/24 2116 by Ever Nogueira RN Peripheral IV 02/09/24; Anterior, Right; Upper forearm 02/09/24 0000 by Jovana Gomez RN 02/11/24 1821 by Lester Huynh RN Peripheral IV 02/09/24; 1250; 20 G ; Left, Posterior; Hand; Chlorhexidine; 1; Tolerated well 02/09/24 1250 by Rosa Ponce RN 02/12/24 1030 by Tavia Plummer RN ETT Placement Date: 02/09/24; Placement Time: 1425 (created via procedure documentation); Mask Ventilation: 2; Induction Type: Intravenous; Ease of Intubation: Easy; Technique: Direct laryngoscopy; Tube Size: 7 mm; DL Blade Size: MAC 3; Grade View: 1; Adjucts: Stylet; Placement Person: SOLVENT STATION ATTENDANT Student; Attempts: 1 02/09/24 1425 by Herbert Chin MD 02/09/24 1751 by Yordan Dunbar APRN SOLVENT STATION ATTENDANT documented in this encounter Social History Tobacco [...] on file documented as of this encounter OR Notes * Anesthesia Procedure Notes - Ministerio Barrios MD - 02/10/2024 10:12 AM CDT Associated Order(s): Peripheral/Paravertebral Block TAP Procedure Note Pre-Procedure Staff - Anesthesiologist: Gerardo Garcia MD Resident/Fellow: Ministerio Barrios MD Performed By: resident Location: pre-op Procedure Start/Stop Times: 02/09/2024 10:13 AM and 02/09/2024 10:12 AM Pre-Anesthestic Checklist: patient identified, IV checked, site marked, risks and benefits discussed, informed consent, monitors and equipment checked, pre-op evaluation, at physician/surgeon's request and post-op pain management Timeout: Correct Patient: Yes Correct Procedure: Yes Correct Site: Yes Correct Position: Yes Correct Laterality: Yes Site Marked: Yes Procedure Documentation Procedure: TAP Laterality: bilateral Patient Position: supine Patient Prep/Sterile Barriers: sterile gloves, mask Skin prep: Chloraprep Needle Type: short bevel Needle Gauge: 21. Needle Length (millimeters): 110 Ultrasound guided 1. Ultrasound was used to identify targeted nerve, plexus, vascular marker, or fascial plane and place a needle adjacent to it in real-time. 2. Ultrasound was used to visualize the spread of anesthetic in close proximity to the above referenced structure. 3. A permanent image is entered into the patient's record. Assessment/Narrative The placement was negative for: blood aspirated, painful injection and site bleeding Paresthesias: No. Bolus given via needle. no blood aspirated via catheter. Secured via. Insertion/Infusion Method: Single Shot Complications: none Medication(s) Administered Bupivacaine 0.25% PF (Infiltration) - Infiltration 20 mL - 02/10/2024 10:13:00 AM Bupivacaine liposome (Exparel) 1.3% LA inj susp (Infiltration) - Infiltration 20 mL - 02/10/2024 10:13:00 AM Medication Administration Time: 02/09/2024 10:13 AM FOR [facility] ([facility]) ONLY: Pain Team Contact information: please page the Pain Team Via [email or web address]Search Pain. During daytime hours, please page the attending first. At night please page the resident first. * Anesthesia Postprocedure Evaluation - Herbert Chin MD - 02/09/2024 6:53 PM CDT Patient: Sonam M Shahana Procedure: Procedure(s): LAPAROTOMY, EXPLORATORY, Lysis of adhesions,tumor debulking, cystoscopy, proctoscopy Anesthesia Type: General Note: Disposition: Inpatient Postop Pain Control: Uneventful Sign Out: Well controlled pain PONV: No Neuro/Psych: Uneventful Sign Out: Acceptable/Baseline neuro status Airway/Respiratory: Uneventful Sign Out: Acceptable/Baseline resp. status CV/Hemodynamics: Uneventful Sign Out: Acceptable CV status; No obvious hypovolemia; No obvious fluid overload Other NRE: DID A NON-ROUTINE EVENT OCCUR? Last vitals: Vitals Value Taken Time BP 136/83 02/09/24 1849 Temp 36.3 ??C (97.3 ??F) 02/09/24 1755 Pulse 105 02/09/24 1852 Resp 15 02/09/24 1852 SpO2 97 % 02/09/24 185 Vitals shown include unfiled device data. Electronically Signed By: Herbert Chin MD February 09, 2024 6:53 PM * Anesthesia Procedure Notes - Alma Rosa Pacheco - 02/09/2024 2:52 PM CDTAssociated Order(s): Airway Airway Patient location during procedure: OR Procedure Start/Stop Times: 02/09/2024 2:25 PM Staff - SOLVENT STATION ATTENDANT: Yordan Dunbar APRN CRNA Other Anesthesia Staff: Alma Rosa Pacheco Performed By: SRNA Consent for Airway Urgency: elective Indications and Patient Condition Indications for airway management: paloma-procedural Induction type:intravenous Mask difficulty assessment: 2 - vent by mask + OA or adjuvant +/- NMBA Final Airway Details Final airway type: endotracheal airway Successful airway: ETT - single and Oral Endotracheal Airway Details ETT size (mm): 7.0 Cuffed: yes Successful intubation technique: direct laryngoscopy DL Blade Type: MAC 3 Grade View of Cords: 1 Adjucts: stylet Position: Right Measured from: gums/teeth Secured at (cm): 21 Bite block used: None Post intubation assessment Placement verified by: capnometry, equal breath sounds and chest rise Number of attempts at approach: 1 Secured with: tape Ease of procedure: easy Dentition: Intact and Unchanged Medication(s) Administered Medication Administration Time: 02/09/2024 2:25 PM * Anesthesia Preprocedure Evaluation - Mandeep Boateng MD - 02/09/2024 10:30 AM CDT Anesthesia Pre-Procedure Evaluation Patient: Sonam Harkins : 1985 Procedure : Procedure(s): LAPAROTOMY, EXPLORATORY, FOR STAGING LAPAROTOMY, WITH NEOPLASM DEBULKING Past Medical History: Diagnosis Date ??? ADHD (attention deficit hyperactivity disorder) ??? Chronic neck and back pain ??? Depression ??? Granulosa cell tumor ??? TBI (traumatic brain injury) (H) Past Surgical History: Procedure Laterality Date ??? ABDOMEN SURGERY C section ??? ARTHROSCOPY KNEE Right x3 ??? ARTHROSCOPY KNEE Left x1 ??? CYSTOSCOPY N/A 05/11/2020 Procedure: CYSTOSCOPY; Surgeon: Jonathan Pitts MD; Location: [facility] ??? LAPAROSCOPIC HYSTERECTOMY TOTAL, BILATERAL SALPINGO-OOPHORECTOMY, COMBINED Left 05/11/2020 Procedure: Laparoscopy, hysterectomy, left salpingo-oophorectomy, removal of pelvic mass; Surgeon: Jonathan Pitts MD; Location: [facility] ??? LAPAROSCOPY DIAGNOSTIC (STORE STOCK ASSOCIATE) 06/2017 Ruptured right ovarian cyst ??? LAPAROSCOPY DIAGNOSTIC (STORE STOCK ASSOCIATE) N/A 08/21/2017 Procedure: LAPAROSCOPY DIAGNOSTIC (STORE STOCK ASSOCIATE); diagnostic Laparoscopy, Omentectomy , peritoneal biopsy, excision of right adnexal remnant, right ureteral lysis. Anesthesia Block; Surgeon: Jonathan Pitts MD; Location: [facility] ??? LAPAROTOMY, TUMOR DEBULKING, COMBINED Bilateral 06/19/2020 Procedure: Laparotomy, Tumor debulking, Ureterolysis, Repair of cystotomy, cystoscopy; Surgeon: Jonathan Pitts MD; Location: [facility] ??? PROCTOSCOPY N/A 05/11/2020 Procedure: Proctoscopy; Surgeon: Jonathan Pitts MD; Location: [facility] ??? TUBAL LIGATION Allergies Allergen Reactions ??? Codeine Rash ??? Gabapentin Visual Disturbance Severe headache ??? Morphine Rash MORPHINE AND RELATED ??? Tramadol Rash Social History Tobacco Use ??? Smoking status: Former Current packs/day: 0.00 Average packs/day: 0.3 packs/day for 17.7 years (4.4 ttl pk-yrs) Types: Cigarettes Start date: 11/08/2000 Quit date: 07/27/2018 Years since quittin.5 ??? Smokeless tobacco: Never Substance Use Topics ??? Alcohol use: Not Currently Wt Readings from Last 1 Encounters: 02/09/24 90.1 kg (198 lb 10.2 oz) Anesthesia Evaluation Pt has had prior anesthetic. Type: General. ROS/MED HX ENT/Pulmonary: Neurologic: Cardiovascular: METS/Exercise Tolerance: Hematologic: Musculoskeletal: GI/Hepatic: Renal/Genitourinary: Endo: (+) Obesity, Psychiatric/Substance Use: Comment: ADHA (+) alcohol abuse Infectious Disease: Malignancy: (+) Malignancy, History of Other.Other CA Granulosa cell tumour status post Surgery. Other: Physical Exam Airway Mallampati: I TM distance: > 3 FB Neck ROM: full Mouth opening: > 3 cm Respiratory Devices and Support Dental (+) Multiple visibly decayed, broken teeth Cardiovascular cardiovascular exam normal Rhythm and rate: regular and normal Pulmonary pulmonary exam normal breath sounds clear to auscultation OUTSIDE LABS: CBC: Lab Results Component Value Date WBC 7.1 02/09/2024 WBC 9.7 02/08/2024 HGB 9.4 (L) 02/09/2024 HGB 10.3 (L) 02/08/2024 HCT 27.6 (L) 02/09/2024 HCT 30.0 (L) 02/08/2024 PLT 155 02/09/2024 PLT 170 02/08/2024 BMP: Lab Results Component Value Date NA 138 02/08/2024 NA 136 06/20/2020 POTASSIUM 4.2 02/08/2024 POTASSIUM 4.3 06/20/2020 CHLORIDE 102 02/08/2024 CHLORIDE 104 06/20/2020 CO2 24 02/08/2024 CO2 25 06/20/2020 BUN 6.5 02/08/2024 BUN 13 06/20/2020 CR 0.68 02/08/2024 CR 0.71 06/20/2020 GLC 112 (H) 02/08/2024 GLC 150 (H) 06/20/2020 COAGS: No results found for: PTT, INR, FIBR POC: Lab Results Component Value Date BGM 84 06/19/2020 HCG Negative 08/21/2017 HEPATIC: Lab Results Component Value Date ALBUMIN 3.9 06/14/2020 PROTTOTAL 7.7 06/14/2020 ALT 39 06/14/2020 AST 16 06/14/2020 ALKPHOS 81 06/14/2020 BILITOTAL 0.3 06/14/2020 OTHER: Lab Results Component Value Date ZULLY 9.3 02/08/2024 Anesthesia Plan ASA Status: 3 NPO Status: NPO Appropriate Anesthesia Type: General. - Airway: ETT Induction: Propofol, Intravenous. Maintenance: Balanced. Techniques and Equipment: - Lines/Monitors: BIS, 2nd IV Consents Anesthesia Plan(s) and associated risks, benefits, and realistic alternatives discussed. Questions answered and patient/automobile rental representative(s) expressed understanding. - Discussed: Risks, Benefits and Alternatives for the PROCEDURE were discussed - Discussed with: Patient - Extended Intubation/Ventilatory Support Discussed: No. - Patient is DNR/DNI Status: No Use of blood products discussed: Yes. - Discussed with: Patient. Postoperative Care Pain management: IV analgesics, Oral pain medications, Multi-modal analgesia. PONV prophylaxis: Ondansetron (or other 5HT-3), Dexamethasone or Solumedrol Comments: Other Comments: Hb 9.4gm% Type and screen done.Explained about need for blood transfusion if needed. Mandeep Boateng MD I have reviewed the pertinent notes and labs in the chart from the past 30 days and (re)examined the patient. Any updates or changes from those notes are reflected in this note. documented in this encounter Miscellaneous Notes * Anesthesia Care Transfer Note - Yordan Dunbar APRN SOLVENT STATION ATTENDANT - 02/09/2024 5:58 PM CDT Patient: Sonam Harkins Procedure: Procedure(s): LAPAROTOMY, EXPLORATORY, Lysis of adhesions,tumor debulking, cystoscopy, proctoscopy Diagnosis: Granulosa cell tumor [D39.10] Diagnosis Additional Information: No value filed. Anesthesia Type: General Note: Oropharynx: oropharynx clear of all foreign objects and spontaneously breathing Level of Consciousness: drowsy Oxygen Supplementation: face mask Level of Supplemental Oxygen (L/min / FiO2): 6 Independent Airway: airway patency satisfactory and stable Dentition: dentition unchanged Vital Signs Stable: post-procedure vital signs reviewed and stable Report to RN Given: handoff report given Patient transferred to: PACU Comments: Pt extubated in the OR without incident or complications. Pt VSS upon arrival to the PACU. Pt has no c/o pain/N/V. Pt care report given to receiving RN. All questions answered. Handoff Report: Identifed the Patient, Identified the Reponsible Provider, Reviewed the pertinent medical history, Discussed the surgical course, Reviewed Intra-OP anesthesia mangement and issues during anesthesia, Set expectations for post-procedure period and Allowed opportunity for questions andacknowledgement of understanding Vitals: Vitals Value Taken Time BP 128/90 02/09/24 1755 Temp 36.3 ??C (97.3 ??F) 02/09/24 1755 Pulse 103 02/09/24 1757 Resp 21 02/09/24 1757 SpO2 100 % 02/09/24 175 Vitals shown include unfiled device data. Electronically Signed By: Yordan Dunbar APRN CRNA February 09, 2024 5:58 PM documented in this encounter Plan of Treatment Upcoming Encounters Date Type Department Care Team (Late st Contact Info) Description 02/19/2024 10:40 AM CDT Allied Health/Nurse Visit [facility] [address] [address] Jonathan Pitts MD [address] [place] [address] [phone] Nurse, [facility] 02/29/2024 8:00 AM CDT Oncology Visit [facility] [address] [address] Jonathan Pitts MD [address] [place] [address] [phone] documented as of this encounter Procedures Procedure Name Priority Date/Time Associated Diagnosis Comments ANE AIRWAY ETT PERFORMABLE Routine 02/09/2024 2:25 PM CDT ANE PERIPHERAL/PARAVETEB RAL BLOCK Routine 02/09/2024 10:13 AM CDT documented in this encounter Results * ANE AIRWAY ETT PERFORMABLE (02/09/2024 2:25 PM CDT) Narrative Alma Rosa Pacheco - 02/09/2024 2:25 PM CDT Alma Rosa Pacheco ? 02/09/2024 ??2:56 PM Airway ? Patient location during procedure: OR ? Procedure Start/Stop Times: 02/09/2024 2:25 PM Staff - ? SOLVENT STATION ATTENDANT: Yordan Dunbar APRN SOLVENT STATION ATTENDANT ? Other Anesthesia Staff: Alma Rosa Pacheco [...] Time: 02/09/2024 2:25 PM Herbert Chin MD MA ANESTHESIA * Peripheral/Paravertebral Block (02/09/2024 10:13 AM [...] Medication Administration Time: 02/09/2024 10:13 AM FOR [facility] ([facility]) ONLY: ?? Pain Team Contact information: please page the Pain Team Via [employer] Search Pain. During daytime hours, please page the attending first. At night please page the resident first. Gerardo Garcia MD MA ANESTHESIA documented in this encounter Visit Diagnoses Not on filedocumented in this encounter Administered Medications Inactive Administered Medications - up to 3 most recent administrations Medication Order MAR Action Action Date Dose Rate Site Bupivacaine 0.25% PF (Infiltration) Infiltration, Starting on Thu02/10/24 at 1013, Anesthesia Intra-op $Given 02/10/2024 10:13 AM CDT 20 mLs BUPivacaine liposome (EXPAREL) 1.3 % LA inj susp Infiltration, Starting on Thu02/10/24 at 1013, Anesthesia Intra-op $Given 02/10/2024 10:13 AM CDT 20 mLs ceFAZolin Sodium (ANCEF) injection 2 g Routine, 2 g, Intravenous, PRE-OP/PRE-PROCEDURE, Starting on Thu02/09/24 at 1136, For 1 dose, Give first dose within 1 hour PRIOR to incision. If patient weight is greater than or equal to 120 kg increase dose to 3 g., Indications: Perioperative Pharmacoprophylaxis, Pre-procedure $Given 02/09/2024 2:21 PM CDT 2 g dexAMETHasone (DECADRON) injection Intravenous, PRN, Administer over 1 Minutes, Starting on Thu02/09/24 at 1435, Anesthesia Intra-op $Given 02/09/2024 2:35 PM CDT 4 mg fentaNYL (PF) (SUBLIMAZE) injection Intravenous, PRN, Administer over 3-5 Minutes, Starting on Thu02/09/24 at 1421, Anesthesia Intra-op $Given 02/09/2024 5:30 PM CDT 25 mcg $Given 02/09/2024 5:20 PM CDT 25 mcg $Given 02/09/2024 3:27 PM CDT 75 mcg ketamine (KETALAR) injection Intravenous, PRN, Administer over 2-5 Minutes, Starting on Thu02/09/24 at 1435, Anesthesia Intra-op $Given 02/09/2024 5:30 PM CDT 10 mg $Given 02/09/2024 4:15 PM CDT 10 mg $Given 02/09/2024 2:35 PM CDT 30 mg lactated ringers infusion Intravenous, CONTINUOUS PRN, Anesthesia Intra-op, Starting on Thu02/09/24 at 1406, Until Thu02/09/24 at 1759 $New Bag 02/09/2024 4:15 PM CDT $New Bag 02/09/2024 2:06 PM CDT lidocaine 2% injection (MDV) Intravenous, PRN, Starting on Thu02/09/24 at 1420, Anesthesia Intra-op $Given 02/09/2024 2:20 PM CDT 100 mg midazolam (VERSED) injection Intravenous, Administer over 2 Minutes, PRN, Starting on Thu02/09/24 at 1408, Anesthesia Intra-op $Given 02/09/2024 2:08 PM CDT 2 mg ondansetron (ZOFRAN) injection Intravenous, PRN, Administer over 2-5 Minutes, Starting on Thu02/09/24 at 1704, Anesthesia Intra-op $Given 02/09/2024 5:04 PM CDT 4 mg propofol (DIPRIVAN) infusion Intravenous, CONTINUOUS PRN, Starting on Thu02/09/24 at 1425, Anesthesia Intra-op $New Bag 02/09/2024 2:25 PM CDT 25 mcg/kg/min 13.515 mL/hr propofol (DIPRIVAN) injection 10 mg/mL vial Intravenous, PRN, Starting on Thu02/09/24 at 1419, Anesthesia Intra-op $Given 02/09/2024 5:34 PM CDT 30 mg $Given 02/09/2024 5:19 PM CDT 10 mg $Given 02/09/2024 2:19 PM CDT 150 mg rocuronium injection Intravenous, PRN, Starting on Thu02/09/24 at 1419, Anesthesia Intra-op $Given 02/09/2024 4:15 PM CDT 30 mg $Given 02/09/2024 3:40 PM CDT 20 mg $Given 02/09/2024 3:13 PM CDT 20 mg sugammadex (BRIDION) injection Intravenous, PRN, Starting on Thu02/09/24 at 1735, Anesthesia Intra-op $Given 02/09/2024 5:35 PM CDT 200 mg documented in this encounter Care Teams Rails Developer Relationship Specialty Start Date End Date Shanti Lara, DIRECTOR RELIGIOUS EDUCATION [facility] [address] [place] [address] PCP - General Nurse Practitioner - [facility] 03/17/22 [facility] [address] [place], [place] [phone] Referring Physician wafer fabrication operator 07/29/17 Jonathan Pitts MD [address] [place] [address] [phone] Oncology 07/29/17 Christine Poon, RN Specialty Sales Representative [employer] [facility] 12/02/21 documented as of this encounter
--- OUTSIDE RECORDS SUMMARY | 2024-02-12 23:18 | XMS_ITS | Encounter Summary ---
Author Organization [facility] Address [address] [place] [address] Care Team Providers Care Affirmative Action Specialist Name Role Phone Clinic, Kavita Rosenbaum Unavailable [phone] Jonathan Pitts MD Unavailable [phone] Christine Poon RN Unavailable [phone] Shanti Lara NP Primary Care Provider Reason for Visit * Reason Comments Abdominal Pain * Auth/Cert Specialty Diagnoses / Procedures Referred By Vlad bernal Referred To Contact EMERGENCY MEDICINE Diagnoses Pelvic mass hemorrhage Ovarian mass Active internal bleeding [facility] [address] [place] [address] Referral ID Status Reason Start Date Expiration Date Visits Re quested Visits Authorized [id number] 1 1 Encounter Details Date Type Department Care Team (Latest Contact Info) Description 02/08/2024 11:49 AM CDT - 02/12/2024 10:54 AM CDT Hospital Encounter [facility] 5A Oncology [address] [place], [place] [address] Ney Fung MD [address] [place], [place] [address] Junior Ashton MD [address] [place] [id number] Granulosa cell tumor (Primary Dx); Ovarian mass; Active internal bleeding; Abdominal pain, right lower quadrant; Abdominal pain, left lower quadrant; Nausea and vomiting, unspecified vomiting type; Personal history of ovarian cancer; Pelvic mass; S/P hysterectomy Discharge Disposition: Home or Self Care Social History Tobacco Use Types Packs/Day Years [...] (200 lb) 02/11/2024 8:58 AM CDT Height - - Body Mass Index 35.44 11/11/2021 7:54 AM CDT documented in this encounter Discharge Summaries * Jessica Fitch MD - 02/12/2024 8:42 AM CDT Gynecologic Oncology Discharge Summary Sonam Painting Shahana [id number] Admit Date: 02/08/2024 Discharge Date: 02/12/2024 Admitting Provider: Junior Ahston MD Discharge Provider: Junior Ashton MD Admission [...] your medicines These medications were sent to [facility] Discharge - [place], [place] - [address] [place] [address] 500 [facility], [facility] [address] acetaminophen 325 MG tablet apixaban ANTICOAGULANT 2.5 MG tablet ibuprofen 400 MG tablet oxyCODONE 5 MG tablet senna-docusate 8.6-50 MG tablet Consultations: - PT/OT Brief History of Illness: From H&P: This patient is a 38 year old female with recurrent granulosa cell tumor who presentsas a transfer of care from the [facility] ED for abdominal pain and suspected intraabdominal [...] home Discharge Staff: MD Jessica Freeman M.D. [facility] Obstetrics and Gynecology, PGY1 02/12/2024 Associated attestation [...] is closed, youcan call the hospital at [phone] and ask for the AUDITING MANAGER Oncology resident conservation scientist): - Temperature greater than 100.4 - Persistent [...] pain that is not controlled with the isqg-vnu-kvipeaf pain medications (acetaminophen and ibuprofen) you might [...] to call your physician or the hospital line o scribe operator if you have any questions, and they will be glad to assist you. Phone numbers to gynecologic oncology clinics: [facility] Clin[facility] Center: [phone] [facility]: [phone] [facility]: [phone] [facility]: [phone] [facility] [place]: [phone] [facility]: [facility] [place], [facility]: [phone] documented in this encounter Medications at Time [...] Discussed with Dr. Ashton. Christiana Guzman MD TREATING MACHINE OPERATOR PGY-3 02/12/2024 6:53 AM Team Pager: Associated [...] Discussed with Dr. Ashton. Christiana Guzman MD TREATING MACHINE OPERATOR PGY-3 02/11/2024 7:54 AM Team Pager: Associated [...] have christensen removed tonight. Manda Farrell MD Dye Worker Resident, PGY-4 02/10/2024 9:12 PM * Gabrielle [...] Discussed with Dr. Ashton. Christiana Guzman MD TREATING MACHINE OPERATOR PGY-3 02/10/2024 7:01 AM Team Pager: Associated [...] to monitor and follow POC * Linda Cummings, RN - 02/10/2024 5:13 AM CDT To machine setter automatic via web based paging Stef [phone] Pt requesting Pepcid. Frances RN #[phone] * Manda Farrell MD - 02/09/2024 7:42 [...] Dispo: Pending post-operative course Manda Farrell MD Dye Worker Resident, PGY-4 02/09/2024 7:44 PM [facility] Pager: [phone] * Manda Farrell MD - 02/09/2024 6:09 [...] setting of hemoperitoneum. Hgb on arrival to [facility] stable from prior at 10.3. Imaging [...] SCDs, IS Dispo: pending clinical course Drains/Lines: Mary Anne Farrell MD Dye Worker Resident, PGY-4 02/09/2024 8:14 AM [facility] Pager: [phone] Associated attestation - Junior Ashton MD - 02/09/2024 8:15 AM CDT Physician Attestation I saw this patient with the resident and agree with the resident/fellow's findings and plan of careas documented in the note. Junior Ashton MD Date of Service (when I saw the patient): 02/09/24 * Geetha Munoz, RN - 02/09/2024 4:31 AM CDT Nursing [...] than left basilar atelectasis. Manda Farrell MD Dye Worker Resident, PGY-4 02/08/2024 9:11 PM -- Addendum - After reviewing with RN, appears vitals were for another patient and have been reviewed and updated. No concern for fever at this time. Manda Farrell MD Dye Worker Resident, PGY-4 02/09/2024 5:13 AM documented in this encounter H&P Notes * Gabrielle Guzman MD - 02/08/2024 12:50 PM CDT [facility] History and Physical Sonam Harkins Age: [age] year old Date of : 1985 Date of Admission: 02/08/2024 Primary care provider: Shanti Lara Chief Complaint: Abdominal pain History of Present Illness: This patient is a 38 year old female with recurrent ovarian granulosa cell tumor who presents as a transfer of care from the [facility] ED for abdominal pain and suspected intraabdominal [...] mass with hemoperitoneum. She was transferred to [facility] for possible surgical intervention. Cancer Treatment History: 07/15/17- presented to OSH ED with right ovarian mass and hemoperitoneum, [...] small. Final path- granulosa cell tumor 07/30/17- [facility] path consult FINAL DIAGNOSIS: CASE FROM [facility], [place], [place] ([id number], OBTAINED 07/16/2017): A. OVARY, FALLOPIAN TUBE, RIGHT, [...] Units 08/03/2017 05/24/2018 Inhibin B pg/mL 13 10 06/2018 IMPRESSION: In this patient with a [...] Pitts MD; Location: [facility] OR LAPAROSCOPY DIAGNOSTIC (AUDITING MANAGER) 06/2017 Ruptured right ovarian cyst LAPAROSCOPY DIAGNOSTIC (AUDITING MANAGER) N/A 08/21/2017 Procedure: LAPAROSCOPY DIAGNOSTIC (AUDITING MANAGER); diagnostic Laparoscopy, Omentectomy , peritoneal biopsy, excision [...] Abnormality Status --------- ------ Adult Type and Screen[[id number]] Final result Please view results for these [...] Antibody Screen Negative Negative SPECIMEN EXPIRATION DATE [id number] Assessment and Plan: Sonam Harkins is a [...] setting of hemoperitoneum. Hgb on arrival to [facility] stable from prior at 10.3. Imaging [...] Dumont and Dr. Ashton. Christiana Guzman MD TREATING MACHINE OPERATOR PGY-3 02/08/2024 12:50 PM Team Pager: Associated [...] - 02/09/2024 2:25 AM CDT ED 24 [facility] pt has not inpatient bed request order. will not be assigned to a floor until this is in. Thanks Amrik [phone] Paged ict development manager/onc first call * Chivo Pedro RN - 02/08/2024 12:10 PM CDT BIBA from [facility] [place] ED. Pt transferred to [facility] ED for obgyn consult. Pt woke up [...] date: Expected time: Means of arrival: Comments: [facility] [place] transfer 38f ovarian cx Internally bleeding pelvic mass Serial hg 12-->10 Vss tachy upon standing NPO except ice chips, has a PIV in R AC * Ney Fung MD - 02/08/2024 11:49 AM CDT ED Provider Note [facility] History Chief Complaint Patient presents with Abdominal Pain The history is provided by medical records and the patient. 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 Per report patient's Hgb decreased from 12 to 10 overnight. Pain started Thursday morning and has been constant in the lower abdomen since. Pain is exacerbated with urination, bowel movements, and deep inspiration. She feels very bloated. She is nauseous and has vomited, but this is improved with Zofran. She currently rates her pain a 6/10. She received meds by EMS with some improvement. She was transferred here for further evaluation and likely surgery with Brush Maker Machine/Onc. Past Medical History Past Medical History: Diagnosis [...] Pitts MD; Location: [facility] OR LAPAROSCOPY DIAGNOSTIC (AUDITING MANAGER) 06/2017 Ruptured right ovarian cyst LAPAROSCOPY DIAGNOSTIC (AUDITING MANAGER) N/A 08/21/2017 Procedure: LAPAROSCOPY DIAGNOSTIC (AUDITING MANAGER); diagnostic Laparoscopy, Omentectomy , peritoneal biopsy, excision [...] Procedures A consult was attained from the ict development manager/onc service. The case was discussed with the [...] major procedure (likely to the OR with ict development manager/onc)), and high risk (a decision regarding hospitalization). Assessment & Plan 38 yo female transferred here from [place] for abdominal pain and a new ovarian mass that is actively bleeding internally. She has a history of ovarian CA in the past that had been treated and shewas in remission. Her Hgb trended from 12 to 10 overnight. [facility] onc accepted her as a transfer as this is their patient. Brush Maker Machine/onc consulted and evaluated the pt and sent additional labs. They will admit her to their service for monitoring and likely surgery. I have reviewed the nursing notes. I have reviewed the findings, diagnosis, plan and need for follow up with the patient. New Prescriptions No medications on file Final diagnoses: Ovarian mass Active internal bleeding I, Layne Lopes, am serving as a trained medical assistant ob gyn to document services personally performed by Ney Fung MD, based on the provider's statements to me. INey MD, was physically present and have reviewed and verified the accuracy of this note documented by Layne Lopes. Ney Fung MD [facility] EMERGENCY DEPARTMENT 02/08/2024 Ney Fung MD 02/08/24 1450 documented in this encounter Miscellaneous Notes * Plan of Care - Kamini Allen, RN - 02/12/2024 5:00 AM CDT [id number] BP 121/78 (BP Location: Right arm) Pulse [...] Nogueira RN - 02/10/2024 10:47 PM CDT [id number] BP 131/86 (BP Location: Left arm) Pulse [...] RN - 02/10/2024 8:19 PM CDT Paged [phone] KE: Patient is still certain about keeping christensen in place for today.Ever [phone] * Plan of Care - Jorje Lorenzana RN - 02/10/2024 2:30 PM CDT BP (!) 144/85 (BP Location: Right arm) Pulse 100 Temp 99.4 ??F (37.4 ??C) (Oral) Resp 20 Wt90.1 kg (198 lb 10.2 oz) LMP 05/07/2020 SpO2 99% BMI 35.20 kg/m?? Pt is A&Ox4. VSS x hypertensive but not within notifying parameters. Rates 10/ abdominal discomfort d/t bloating. Simethicone given x1 [...] Guzman MD - 02/09/2024 5:57 PM CDT [facility] Brief Operative Note Pre-operative diagnosis: Granulosa cell [...] cervical mass. VSS on RA, afebrile. Pain 9/10 managed by PRN dilaudid x1. UAL.Voids spont [...] in-person Pertinent Information: None Changes made to BUSINESS ECONOMIST medication list: Added: Vitamin C 500 mcg, Omeprazole OTC 20 mg, Zyrtec 10 mg Deleted: Venlafaxine 75 mg/37.5 mg, Multivitamin gummies, Vitamin D3, Calcium w/ vitamin D3, Biotin Changed: None Allergies reviewed with patient and updates made in EHR: yes Medication History Completed By: Lila Logan 02/08/2024 3:29 PM BUSINESS ECONOMIST Med List Medication Sig Last Dose acetaminophen [...] 02/19/2024 10:40 AM CDT Allied Health/Nurse Visit [facility] Cancer [address] [address] Jonathan Pitts MD [address] [place] [address] [id number] Nurse, [facility] 02/29/2024 8:00 AM CDT Oncology Visit [facility] Cancer [address] [address] Jonathan Pitts MD [address] [place] [address] [phone] Pending Results Name Type Priority Associated Diagnoses [...] Atrial Rate 87 BPM RADIOLOG Y RESULTS MA Interval 158 ms RADIOLOG Y RESULTS QRS Duration 82 ms RADIOLO GY RESULTS QT 342 ms RADIOLOGY RESULTS QTc 411 ms RADIOLOGY RESULTS P [place] 61 degrees RADIOLOGY RESULTS R AXIS 29 degrees RADIOLOGY RESULTS T [place] 41 degrees RADIOLOGY RESULTS Interpretation ECG Sinus rhythm Normal ECG When compared with ECG of 11-MAY-2020 17:41, Sinus rhythm has replaced Atrial fibrillation Vent. rate has increased BY ??34 BPM Questionable change in QRS duration Minimal criteria for Anterior infarct are no longer Present Confirmed by fellow Chetan Paniagua ([id number]) on 02/11/2024 12:22:07 PM Confirmed by MD MARIELA, LINDA ([id number]) on 02/11/2024 10:36:07 PM RADIOLOGY RESULTS 02/11/2024 [...] LAB - BLOOD ORDERABL ES [facility] [place] [facility] [address] [facility], [address] [place] [address] * (ABNORMAL) CBC with platelets (02/10/2024 4:01 PM CDT) [facility] WBC Count 11.5(H) 4.0 - 11.0 10e3/uL [...] LAB - BLOOD ORDERABL ES [facility] [place] [facility] [address] [facility], [address] [place] [address] * (ABNORMAL) Glucose by meter (02/10/2024 6:01 AM CDT) GLUCOSE BY METER POCT 100(H) 70 - 99 mg/dL 02/10/2024 6:07 AM CDT [facility] POC Blood, Capillary BLOOD SPECIMEN / Unknown 02/10/2024 6:01 AM CDT 02/10/2024 6:07 AM CDT Junior Ashton MD LAB - BEAKER POCT [facility] LABORATORY POC [facility] [place] [facility] [address] [facility], [address] [place] [address] * Phosphorus (02/10/2024 5:21 AM CDT) Phosphorus 3.7 2.5 - 4.5 mg/dL 02/10/2024 6:18 AM CDT [facility] Blood STRUCTURE OF RIGHT HAND / Unknown Venipuncture / Unknown 02/10/2024 5:21 AM CDT 02/10/2024 5:40 AM CDT Manda Farrell MD LAB - BLOOD ORDERABL ES Performing Organization Address City/[facility]/ZIP Co de Phone Number U LABORATORY [facility] [place] [facility] [address] [facility], [address] [place] [address] * Magnesium (02/10/2024 5:21 AM CDT) Magnesium 1.8 1.7 - 2.3 mg/dL 02/10/2024 6:18 AM CDT [facility] Blood STRUCTURE OF RIGHT HAND / Unknown Venipuncture / Unknown 02/10/2024 5:21 AM CDT 02/10/2024 5:40 AM CDT Manda Farrell MD LAB - BLOOD ORDERABL ES U LABORATORY [facility] [place] [facility] [address] [facility], [address] [place] [address] * (ABNORMAL) Basic metabolic panel (02/10/2024 5:21 [...] LAB - BLOOD ORDERABL ES [facility] [place] [facility] [address] [facility], [address] [place] [address] * (ABNORMAL) CBC with platelets (02/10/2024 5:21 [...] LAB - BLOOD ORDERABL ES [facility] [place] [facility] [address] [facility], [address] [place] [address], [facility] * (ABNORMAL) Surgical Pathology Exam (02/09/2024 3:24 PM CDT) Case Report Surgical Pathology Report ? Case: [id number] ? Authorizing Provider: ??[place], Jonathan Ann, ??Collected: ? 02/09/2024 03:24 PM ? MD ? Ordering Location: ? [facility] MAIN OR ? Received: ?02/09/2024 05:27 PM ? Pathologist: ? Kirk, MD Jose ? Intraop: ? Wyatt Amanda MD ? [...] 4:02 PM Intra op performed at:[facility] LAB[facility]ATORY, [facility], [address] [place] [address], [address] [address] Intra-op Dx verbally delivered to Dr. Pitts at 15:51 02/11/2024 5:02 PM CDT U [...] greatest dimension. Sectioning reveals red-kaye cut surfaces. Beck Tender tissue submitted in cassette B1 for frozen [...] Sectioning reveals yellow-kaye to purple-kaye cut surfaces. Beck Tender tissue is submitted in cassettes C1-C5. D(4). [...] entirely in cassettes D1-D2. 02/11/2024 5:02 PM T [facility] Comment:This is an appended report. [...] component of this testing was completed at [facility]. Stain controls for all [...] 5:27 PM CDT Jonathan CHIN - [facility] Specialty Lab [address] [facility], [address] [address] [place] [facility] [address] [facility], [address] [address] * (ABNORMAL) Glucose by meter (02/09/2024 11:24 AM CDT) GLUCOSE BY METER POCT 112(H) 70 - 99 mg/dL 02/09/2024 11:31 AM CDT [facility] POC Blood, Capillary BLOOD SPECIMEN / Unknown 02/09/2024 11:24 AM CDT 02/09/2024 11:31 AM CDT Junior TORREZ POCT [facility] POC [facility] [place] [facility] [address] [facility], [address] [place] [address] * Extra Green Top ([place] Heparin) Tube (02/09/2024 5:32 AM CDT) Hold Specimen JIC 02/09/2024 7:02 AM CDT [facility] Blood STRUCTURE OF LEFT HAND / Unknown Venipuncture / Unknown 02/09/2024 5:32 AM CDT 02/09/2024 5:51 AM CDT Junior Ashton MD LAB - BLOOD ORDERABL ES [facility] [address] [facility], [address] [place] [phone] * (ABNORMAL) CBC with platelets (02/09/2024 5:32 AM CDT) [facility] WBC Count 7.1 4.0 - 11.0 10e3/uL [...] LAB - BLOOD ORDERABL ES [facility] [place] [facility] [address] [facility], [address] [address] * CT Chest w/o Contrast (02/08/2024 7:27 [...] CDT [facility] BLOOD BANK SPECIMEN EXPIRATION DATE [id number] 02/08/2024 3:04 PM CDT [facility] BLOOD BANK Blood BLOOD SPECIMEN / Unknown Venipuncture / Unknown 02/08/2024 3:43 PM CDT 02/08/2024 3:48 PM CDT Jaya Dumont MD LAB - BLOOD BANK TONI T ORDER U BLOOD BANK [address] [place] [address] * CA 125 (02/08/2024 3:43 PM CDT) CA 125 13 <=38 U/mL 02/08/2024 4:2 9 PM CDT [facility] Blood BLOOD SPECIMEN / Unknown Venipuncture / Unknown 02/08/2024 3:43 PM CDT 02/08/2024 3:48 PM CDT Narrative LABORATORY - 02/08/2024 4:29 PM CDT This result is obtained using the [employer] CA 125 II method on the ezequiel e801 immunoassay analyzer. Results obtained with different assay methods or kits cannot be used interchangeably. Jaya Dumont MD LAB - BLOOD ORDERABL ES LABORATORY [facility] [address] [facility], [address] [place] [address] * Inhibin B (02/08/2024 3:43 PM CDT) Inhibin B 14 8 - 223 pg/mL 02/10/2024 10:49 PM CDT Berg Comment: INTERPRETIVE INFORMATION: Inhibin B MALE: Less [...] pg/mL This test is performed using the [facility] ultra-sensitive Inhibin B MAYA kit. Values obtained with different methodologies or kits cannot be used interchangeably. This test was developed and its performance characteristics determined by [facility]. It has not been cleared or approved by the US Food and Drug Administration. This test was performed in a CLIA certified laboratory and is intended for clinical purposes. Performed By: [facility] [address] [place] [address] Manager Requirements: Ciro Webb MD, PhD CLIA Number: [id number] Blood STRUCTURE OF RIGHT HAND / Unknown Venipuncture / Unknown 02/08/2024 3:43 PM CDT 02/08/2024 3:48 PM CDT Jaya Dumont MD LAB - BLOOD ORDERABL ES [facility] [address] [place] [address], [facility] [phone] * (ABNORMAL) Basic metabolic panel (02/08/2024 3:43 [...] LAB - BLOOD ORDERABL ES [facility] [place] [facility] [address] [facility], [address] [place] [address] * (ABNORMAL) CBC with platelets (02/08/2024 3:43 PM CDT) [facility] WBC Count 9.7 4.0 - 11.0 10e3/uL [...] LAB - BLOOD ORDERABL ES [facility] [place] [facility] [address] [facility], [address] [place] [address] documented in this encounter Visit Diagnoses Diagnosis [...] tube, and broad ligament Active internal bleeding documented in this encounter Admitting Diagnoses Diagnosis [...] $Given 02/11/2024 9:33 PM CDT 650 mg acetaminophen (TYLENOL) tablet 650 mg 650 mg, Oral, EVERY 4 HOURS PRN, mild pain, other, and adjunct with moderate or severe pain or per patient request, Starting on Thu02/08/24 at 1308, Alternate with ibuprofen if ordered. Maximum acetaminophen dose from all sources = 75 mg/kg/day not to exceed 4 grams/day. $Given 02/09/2024 7:18 PM CDT 650 mg acetaminophen (TYLENOL) tablet 650 mg 650 mg, Oral, EVERY 4 HOURS, First dose (after last modification) on Thu02/10/24 at 0930, Alternate with ibuprofen if ordered. Maximum acetaminophen dose from all sources = 75 mg/kg/day not to exceed 4 grams/day. $Given 02/10/2024 9:21 AM CDT 65 0 mg apixaban ANTICOAGULANT (ELIQUIS) tablet 2.5 mg [...] $Given 02/10/2024 6:28 PM CDT 500 mg enoxaparin ANTICOAGULANT (LOVENOX) injection 40 mg 40 mg, Subcutaneous, EVERY 24 HOURS, First dose on Thu02/10/24 at 1830 $Given 02/11/2024 7:07 PM CDT 40 mg $Given 02/10/2024 6:28 PM CDT 40 mg famotidine (PEPCID) injection 20 mg 20 mg, Intravenous, Administer over 2 Minutes, 2 TIMES DAILY, First dose on Thu02/08/24 at 1320, For ordered IV doses 1-20 mg, give IV Push diluted with 5-10 mL NS over a minimum of 2 minutes. $Given 02/12/2024 8:11 AM CDT 20 mg $Given 02/11/2024 8:01 PM CDT 20 mg $Given 02/11/2024 8:31 AM CDT 20 mg fentaNYL (PF) (SUBLIMAZE) injection 25 mcg 25 mcg, Intravenous, EVERY 5 MIN PRN, moderate pain, Give fentaNYL (SUBLIMAZE) first if HYDROmorphone (DILAUDID) also ordered., Starting on Thu02/09/24 at 1818, Administer fentaNYL (SUBLIMAZE) for acute pain control. Move to HYDROmorphone (DILAUDID): - IF patient has received up to 200 mcg of fentaNYL (SUBLIMAZE) OR - IF patient has received 2 doses of fentaNYL (SUBLIMAZE) AND continues to have pain score greater than or equal to six (6) or is unable to participate in post op recovery due to pain. Wait 5 minutes AFTER last fentaNYL (SUBLIMAZE) dose before administering HYDROmorphone (DILADUDID). Postop Anesthesia Phase I only. Notify Provider to assess for uncontrolled pain or analgesic side effects. DO NOT revert back to fentanyl (SUBLIMAZE) after administering HYDROmorphone (DILAUDID)., PACU $Given 02/09/2024 6:48 PM CDT 25 mcg $Given 02/09/2024 6:21 PM CDT 25 mcg fentaNYL (PF) (SUBLIMAZE) injection 25-50 mcg 25-50 mcg, Intravenous, EVERY 2 MIN PRN, other, acute pain. Max cumulative dose 250 mcg. , Starting on Thu02/09/24 at 1147, Caution: may have synergistic effect when used with midazolam (VERSED). If inadequate response may repeat 25-50 mcg IV slowly Q 5 minutes PRN pain (Maximum of 200 mcg total dose in 60 minutes.) Doses can be exceeded under direct oversight of patient by provider.Only given for procedural sedation while provider present. Nurse to discontinue this medication when procedure complete., Pre-procedure $Given 02/09/2024 1:03 PM CDT 50 mcg fentaNYL (PF) (SUBLIMAZE) injection 50 mcg 50 mcg, Intravenous, EVERY 5 MIN PRN, severe pain, Give fentaNYL (SUBLIMAZE) first if HYDROmorphone (DILAUDID) also ordered., Starting on Thu02/09/24 at 1818, Administer fentaNYL (SUBLIMAZE) for acute pain control. Move to HYDROmorphone (DILAUDID): - IF patient has received up to 200 mcg of fentaNYL (SUBLIMAZE), OR - IF patient has received 2 doses of fentaNYL (SUBLIMAZE) AND continues to have severe pain (pain score greater than or equal to seven (7) or is unable to participate in post op recovery due to pain. Wait 5 minutes AFTER last fentaNYL (SUBLIMAZE) dose before administering HYDROmorphone (DILADUDID). Postop Anesthesia Phase I only. Notify Provider to assess for uncontrolled pain or analgesic side effects. DO NOT revert back to fentanyl (SUBLIMAZE) after administering HYDROmorphone (DILAUDID)., PACU $Given 02/09/2024 6:34 PM CDT 50 mcg heparin ANTICOAGULANT injection 5,000 Units 5,000 Units, Subcutaneous, PRE-OP/PRE-PROCEDURE, Starting on Thu02/09/24 at 1136, For 1 dose, Verify order with Spring Inspector provider prior to Administering. High concentration heparin. Not for line flush or cath care., Pre-procedure $Given 02/09/2024 11:56 AM CDT 5,000 Units Left Lower Abdomen HYDROmorphone (DILAUDID) injection 0.2 mg 0.2 mg, Intravenous, EVERY 2 HOURS PRN, moderate pain, IF patient cannot take oral opioid OR IF pain not managed with non-pharmacological, non-opioid, or oral opioid interventions if ordered, Starting on Thu02/08/24 at 1308, May use concomitant with non-opioid analgesics. $Given 02/09/2024 10:04 PM CDT 0.2 mg $Given 02/09/2024 8:31 PM CDT 0.2 mg HYDROmorphone (DILAUDID) injection 0.2 mg 0.2 [...] 1308, May use concomitant with non-opioid analgesics. $Given 02/10/2024 5:18 AM CDT 0.4 mg $Given 02/10/2024 3:02 AM CDT 0.4 mg $Given 02/10/2024 12:21 AM CDT 0.4 mg HYDROmorphone (DILAUDID) injection 0.4 mg 0.4 mg, [...] $Given 02/11/2024 7:07 PM CDT 400 mg ibuprofen (ADVIL/MOTRIN) tablet 600 mg 600 mg, Oral, EVERY 6 HOURS, First dose on Thu02/10/24 at 0630, Give with food. $Given 02/10/2024 11:46 AM CDT 600 mg lactated ringers infusion at 100 mL/hr, Intravenous, CONTINUOUS, Starting on Thu02/08/24 at 1310, Until Thu02/08/24 at 1757 Rate/Dose Verify 02/08/2024 3:53 PM CDT 100 mL/hr $New Bag 02/08/2024 1:44 PM CDT 100 mL/hr lactated ringers infusion at 100 mL/hr, Intravenous, CONTINUOUS, Starting on Thu02/09/24 at 0000, Until Thu02/10/24 at 1246 $New Bag 02/10/2024 6:25 AM CDT 100 mL/hr $New Bag 02/10/2024 6:21 AM CDT 100 mL/hr $New Bag 02/09/2024 8:01 PM CDT 100 mL/hr metroNIDAZOLE (FLAGYL) infusion 500 mg Routine, 500 mg, Intravenous, PRE-OP/PRE-PROCEDURE, Starting on Thu02/09/24 at 1136, For 1 dose, Administer so dose is COMPLETED within 1 hour PRIOR to incision., Indications: Perioperative Pharmacoprophylaxis, Pre-procedure $New Bag 02/09/2024 1:07 PM CDT 500 mg midazolam (VERSED) injection 1-2 mg 1-2 mg, Intravenous, EVERY 4 MIN PRN, sedation, Starting on Thu02/09/24 at 1147, Caution: when used with opioids, may need lower doses. If inadequate response may repeat 1 mg IV slowly Q 4 minutes PRN sedation until desired response (Maximum of 5 mg total dose.) Doses can be exceeded under direct oversight of patient by provider. Nurse to discontinue this medication when procedure complete. This drug may cause significant respiratory depression. Monitor respiratory status and vital signs carefully for 1 hour after each dose., Pre-procedure $Given 02/09/2024 1:02 PM CDT 2 mg naloxone (NARCAN) injection 0.2 mg 0.2 [...] $Given 02/11/2024 9:34 PM CDT 5 mg oxyCODONE (ROXICODONE) tablet 5 mg 5 mg, Oral, EVERY 4 HOURS PRN, moderate pain, IF pain not managed with non-pharmacological and non-opioid interventions, Starting on Thu02/08/24 at 1308, May use concomitant with non-opioid analgesics. $Given 02/09/2024 7:18 PM CDT 5 mg oxyCODONE IR (ROXICODONE) tablet 10 mg 10 mg, Oral, EVERY 4 HOURS PRN, severe pain, IF pain not managed with non-pharmacological and non-opioid interventions, Starting on Thu02/08/24 at 1308, May use concomitant with non-opioid analgesics. $Given 02/10/2024 8:23 AM CDT 10 mg $Given 02/08/2024 1:19 PM CDT 10 mg phenazopyridine (PYRIDIUM) tablet 200 mg 200 mg, Oral, ONCE, On Thu02/09/24 at 1200, For 1 dose, Give in preop holding room with small sip of water., Pre-procedure $Given 02/09/2024 11:56 AM CDT 200 mg polyethylene glycol (MIRALAX) Packet 17 g [...] for infants age 6 months and older. 190 ($Given - Provider: Lester Huynh RN)2349 ($Given - Provider: Kmaini Allen RN) 0716 ($Given - Provider: Kamini [...] Lorenzana RN) 0831 ($Given - Provider: Jorje Lorenzana, ALIZA) 0811 ($Given - Provider: Tavia Plummer RN) sodium chloride (PF) 0.9% PF flush 3 mL 3 mL, Intracatheter, EVERY 8 HOURS, First dose on Thu02/08/24 at 1310, to lock peripheral IV dormant line 0518 ($Given - Provider: Linda Cummings RN)1451 (Not Given - Provider: Jorje Lorenzana RN - Reason: Patient/family refused)2106 (Not Given - Provider: Ever Nogueira, ALIZA - Reason: Patient sleeping) 0550 ($Given - Provider: Milvia Cheng RN)1348 ($Given - Provider: Jorje Lorenzana RN)2009 ($Given - Provider: Kamini Allen, ALIZA) 0719 (Not Given - Provider: Kamini Allen RN - Reason: Other - Comment: sleeping) Continuous Medication Order 02/10/2024 02/11/2024 02/12/2024 lactated ringers infusion (CANCELED) at 100 mL/hr, Intravenous, CONTINUOUS, Starting on Thu02/09/24 at 0000, Until Thu02/10/24 at 1246 0621 ($New Bag - Provider: Linda Cummings, ALIZA)0625 ($New Bag - Provider: Linda Cummings RN)1440 [...] non-opioid analgesics. 0021 ($Given - Provider: Linda Cummings, RN)0302 ($Given - Provider: Linda Cummings, RN)0518 ($Given - Provider: Linda Cummings, RN) HYDROmorphone (DILAUDID) injection 0.4 mg 0.4 mg, [...] at 1902 0528 ($Given - Provider: Linda Cummings, RN)0919 ($Given - Provider: Jorje Lorenzana, RN)1550 ($Given - Provider: Ever Nogueira, ALIZA) 0550 ($Given - Provider: Milvia Cheng, ALIZA)1746 ($Given - Provider: Lester uHynh, ALIZA) sodium chloride (PF) 0.9% PF flush [...] stools. documented in this encounter Care Teams Affirmative Action Specialist Relationship Specialty Start Date End Date Shanti Lara WELDING ENGINEER [facility] [address] [place] [address] PCP - General Nurse Practitioner - [facility] 03/17/22 [facility] [address] [place] [address] Referring Physician clinical team manager 07/29/17 Jonathan Pitts MD [address] [place], [place] 170645 Oncology 07/29/17 Christine Poon, RN Specialty Hydraulic Pile Hammer Operator Hematology & Oncology 12/02/21 documented as of this encounter
--- OUTSIDE RECORDS SUMMARY | 2024-02-12 23:18 | XMS_ITS | Encounter Summary ---
Author Organization [place] Address [address] [place] [address] 09[address] Care Team Providers Care Student Teaching Coordinator Name Role Phone Clinic, Kavita Rosenbaum Unavailable [phone] Jonathan Pitts MD Unavailable Christine Poon RN Unavailable [phone] Shanti Lara NP Primary Care Provider [phone] Encounter Details Date Type Department Care Team (Latest Contact Info) Description 02/08/2024 Travel Social History Tobacco Use Types Packs/Day Years [...] 02/19/2024 10:40 AM CDT Allied Health/Nurse Visit [facility] [address] [place] [address] Jonathan Pitts MD [address] [place] [address] Nurse, [facility] 02/29/2024 8:00 AM CDT Oncology Visit [facility] [address] [place] [address] Jonathan Pitts MD [address] [place] [address] 512055 documented as of this encounter Visit Diagnoses Not on filedocumented in this encounter Care Teams Student Teaching Coordinator Relationship Specialty Start Date End Date Shanti Lara ENGAGEMENT LEAD [facility] [address] [place] [address] PCP - General Nurse Practitioner - Family 03/17/[address] [id number] Referring Physician glass cutting machine feeder 07/29/17 Jonathan Pitts MD [address] [place] [address] [phone] Oncology 07/29/17 Christine Poon, RN Specialty Garde Manager Hematology & Oncology 12/02/21 documented as of this encounter
--- OUTSIDE RECORDS SUMMARY | 2024-02-12 23:19 | XMS_ITS | Encounter Summary ---
Author Organization [place] Address [address] [place] [address] Care Team Providers Care Operating Room Manager Name Role Phone No Ref-Primary, Physician Primary Care Provider Kavita Akhtar Unavailable [phone] Jonathan Pitts MD Unavailable Jonathan Pitts MD Unavailable Christine Poon RN Unavailable [phone] Shanti Lara NP Primary Care Provider [phone] Encounter Details Date Type Department Care Team (Late st Contact Info) Description 11/20/2020 [facility] [address] [place] [address] Jonathan Pitts MD [address] [place] [address] Social History Tobacco Use Types Packs/Day [...] 02/19/2024 10:40 AM CDT Allied Health/Nurse Visit [facility] [address] [address] Jonathan Pitts MD [address] [place] [address] [phone] Nurse, [facility] 02/29/2024 8:00 AM CDT Oncology Visit [address] [address] Jonathan Pitts MD [address] [place] [address] [phone] documented as of this encounter Visit Diagnoses Not on filedocumented in this encounter Care Teams Operating Room Manager Relationship Specialty Start Date End Date No Ref-Primary, Physician PCP - General 07/29/17 03/16/22 Shanti Lara NP [place] [address] [place] [address] PCP - General Nurse Practitioner - [facility] 03/17/22 [facility] [address] [place], [place] 310545 Referring Physician park guide 07/29/17 Jonathan Pitts MD [address] [place] [address] Oncology 07/29/17 Jonathan Pitts MD [address] [place] [address] 21870 Assigned Cancer Care Provider 05/18/20 05/15/23 Christine Poon RN Specialty Medical Reviewer Hematology & Oncology 12/02/21 documented as of this encounter
--- OUTSIDE RECORDS SUMMARY | 2024-02-12 23:19 | XMS_ITS | Encounter Summary ---
Author Organization [facility] Address [address] [place] [address] Care Team Providers Care Info Print Press Operator Name Role Phone No Ref-Primary, Physician Primary Care Provider Kavita Akhtar Unavailable [phone] Jonathan Pitts MD Unavailable Jonathan Pitts MD Unavailable [phone] Christine Poon RN Unavailable [phone] Shanti Lara NP Primary Care Provider [phone] Encounter Details Date Type Department Care Team (Late st Contact Info) Description 11/19/[address] [facility] [address] [place] [address] Jonathan Pitts MD [address] [place] [address] Social History Tobacco Use Types Packs/Day [...] 02/19/2024 10:40 AM CDT Allied Health/Nurse Visit [facility] [address] [address] Jonathan Pitts MD [address] [place] [address] [phone] Nurse, [facility] 02/29/2024 8:00 AM CDT Oncology Visit [address] [address] Jonathan Pitts MD [address] [place] [address] [phone] documented as of this encounter Visit Diagnoses Not on filedocumented in this encounter Care Teams Info Print Press Operator Relationship Specialty Start Date End Date No Ref-Primary, Physician PCP - General 07/29/17 03/16/22 Shanti Lara NP [place] [address] [place] [address] PCP - General Nurse Practitioner - [facility] 03/17/22 [facility] [address] [place], [place] 498865 Referring Physician community advocate 07/29/17 Jonathan Pitts MD [address] [place] [address] Oncology 07/29/17 Jonathan Pitts MD [address] [place] [address]91 Assigned Cancer Care Provider 05/18/20 05/15/23 Christine Poon RN Specialty Maternal Child Nurse Hematology & Oncology 12/02/21 documented as of this encounter
--- OUTSIDE RECORDS SUMMARY | 2024-02-12 23:19 | XMS_ITS | Encounter Summary ---
Author Organization [place] Address [address] [place] [address] 13955 Care Team Providers Care Motorized Squad Sergeant Name Role Phone No Ref-Primary, Physician Primary Care Provider Kavita Akhtar Unavailable [phone] Jonathan Pitts MD Unavailable Jonathan Pitts MD Unavailable Christine Poon RN Unavailable [phone] Shanti Lara NP Primary Care Provider [phone] Encounter Details Date Type Department Care Team (Late st Contact Info) Description 06/26/2020 [facility] [address] [place] [address] Jonathan Pitts MD [address] [place] [address] Social History Tobacco Use Types Packs/Day [...] COVID-19? No / Unsure 06/28/2020 7:41 AM DYE OPERATOR documented as of this encounter Plan of Treatment Upcoming Encounters Date Type Department Care Team (Late st Contact Info) Description 02/19/2024 10:40 AM CDT Allied Health/Nurse Visit [address] [address] Jonathan Pitts MD [address] [place] [address] 200125 Nurse, [facility] 02/29/2024 8:00 AM CDT Oncology Visit [address] [address] Jonathan Pitts MD [address] [place] [address] 460605 documented as of this encounter Visit Diagnoses Not on filedocumented in this encounter Care Teams Motorized Squad Sergeant Relationship Specialty Start Date End Date No Ref-Primary, Physician PCP - General 07/29/17 03/16/22 Shanti Lara NP [facility] [address] [place] [address] PCP - General Nurse Practitioner - Family 03/17/22 [facility] [address] [place], [place] 240355 Referring Physician manager mass 07/29/17 Jonathan Pitts MD [address] [place] [address] 644005 Oncology 07/29/17 Jonathan Pitts MD [address] [place] [address] 689[address] Assigned Cancer Care Provider 05/18/20 05/15/23 Christine Poon RN Specialty Smoking Pipe Liner Hematology & Oncology 12/02/21 documented as of this encounter
--- OUTSIDE RECORDS SUMMARY | 2024-02-12 23:19 | XMS_ITS | Encounter Summary ---
Author Organization [place] Address [address] [place] [address] Care Team Providers Care Adjuster Name Role Phone No Ref-Primary, Physician Primary Care Provider Kavita Akhtar Unavailable [phone] Jonathan Pitts MD Unavailable Jonathan Pitts MD Unavailable Christine Poon RN Unavailable [phone] Shanti Lara NP Primary Care Provider [phone] Encounter Details Date Type Department Care Team (Late st Contact Info) Description 11/23/2020 [facility] [address] [place] [address] Jonathan Pitts MD [address] [place] [address] Social History Tobacco Use Types Packs/Day [...] 02/19/2024 10:40 AM CDT Allied Health/Nurse Visit [facility] Cancer [address] [address] Jonathan Pitts MD [address] [place] [address] [phone] Nurse, [facility] 02/29/2024 8:00 AM CDT Oncology Visit [address] [address] Jonathan Pitts MD [address] [place] [address] 226195 documented as of this encounter Visit Diagnoses Not on filedocumented in this encounter Care Teams Adjuster Relationship Specialty Start Date End Date No Ref-Primary, Physician PCP - General 07/29/17 03/16/22 Shanti Lara NP [place] [address] [place] [address] PCP - General Nurse Practitioner - [facility] 03/17/22 [facility] [address] [place], [place] 328605 Referring Physician sterilization specialist 07/29/17 Jonathan Pitts MD [address] [place] [address] 832[address] Oncology 07/29/17 Jonathan Pitts MD [address] [place] [address] 60796 Assigned Cancer Care Provider 05/18/20 05/15/23 Christine Poon RN Specialty Side Puller Hematology & Oncology 12/02/21 documented as of this encounter
--- OUTSIDE RECORDS SUMMARY | 2024-02-12 23:19 | XMS_ITS | Encounter Summary ---
Author Organization [place] Address [address] [place] [address] Care Team Providers Care Horse Show Manager Name Role Phone No Ref-Primary, Physician Primary Care Provider Kavita Akhtar Unavailable [phone] Jonathan Pitts MD Unavailable [phone] Jonathan Pitts MD Unavailable Christine Poon RN Unavailable [phone] Shanti Lara NP Primary Care Provider [phone] Encounter Details Date Type Department Care Team ([facility] st Contact Info) Description 10/22/2020 [facility] [address] [place] [address] Jonathan Pitts MD [address] [place] [address] Social History Tobacco Use Types Packs/Day [...] CDT Allied Health/Nurse Visit [facility] [address] [address] Jonathan Pitts MD [address] [place] [address] [phone] Nurse, [facility] 02/29/2024 8:00 AM CDT Oncology Visit [facility] [address] [address] Jonathan Pitts MD [address] [place] [address] documented as of this encounter Visit Diagnoses Not on filedocumented in this encounter Care Teams Horse Show Manager Relationship Specialty Start Date End Date No Ref-Primary, Physician PCP - General 07/29/17 03/16/22 Shanti Lara MAJOR ASSEMBLY INSPECTOR [facility] [address] [place] [address] PCP - General Nurse Practitioner - Family 03/17/22 [facility] [address] [place], [place] 921475 Referring Physician corporate accounting manager 07/29/17 Jonathan Pitts MD [address] [place] [address] [phone] Oncology 07/29/17 Jonathan Pitts MD [address] [place] [address] 53269 Assigned Cancer Care Provider 05/18/20 05/15/23 Christine Poon RN Specialty Damage Prevention Coordinator Hematology & Oncology 12/02/21 documented as of this encounter
--- OUTSIDE RECORDS SUMMARY | 2024-02-12 23:19 | XMS_ITS | Encounter Summary ---
Author Organization [place] Address [address] [place] [address] Care Team Providers Care Foam Fabricator Name Role Phone No Ref-Primary, Physician Primary Care Provider Kavita Akhtar Unavailable [phone] Jonathan Pitts MD Unavailable Jonathan Pitts MD Unavailable Christine Poon RN Unavailable [phone] Shanti Lara NP Primary Care Provider [phone] Encounter Details Date Type Department Care Team (Late st Contact Info) Description 06/28/2020 [facility] [address] [place] [address] Jonathan Pitts MD [address] [place] [address] Social History Tobacco Use Types Packs/Day [...] COVID-19? No / Unsure 06/28/2020 7:41 AM ENVIRONMENTAL STUDIES PROGRAM DIRECTOR documented as of this encounter Plan of Treatment Upcoming Encounters Date Type Department Care Team (Late st Contact Info) Description 02/19/2024 10:40 AM CDT Allied Health/Nurse Visit [address] [address] Jonathan Pitts MD [address] [place] [address] [phone] Nurse, [facility] 02/29/2024 8:00 AM CDT Oncology Visit [address] [address] Jonathan Pitts MD [address] [place] [address] [phone] documented as of this encounter Visit Diagnoses Not on filedocumented in this encounter Care Teams Foam Fabricator Relationship Specialty Start Date End Date No Ref-Primary, Physician PCP - General 07/29/17 03/16/22 Shanti Lara NP [facility] [address] [place] [address] PCP - General Nurse Practitioner - Family 03/17/22 [facility] [address] [place], [place] 668325 Referring Physician business relations manager 07/29/17 Jonathan Pitts MD [address] [place] [address] [phone] Oncology 07/29/17 Jonathan Pitts MD [address] [place] [address] 75834 Assigned Cancer Care Provider 05/18/20 05/15/23 Christine Poon RN Specialty Music Artist Hematology & Oncology 12/02/21 documented as of this encounter
--- OUTSIDE RECORDS SUMMARY | 2024-02-12 23:19 | XMS_ITS | Encounter Summary ---
Author Organization [place] Address [address] [place] [address]24 Care Team Providers Care Senior Materials Planner Name Role Phone No Ref-Primary, Physician Primary Care Provider Kavita Akhtar Unavailable [phone] Jonathan Pitts MD Unavailable Jonathan Pitts MD Unavailable Christine Poon RN Unavailable [phone] Shanti Lara NP Primary Care Provider [phone] Encounter Details Date Type Department Care Team ([facility] st Contact Info) Description 05/22/2021 [facility] [address] [place] [address] Jonathan Pitts MD [address] [place] [address] Social History Tobacco Use Types Packs/Day [...] 02/19/2024 10:40 AM CDT Allied Health/Nurse Visit [facility] [address] [address] Jonathan Pitts MD [address] [place] [address] [phone] Nurse, [facility] 02/29/2024 8:00 AM CDT Oncology Visit [facility] [address] [address] Jonathan Pitts MD [address] [place] [address] documented as of this encounter Visit Diagnoses Not on filedocumented in this encounter Care Teams Senior Materials Planner Relationship Specialty Start Date End Date No Ref-Primary, Physician PCP - General 07/29/17 03/16/22 Shanti Lara MOLD HOLDER [facility] [address] [place] [address] PCP - General Nurse Practitioner - Family 03/17/22 [facility] [address] [place], [place] 675715 Referring Physician stick feeder 07/29/17 Jonathan Pitts MD [address] [place] [address] [phone] Oncology 07/29/17 Jonathan Pitts MD [address] [place] [address]84 Assigned Cancer Care Provider 05/18/20 05/15/23 Christine Poon RN Specialty Search Specialist Hematology & Oncology 12/02/21 documented as of this encounter
--- OUTSIDE RECORDS SUMMARY | 2024-02-12 23:19 | XMS_ITS | Encounter Summary ---
Author Organization [place] Address [address] [place] [address] Care Team Providers Care Prenatal Genetic Counselor Name Role Phone No Ref-Primary, Physician Primary Care Provider Kavita Akhtar Unavailable [phone] Jonathan Pitts MD Unavailable Jonathan Pitts MD Unavailable [phone] Christine Poon RN Unavailable [phone] Shanti Lara NP Primary Care Provider [phone] Encounter Details Date Type Department Care Team (Late st Contact Info) Description 07/09/2020 [facility] [address] [place] [address] Jonathan Pitts MD [address] [place] [address] Social History Tobacco Use Types Packs/Day [...] COVID-19? No / Unsure 07/09/2020 10:01 AM INSTALLATION SUPERVISOR documented as of this encounter Plan of Treatment Upcoming Encounters Date Type Department Care Team (Late st Contact Info) Description 02/19/2024 10:40 AM CDT Allied Health/Nurse Visit [address] [address] Jonathan Pitts MD [address] [place] [address] [phone] Nurse, [facility] 02/29/2024 8:00 AM CDT Oncology Visit [address] [address] Jonathan Pitts MD [address] [place] [address] [phone] documented as of this encounter Visit Diagnoses Not on filedocumented in this encounter Care Teams Prenatal Genetic Counselor Relationship Specialty Start Date End Date No Ref-Primary, Physician PCP - General 07/29/17 03/16/22 Shanti Lara NP [place] [address] [place] [address] PCP - General Nurse Practitioner - Family 03/17/22 [facility] [address] [place], [place] 868455 Referring Physician application operations engineer 07/29/17 Jonathan Pitts MD [address] [place] [address] [phone] Oncology 07/29/17 Jonathan Pitts MD [address] [place] [address] 46634 Assigned Cancer Care Provider 05/18/20 05/15/23 Christine Poon RN Specialty Mechanical Shop Laborer Hematology & Oncology 12/02/21 documented as of this encounter
--- OUTSIDE RECORDS SUMMARY | 2024-02-12 23:19 | XMS_ITS | Encounter Summary ---
Author Organization [facility] Address [address] [place] [address] Care Team Providers Care Senior Software Project Manager Name Role Phone No Ref-Primary, Physician Primary Care Provider Kavita Akhtar Unavailable [phone] Jonathan Pitts MD Unavailable Jonathan Pitts MD Unavailable Christine Poon RN Unavailable [phone] Shanti Lara NP Primary Care Provider [phone] Encounter Details Date Type Department Care Team (Late st Contact Info) Description 07/05/2020 [facility] [address] [place] [address] Jonathan Pitts MD [address] [place] [address] Social History Tobacco Use Types Packs/Day [...] COVID-19? No / Unsure 06/28/2020 7:41 AM PROBATION MANAGER documented as of this encounter Plan of Treatment Upcoming Encounters Date Type Department Care Team (Late st Contact Info) Description 02/19/2024 10:40 AM CDT Allied Health/Nurse Visit [address] [address] Jonathan Pitts MD [address] [place] [address] 685155 Nurse, [facility] 02/29/2024 8:00 AM CDT Oncology Visit [address] [address] Jonathan Pitts MD [address] [place] [address] [id number] documented as of this encounter Visit Diagnoses Not on filedocumented in this encounter Care Teams Senior Software Project Manager Relationship Specialty Start Date End Date No Ref-Primary, Physician PCP - General 07/29/17 03/16/22 Shanti Lara NP [facility] [address] [place] [address] PCP - General Nurse Practitioner - Family 03/17/22 [facility] [address] [place], [place] 473285 Referring Physician doweler 07/29/17 Jonathan Pitts MD [address] [place] [address] [id number] Oncology 07/29/17 Jonathan Pitts MD [address] [place] [address]609 Assigned Cancer Care Provider 05/18/20 05/15/23 Christine Poon RN Specialty Rfid Developer Hematology & Oncology 12/02/21 documented as of this encounter
--- OUTSIDE RECORDS SUMMARY | 2024-02-12 23:19 | XMS_ITS | Encounter Summary ---
Author Organization [facility] Address [address] [place] [address] Care Team Providers Care Plant Inspector Name Role Phone No Ref-Primary, Physician Primary Care Provider Kavita Akhtar Unavailable [phone] Jonathan Pitts MD Unavailable Jonathan Pitts MD Unavailable Christine Poon RN Unavailable [phone] Shanti Lara NP Primary Care Provider [phone] Encounter Details Date Type Department Care Team (Late st Contact Info) Description 06/27/2020 [facility] [address] [place] [address] Jonathan Pitts MD [address] [place] [address] Social History Tobacco Use Types Packs/Day [...] COVID-19? No / Unsure 06/28/2020 7:41 AM HHA documented as of this encounter Plan of Treatment Upcoming Encounters Date Type Department Care Team (Late st Contact Info) Description 02/19/2024 10:40 AM CDT Allied Health/Nurse Visit [address] [address] Jonathan Pitts MD [address] [place] [address] [phone] Nurse, [facility] 02/29/2024 8:00 AM CDT Oncology Visit [address] [address] Jonathan Pitts MD [address] [place] [address] [phone] documented as of this encounter Visit Diagnoses Not on filedocumented in this encounter Care Teams Plant Inspector Relationship Specialty Start Date End Date No Ref-Primary, Physician PCP - General 07/29/17 03/16/22 Shanti Lara NP [facility] [address] [place] [address] PCP - General Nurse Practitioner - Family 03/17/22 [facility] [address] [place], [place] 472615 Referring Physician meteorology professor 07/29/17 Jonathan Pitts MD [address] [place] [address] [phone] Oncology 07/29/17 Jonathan Pitts MD [address] [place] [address] 29858 Assigned Cancer Care Provider 05/18/20 05/15/23 Christine Poon RN Specialty Dividend Deposit Entry Clerk Hematology & Oncology 12/02/21 documented as of this encounter
--- OUTSIDE RECORDS SUMMARY | 2024-02-12 23:19 | XMS_ITS | Encounter Summary ---
Author Organization [facility] Address [address] [place] [address] Care Team Providers Care Combined Rail Operator Name Role Phone No Ref-Primary, Physician Primary Care Provider Kavita Akhtar Unavailable [phone] Jonathan Pitts MD Unavailable Jonathan Pitts MD Unavailable [phone] Christine Poon RN Unavailable [phone] Shanti Lara NP Primary Care Provider [phone] Encounter Details Date Type Department Care Team ([facility] Contact Info) Description 11/11/2021 [facility] Medical Advice Initial Department [facility] Social History Tobacco Use Types Packs/Day Years [...] Encounters Date Type Department Care Team (Late Contact Info) Description 02/19/2024 10:40 AM CDT Allied Health/Nurse Visit [facility] Cancer [address] [address] Jonathan Pitts MD [address] [place] [address] [phone] Nurse, [facility] 02/29/2024 8:00 AM CDT Oncology Visit [facility] Cancer [address] [address] Jonathan Pitts MD [address] [place] [address] documented as of this encounter Visit Diagnoses Not on filedocumented in this encounter Care Teams Combined Rail Operator Relationship Specialty Start Date End Date No Ref-Primary, Physician PCP - General 07/29/17 03/16/22 Shanti Lara NP [facility] [address] [place] [address] PCP - General Nurse Practitioner - Family 03/17/[address] [facility] [address] [place], [place] 489125 Referring Physician leather skinner 07/29/17 Jonathan Pitts MD [address] [place] [address] Oncology 07/29/17 Jonathan Pitts MD [address] [place] [address]5626 Assigned Cancer Care Provider 05/18/20 05/15/23 Christine Poon RN Specialty Director [employer] Hematology & Oncology 12/02/21 documented as of this encounter
--- OUTSIDE RECORDS SUMMARY | 2024-02-12 23:19 | XMS_ITS | Encounter Summary ---
Author Organization [place] Address [address] [place] [address] 22435 Care Team Providers Care Cement Side Laster Name Role Phone No Ref-Primary, Physician Primary Care Provider Kavita Akhtar Unavailable [phone] Jonathan Pitts MD Unavailable Jonathan Pitts MD Unavailable Christine Poon RN Unavailable [phone] Shanti Lara NP Primary Care Provider [phone] Encounter Details Date Type Department Care Team (Late st Contact Info) Description 08/26/2021 [facility] [address] [place] [address] Jonathan Pitts MD [address] [place] [address] Social History Tobacco Use Types Packs/Day [...] 02/19/2024 10:40 AM CDT Allied Health/Nurse Visit [facility] Cancer [address] [address] Jonathan Pitts MD [address] [place] [address] 520335 Nurse, [facility] 02/29/2024 8:00 AM CDT Oncology Visit [facility] Cancer [address] [address] Jonathan Pitts MD [address] [place] [address] documented as of this encounter Visit Diagnoses Not on filedocumented in this encounter Care Teams Cement Side Laster Relationship Specialty Start Date End Date No Ref-Primary, Physician PCP - General 07/29/17 03/16/22 Shanti Lara DRY YARD WORKER [facility] [address] [place] [address] PCP - General Nurse Practitioner - Family 03/17/22 [address] [place], [place] 266785 Referring Physician compensation expert 07/29/17 Jonathan Pitts MD [address] [place] [address] [phone] Oncology 07/29/17 Jonathan Pitts MD [address] [place] [address] 28542 Assigned Cancer Care Provider 05/18/20 05/15/23 Christine Poon RN Specialty Traffic Control Officer Hematology & Oncology 12/02/21 documented as of this encounter
--- OUTSIDE RECORDS SUMMARY | 2024-02-12 23:19 | XMS_ITS | Encounter Summary ---
Author Organization [place] Address [address] [place] [address] 31527 Care Team Providers Care Honing Machine Set Up Operator Name Role Phone No Ref-Primary, Physician Primary Care Provider Kavita Akhtar Unavailable [phone] Jonathan Pitts MD Unavailable Jonathan Pitts MD Unavailable Christine Poon RN Unavailable [phone] Shanti Lara NP Primary Care Provider [phone] Encounter Details Date Type Department Care Team (Late st Contact Info) Description 07/24/2020 [facility] [address] [place] [address] Jonathan Pitts MD [address] [place] [address] Social History Tobacco Use Types Packs/Day [...] COVID-19? No / Unsure 07/09/2020 10:01 AM MENHADEN FISHING [employer]W MEMBER documented as of this encounter Plan of Treatment Upcoming Encounters Date Type Department Care Team (Late st Contact Info) Description 02/19/2024 10:40 AM CDT Allied Health/Nurse Visit [address] [address] Jonathan Pitts MD [address] [place] [address] [phone] Nurse, [facility] 02/29/2024 8:00 AM CDT Oncology Visit [address] [address] Jonathan Pitts MD [address] [place] [address] [phone] documented as of this encounter Visit Diagnoses Not on filedocumented in this encounter Care Teams Honing Machine Set Up Operator Relationship Specialty Start Date End Date No Ref-Primary, Physician PCP - General 07/29/17 03/16/22 Shanti Lara NP [facility] [address] [place] [address] PCP - General Nurse Practitioner - Family 03/17/22 [facility] [address] [place], [place] 978335 Referring Physician pastry chef 07/29/17 Jonathan Pitts MD [address] [place] [address] [phone] Oncology 07/29/17 Jonathan Pitts MD [address] [place] [address] 16149 Assigned Cancer Care Provider 05/18/20 05/15/23 Christine Poon RN Specialty Material Clerk Hematology & Oncology 12/02/21 documented as of this encounter
--- OUTSIDE RECORDS SUMMARY | 2024-02-12 23:19 | XMS_ITS | Encounter Summary ---
Author Organization [facility] Address [address] [place] [address] 8[address] Care Team Providers Care Sugar Chipper Machine Operator Name Role Phone No Ref-Primary, Physician Primary Care Provider Kavita Akhtar Unavailable [phone] Jonathan Pitts MD Unavailable Jonathan Pitts MD Unavailable Christine Poon RN Unavailable [phone] Shanti Lara NP Primary Care Provider [phone] Encounter Details Date Type Department Care Team (Late st Contact Info) Description 08/15/2020 [facility] [address] [place] [address] Jonathan Pitts MD [address] [place] [address] Social History Tobacco Use Types Packs/Day [...] 02/19/2024 10:40 AM CDT Allied Health/Nurse Visit [facility] Cancer [address] [address] Jonathan Pitts MD [address] [place] [address] [phone] Nurse, [facility] 02/29/2024 8:00 AM CDT Oncology Visit [facility] Cancer [address] [address] Jonathan Pitts MD [address] [place] [address] documented as of this encounter Visit Diagnoses Not on filedocumented in this encounter Care Teams Sugar Chipper Machine Operator Relationship Specialty Start Date End Date No Ref-Primary, Physician PCP - General 07/29/17 03/16/22 Shanti Lara MODEL MAKER SCALE [facility] [address] [place] [address] PCP - General Nurse Practitioner - Family 03/17/22 [facility] [address] [place], [place] 073775 Referring Physician botany technician 07/29/17 Jonathan Pitts MD [address] [place] [address] [phone] Oncology 07/29/17 Jonathan Pitts MD [address] [place] [address] 46008 Assigned Cancer Care Provider 05/18/20 05/15/23 Christine Poon RN Specialty High School Academic Coach Hematology & Oncology 12/02/21 documented as of this encounter
--- OUTSIDE RECORDS SUMMARY | 2024-02-12 23:19 | XMS_ITS | Encounter Summary ---
Author Organization [place] Address [address] [place] [address] 40626 Care Team Providers Care Casing Finisher And Stuffer Name Role Phone No Ref-Primary, Physician Primary Care Provider Kavita Akhtar Unavailable [phone] Jonathan Pitts MD Unavailable Jonathan Pitts MD Unavailable [phone] Christine Poon RN Unavailable [phone] Shanti Lara NP Primary Care Provider [phone] Encounter Details Date Type Department Care Team (Late st Contact Info) Description 01/09/2021 [facility] [address] [place] [address] Jonathan Pitts MD [address] [place] [address] Social History Tobacco Use Types Packs/Day [...] 02/19/2024 10:40 AM CDT Allied Health/Nurse Visit [facility] Cancer [address] [address] Jonathan Pitts MD [address] [place] [address] [phone] Nurse, [facility] 02/29/2024 8:00 AM CDT Oncology Visit [facility] Cancer [address] [address] Jonathan Pitts MD [address] [place] [address] documented as of this encounter Visit Diagnoses Not on filedocumented in this encounter Care Teams Casing Finisher And Stuffer Relationship Specialty Start Date End Date No Ref-Primary, Physician PCP - General 07/29/17 03/16/22 Shanti Lara CRANBERRY FARM SUPERVISOR [facility] [address] [place] [address] PCP - General Nurse Practitioner - Family 03/17/22 [facility] [address] [place], [place] 059825 Referring Physician press manager 07/29/17 Jonathan Pitts MD [address] [place] [address] 339295 Oncology 07/29/17 Jonathan Pitts MD [address] [place] [address] 49525 Assigned Cancer Care Provider 05/18/20 05/15/23 Christine Poon RN Specialty Fire Equipment Repairer Inspector Hematology & Oncology 12/02/21 documented as of this encounter
--- OUTSIDE RECORDS SUMMARY | 2024-02-12 23:19 | XMS_ITS | Encounter Summary ---
Author Organization [facility] Address [address] [place] [address]56 Care Team Providers Care Fund Manager Name Role Phone No Ref-Primary, Physician Primary Care Provider Kavita Akhtar Unavailable [phone] Jonathan Pitts MD Unavailable Jonathan Pitts MD Unavailable [phone] Christine Poon RN Unavailable [phone] Shanti Lara NP Primary Care Provider [phone] Encounter Details Date Type Department Care Team (Late st Contact Info) Description 11/13/2021 [facility] [address] [place] [address] Jonathan Pitts MD [address] [place] [address] Social History Tobacco Use Types Packs/Day [...] 02/19/2024 10:40 AM CDT Allied Health/Nurse Visit [facility] Cancer [address] [address] Jonathan Pitts MD [address] [place] [address] [phone] Nurse, [facility] 02/29/2024 8:00 AM CDT Oncology Visit [facility] Cancer [address] [address] Jonathan Pitts MD [address] [place] [address] 295715 documented as of this encounter Visit Diagnoses Not on filedocumented in this encounter Care Teams Fund Manager Relationship Specialty Start Date End Date No Ref-Primary, Physician PCP - General 07/29/17 03/16/22 Shanti Lara NP [facility] [address] [place] [address] PCP - General Nurse Practitioner - Family 03/17/22 [facility] [address] [place], [place] 777215 Referring Physician business coordinator 07/29/17 Jonathan Pitts MD [address] [place] [address] 85958 Oncology 07/29/17 Jonathan Pitts MD [address] [place] [address] [place] [address] Assigned Cancer Care Provider 05/18/20 05/15/23 Christine Poon RN Specialty Repair Servicer Hematology & Oncology 12/02/21 documented as of this encounter
--- OUTSIDE RECORDS SUMMARY | 2024-02-12 23:19 | XMS_ITS | Encounter Summary ---
Author Organization [facility] Address [address] [place] [address] 6[address]87 Care Team Providers Care Sheetfed Press Operator Name Role Phone No Ref-Primary, Physician Primary Care Provider Kavita Akhtar Unavailable [phone] Jonathan Pitts MD Unavailable Jonathan Pitts MD Unavailable Christine Poon RN Unavailable [phone] Shanti Lara NP Primary Care Provider [phone] Encounter Details Date Type Department Care Team (Late st Contact Info) Description 07/05/2020 [facility] [address] [place] [address] Jonathan Pitts MD [address] [place] [address] Social History Tobacco Use Types Packs/Day [...] COVID-19? No / Unsure 06/28/2020 7:41 AM CNMT documented as of this encounter Plan of Treatment Upcoming Encounters Date Type Department Care Team (Late st Contact Info) Description 02/19/2024 10:40 AM CDT Allied Health/Nurse Visit [address] [address] Jonathan Pitts MD [address] [place] [address] [phone] Nurse, [facility] 02/29/2024 8:00 AM CDT Oncology Visit [address] [address] Jonathan Pitts MD [address] [place] [address] [phone] documented as of this encounter Visit Diagnoses Not on filedocumented in this encounter Care Teams Sheetfed Press Operator Relationship Specialty Start Date End Date No Ref-Primary, Physician PCP - General 07/29/17 03/16/22 Shanti Lara NP [facility] [address] [place] [address] PCP - General Nurse Practitioner - Family 03/17/22 [facility] [address] [place], [place] 907745 Referring Physician protocol manager 07/29/17 Jonathan Pitts MD [address] [place] [address] [phone] Oncology 07/29/17 Jonathan Pitts MD [address] [place] [address] 98296 Assigned Cancer Care Provider 05/18/20 05/15/23 Christine Poon RN Specialty Java J2Ee Architect Hematology & Oncology 12/02/21 documented as of this encounter
--- OUTSIDE RECORDS SUMMARY | 2024-02-12 23:19 | XMS_ITS | Encounter Summary ---
Author Organization [facility] Address [address] [place] [address] 01668 Care Team Providers Care Beverage Manager Name Role Phone No Ref-Primary, Physician Primary Care Provider Kavita Akhtar Unavailable [phone] Jonathan Pitts MD Unavailable Jonathan Pitts MD Unavailable Christine Poon RN Unavailable [phone] Shanti Lara NP Primary Care Provider [phone] Encounter Details Date Type Department Care Team (Late st Contact Info) Description 09/03/2020 [facility] [address] [place] [address] Jonathan Pitts MD [address] [place] [address] Social History Tobacco Use Types Packs/Day [...] 02/19/2024 10:40 AM CDT Allied Health/Nurse Visit [facility] Cancer [address] [address] Jonathan Pitts MD [address] [place] [address] 270755 Nurse, [facility] 02/29/2024 8:00 AM CDT Oncology Visit [facility] Cancer [address] [address] Jonathan Pitts MD [address] [place] [place] [address] documented as of this encounter Visit Diagnoses Not on filedocumented in this encounter Care Teams Beverage Manager Relationship Specialty Start Date End Date No Ref-Primary, Physician PCP - General 07/29/17 03/16/22 Shanti Lara SH[facility] [address] [place] [address] PCP - General Nurse Practitioner - Family 03/17/22 [facility] [address] [place], [place] 920635 Referring Physician tour director 07/29/17 Jonathan Pitts MD [address] [place] [address] [phone] Oncology 07/29/17 Jonathan Pitts MD [address] [place] [address] 03638 Assigned Cancer Care Provider 05/18/20 05/15/23 Christine Poon RN Specialty Thermostat Machine Tender Hematology & Oncology 12/02/21 documented as of this encounter
--- OUTSIDE RECORDS SUMMARY | 2024-02-12 23:19 | XMS_ITS | Encounter Summary ---
Author Organization [place] Address [address] [place] [address] 68663 Care Team Providers Care Flag Football Coach Name Role Phone No Ref-Primary, Physician Primary Care Provider Kavita Akhtar Unavailable [phone] Jonathan Pitts MD Unavailable Jonathan Pitts MD Unavailable Christine Poon RN Unavailable [phone] Shanti Lara NP Primary Care Provider [phone] Encounter Details Date Type Department Care Team (Late st Contact Info) Description 06/28/2020 [facility] [address] [place] [address] Jonathan Pitts MD [address] [place] [address] Social History Tobacco Use Types Packs/Day [...] COVID-19? No / Unsure 06/28/2020 7:41 AM BIOMEDICAL ENGINEERING SUPERVISOR documented as of this encounter Plan of Treatment Upcoming Encounters Date Type Department Care Team (Late st Contact Info) Description 02/19/2024 10:40 AM CDT Allied Health/Nurse Visit [address] [address] Jonathan Pitts MD [address] [place] [address] 086175 Nurse, [facility] 02/29/2024 8:00 AM CDT Oncology Visit [address] [address] Jonathan Pitts MD [address] [place] [address] [phone] documented as of this encounter Visit Diagnoses Not on filedocumented in this encounter Care Teams Flag Football Coach Relationship Specialty Start Date End Date No Ref-Primary, Physician PCP - General 07/29/17 03/16/22 Shanti Lara NP [facility] [address] [place] [address] PCP - General Nurse Practitioner - Family 03/17/22 [facility] [address] [place], [place] 207485 Referring Physician communications equipment supervisor 07/29/17 Jonathan Pitts MD [address] [place] [address] [phone] Oncology 07/29/17 Jonathan Pitts MD [address] [place] [address] 08218 Assigned Cancer Care Provider 05/18/20 05/15/23 Christine Poon RN Specialty Linux Admin Engineer Hematology & Oncology 12/02/21 documented as of this encounter
--- OUTSIDE RECORDS SUMMARY | 2024-02-12 23:19 | XMS_ITS | Encounter Summary ---
Author Organization [facility] Address [address] [place] [address] 07344 Care Team Providers Care Monogram And Letter Paster Name Role Phone No Ref-Primary, Physician Primary Care Provider Kavita Akhtar Unavailable [phone] Jonathan Pitts MD Unavailable Jonathan Pitts MD Unavailable Christine Poon RN Unavailable [phone] Sahnti Lara NP Primary Care Provider [phone] Encounter Details Date Type Department Care Team ([facility] st Contact Info) Description 09/13/2021 [facility] [address] [place] [address] Jonathan Pitts MD [address] [place] [address] Social History Tobacco Use Types Packs/Day [...] 02/19/2024 10:40 AM CDT Allied Health/Nurse Visit [facility] Cancer [address] [address] Jonathan Pitts MD [address] [place] [address] 115245 Nurse, [facility] 02/29/2024 8:00 AM CDT Oncology Visit [facility] Cancer [address] [address] Jonathan Pitts MD [address] [place] [address] documented as of this encounter Visit Diagnoses Not on filedocumented in this encounter Care Teams Monogram And Letter Paster Relationship Specialty Start Date End Date No Ref-Primary, Physician PCP - General 07/29/17 03/16/22 Shanti Lara KITCHEN MECHANIC [facility] [address] [place] [address] PCP - General Nurse Practitioner - Family 03/17/22 [facility] [address] [place], [place] 242915 Referring Physician manipulative therapy specialist 07/29/17 Jonathan Pitts MD [address] [place] [address] 335225 Oncology 07/29/17 Jonathan Pitts MD [address] [place] [address] 60936 Assigned Cancer Care Provider 05/18/20 05/15/23 Christine Poon RN Specialty Chain Builder Hematology & Oncology 12/02/21 documented as of this encounter
--- OUTSIDE RECORDS SUMMARY | 2024-02-12 23:19 | XMS_ITS | Encounter Summary ---
Author Organization [place] Address [address] [place] [address] 46435 Care Team Providers Care Animal Husbandry Technician Name Role Phone No Ref-Primary, Physician Primary Care Provider Kavita Akhtar Unavailable [phone] Jonathan Pitts MD Unavailable [phone] Jonathan Pitts MD Unavailable Christine Poon RN Unavailable [phone] Shnati Lara NP Primary Care Provider [phone] Encounter Details Date Type Department Care Team (Late st Contact Info) Description 07/03/2020 [facility] [address] [place] [address] Jonathan Pitts MD [address] [place] [address] Social History Tobacco Use Types Packs/Day [...] COVID-19? No / Unsure 06/28/2020 7:41 AM VEGETABLE TESTER documented as of this encounter Plan of Treatment Upcoming Encounters Date Type Department Care Team (Late st Contact Info) Description 02/19/2024 10:40 AM CDT Allied Health/Nurse Visit [address] [address] Jonathan Pitts MD [address] [place] [address] 978255 Nurse, [facility] 02/29/2024 8:00 AM CDT Oncology Visit [address] [address] Jonathan Pitts MD [address] [place] [address] [phone] documented as of this encounter Visit Diagnoses Not on filedocumented in this encounter Care Teams Animal Husbandry Technician Relationship Specialty Start Date End Date No Ref-Primary, Physician PCP - General 07/29/17 03/16/22 Shanti Lara NP [facility] [address] [place] [address] PCP - General Nurse Practitioner - Family 03/17/22 [facility] [address] [place], [place] 793185 Referring Physician clinical applications manager 07/29/17 Jonathan Pitts MD [address] [place] [address] [phone] Oncology 07/29/17 Jonathan Pitts MD [address] [place] [address] 43461 Assigned Cancer Care Provider 05/18/20 05/15/23 Christine Poon RN Specialty Medical Instrument Cable Fabricator Hematology & Oncology 12/02/21 documented as of this encounter
--- OUTSIDE RECORDS SUMMARY | 2024-02-12 23:19 | XMS_ITS | Encounter Summary ---
Author Organization [place] Address [address] [place] [address] Care Team Providers Care Audio Director Name Role Phone No Ref-Primary, Physician Primary Care Provider Kavita Akhtar Unavailable [phone] Jonathan Pitts MD Unavailable Jonathan Pitts MD Unavailable Christine Poon RN Unavailable [phone] Shanti Lara NP Primary Care Provider [phone] Encounter Details Date Type Department Care Team (Late st Contact Info) Description 06/28/2020 [facility] [address] [place] [address] Jonathan Pitts MD [address] [place] [address] Social History Tobacco Use Types Packs/Day [...] COVID-19? No / Unsure 06/28/2020 7:41 AM CASINO GAMING INSPECTOR documented as of this encounter Plan of Treatment Upcoming Encounters Date Type Department Care Team (Late st Contact Info) Description 02/19/2024 10:40 AM CDT Allied Health/Nurse Visit [address] [address] Jonathan Pitts MD [address] [place] [address] 636315 Nurse, [facility] 02/29/2024 8:00 AM CDT Oncology Visit [address] [address] Jonathan Pitts MD [address] [place] [address] 346305 documented as of this encounter Visit Diagnoses Not on filedocumented in this encounter Care Teams Audio Director Relationship Specialty Start Date End Date No Ref-Primary, Physician PCP - General 07/29/17 03/16/22 Shanti Lara NP [facility] [address] [place] [address] PCP - General Nurse Practitioner - Family 03/17/22 [facility] [address] [place], [place] 454085 Referring Physician pega developer 07/29/17 Jonathan Pitts MD [address] [place] [address] [id number] Oncology 07/29/17 Jonathan Pitts MD [address] [place] [address] 17378 Assigned Cancer Care Provider 05/18/20 05/15/23 Christine Poon RN Specialty Machine Tool Technician Instructor Hematology & Oncology 12/02/21 documented as of this encounter
--- OUTSIDE RECORDS SUMMARY | 2024-02-12 23:19 | XMS_ITS | Encounter Summary ---
Author Organization [place] Address [address] [place] [address] 0[address]8 Care Team Providers Care Diabetes Manager Name Role Phone No Ref-Primary, Physician Primary Care Provider Kavita Akhtar Unavailable [phone] Jonathan Pitts MD Unavailable [phone] Jonathan Pitts MD Unavailable Christine Poon RN Unavailable [phone] Shanti Lara NP Primary Care Provider [phone] Encounter Details Date Type Department Care Team (Late st Contact Info) Description 11/27/[address] [facility] [address] [place] [address] Jonathan Pitts MD [address] [place] [address] Social History Tobacco Use Types Packs/Day [...] 10:40 AM CDT Allied Health/Nurse Visit [facility] [address] [address] Jonathan Pitts MD [address] [place] [address] 477295 Nurse, [facility] 02/29/2024 8:00 AM CDT Oncology Visit [address] [address] Jonathan Pitts MD [address] [place] [address] [phone] documented as of this encounter Visit Diagnoses Not on filedocumented in this encounter Care Teams Diabetes Manager Relationship Specialty Start Date End Date No Ref-Primary, Physician PCP - General 07/29/17 03/16/22 Shanti Lara NP [place] [address] [place] [address] PCP - General Nurse Practitioner - [facility] 03/17/22 [facility] [address] [place], [place] 478115 Referring Physician salon supervisor 07/29/17 Jonathan Pitts MD [address] [place] [address] 39519 Oncology 07/29/17 Jonathan Pitts MD [address] [place] [address] 16850 Assigned Cancer Care Provider 05/18/20 05/15/23 Christine Poon RN Specialty Supplier Quality Manager Hematology & Oncology 12/02/21 documented as of this encounter
--- OUTSIDE RECORDS SUMMARY | 2024-02-12 23:19 | XMS_ITS | Encounter Summary ---
Author Organization [place] Address [address] [place] [address] Care Team Providers Care Manager Service Desk Name Role Phone No Ref-Primary, Physician Primary Care Provider Kavita Akhtar Unavailable [phone] Jonathan Pitts MD Unavailable Jonathan Pitts MD Unavailable Christine Poon RN Unavailable [phone] Shanti Lara NP Primary Care Provider [phone] Encounter Details Date Type Department Care Team (Late st Contact Info) Description 07/25/2020 [facility] [address] [place] [address] Jonathan Pitts MD [address] [place] [address] Social History Tobacco Use Types Packs/Day [...] COVID-19? No / Unsure 07/09/2020 10:01 AM DUST OPERATOR documented as of this encounter Plan of Treatment Upcoming Encounters Date Type Department Care Team (Late st Contact Info) Description 02/19/2024 10:40 AM CDT Allied Health/Nurse Visit [address] [address] Jonathan Pitts MD [address] [place] [address] 638255 Nurse, [facility] 02/29/2024 8:00 AM CDT Oncology Visit [address] [address] Jonathna Pitts MD [address] [place] [address] [phone] documented as of this encounter Visit Diagnoses Not on filedocumented in this encounter Care Teams Manager Service Desk Relationship Specialty Start Date End Date No Ref-Primary, Physician PCP - General 07/29/17 03/16/22 Shanti Lara NP [place] [address] [place] [address] PCP - General Nurse Practitioner - Family 03/17/[address] [facility] [address] [place], [place] 326255 Referring Physician nut processing supervisor 07/29/17 Jonathan Pitts MD [address] [place] [address] [phone] Oncology 07/29/17 Jonathan Pitts MD [address] [place] [address] 45233 Assigned Cancer Care Provider 05/18/20 05/15/23 Christine Poon RN Specialty Boat And Plant Utility Supervisor Hematology & Oncology 12/02/21 documented as of this encounter
--- OUTSIDE RECORDS SUMMARY | 2024-02-12 23:19 | XMS_ITS | Encounter Summary ---
Author Organization [place] Address [address] [place] [address] Care Team Providers Care Instrument Tech Name Role Phone No Ref-Primary, Physician Primary Care Provider Kavita Akhtar Unavailable [phone] Jonathan Pitts MD Unavailable Jonathan Pitts MD Unavailable Christine Poon RN Unavailable [phone] Shanti Lara NP Primary Care Provider [phone] Encounter Details Date Type Department Care Team ([facility] st Contact Info) Description 10/14/2021 [facility] [address] [place] [address] Jonathan Pitts MD [address] [place] [address] Social History Tobacco Use Types Packs/Day [...] 02/19/2024 10:40 AM CDT Allied Health/Nurse Visit [facility] [address] [address] Jonathan Pitts MD [address] [place] [address] [phone] Nurse, [facility] 02/29/2024 8:00 AM CDT Oncology Visit [facility] [address] [address] Jonathan Pitts MD [address] [place] [address] documented as of this encounter Visit Diagnoses Not on filedocumented in this encounter Care Teams Instrument Tech Relationship Specialty Start Date End Date No Ref-Primary, Physician PCP - General 07/29/17 03/16/22 Shanti Lara EXCELLENCE SPECIALIST [facility] [address] [place] [address] PCP - General Nurse Practitioner - Family 03/17/22 [facility] [address] [place], [place] 552555 Referring Physician champion of sustainable design 07/29/17 Jonathan Pitts MD [address] [place] [address] 888265 Oncology 07/29/17 Jonathan Pitts MD [address] [place] [address] 98060 Assigned Cancer Care Provider 05/18/20 05/15/23 Christine Poon RN Specialty Senior Director Finance Hematology & Oncology 12/02/21 documented as of this encounter
--- OUTSIDE RECORDS SUMMARY | 2024-02-12 23:19 | XMS_ITS | Encounter Summary ---
Author Organization [place] Address [address] [place] [address] 81953 Care Team Providers Care Sap Director Name Role Phone No Ref-Primary, Physician Primary Care Provider Kavita Akhtar Unavailable [phone] Jonathan Pitts MD Unavailable Jonathan Pitts MD Unavailable Christine Poon RN Unavailable [phone] Shanti Lara NP Primary Care Provider [phone] Encounter Details Date Type Department Care Team (Late st Contact Info) Description 06/27/2020 [facility] [address] [place] [address] Jonathan Pitts MD [address] [place] [address] Social History Tobacco Use Types Packs/Day [...] COVID-19? No / Unsure 06/28/2020 7:41 AM SENIOR LEAD DEVELOPER documented as of this encounter Plan of Treatment Upcoming Encounters Date Type Department Care Team (Late st Contact Info) Description 02/19/2024 10:40 AM CDT Allied Health/Nurse Visit [address] [address] Jonathan Pitts MD [address] [place] [address] 990005 Nurse, [facility] 02/29/2024 8:00 AM CDT Oncology Visit [address] [address] Jonathan Pitts MD [address] [place] [address] 161215 documented as of this encounter Visit Diagnoses Not on filedocumented in this encounter Care Teams Sap Director Relationship Specialty Start Date End Date No Ref-Primary, Physician PCP - General 07/29/17 03/16/22 Shanti Lara NP [facility] [address] [place] [address] PCP - General Nurse Practitioner - Family 03/17/22 [facility] [address] [place], [place] 907105 Referring Physician hardener helper 07/29/17 Jonathan Pitts MD [address] [place] [address] [phone] Oncology 07/29/17 Jonathan Pitts MD [address] [place] [address] 75671 Assigned Cancer Care Provider 05/18/20 05/15/23 Christine Poon RN Specialty Air Filler Hematology & Oncology 12/02/21 documented as of this encounter
--- OUTSIDE RECORDS SUMMARY | 2024-02-12 23:20 | XMS_ITS | Encounter Summary ---
Author Organization [place] Address [address] [place] [address] 65047 Care Team Providers Care Mushroom Farmer Name Role Phone No Ref-Primary, Physician Primary Care Provider Kavita Akhtar Unavailable [phone] Jonathan Pitts MD Unavailable Jonathan Pitts MD Unavailable Christine Poon RN Unavailable [phone] Shanti Lara NP Primary Care Provider [phone] Encounter Details Date Type Department Care Team (Late st Contact Info) Description 06/25/2020 [facility] [address] [place] [address] Jonathan Pitts MD [address] [place] [address] Social History Tobacco Use Types Packs/Day [...] COVID-19? No / Unsure 06/28/2020 7:41 AM SLAB STRIPPER documented as of this encounter Plan of Treatment Upcoming Encounters Date Type Department Care Team (Late st Contact Info) Description 02/19/2024 10:40 AM CDT Allied Health/Nurse Visit [address] [address] Jonathan Pitts MD [address] [place] [address] [phone] Nurse, [facility] 02/29/2024 8:00 AM CDT Oncology Visit [address] [address] Jonathan Pitts MD [address] [place] [address] [phone] documented as of this encounter Visit Diagnoses Not on filedocumented in this encounter Care Teams Mushroom Farmer Relationship Specialty Start Date End Date No Ref-Primary, Physician PCP - General 07/29/17 03/16/22 Shanti Lara NP [facility] [address] [place] [address] PCP - General Nurse Practitioner - Family 03/17/22 [facility] [address] [place], [place] 040875 Referring Physician oracle pl sql developer 07/29/17 Jonathan Pitts MD [address] [place] [address] 999155 Oncology 07/29/17 Jonathan Pitts MD [address] [place] [address] 85446 Assigned Cancer Care Provider 05/18/20 05/15/23 Christine Poon RN Specialty Inspector Of Weights And Measures Hematology & Oncology 12/02/21 documented as of this encounter
--- OUTSIDE RECORDS SUMMARY | 2024-02-12 23:20 | XMS_ITS | Encounter Summary ---
Author Organization [place] Address [address] [place] [address] Care Team Providers Care Plasma Specialist Name Role Phone No Ref-Primary, Physician Primary Care Provider Kavita Akhtar Unavailable [phone] Jonathan Pitts MD Unavailable Jonathan Pitts MD Unavailable Christine Poon RN Unavailable [phone] Shanti Lara NP Primary Care Provider [phone] Encounter Details Date Type Department Care Team (Late st Contact Info) Description 06/12/2020 [facility] [address] [place] [address] Jonathan Pitts MD [address] [place] [address] Social History Tobacco Use Types Packs/Day [...] COVID-19? No / Unsure 06/14/2020 3:17 PM SKIN DRIER documented as of this encounter Plan of Treatment Upcoming Encounters Date Type Department Care Team (Late st Contact Info) Description 02/19/2024 10:40 AM CDT Allied Health/Nurse Visit [address] [address] Jonathan Pitts MD [address] [place] [address] [phone] Nurse, [facility] 02/29/2024 8:00 AM CDT Oncology Visit [address] [address] Jonathan Pitts MD [address] [place] [address] 235395 documented as of this encounter Visit Diagnoses Not on filedocumented in this encounter Care Teams Plasma Specialist Relationship Specialty Start Date End Date No Ref-Primary, Physician PCP - General 07/29/17 03/16/22 Shanti Laar NP [place] [address] [place] [address] PCP - General Nurse Practitioner - Family 03/17/22 [facility] [address] [place], [place] [phone] Referring Physician manager contracting 07/29/17 Jonathan Pitts MD [address] [place] [address] [phone] Oncology 07/29/17 Jonathan Pitts MD [address] [place] [address] 71534 Assigned Cancer Care Provider 05/18/20 05/15/23 Christine Poon RN Specialty Prevocational/Rehabilitation Counselor Hematology & Oncology 12/02/21 documented as of this encounter
--- OUTSIDE RECORDS SUMMARY | 2024-02-12 23:20 | XMS_ITS | Encounter Summary ---
Author Organization [place] Address [address] [place] [address] 32770 Care Team Providers Care Applicator Sprayer Name Role Phone No Ref-Primary, Physician Primary Care Provider Kavita Akhtar Unavailable [phone] Jonathan Pitts MD Unavailable Jonathan Pitts MD Unavailable Christine Poon RN Unavailable [phone] Shanti Lara NP Primary Care Provider [phone] Encounter Details Date Type Department Care Team (Late st Contact Info) Description 06/14/2020 [facility] [address] [place] [address] Jonathan Pitts MD [address] [place] [address] Social History Tobacco Use Types Packs/Day [...] COVID-19? No / Unsure 06/17/2020 1:09 PM TRAIN ATTENDANT documented as of this encounter Plan of Treatment Upcoming Encounters Date Type Department Care Team (Late st Contact Info) Description 02/19/2024 10:40 AM CDT Allied Health/Nurse Visit [address] [address] Jonathan Pitts MD [address] [place] [address] [phone] Nurse, [facility] 02/29/2024 8:00 AM CDT Oncology Visit [address] [address] Jonathan Pitts MD [address] [place] [address] [phone] documented as of this encounter Visit Diagnoses Not on filedocumented in this encounter Care Teams Applicator Sprayer Relationship Specialty Start Date End Date No Ref-Primary, Physician PCP - General 07/29/17 03/16/22 Shanti Lara NP [facility] [address] [place] [address] PCP - General Nurse Practitioner - Family 03/17/22 [facility] [address] [place], [place] 506625 Referring Physician farmworker animal 07/29/17 Jonathan Pitts MD [address] [place] [address] [phone] Oncology 07/29/17 Jonathan Pitts MD [address] [place] [address] 67741 Assigned Cancer Care Provider 05/18/20 05/15/23 Christine Poon RN Specialty Opthalmic Tech Hematology & Oncology 12/02/21 documented as of this encounter
--- OUTSIDE RECORDS SUMMARY | 2024-02-12 23:20 | XMS_ITS | Encounter Summary ---
Author Organization [place] Address [address] [place] [address] 8[address]54 Care Team Providers Care Yoga Coordinator Name Role Phone No Ref-Primary, Physician Primary Care Provider Kavita Akhtar Unavailable [phone] Jonathan Pitts MD Unavailable Jonathan Pitts MD Unavailable Christine Poon RN Unavailable [phone] Shanti Lara NP Primary Care Provider [phone] Encounter Details Date Type Department Care Team ([facility] st Contact Info) Description 05/02/2020 [facility] [address] [place] [address] Jonathan Pitts MD [address] [place] [address] Social History Tobacco Use Types Packs/Day [...] 02/19/2024 10:40 AM CDT Allied Health/Nurse Visit [facility] [address] [address] Jonathan Pitts MD [address] [place] [address] [phone] Nurse, [facility] 02/29/2024 8:00 AM CDT Oncology Visit [facility] [address] [address] Jonathan Pitts MD [address] [place] [address] [phone] documented as of this encounter Visit Diagnoses Not on filedocumented in this encounter Care Teams Yoga Coordinator Relationship Specialty Start Date End Date No Ref-Primary, Physician PCP - General 07/29/17 03/16/22 Shanti Lara FREELANCE COPYWRITER [facility] [address] [place] [address] PCP - General Nurse Practitioner - Family 03/17/[address] [phone] Referring Physician jeep driver 07/29/17 Jonathan Pitts MD [address] [place] [address] 45362 Oncology 07/29/17 Jonathan Pitts MD [address] [place] [address] 47926 Assigned Cancer Care Provider 05/18/20 05/15/23 Christine Poon RN Specialty Rcp Hematology & Oncology 12/02/21 documented as of this encounter
--- OUTSIDE RECORDS SUMMARY | 2024-02-12 23:20 | XMS_ITS | Encounter Summary ---
Author Organization [place] Address [address] [place] [address] 80937 Care Team Providers Care Kiln Firer Helper Name Role Phone No Ref-Primary, Physician Primary Care Provider Kavita Akhtar Unavailable [phone] Jonathan Pitts MD Unavailable Jonathan Pitts MD Unavailable Christine Poon RN Unavailable [phone] Shanti Lara NP Primary Care Provider [phone] Encounter Details Date Type Department Care Team ([facility] st Contact Info) Description 05/07/2020 [facility] [address] [place] [address] Jonathan Pitts MD [address] [place] [address] Social History Tobacco Use Types Packs/Day [...] 02/19/2024 10:40 AM CDT Allied Health/Nurse Visit [facility] [address] [address] Jonathan Pitts MD [address] [place] [address] 432135 Nurse, [facility] 02/29/2024 8:00 AM CDT Oncology Visit [address] [address] Jonathan Pitts MD [address] [place] [address] 406365 documented as of this encounter Visit Diagnoses Not on filedocumented in this encounter Care Teams Kiln Firer Helper Relationship Specialty Start Date End Date No Ref-Primary, Physician PCP - General 07/29/17 03/16/22 Shanti Lara NP [place] [address] [place] [address] PCP - General Nurse Practitioner - Family 03/17/22 [facility] [address] [place], [place] [phone] Referring Physician command and control 07/29/17 Jonathan Pitts MD [address] [place] [address] [phone] Oncology 07/29/17 Jonathan Pitts MD [address] [place] [address] 67005 Assigned Cancer Care Provider 05/18/20 05/15/23 Christine Poon RN Specialty Home Theater Expert Hematology & Oncology 12/02/21 documented as of this encounter
--- OUTSIDE RECORDS SUMMARY | 2024-02-12 23:20 | XMS_ITS | Encounter Summary ---
Author Organization [place] Address [address] [place] [address] 9[address]39 Care Team Providers Care Cut Order Hand Name Role Phone No Ref-Primary, Physician Primary Care Provider Kavita Akhtar Unavailable [phone] Jonathan Pitts MD Unavailable [phone] Jonathan Pitts MD Unavailable Christine Poon RN Unavailable [phone] Shanti Lara NP Primary Care Provider [phone] Encounter Details Date Type Department Care Team ([facility] st Contact Info) Description 05/12/2020 [facility] [address] [place] [address] Jonathan Pitts MD [address] [place] [address] Social History Tobacco Use Types Packs/Day [...] 02/19/2024 10:40 AM CDT Allied Health/Nurse Visit [facility] Cancer [address] [address] Jonathan Pitts MD [address] [place] [address] [phone] Nurse, [facility] 02/29/2024 8:00 AM CDT Oncology Visit [address] [address] Jonathan Pitts MD [address] [place] [address] [phone] documented as of this encounter Visit Diagnoses Not on filedocumented in this encounter Care Teams Cut Order Hand Relationship Specialty Start Date End Date No Ref-Primary, Physician PCP - General 07/29/17 03/16/22 Shanti Lara NP [place] [place] [address] PCP - General Nurse Practitioner - [facility] 03/17/22 [facility] [address] [place], [place] 966325 Referring Physician flight test mechanic 07/29/17 Jonathan Pitts MD [address] [place] [address] 112925 Oncology 07/29/17 Jonathan Pitts MD [address] [place] [address] 81593 Assigned Cancer Care Provider 05/18/20 05/15/23 Christine Poon RN Specialty Rn Diabetes Hematology & Oncology 12/02/21 documented as of this encounter
--- OUTSIDE RECORDS SUMMARY | 2024-02-12 23:20 | XMS_ITS | Encounter Summary ---
Author Organization [place] Address [address] [place] [address] Care Team Providers Care Handle Lathe Operator Name Role Phone No Ref-Primary, Physician Primary Care Provider Kavita Akhtar Unavailable [phone] Jonathan Pitts MD Unavailable Jonathan Pitts MD Unavailable Christine Poon RN Unavailable [phone] Shanti Lara NP Primary Care Provider [phone] Encounter Details Date Type Department Care Team (Late st Contact Info) Description 06/25/2020 [facility] [address] [place] [address] Jonathan Pitts MD [address] [place] [address] Social History Tobacco Use Types Packs/Day [...] COVID-19? No / Unsure 06/28/2020 7:41 AM SOCIAL SERVICES AIDE documented as of this encounter Plan of Treatment Upcoming Encounters Date Type Department Care Team (Late st Contact Info) Description 02/19/2024 10:40 AM CDT Allied Health/Nurse Visit [address] [address] Jonathan Pitts MD [address] [place] [address] [phone] Nurse, [facility] 02/29/2024 8:00 AM CDT Oncology Visit [address] [address] Jonathan Pitts MD [address] [place] [address] 174895 documented as of this encounter Visit Diagnoses Not on filedocumented in this encounter Care Teams Handle Lathe Operator Relationship Specialty Start Date End Date No Ref-Primary, Physician PCP - General 07/29/17 03/16/22 Shanti Lara NP [facility] [address] [place] [address] PCP - General Nurse Practitioner - Family 03/17/22 [facility] [address] [place], [place] 130735 Referring Physician splitter operator 07/29/17 Jonathan Pitts MD [address] [place] [address] 243155 Oncology 07/29/17 Jonathan Pitts MD [address] [place] [address] 57315 Assigned Cancer Care Provider 05/18/20 05/15/23 Christine Poon RN Specialty Band Director Hematology & Oncology 12/02/21 documented as of this encounter
--- OUTSIDE RECORDS SUMMARY | 2024-02-12 23:20 | XMS_ITS | Encounter Summary ---
Author Organization [place] Address [address] [place] [address] 8[address] Care Team Providers Care Screen Vent Binder Name Role Phone No Ref-Primary, Physician Primary Care Provider Kavita Akhtar Unavailable [phone] Jonathan Pitts MD Unavailable Jonathan Pitts MD Unavailable Christine Poon RN Unavailable [phone] Shanti Lara NP Primary Care Provider [phone] Encounter Details Date Type Department Care Team (Late st Contact Info) Description 11/30/2019 [facility] [address] [place] [address] Jonathan Pitts MD [address] [place] [address] Social History Tobacco Use Types Packs/Day [...] 02/19/2024 10:40 AM CDT Allied Health/Nurse Visit [address] [address] Jonathan Pitts MD [address] [place] [address] 160835 Nurse, [facility] [place] [facility] 02/29/2024 8:00 AM CDT Oncology Visit [address] [address] Jonathan Pitts MD [address] [place] [address] 135495 documented as of this encounter Visit Diagnoses Not on filedocumented in this encounter Care Teams Screen Vent Binder Relationship Specialty Start Date End Date No Ref-Primary, Physician PCP - General 07/29/17 03/16/22 Shanti Lara NP [place] [address] [place] [address] PCP - General Nurse Practitioner - Family 03/17/[address] [facility] [address] [place], [place] 695955 Referring Physician sheet metal production worker 07/29/17 Jonathan Pitts MD [address] [place] [address] 807555 Oncology 07/29/17 Jonathan Pitts MD [address] [place] [address] 12553 Assigned Cancer Care Provider 05/18/20 05/15/23 Christine Poon RN Specialty Laborer Filter Plant Hematology & Oncology 12/02/21 documented as of this encounter
--- OUTSIDE RECORDS SUMMARY | 2024-02-12 23:20 | XMS_ITS | Encounter Summary ---
Author Organization [place] Address [address] [place] [address] Care Team Providers Care Reading Professor Name Role Phone No Ref-Primary, Physician Primary Care Provider Kavita Akhtar Unavailable [phone] Jonathan Pitts MD Unavailable Jonathan Pitts MD Unavailable Christine Poon RN Unavailable [phone] Shanti Lara NP Primary Care Provider [phone] Encounter Details Date Type Department Care Team (Late st Contact Info) Description 05/09/2020 [facility] [address] [place] [address] Jonathan Pitts MD [address] [place] [address] Social History Tobacco Use Types Packs/Day [...] 02/19/2024 10:40 AM CDT Allied Health/Nurse Visit [facility] Cancer [address] [address] Jonathan Pitts MD [address] [place] [address] 360325 Nurse, [facility] 02/29/2024 8:00 AM CDT Oncology Visit [address] [address] Jonathan Pitts MD [address] [place] [address] [phone] documented as of this encounter Visit Diagnoses Not on filedocumented in this encounter Care Teams Reading Professor Relationship Specialty Start Date End Date No Ref-Primary, Physician PCP - General 07/29/17 03/16/22 Shanti Lara NP [place] [address] [place] [address] PCP - General Nurse Practitioner - [facility] 03/17/22 [facility] [address] [place], [place] 439245 Referring Physician shutdown coordinator 07/29/17 Jonathan Pitts MD [address] [place] [address] 189325 Oncology 07/29/17 Jonathan Pitts MD [address] [place] [address] 77432 Assigned Cancer Care Provider 05/18/20 05/15/23 Christine Poon RN Specialty Transmission Line Engineer Hematology & Oncology 12/02/21 documented as of this encounter
--- OUTSIDE RECORDS SUMMARY | 2024-02-12 23:20 | XMS_ITS | Encounter Summary ---
Author Organization [place] Address [address] [place] [address] Care Team Providers Care Oil Heat Technician Name Role Phone No Ref-Primary, Physician Primary Care Provider Kavita Akhtar Unavailable [phone] Jonathan Pitts MD Unavailable Jonathan Pitts MD Unavailable Christine Poon RN Unavailable [phone] Shanti Lara NP Primary Care Provider [phone] Encounter Details Date Type Department Care Team ([facility] st Contact Info) Description 05/07/2020 [facility] [address] [place] [address] Jonathan Pitts MD [address] [place] [address] Social History Tobacco Use Types Packs/Day [...] Allied Health/Nurse Visit [facility] Cancer [address] [address] Jonathan Pitts MD [address] [place] [address] [phone] Nurse, [facility] 02/29/2024 8:00 AM CDT Oncology Visit [address] [address] Jonathan Pitts MD [address] [place] [address] 019575 documented as of this encounter Visit Diagnoses Not on filedocumented in this encounter Care Teams Oil Heat Technician Relationship Specialty Start Date End Date No Ref-Primary, Physician PCP - General 07/29/17 03/16/22 Shanti Lara NP [place] [address] [place] [address] PCP - General Nurse Practitioner - Family 03/17/22 [facility] [address] [place], [place] [id number] Referring Physician legend maker 07/29/17 Jonathan Pitts MD [address] [place] [address] [phone] Oncology 07/29/17 Jonathan Pitts MD [address] [place] [address] 41164 Assigned Cancer Care Provider 05/18/20 05/15/23 Christine Poon RN Specialty Harbormaster Hematology & Oncology 12/02/21 documented as of this encounter
--- OUTSIDE RECORDS SUMMARY | 2024-02-12 23:20 | XMS_ITS | Encounter Summary ---
Author Organization [place] Address [address] [place] [address] 15813 Care Team Providers Care Pet Counselor Name Role Phone No Ref-Primary, Physician Primary Care Provider Kavita Akhtar Unavailable [phone] Jonathan Pitts MD Unavailable Jonathan Pitts MD Unavailable Christine Poon RN Unavailable [phone] Shanti Lara NP Primary Care Provider [phone] Encounter Details Date Type Department Care Team (Late st Contact Info) Description 05/09/2020 [facility] [address] [place] [address] Jonathan Pitts MD [address] [place] [address] Social History Tobacco Use Types Packs/Day [...] 02/19/2024 10:40 AM CDT Allied Health/Nurse Visit [facility] Cancer [address] [address] Jonathan Pitts MD [address] [place] [address] 655125 Nurse, [facility] 02/29/2024 8:00 AM CDT Oncology Visit [address] [address] Jonathan Pitts MD [address] [place] [address] 655155 documented as of this encounter Visit Diagnoses Not on filedocumented in this encounter Care Teams Pet Counselor Relationship Specialty Start Date End Date No Ref-Primary, Physician PCP - General 07/29/17 03/16/22 Shanti Lara NP [place] [address] [place] [address] PCP - General Nurse Practitioner - [employer] 03/17/22 [facility] [address] [place], [place] 703835 Referring Physician sports broadcaster 07/29/17 Jonathan Pitts MD [address] [place] [address] 346885 Oncology 07/29/17 Jonathan Pitts MD [address] [place] [address] 94411 Assigned Cancer Care Provider 05/18/20 05/15/23 Christine Poon RN Specialty Nurse Epidemiologist Hematology & Oncology 12/02/21 documented as of this encounter
--- OUTSIDE RECORDS SUMMARY | 2024-02-12 23:20 | XMS_ITS | Encounter Summary ---
Author Organization [place] Address [address] [place] [address] 22293 Care Team Providers Care Deputy Treasurer Name Role Phone No Ref-Primary, Physician Primary Care Provider Kavita Akhtar Unavailable [phone] Jonathan Pitts MD Unavailable Jonathan Pitts MD Unavailable Christine Poon RN Unavailable [phone] Shanti Lara NP Primary Care Provider [phone] Encounter Details Date Type Department Care Team (Late st Contact Info) Description 06/18/2020 [facility] [address] [place] [address] Jonathan Pitts MD [address] [place] [address] Social History Tobacco Use Types Packs/Day [...] COVID-19? No / Unsure 06/19/2020 11:48 AM GANTRY CRANE OPERATOR documented as of this encounter Plan of Treatment Upcoming Encounters Date Type Department Care Team (Late st Contact Info) Description 02/19/2024 10:40 AM CDT Allied Health/Nurse Visit [address] [address] Jonathan Pitts MD [address] [place] [address] 049435 Nurse, [facility] 02/29/2024 8:00 AM CDT Oncology Visit [address] [address] Jonathan Pitts MD [address] [place] [address] 804295 documented as of this encounter Visit Diagnoses Not on filedocumented in this encounter Care Teams Deputy Treasurer Relationship Specialty Start Date End Date No Ref-Primary, Physician PCP - General 07/29/17 03/16/22 Shanti Lara NP [place] [address] [place] [address] PCP - General Nurse Practitioner - Family 03/17/22 [facility] [address] [place], [place] 373195 Referring Physician braille proofreader 07/29/17 Jonathan Pitts MD [address] [place] [address] 074155 Oncology 07/29/17 Jonathan Pitts MD [address] [place] [address] 81010 Assigned Cancer Care Provider 05/18/20 05/15/23 Christine Poon RN Specialty Marketing Traffic Coordinator Hematology & Oncology 12/02/21 documented as of this encounter
--- OUTSIDE RECORDS SUMMARY | 2024-02-12 23:20 | XMS_ITS | Encounter Summary ---
Author Organization [place] Address [address] [place] [address] 64745 Care Team Providers Care Jewel Bearing Maker Name Role Phone No Ref-Primary, Physician Primary Care Provider Kavita Akhtar Unavailable [phone] Jonathan Pitts MD Unavailable Jonathan Pitts MD Unavailable Christine Poon RN Unavailable [phone] Shanti Lara NP Primary Care Provider [phone] Encounter Details Date Type Department Care Team ([facility] st Contact Info) Description 05/01/2020 [facility] [place] [facility] [address] [place] [address] Jonathan Pitts MD [address] [place] [address] Social History Tobacco Use Types Packs/Day [...] AM CDT Allied Health/Nurse Visit [facility] Cancer [address] [address] Jonathan Pitts MD [address] [place] [address] 104705 Nurse, [facility] 02/29/2024 8:00 AM CDT Oncology Visit [facility] Cancer [address] [address] Jonathan Pitts MD [address] [place] [address] [phone] documented as of this encounter Visit Diagnoses Not on filedocumented in this encounter Care Teams Jewel Bearing Maker Relationship Specialty Start Date End Date No Ref-Primary, Physician PCP - General 07/29/17 03/16/22 Shanti Lara DISPUTE RESOLUTION ANALYST [facility] [address] [place] [address] PCP - General Nurse Practitioner - Family 03/17/[address] [phone] Referring Physician solar energy specialist 07/29/17 Jonathan Pitts MD [address] [place] [address] 096[address] Oncology 07/29/17 Jonathan Pitts MD [address] [place] [address] 22078 Assigned Cancer Care Provider 05/18/20 05/15/23 Christine Poon RN Specialty Wirer Street Light Hematology & Oncology 12/02/21 documented as of this encounter
--- OUTSIDE RECORDS SUMMARY | 2024-02-12 23:20 | XMS_ITS | Encounter Summary ---
Author Organization [place] Address [address] [place] [address] 76653 Care Team Providers Care Aircraft Lay Out Worker Name Role Phone No Ref-Primary, Physician Primary Care Provider Kavita Akhtar Unavailable [phone] Jonathan Pitts MD Unavailable Jonathan Pitts MD Unavailable Christine Poon RN Unavailable [phone] Shanti Lara NP Primary Care Provider [phone] Encounter Details Date Type Department Care Team (Late st Contact Info) Description 05/08/2020 [facility] Clinic [address] [place] [address] Jonathan Pitts MD [address] [place] [address] Social History Tobacco Use Types Packs/Day [...] 02/19/2024 10:40 AM CDT Allied Health/Nurse Visit [facility] Cancer [address] [address] Jonathan Pitts MD [address] [place] [address] 601105 Nurse, [facility] 02/29/2024 8:00 AM CDT Oncology Visit [address] [address] Jonathan Pitts MD [address] [place] [address] 449395 documented as of this encounter Visit Diagnoses Not on filedocumented in this encounter Care Teams Aircraft Lay Out Worker Relationship Specialty Start Date End Date No Ref-Primary, Physician PCP - General 07/29/17 03/16/22 Shanti Lara NP [place] [address] [place] [address] PCP - General Nurse Practitioner - [facility] 03/17/22 [facility] [address] [place], [place] 720395 Referring Physician civil design specialist 07/29/17 Jonathan Pitts MD [address] [place] [address] [phone] Oncology 07/29/17 Jonathan Pitts MD [address] [place] [address] 74758 Assigned Cancer Care Provider 05/18/20 05/15/23 Christine Poon RN Specialty Manager [place] Hematology & Oncology 12/02/21 documented as of this encounter
--- OUTSIDE RECORDS SUMMARY | 2024-02-12 23:20 | XMS_ITS | Encounter Summary ---
Author Organization [place] Address [address] [place] [address] 58702 Care Team Providers Care Warehouse Logistics Coordinator Name Role Phone No Ref-Primary, Physician Primary Care Provider Kavita Akhtar Unavailable [phone] Jonathan Pitts MD Unavailable Jonathan Pitts MD Unavailable Christine Poon RN Unavailable [phone] Shanti Lara NP Primary Care Provider [phone] Encounter Details Date Type Department Care Team ([facility] st Contact Info) Description 05/07/2020 [facility] [address] [place] [address] Jonathan Pitts MD [address] [place] [address] Social History Tobacco Use Types Packs/Day [...] 02/19/2024 10:40 AM CDT Allied Health/Nurse Visit [facility] Cancer [address] [address] Jonathan Pitts MD [address] [place] [address] [phone] Nurse, [facility] 02/29/2024 8:00 AM CDT Oncology Visit [address] [address] Jonathan Pitts MD [address] [place] [address] [phone] documented as of this encounter Visit Diagnoses Not on filedocumented in this encounter Care Teams Warehouse Logistics Coordinator Relationship Specialty Start Date End Date No Ref-Primary, Physician PCP - General 07/29/17 03/16/22 Shanti Lara NP [place] [place] [address] PCP - General Nurse Practitioner - Family 03/17/22 [facility] [address] [place], [place] [phone] Referring Physician nutrition aides teacher 07/29/17 Jonathan Pitts MD [address] [place] [address] 107405 Oncology 07/29/17 Jonathan Pitts MD [address] [place] [address] 58560 Assigned Cancer Care Provider 05/18/20 05/15/23 Christine Poon RN Specialty Health Safety Instructor Hematology & Oncology 12/02/21 documented as of this encounter
--- OUTSIDE RECORDS SUMMARY | 2024-02-12 23:20 | XMS_ITS | Encounter Summary ---
Author Organization [place] Address [address] [place] [address] 21617 Care Team Providers Care Mattress Specialist Name Role Phone No Ref-Primary, Physician Primary Care Provider Kavita Akhtar Unavailable [phone] Jonathan Pitts MD Unavailable Jonathan Pitts MD Unavailable Christine Poon RN Unavailable [phone] Shanti Lara NP Primary Care Provider [phone] Encounter Details Date Type Department Care Team ([facility] st Contact Info) Description 05/14/2020 [facility] [address] [place] [address] Jonathan Pitts MD [address] [place] [address] Social History Tobacco Use Types Packs/Day [...] 02/19/2024 10:40 AM CDT Allied Health/Nurse Visit [facility] Cancer [address] [address] Jonathan Pitts MD [address] [place] [address] 607885 Nurse, [facility] 02/29/2024 8:00 AM CDT Oncology Visit [address] [address] Jonathan Pitts MD [address] [place] [address] 801135 documented as of this encounter Visit Diagnoses Not on filedocumented in this encounter Care Teams Mattress Specialist Relationship Specialty Start Date End Date No Ref-Primary, Physician PCP - General 07/29/17 03/16/22 Shanti Lara NP [place] [place] [address] PCP - General Nurse Practitioner - [facility] 03/17/22 [facility] [address] [place], [place] 038345 Referring Physician scale operator 07/29/17 Jonathan Pitts MD [address] [place] [address] 180405 Oncology 07/29/17 Jonathan Pitts MD [address] [place] [address] 69563 Assigned Cancer Care Provider 05/18/20 05/15/23 Christine Poon RN Specialty Sports Journalist Hematology & Oncology 12/02/21 documented as of this encounter
--- OUTSIDE RECORDS SUMMARY | 2024-02-12 23:20 | XMS_ITS | Encounter Summary ---
Author Organization [place] Address [address] [place] [address] 83296 Care Team Providers Care Concrete Puddler Name Role Phone No Ref-Primary, Physician Primary Care Provider Kavita Akhtar Unavailable [phone] Jonathan Pitts MD Unavailable Jonathan Pitts MD Unavailable Christine Poon RN Unavailable [phone] Shanti Lara NP Primary Care Provider [phone] Encounter Details Date Type Department Care Team (Late st Contact Info) Description 06/04/2020 [facility] [address] [place] [address] Jonathan Pitts MD [address] [place] [address] Social History Tobacco Use Types Packs/Day [...] COVID-19? No / Unsure 05/28/2020 10:50 AM PLANT MAINTENANCE MANAGER documented as of this encounter Plan of Treatment Upcoming Encounters Date Type Department Care Team (Late st Contact Info) Description 02/19/2024 10:40 AM CDT Allied Health/Nurse Visit [address] [address] Jonathan Pitts MD [address] [place] [address] [phone] Nurse, [facility] 02/29/2024 8:00 AM CDT Oncology Visit [address] [address] Jonathan Pitts MD [address] [place] [address] 668255 documented as of this encounter Visit Diagnoses Not on filedocumented in this encounter Care Teams Concrete Puddler Relationship Specialty Start Date End Date No Ref-Primary, Physician PCP - General 07/29/17 03/16/22 Shanti Lara NP [facility] [address] [place] [address] PCP - General Nurse Practitioner - Family 03/17/22 [facility] [address] [place], [place] 904735 Referring Physician dryer feeder 07/29/17 Jonathan Pitts MD [address] [place] [address] [phone] Oncology 07/29/17 Jonathan Pitts MD [address] [place] [address] 81583 Assigned Cancer Care Provider 05/18/20 05/15/23 Christine Poon RN Specialty Plant Operator Helper Hematology & Oncology 12/02/21 documented as of this encounter
--- OUTSIDE RECORDS SUMMARY | 2024-02-12 23:20 | XMS_ITS | Encounter Summary ---
Author Organization [place] Address [address] [place] [address] 84404 Care Team Providers Care Director Cost Name Role Phone No Ref-Primary, Physician Primary Care Provider Kavita Akhtar Unavailable [phone] Jonathan Pitts MD Unavailable Jonathan Pitts MD Unavailable [phone] Christine Poon RN Unavailable [phone] Shanti Lara NP Primary Care Provider [phone] Encounter Details Date Type Department Care Team (Late st Contact Info) Description 06/15/2020 [facility] [address] [place] [address] Jonathan Pitts MD [address] [place] [address] Social History Tobacco Use Types Packs/Day [...] COVID-19? No / Unsure 06/17/2020 1:09 PM SECOND GRADE TEACHER documented as of this encounter Plan of Treatment Upcoming Encounters Date Type Department Care Team (Late st Contact Info) Description 02/19/2024 10:40 AM CDT Allied Health/Nurse Visit [address] [address] Jonathan Pitts MD [address] [place] [address] 615995 Nurse, [facility] 02/29/2024 8:00 AM CDT Oncology Visit [address] [address] Jonathan Pitts MD [address] [place] [address] 705005 documented as of this encounter Visit Diagnoses Not on filedocumented in this encounter Care Teams Director Cost Relationship Specialty Start Date End Date No Ref-Primary, Physician PCP - General 07/29/17 03/16/22 Shanti Lara NP [facility] [address] [place] [address] PCP - General Nurse Practitioner - Family 03/17/22 [facility] [address] [place], [place] 620345 Referring Physician natural resources specialist 07/29/17 Jonathan Pitts MD [address] [place] [address] [phone] Oncology 07/29/17 Jonathan Pitts MD [address] [place] [address] 43075 Assigned Cancer Care Provider 05/18/20 05/15/23 Christine Poon RN Specialty Lead Caregiver Hematology & Oncology 12/02/21 documented as of this encounter
--- OUTSIDE RECORDS SUMMARY | 2024-02-12 23:20 | XMS_ITS | Encounter Summary ---
Author Organization [place] Address [address] [place] [address] 26565 Care Team Providers Care Manufacturing Project Manager Name Role Phone No Ref-Primary, Physician Primary Care Provider Kavita Akhtar Unavailable [phone] Jonathan Pitts MD Unavailable [phone] Jonathan Pitts MD Unavailable Christine Poon RN Unavailable [phone] Shanti Lara NP Primary Care Provider [phone] Encounter Details Date Type Department Care Team ([facility] st Contact Info) Description 05/11/2020 [facility] [address] [place] [address] Jonathan Pitts MD [address] [place] [address] Social History Tobacco Use Types Packs/Day [...] Allied Health/Nurse Visit [facility] Cancer [address] [address] Jonathan Pitts MD [address] [place] [address] [phone] Nurse, [facility] 02/29/2024 8:00 AM CDT Oncology Visit [address] [address] Jonathan Pitts MD [address] [place] [address] 987305 documented as of this encounter Visit Diagnoses Not on filedocumented in this encounter Care Teams Manufacturing Project Manager Relationship Specialty Start Date End Date No Ref-Primary, Physician PCP - General 07/29/17 03/16/22 Shanti Lara NP [place] [address] [place] [address] PCP - General Nurse Practitioner - [facility] 03/17/22 [facility] [address] [place], [place] 882025 Referring Physician manager it training 07/29/17 Jonathan Pitts MD [address] [place] [address] 696855 Oncology 07/29/17 Jonathan Pitts MD [address] [place] [place] [address] 40664 Assigned Cancer Care Provider 05/18/20 05/15/23 Christine Poon RN Specialty Emergency Medicine Medical Director Hematology & Oncology 12/02/21 documented as of this encounter
--- OUTSIDE RECORDS SUMMARY | 2024-02-12 23:20 | XMS_ITS | Encounter Summary ---
Author Organization [place] Address [address] [place] [address] 28871 Care Team Providers Care Last Sorter Name Role Phone No Ref-Primary, Physician Primary Care Provider Kavita Akhtar Unavailable [phone] Jonathan Pitts MD Unavailable Jonathan Pitts MD Unavailable Christine Poon RN Unavailable [phone] Shanti Lara NP Primary Care Provider [phone] Encounter Details Date Type Department Care Team (Late st Contact Info) Description 04/30/2020 [facility] [address] [place] [address] Jonathan Pitts MD [address] [place] [address] Social History Tobacco Use Types Packs/Day [...] Health/Nurse Visit [facility] Cancer [address] [address] Jonathan Pitts MD [address] [place] [address] Nurse, [facility] 02/29/2024 8:00 AM CDT Oncology Visit [address] [address] Jonathan Pitts MD [address] [place] [address] [phone] documented as of this encounter Visit Diagnoses Not on filedocumented in this encounter Care Teams Last Sorter Relationship Specialty Start Date End Date No Ref-Primary, Physician PCP - General 07/29/17 03/16/22 Shanti Lara NP [facility] [address] [place] [address] PCP - General Nurse Practitioner - Family 03/17/22 [facility] [address] [place], [place] [phone] Referring Physician sixth grade teacher 07/29/17 Jonathan Pitts MD [address] [place] [address] [phone] Oncology 07/29/17 Jonathan Pitts MD [address] [place] [address] 98483 Assigned Cancer Care Provider 05/18/20 05/15/23 Christine Poon RN Specialty Die Mounter Hematology & Oncology 12/02/21 documented as of this encounter
--- OUTSIDE RECORDS SUMMARY | 2024-02-12 23:20 | XMS_ITS | Encounter Summary ---
Author Organization [place] Address [address] [place] [address] Care Team Providers Care Administrative Services Director Name Role Phone No Ref-Primary, Physician Primary Care Provider Kavita Akhtar Unavailable [phone] Jonathan Pitts MD Unavailable [phone] Jonathan Pitts MD Unavailable Christine Poon RN Unavailable [phone] Shanti Lara NP Primary Care Provider [phone] Encounter Details Date Type Department Care Team (Late st Contact Info) Description 05/10/2020 [facility] [address] [place] [address] Jonathan Pitts MD [address] [place] [address] Social History Tobacco Use Types Packs/Day [...] 02/19/2024 10:40 AM CDT Allied Health/Nurse Visit [facility] Cancer [address] [address] Jonathan Pitts MD [address] [place] [address] [phone] Nurse, [facility] 02/29/2024 8:00 AM CDT Oncology Visit [address] [address] Jonathan Pitts MD [address] [place] [address] [phone] documented as of this encounter Visit Diagnoses Not on filedocumented in this encounter Care Teams Administrative Services Director Relationship Specialty Start Date End Date No Ref-Primary, Physician PCP - General 07/29/17 03/16/22 Shanti Lara NP [place] [address] [place] [address] PCP - General Nurse Practitioner - [facility] 03/17/22 [facility] [address] [place], [place] 272705 Referring Physician production line assembler 07/29/17 Jonathan Pitts MD [address] [place] [address] [phone] Oncology 07/29/17 Jonathan Pitts MD [address] [place] [address] 75341 Assigned Cancer Care Provider 05/18/20 05/15/23 Christine Poon RN Specialty Manufacturing Cost Estimator Hematology & Oncology 12/02/21 documented as of this encounter
--- OUTSIDE RECORDS SUMMARY | 2024-02-12 23:20 | XMS_ITS | Encounter Summary ---
Author Organization [place] Address [address] [place] [address] 14363 Care Team Providers Care Diesel Service Technician Name Role Phone No Ref-Primary, Physician Primary Care Provider Kavita Akhtar Unavailable [phone] Jonathan Pitts MD Unavailable Jonathan Pitts MD Unavailable Christine Poon RN Unavailable [phone] Shanti Lara NP Primary Care Provider [phone] Encounter Details Date Type Department Care Team (Late st Contact Info) Description 05/23/2020 [facility] [place] [facility] [address] [place] [address] Jonathan Pitts MD [address] [place] [address] Social History Tobacco Use Types Packs/Day [...] 02/19/2024 10:40 AM CDT Allied Health/Nurse Visit [facility] Cancer [address] [address] Jonathan Pitts MD [address] [place] [address] [phone] Nurse, [facility] 02/29/2024 8:00 AM CDT Oncology Visit [address] [address] Jonathan Pitts MD [address] [place] [address] [phone] documented as of this encounter Visit Diagnoses Not on filedocumented in this encounter Care Teams Diesel Service Technician Relationship Specialty Start Date End Date No Ref-Primary, Physician PCP - General 07/29/17 03/16/22 Shanti Lara NP [place] [address] [place] [address] PCP - General Nurse Practitioner - [facility] 03/17/22 [facility] [address] [place], [place] 069725 Referring Physician jute bag clipper 07/29/17 Jonathan Pitts MD [address] [place] [address] [phone] Oncology 07/29/17 Jonathan Pitts MD [address] [place] [address] 81743 Assigned Cancer Care Provider 05/18/20 05/15/23 Christine Poon RN Specialty Aerospace Mechanic Hematology & Oncology 12/02/21 documented as of this encounter
--- OUTSIDE RECORDS SUMMARY | 2024-02-12 23:20 | XMS_ITS | Encounter Summary ---
Author Organization [place] Address [address] [place] [address] 9[address] Care Team Providers Care Senior Business Intelligence Analyst Name Role Phone No Ref-Primary, Physician Primary Care Provider Kavita Akhtar Unavailable [phone] Jonathan Pitts MD Unavailable [phone] Jonathan Pitts MD Unavailable Christine Poon RN Unavailable [phone] Shanti Lara NP Primary Care Provider [phone] Encounter Details Date Type Department Care Team (Late st Contact Info) Description 05/31/2020 [facility] [address] [place] [address] Jonathan Pitts MD [address] [place] [address] Social History Tobacco Use Types Packs/Day [...] COVID-19? No / Unsure 05/28/2020 10:50 AM SENIOR MARKETING DATA ANALYST documented as of this encounter Plan of Treatment Upcoming Encounters Date Type Department Care Team (Late st Contact Info) Description 02/19/2024 10:40 AM CDT Allied Health/Nurse Visit [address] [address] Jonathan Pitts MD [address] [place] [address] 234235 Nurse, [facility] 02/29/2024 8:00 AM CDT Oncology Visit [address] [address] Jonathan Pitts MD [address] [place] [address] 036425 documented as of this encounter Visit Diagnoses Not on filedocumented in this encounter Care Teams Senior Business Intelligence Analyst Relationship Specialty Start Date End Date No Ref-Primary, Physician PCP - General 07/29/17 03/16/22 Shanti Lara NP [facility] [address] [place] [address] PCP - General Nurse Practitioner - Family 03/17/22 [facility] [address] [place], [place] 335205 Referring Physician pathology specialist 07/29/17 Jonathan Pitts MD [address] [place] [address] 475065 Oncology 07/29/17 Jonathan Pitts MD [address] [place] [address] 44805 Assigned Cancer Care Provider 05/18/20 05/15/23 Christine Poon RN Specialty Building Official Hematology & Oncology 12/02/21 documented as of this encounter
--- OUTSIDE RECORDS SUMMARY | 2024-02-12 23:20 | XMS_ITS | Encounter Summary ---
Author Organization [place] Address [address] [place] [address] 52895 Care Team Providers Care Manager Acute Name Role Phone No Ref-Primary, Physician Primary Care Provider Kavita Akhtar Unavailable [phone] Jonathan Pitts MD Unavailable Jonathan Pitts MD Unavailable Christine Poon RN Unavailable [phone] Shanti Lara NP Primary Care Provider [phone] Encounter Details Date Type Department Care Team ([facility] st Contact Info) Description 05/03/2020 [facility] [address] [place] [address] Jonathan Pitts MD [address] [place] [address] Social History Tobacco Use Types Packs/Day [...] 02/19/2024 10:40 AM CDT Allied Health/Nurse Visit [facility] Cancer [address] [address] Jonathan Pitts MD [address] [place] [address] [phone] Nurse, [facility] 02/29/2024 8:00 AM CDT Oncology Visit [facility] Cancer [address] [address] Jonathan Pitts MD [address] [place] [address] [phone] documented as of this encounter Visit Diagnoses Not on filedocumented in this encounter Care Teams Manager Acute Relationship Specialty Start Date End Date No Ref-Primary, Physician PCP - General 07/29/17 03/16/22 Shanti Lara DIRECTOR OF ACQUISITION MARKETING [facility] [address] [place] [address] PCP - General Nurse Practitioner - Family 03/17/[address] [phone] Referring Physician oil well perforator operator 07/29/17 Jonathan Pitts MD [address] [place] [address] 72082 Oncology 07/29/17 Jonathan Pitts MD [address] [place] [address] 02098 Assigned Cancer Care Provider 05/18/20 05/15/23 Christine Poon RN Specialty Lathmaker Hematology & Oncology 12/02/21 documented as of this encounter
--- OUTSIDE RECORDS SUMMARY | 2024-02-12 23:20 | XMS_ITS | Encounter Summary ---
Author Organization [place] Address [address] [place] [address] 24920 Care Team Providers Care Dextrine Mixer Name Role Phone No Ref-Primary, Physician Primary Care Provider Kavita Akhtar Unavailable [phone] Jonathan Pitts MD Unavailable Jonathan Pitts MD Unavailable Christine Poon RN Unavailable [phone] Shanti Lara NP Primary Care Provider [phone] Encounter Details Date Type Department Care Team (Late st Contact Info) Description 06/16/2020 [facility] [address] [place] [address] Jonathan Pitts MD [address] [place] [address] Social History Tobacco Use Types Packs/Day [...] COVID-19? No / Unsure 06/19/2020 11:48 AM COOK HELPER FRUIT documented as of this encounter Plan of Treatment Upcoming Encounters Date Type Department Care Team (Late st Contact Info) Description 02/19/2024 10:40 AM CDT Allied Health/Nurse Visit [address] [address] Jonathan Pitts MD [address] [place] [address] [phone] Nurse, [facility] 02/29/2024 8:00 AM CDT Oncology Visit [address] [address] Jonathan Pitts MD [address] [place] [address] 633395 documented as of this encounter Visit Diagnoses Not on filedocumented in this encounter Care Teams Dextrine Mixer Relationship Specialty Start Date End Date No Ref-Primary, Physician PCP - General 07/29/17 03/16/22 Shanti Lara NP [place] [address] [place] [address] PCP - General Nurse Practitioner - Family 03/17/22 [facility] [address] [place], [place] 917355 Referring Physician field worker 07/29/17 Jonathan Pitts MD [address] [place] [address] [phone] Oncology 07/29/17 Jonathan Pitts MD [address] [place] [address] 89969 Assigned Cancer Care Provider 05/18/20 05/15/23 Christine Poon RN Specialty Adventure Challenge Instructor Hematology & Oncology 12/02/21 documented as of this encounter
--- OUTSIDE RECORDS SUMMARY | 2024-02-12 23:20 | XMS_ITS | Encounter Summary ---
Author Organization [place] Address [address] [place] [address] 50610 Care Team Providers Care Blower And Compressor Assembler Name Role Phone No Ref-Primary, Physician Primary Care Provider Kavita Akhtar Unavailable [phone] Jonathan Pitts MD Unavailable Jonathan Pitts MD Unavailable [phone] Christine Poon RN Unavailable [phone] Shanti Lara NP Primary Care Provider [phone] Encounter Details Date Type Department Care Team (Late st Contact Info) Description 05/08/2020 [facility] [address] [place] [address] Jonathan Pitst MD [address] [place] [address] Social History Tobacco Use Types Packs/Day [...] 02/19/2024 10:40 AM CDT Allied Health/Nurse Visit [facility] Cancer [address] [address] Jonathan Pitts MD [address] [place] [address] [phone] Nurse, [facility] 02/29/2024 8:00 AM CDT Oncology Visit [address] [address] Jonathan Pitts MD [address] [place] [address] 058365 documented as of this encounter Visit Diagnoses Not on filedocumented in this encounter Care Teams Blower And Compressor Assembler Relationship Specialty Start Date End Date No Ref-Primary, Physician PCP - General 07/29/17 03/16/22 Shanti Lara NP [place] [address] [place] [address] PCP - General Nurse Practitioner - [facility] 03/17/22 [facility] [address] [place], [place] 676845 Referring Physician liquid center assembler 07/29/17 Jonathan Pitts MD [address] [place] [address] [phone] Oncology 07/29/17 Jonathan Pitts MD [address] [place] [address] 96756 Assigned Cancer Care Provider 05/18/20 05/15/23 Christine Poon RN Specialty Database Consultant Hematology & Oncology 12/02/21 documented as of this encounter
--- OUTSIDE RECORDS SUMMARY | 2024-02-12 23:21 | XMS_ITS | Encounter Summary ---
Author Organization [place] Address [address] [place] [address] 00624 Care Team Providers Care Small Business Banking Officer Name Role Phone No Ref-Primary, Physician Primary Care Provider Kavita Akhtar Unavailable [phone] Jonathan Pitts MD Unavailable [phone] Jonathan Pitts MD Unavailable Christine Poon RN Unavailable [phone] Shanti Lara NP Primary Care Provider [phone] Encounter Details Date Type Department Care Team (Late st Contact Info) Description 08/11/2017 [facility] [address] [place] [address] Jonathan Pitts MD [address] [place] [address] Social History Tobacco Use Types Packs/Day [...] 02/19/2024 10:40 AM CDT Allied Health/Nurse Visit [facility] [address] [address] Jonathan Pitts MD [address] [place] [address] [phone] Nurse, [facility] 02/29/2024 8:00 AM CDT Oncology Visit [facility] [address] [phone] Jonathan Pitts MD [address] [place] [address] [phone] documented as of this encounter Visit Diagnoses Not on filedocumented in this encounter Care Teams Small Business Banking Officer Relationship Specialty Start Date End Date No Ref-Primary, Physician PCP - General 07/29/17 03/16/22 Shanti Lara MARKETING SUPPORT MANAGER [facility] [address] [place] [address] PCP - General Nurse Practitioner - Family 03/17/[address] [facility] [phone] [place] [address] 690015 Referring Physician buncher machine 07/29/17 Jonathan Pitts MD [address] [place] [address] Oncology 07/29/17 Jonathan Pitts MD [address] [place] [address] 57290 Assigned Cancer Care Provider 05/18/20 05/15/23 Christine Poon RN Specialty Metal Dresser Hematology & Oncology 12/02/21 documented as of this encounter
--- OUTSIDE RECORDS SUMMARY | 2024-02-12 23:21 | XMS_ITS | Encounter Summary ---
Author Organization [place] Address [address] [place] [address] 82056 Care Team Providers Care Pr Specialist Name Role Phone No Ref-Primary, Physician Primary Care Provider Kavita Akhtar Unavailable [phone] Jonathan Pitts MD Unavailable Jonathan Pitts MD Unavailable [phone] Christine Poon RN Unavailable [phone] Shanti Lara PAPER BOX CUTTER Primary Care Provider [phone] Encounter Details Date Type Department Care Team (Late Contact Info) Description 02/05/2018 [facility] [address] [address] Christine Poon RN Social History Tobacco [...] Upcoming Encounters Date Type Department Care Team ([facility] Contact Info) Description 02/19/2024 10:40 AM CDT Allied Health/Nurse Visit [facility] [address] [place] [phone] Jonathan Pitts MD [address] [place] [address] [phone] [facility] 02/29/2024 8:00 AM CDT Oncology Visit [facility] [address] [phone] Jonathan Pitts MD [address] [place] [address] 37895 documented as of this encounter Visit Diagnoses Not on filedocumented in this encounter Care Teams Pr Specialist Relationship Specialty Start Date End Date No Ref-Primary, Physician PCP - General 07/29/17 03/16/22 Shanti Lara PAPER BOX CUTTER [facility] [address] [place] [address] PCP - General Nurse Practitioner - Family 03/17/[address] [facility] [id number] [place] [address] 9[address]27 Referring Physician manager military 07/29/17 Jonathan Pitts MD [address] [place] [address] 11785 Oncology 07/29/17 Jonathna Pitts MD [address] [place] [address] 64184 Assigned Cancer Care Provider 05/18/20 05/15/23 Christine Poon RN Specialty Key Ringer Hematology & Oncology 12/02/21 documented as of this encounter
--- OUTSIDE RECORDS SUMMARY | 2024-02-12 23:21 | XMS_ITS | Encounter Summary ---
Author Organization [place] Address [address] [place] [address] 84569 Care Team Providers Care Plasterer Helper Name Role Phone No Ref-Primary, Physician Primary Care Provider Kavita Akhtar Unavailable [phone] Jonathan Pitts MD Unavailable Jonathan Pitts MD Unavailable Christine Poon RN Unavailable [phone] Shanti Lara NP Primary Care Provider [phone] Encounter Details Date Type Department Care Team (Late st Contact Info) Description 10/04/2018 [facility] [address] [place] [address] Jonathan Pitts MD [address] [place] [address] Social History Tobacco Use Types Packs/Day [...] 10:40 AM CDT Allied Health/Nurse Visit [facility] [address] [address] Jonathan Pitts MD [address] [place] [address] [phone] Nurse, [facility] 02/29/2024 8:00 AM CDT Oncology Visit [facility] [address] [phone] Jonathan Pitts MD [address] [place] [address] [phone] documented as of this encounter Visit Diagnoses Not on filedocumented in this encounter Care Teams Plasterer Helper Relationship Specialty Start Date End Date No Ref-Primary, Physician PCP - General 07/29/17 03/16/22 Shanti Lara REFUSE DRIVER [facility] [address] [place] [address] PCP - General Nurse Practitioner - Family 03/17/22 [facility] [id number] [place] [address] [phone] Referring Physician middleware consultant 07/29/17 Jonathan Pitts MD [address] [place] [address] 15800 Oncology 07/29/17 Jonathan Pitts MD [address] [place] [address] 72470 Assigned Cancer Care Provider 05/18/20 05/15/23 Christine Poon RN Specialty Piece Cutter Hematology & Oncology 12/02/21 documented as of this encounter
--- OUTSIDE RECORDS SUMMARY | 2024-02-12 23:21 | XMS_ITS | Encounter Summary ---
Author Organization [place] Address [address] [place] [address] Care Team Providers Care Steam Pan Sponger Name Role Phone No Ref-Primary, Physician Primary Care Provider Kavita Akhtar Unavailable [phone] Jonathan Pitts MD Unavailable Jonathan Pitts MD Unavailable Christine Poon RN Unavailable [phone] Shanti Lara NP Primary Care Provider [phone] Encounter Details Date Type Department Care Team ([facility] st Contact Info) Description 10/27/2019 [facility] [address] [place] [phone] Jonathan Pitts MD [address] [place] [address] Social History Tobacco Use Types Packs/Day [...] 02/19/2024 10:40 AM CDT Allied Health/Nurse Visit [facility] [address] [address] Jonathan Pitts MD [address] [place] [address] [phone] Nurse, [facility] 02/29/2024 8:00 AM CDT Oncology Visit [facility] [address] [address] Jonathan Pitts MD [address] [place] [address] [phone] documented as of this encounter Visit Diagnoses Not on filedocumented in this encounter Care Teams Steam Pan Sponger Relationship Specialty Start Date End Date No Ref-Primary, Physician PCP - General 07/29/17 03/16/22 Shanti Lara LIBRARY SERIALS ASSISTANT [facility] [address] [place] [address] PCP - General Nurse Practitioner - Family 03/17/[address] [id number] Referring Physician enterprise account executive 07/29/17 Jonathan Pitts MD [address] [place] [address] Oncology 07/29/17 Jonathan Pitts MD [address] [place] [address] [id number] Assigned Cancer Care Provider 05/18/20 05/15/23 Christine Poon RN Specialty Soa Engineer Hematology & Oncology 12/02/21 documented as of this encounter
--- OUTSIDE RECORDS SUMMARY | 2024-02-12 23:21 | XMS_ITS | Encounter Summary ---
Author Organization [place] Address [address] [place] [address] Care Team Providers Care Grease Remover Name Role Phone No Ref-Primary, Physician Primary Care Provider Kavita Akhtar Unavailable [phone] Jonathan Pitts MD Unavailable Jonathan Pitts MD Unavailable Christine Poon RN Unavailable [phone] Shanti Lara NP Primary Care Provider [phone] Encounter Details Date Type Department Care Team (Late st Contact Info) Description 11/17/2019 [facility] [address] [place] [phone] Jonathan Pitts MD [address] [place] [address] Social History Tobacco Use Types Packs/Day [...] 02/19/2024 10:40 AM CDT Allied Health/Nurse Visit [facility] [address] [address] Jonathan Pitts MD [address] [place] [address] [phone] Nurse, [facility] 02/29/2024 8:00 AM CDT Oncology Visit [address] [address] Jonathan Pitts MD [address] [place] [address] [phone] documented as of this encounter Visit Diagnoses Not on filedocumented in this encounter Care Teams Grease Remover Relationship Specialty Start Date End Date No Ref-Primary, Physician PCP - General 07/29/17 03/16/22 Shanti Lara NP [place] [address] [place] [address] PCP - General Nurse Practitioner - Family 03/17/22 [facility] [address] [place], [place] 040595 Referring Physician acquisitions editor 07/29/17 Jonathan Pitts MD [address] [place] [address] [phone] Oncology 07/29/17 Jonathan Pitts MD [address] [place] [address] Assigned Cancer Care Provider 05/18/20 05/15/23 Christine Poon RN Specialty Silverware Supervisor Hematology & Oncology 12/02/21 documented as of this encounter
--- OUTSIDE RECORDS SUMMARY | 2024-02-12 23:21 | XMS_ITS | Encounter Summary ---
Author Organization [place] Address [address] [place] [address] Care Team Providers Care Coastal Tug Mate Name Role Phone No Ref-Primary, Physician Primary Care Provider Kavita Akhtar Unavailable [phone] Jonathan Pitts MD Unavailable Jonathan Pitts MD Unavailable Christine Poon RN Unavailable [phone] Shanti Lara NP Primary Care Provider [phone] Encounter Details Date Type Department Care Team (Late st Contact Info) Description 11/28/2019 [facility] [address] [place] [phone] Jnoathan Pitts MD [address] [place] [address] Social History Tobacco Use Types Packs/Day [...] 02/19/2024 10:40 AM CDT Allied Health/Nurse Visit [address] [address] Jonathan Pitts MD [address] [place] [address] [phone] Nurse, [facility] 02/29/2024 8:00 AM CDT Oncology Visit [address] [address] Jonathan Pitts MD [address] [place] [address] [phone] documented as of this encounter Visit Diagnoses Not on filedocumented in this encounter Care Teams Coastal Tug Mate Relationship Specialty Start Date End Date No Ref-Primary, Physician PCP - General 07/29/17 03/16/22 Shanti Lara NP [place] [address] [place] [address] PCP - General Nurse Practitioner - Family 03/17/22 [facility] [address] [place], [place] [phone] Referring Physician global cmo 07/29/17 Jonathan Pitts MD [address] [place] [address] [phone] Oncology 07/29/17 Jonathan Pitts MD [address] [place] [address] Assigned Cancer Care Provider 05/18/20 05/15/23 Christine Poon RN Specialty Manager [facility] 12/02/21 documented as of this encounter
--- OUTSIDE RECORDS SUMMARY | 2024-02-12 23:21 | XMS_ITS | Encounter Summary ---
Author Organization [place] Address [address] [place] [address] Care Team Providers Care Plan Coordinator Name Role Phone No Ref-Primary, Physician Primary Care Provider Kavita Akhtar Unavailable [phone] Jonathan Pitts MD Unavailable Jonathan Pitts MD Unavailable [phone] Christine Poon RN Unavailable [phone] Shanti Lara NP Primary Care Provider [phone] Encounter Details Date Type Department Care Team (Late st Contact Info) Description 09/04/2017 [facility] [address] [place] [phone] Jonathan Pitts MD [address] [place] [address] Granulosa cell tumor (Primary Dx) Social [...] 10:40 AM CDT Allied Health/Nurse Visit [facility] [address] [address] Jonathan Pitts MD [address] [place] [address] [phone] Nurse, [facility] 02/29/2024 8:00 AM CDT Oncology Visit [facility] [address] [address] Jonathan Pitts MD [address] [place] [address] documented as of this encounter Visit Diagnoses Diagnosis 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 documented in this encounter Care Teams Plan Coordinator Relationship Specialty Start Date End Date No Ref-Primary, Physician PCP - General 07/29/17 03/16/22 Shanti Lara NP [facility] [address] [place] [address] PCP - General Nurse Practitioner - Family 03/17/[address] [phone] Referring Physician electromedical equipment technician 07/29/17 Jonathan Pitts MD [address] [place] [address] Oncology 07/29/17 Jonathan Pitts MD [address] [place] [address] Assigned Cancer Care Provider 05/18/20 05/15/23 Christine Poon RN Specialty Sales Negotiator Hematology & Oncology 12/02/21 documented as of this encounter
--- OUTSIDE RECORDS SUMMARY | 2024-02-12 23:21 | XMS_ITS | Encounter Summary ---
Author Organization [place] Address [address] [place] [address] Care Team Providers Care Roll Shop Supervisor Name Role Phone No Ref-Primary, Physician Primary Care Provider Kavita Akhtar Unavailable [phone] Jonathan Pitts MD Unavailable Jonathan Pitts MD Unavailable [phone] Christine Poon RN Unavailable [phone] Shanti Lara NP Primary Care Provider [phone] Encounter Details Date Type Department Care Team (Late st Contact Info) Description 11/28/2019 [facility] [address] [place] [phone] Jonathan Pitts MD [address] [place] [address] Social History Tobacco Use Types Packs/Day [...] 10:40 AM CDT Allied Health/Nurse Visit [address] [address] Jonathan Pitts MD [address] [place] [address] [phone] Nurse, [facility] 02/29/2024 8:00 AM CDT Oncology Visit [address] [address] Jonathan Pitts MD [address] [place] [address] [phone] documented as of this encounter Visit Diagnoses Not on filedocumented in this encounter Care Teams Roll Shop Supervisor Relationship Specialty Start Date End Date No Ref-Primary, Physician PCP - General 07/29/17 03/16/22 Shanti Lara NP [place] [address] [place] [address] PCP - General Nurse Practitioner - Family 03/17/[address] [facility] [address] [place], [place] 644[address] Referring Physician asw/asuw tactical air controller 07/29/17 Jonathan Pitts MD [address] [place] [address] [phone] Oncology 07/29/17 Jonathan Pitts MD [address] [place] [address] Assigned Cancer Care Provider 05/18/20 05/15/23 Christine Poon RN Specialty Phytopathology Teacher Hematology & Oncology 12/02/21 documented as of this encounter
--- OUTSIDE RECORDS SUMMARY | 2024-02-12 23:21 | XMS_ITS | Encounter Summary ---
Author Organization [facility] Address [address] [place] [address] Care Team Providers Care Head Turbine Operator Name Role Phone No Ref-Primary, Physician Primary Care Provider Kavita Akhtar Unavailable [phone] Jonathan Pitts MD Unavailable Jonathan Pitts MD Unavailable [phone] Christine Poon RN Unavailable [phone] Shanti Lara NP Primary Care Provider [phone] Encounter Details Date Type Department Care Team (Late Contact Info) Description 08/17/2018 [facility] [address] [address] Christine Poon RN Social History [...] Upcoming Encounters Date Type Department Care Team ([facility] Contact Info) Description 02/19/2024 10:40 AM CDT Allied Health/Nurse Visit [facility] [address] [place] [phone] Jonathan Pitts MD [address] [place] [address] [phone] [facility] 02/29/2024 8:00 AM CDT Oncology Visit [facility] [address] [phone] Jonathan Pitts MD [address] [place] [address] documented as of this encounter Visit Diagnoses Not on filedocumented in this encounter Care Teams Head Turbine Operator Relationship Specialty Start Date End Date No Ref-Primary, Physician PCP - General 07/29/17 03/16/22 Shanti Lara [facility] [address] [place] [address] PCP - General Nurse Practitioner - Family 03/17/22 [facility] [id number] [place] [address] Referring Physician milk and cream grader 07/29/17 Jonathan Pitts MD [address] [place] [address] 309[address] Oncology 07/29/17 Jonathan Pitts MD [address] [place] [address] Assigned Cancer Care Provider 05/18/20 05/15/23 Christine Poon RN Specialty Boiler Engineer Hematology & Oncology 12/02/21 documented as of this encounter
== END 2024-02-08 10:42 | disposition home or self-care (01) ==
LOC: AMB 02-12 23:16
PROVIDERS: PCP Nurse Practitioner Family; Visit Provider Family Medicine
DX: R19.00 Intra-abdominal and pelvic swelling, mass and lump, unspecified site (principal)
CPT/HCPCS: A0425; A0427

== ENCOUNTER 2025-03-22 18:25 | Outpatient (CLI) | payer BC, SELFPAY ==
--- NOTE | 2025-03-22 19:00 | MR_ITS ---
[address] [address] Phone:?[phone] Fax:?[phone] Referring Physician Information: Eduar Venegas M.D. [address] [facility] [address] Phone:?[phone] Fax:?[phone] Patient:Nato Harkins D.O.B:?1985 Sex:?Female Phone:?[phone] [facility] MRN:?[id number] Exam Date:?03/22/2025 EXAM: MRI of the LEFT KNEE without contrast CLINICAL: Left knee pain. Evaluate for meniscal tear. COMPARISONS: X-rays 03/15/2025. TECHNICAL: Multiplanar multisequence MRI of the left knee was obtained. SEDATION: None. CONTRAST: None. FINDINGS: Ligaments: ACL: Intact and unremarkable. PCL: Intact and unremarkable. MCL: Intact and unremarkable. LCL: Intact and unremarkable. Posterolateral corner: The popliteus tendon, distal biceps femoris tendon, distal iliotibial band, and the popliteofibular ligament appear intact. Posteromedial corner: Semimembranosus, pes anserine tendons and posterior oblique ligament appear intact. Extensor mechanism: Patellar tendon: Mild tendinosis of the distal patellar tendon. No patellar tendon tear. Quadriceps tendon: Intact, without tendinopathy. Retinacula: Medial and lateral retinacula are intact. Fat pads: Unremarkable infrapatellar Hoffa's, quadriceps and prefemoral fat pads. Patellofemoral joint: Patella: There is heterogeneity of the patellar cartilage with deep chondral fissuring and delamination involving the medial patellar facet extending into the patellar median ridge. Trochlea: No significant chondromalacia. Medial compartment: Medial meniscus: No evidence of discrete meniscal tear or meniscal displacement. Medial cartilage: No significant chondromalacia. Lateral compartment: Lateral meniscus: No evidence of discrete meniscal tear or meniscal displacement. Lateral cartilage: No significant chondromalacia. Knee joint: Effusion: Small left knee effusion. Intra-articular bodies:?No convincing bodies identified. Popliteal cyst: None. Bones: No suspicious bone marrow signal alteration or fracture line. IMPRESSION: 1. Patellar chondromalacia as above. 2. Mild tendinosis of the distal patellar tendon. 3. Small joint effusion. 4. No evidence of meniscal tear, ligamentous injury or fracture. JCZ Electronically signed on 03/23/2025 8:34:00 AM by Massimo Dunham D.O.
== END 2025-03-22 18:26 | disposition home or self-care (01) ==
LOC: MRI 18:26
PROVIDERS: PCP Nurse Practitioner Family; Visit Provider Orthopaedic Surgery
DX: M25.562 Pain in left knee (principal); M22.42 Chondromalacia patellae, left knee; M25.462 Effusion, left knee
CPT/HCPCS: 73721